=== PATIENT | female | born 1945 | race Caucasian/White ===

== ENCOUNTER → 2017-02-12 | Outpatient (CLI) | payer MEDICARE ==
--- NOTE | 2017-02-16 07:06 | MM ---
Reason for exam: screening (asymptomatic). Last mammogram was performed 5 years and 7 months ago. History: Patient is postmenopausal and is nulliparous. Family history of breast cancer in maternal cousin. Core biopsy of the left breast, 2009. Physical Findings: A clinical breast exam by your physician is recommended on an annual basis and results should be correlated with mammographic findings. MG 3D Screening Mammo W/Cad Bilateral CC and MLO view(s) were taken. Prior study comparison: July 23, 2011, CAD bilateral diagnostic mammogram. The breast tissue is almost entirely fat. Finding: There are grouped calcifications in the left breast, near prior biopsy site. Increase in number of calcifications since July 23, 2011. ASSESSMENT: Incomplete: need additional imaging evaluation, BI-RAD 0 RECOMMENDATION: Special view mammogram of the left breast. If lesion persists on supplemental views, image directed ultrasound is recommended. [facility] will attempt to contact patient to return for supplemental views and ultrasound if indicated.
== END | disposition home or self-care (01) ==
LOC: RADMAMWWP 13:41
PROVIDERS: ATTEND Family Medicine
DX: Z12.31 Encounter for screening mammogram for malignant neoplasm of breast (principal); R92.8 Other abnormal and inconclusive findings on diagnostic imaging of breast
CPT/HCPCS: 77063; G0202

== ENCOUNTER → 2017-02-23 | Outpatient (CLI) | payer MEDICARE ==
--- NOTE | 2017-02-24 07:32 | MM ---
Reason for exam: additional evaluation requested from abnormal screening. Last mammogram was performed less than 1 month ago. History: Patient is postmenopausal and is nulliparous. Family history of breast cancer in maternal cousin at age 65. Core biopsy of the left breast, 2009. Taking progesterone for 1 year. Physical Findings: Nurse did not find any significant physical abnormalities on exam. MG Work Up Mamm w CAD LT CC with magnification, ML with magnification, and ML view(s) were taken of the left breast. Prior study comparison: February 12, 2017, bilateral MG 3d screening mammo w/cad. July 23, 2011, CAD bilateral diagnostic mammogram. Finding: There are amorphous, grouped/clustered calcifications in the lower inner quadrant, anterior middle position of the left breast. Increase in number of calcifications since February 12, 2017 and July 23, 2011. These results were verbally communicated with the patient and result sheet given to the patient on 02/23/17. ASSESSMENT: Suspicious, BI-RAD 4 RECOMMENDATION: Stereotactic core biopsy of the left breast. (if possible) Called Dr. Cannon with mammographic findings and has scheduled an appointment for the patient for 04/22/17 at 3:[address] Voss. PRELIMINARY REPORT CALLED AND FAXED TO DR. VOSS ON 05/27/17 AT 300/TP.
== END | disposition home or self-care (01) ==
LOC: RADMAMWWP 13:27
PROVIDERS: ATTEND Family Medicine
DX: R92.8 Other abnormal and inconclusive findings on diagnostic imaging of breast (principal)

== ENCOUNTER → 2017-02-24 | Outpatient (CLI) | payer MEDICARE ==
--- NOTE | 2017-02-24 17:15 | US ---
EXAMINATION TYPE: US pelvis complete transvag DATE OF EXAM: 02/24/2017 COMPARISON: CT CLINICAL HISTORY: N95.0 POST MENOPAUSAL BLEEDING. Pt states bleeding x 2 weeks, pt states history of multiple D&C's, most recent one in 2016 TECHNIQUE: Transvaginal (TV) and Transabdominal (TA) Date of LMP: Age 60-61 EXAM MEASUREMENTS: Uterus: 7.8 x 3.9 x 3.8 cm Endometrial Stripe: 1.2 cm Difficult exam due to pt morbid obesity 1. Uterus: Anteverted Heterogeneous 2. Endometrium: Thickened, heterogeneous 3. Right Ovary: Obscured by overlying bowel gas 4. Left Ovary: Obscured by overlying bowel gas 5. Bilateral Adnexa: wnl 6. Posterior cul-de-sac: wnl Uterus is mildly heterogenous. This may reflect adenomyosis. Endometrial stripe measures 1.2 cm. Neit her ovary was visualized. No free fluid was seen. IMPRESSION: TECHNICALLY DIFFICULT EXAMINATION DEMONSTRATING HETEROGENEITY TO THE UTERUS WHICH MAY REFLECT ADENOMY OSIS.
== END | disposition home or self-care (01) ==
LOC: RADUSWWP 13:08
PROVIDERS: ATTEND Obstetrics & Gynecology
DX: N95.0 Postmenopausal bleeding (principal)
CPT/HCPCS: 76830; 76856

== ENCOUNTER → 2018-03-17 | Outpatient (CLI) | payer MEDICARE ==
--- NOTE | 2018-03-17 15:06 | MM ---
Reason for exam: additional evaluation requested from prior study. Last mammogram was performed 1 year and 1 month ago. History: Patient is postmenopausal and is nulliparous. Family history of breast cancer in maternal cousin at age 65. Benign core biopsy of the left breast, 2016. Core biopsy of the left breast, 2009. Taking progesterone for 1 year. Physical Findings: Nurse did not find any significant physical abnormalities on exam. MG 3D Diag Mammo W/Cad BJORN Bilateral CC and MLO view(s) were taken. Prior study comparison: February 23, 2017, left breast MG work up mamm w CAD LT. February 12, 2017, bilateral MG 3d screening mammo w/cad. There are scattered fibroglandular densities. Previous mammotome biopsy in the left breast x 2. No significant new findings when compared with previous films. These results were verbally communicated with the patient and result sheet given to the patient on 03/17/18. ASSESSMENT: Negative, BI-RAD 1 RECOMMENDATION: Routine screening mammogram of both breasts in 1 year.
--- NOTE | 2018-03-17 16:31 | BD ---
EXAMINATION TYPE: Axial Bone Density DATE OF EXAM: 03/17/2018 COMPARISON: NONE CLINICAL HISTORY: 73-year-old female postmenopausal screening Height: Weight: FRAX RISK QUESTIONS: Alcohol (3 or more units per day): no Family History (Parent hip fracture): no Glucocorticoids (More than 3mos): no (Ex: prednisone, prednisolone, methylprednisolone, dexamethasone, and hydrocortisone). History of Fracture in Adulthood: no Secondary Osteoporosis: 1. Type 1 Diabetes: no 2. Hyperthyroidism: no 3. Menopause before 45: no 4. Malnutrition: no 5. Chronic liver disease: no Rheumatoid Arthritis: no Current Tobacco Use: no RISK FACTORS HISTORY OF: Family History of Osteoporosis: no Active: no Diet low in dairy products/other sources of calcium: no Postmenopausal woman: age 53 Take estrogen and/or progesterone medications: provera How lon years Lost more than 2 inches in height since high school: yes MEDICATIONS: list scanned into pacs Additional History: EXAM MEASUREMENTS: Bone mineral densitometry was performed using the [employer] System. Bone mineral density as measured about the Lumbar spine is: ----- L1-L4(G/cm2): 1.648 T Score Values are as follows: ----- L2: 3.8 ----- L3: 3.3 ----- L4: 4.1 ----- L1-L4: 3.9 Bone mineral density : baseline Bone mineral density about the R hip (g/cm2): 1.006 Bone mineral density about the L hip (g/cm2): 0.944 T Score values are as follows: -----R Neck: -0.2 -----L Neck: -0.7 -----R Total: 1.0 -----L Total: 0.1 Bone mineral density : baseline IMPRESSION: Normal (Values between +1 and -1 indicate normal bone mass). Consider repeating this study in 5 year s or sooner if there is some new clinical indication. NOTE: T-SCORE=SD OF THE YOUNG ADULT MEAN.
== END | disposition home or self-care (01) ==
LOC: RADBDWWP 12:46
PROVIDERS: ATTEND Family Medicine
DX: R92.8 Other abnormal and inconclusive findings on diagnostic imaging of breast (principal); Z78.0 Asymptomatic menopausal state
CPT/HCPCS: 77080; 77066; G0279; 77062

== ENCOUNTER → 2020-07-04 | Outpatient (CLI) | payer MEDICARE ==
--- NOTE | 2020-07-04 14:23 | BD ---
EXAMINATION TYPE: Axial Bone Density DATE OF EXAM: 07/04/2020 COMPARISON: NONE CLINICAL HISTORY: Height: 67 Weight: 298.1 FRAX RISK QUESTIONS: Alcohol (3 or more units per day): no Family History (Parent hip fracture): no Glucocorticoids (More than 3mos): no (Ex: prednisone, prednisolone, methylprednisolone, dexamethasone, and hydrocortisone). History of Fracture in Adulthood: no Secondary Osteoporosis: 1. Type 1 Diabetes: no 2. Hyperthyroidism: no 3. Menopause before 45: no 4. Malnutrition: no 5. Chronic liver disease: no Rheumatoid Arthritis: no Current Tobacco Use: no RISK FACTORS HISTORY OF: Family History of Osteoporosis: no Active: no Diet low in dairy products/other sources of calcium: no Postmenopausal woman: around age 61 Take estrogen and/or progesterone medications: yes How lon years Lost more than 2 inches in height since high school: yes MEDICATIONS: diabetic meds, provera, losartan, eliquis, montelukast, furosemide Additional History: EXAM MEASUREMENTS: Bone mineral densitometry was performed using the [employer] System. Bone mineral density as measured about the Lumbar spine is: ----- L1-L4(G/cm2): 1.677 T Score Values are as follows: ----- L2: 3.7 ----- L3: 4.0 ----- L4: 5.5 ----- L1-L4: 4.1 Bone mineral density has: increased 5.3 % since study of: 03.17.2018 Bone mineral density about the R hip (g/cm2): 1.103 Bone mineral density about the L hip (g/cm2): 1.164 T Score values are as follows: -----R Neck: 0.5 -----L Neck: 0.9 -----R Total: 1.4 -----L Total: 1.7 Bone mineral density has: increased 12.1 % since study of: 03.17.2018 IMPRESSION: Normal (Values between +1 and -1 indicate normal bone mass). Consider repeating this study in 5 year s or sooner if there is some new clinical indication. NOTE: T-SCORE=SD OF THE YOUNG ADULT MEAN.
== END | disposition home or self-care (01) ==
LOC: RADBDWWP 13:21
PROVIDERS: ATTEND Family Medicine
DX: Z78.0 Asymptomatic menopausal state (principal)
CPT/HCPCS: 77080

== ENCOUNTER 2020-07-23 03:22 | Inpatient (IN) | payer MEDICARE ==
[2020-07-23] MEDS ORDERED: ACETAMINOPHEN TAB 325 MG TAB PO STA (03:24)
--- NOTE | 2020-07-23 03:27 | ED ---
SOB HPI - General Stated Complaint: ELLIS Time Seen by Provider: 07/23/20 03:24 - History of Present Illness Initial Comments: Moses this 75-year-old female with a history of asthma and diabetes who presents to the ER today via ambulance for evaluation of fever and dyspnea. she reports she has been feeling good for a couple of days, she's had a nonproductive cough. She denies any chest pain or palpitations. Staff at her facility report they have had no positive COVID cases as of yet. - Related Data Home Medications Medication Instructions Recorded Confirmed Fish Oil/Dha/Epa [Fish Oil 1,200 1 cap PO BID 03/25/16 06/28/16 mg Fish Oil] Glucosamine-Chondr 500-400Mg 1 tab PO BID 03/25/16 06/28/16 metFORMIN HCL [Glucophage Xr] 1,000 mg PO PC-BRKFST 03/25/16 06/28/16 Albuterol Inhaler (Mhu) [Ventolin 2 puff INHALATION RT-Q6H PRN 06/28/16 06/28/16 Hfa Inhaler (Mhu)] Desoximetasone [Topicort .05%] 1 applic TOPICAL DAILY PRN 06/28/16 06/28/16 Insulin Aspart [NovoLOG Flexpen] 20 - 30 units SQ AC-TID 06/28/16 06/28/16 Insulin Glargine,Hum.rec.anlog 45 - 65 unit SQ HS 06/28/16 06/28/16 [Lantus Solostar] Megestrol [Megace] 40 mg PO BID 06/28/16 06/28/16 Triamcinolone 0.025% Cream 1 applic TOPICAL DAILY 06/28/16 06/28/16 [Kenalog 0.025% Cream] Previous Rx's Medication Instructions Recorded ALPRAZolam [Xanax] 0.25 mg PO BID PRN #0 tab 07/14/16 Acetaminophen Tab [Tylenol] 650 mg PO Q4H PRN #0 tab 07/14/16 Clobetasol Propionate [Temovate 1 applic TOPICAL BID applic 07/14/16 0.05% Oint] Clopidogrel [Plavix] 75 mg PO DAILY tab 07/14/16 Ezetimibe [Zetia] 10 mg PO DAILY tab 07/14/16 Furosemide [Lasix] 40 mg PO BID #30 tablet 07/14/16 HYDROcodone/APAP 5-325MG [Celeste 1 each PO Q4HR PRN #0 tab 07/14/16 5-325] Losartan [Cozaar] 25 mg PO DAILY #30 tab 07/14/16 Metoprolol Tartrate [Lopressor] 25 mg PO BID tab 07/14/16 Montelukast [Singulair] 10 mg PO HS tab 07/14/16 Potassium Chloride [Klor-Con 20] 20 meq PO DAILY #30 tab 07/14/16 Allergies Allergy/AdvReac Type Severity Reaction Status Date / Time Penicillins AdvReac Rash/Hives Verified 07/23/20 03:23 Rofvtxb-Yhj-Ydw Reductase AdvReac EXTREME Verified 07/23/20 03:23 Inhibitor MUSCLE PAIN AND WEAKNESS Review of Systems ROS Statement: Those systems with pertinent positive or pertinent negative responses have been documented in the HPI. ROS Other: All systems not noted in ROS Statement are negative. Past Medical History Past Medical History: Asthma, Diabetes Mellitus, Hypertension, Osteoarthritis (OA), Skin Disorder, Sleep Apnea/CPAP/BIPAP, Vascular Disorder Additional Past Medical History / Comment(s): Bronchial asthma, coronary stent 3, morbid obesity, obstructive sleep apnea, diabetes mellitus type 2, eczema, peripheral vascular disease, obstructive sleep apnea on CPAP, diverticulosis/diverticulitis and previous left wound in the foot with infection with MRSA and the patient has a partial amputation of the left foot History of Any Multi-Drug Resistant Organisms: MRSA Date of last positivie culture/infection: 2010 MDRO Source:: LT FOOT WOUND Past Surgical History: Appendectomy, Heart Catheterization With Stent, Tonsillectomy Additional Past Surgical History / Comment(s): PARTIAL AMPUTATION LT FOOT with previous amputation of the left great toe,. D & C, cataract surgery, breast biopsy Past Anesthesia/Blood Transfusion Reactions: Motion Sickness, Postoperative Nausea & Vomiting (PONV) Date of Last Stent Placement:: 2007 Past Psychological History: Depression Additional Psychological History / Comment(s): SEE THERAPIST WHEN NEEDED-NOT ON ANY MEDS Past Alcohol Use History: Occasional Additional Past Alcohol Use History / Comment(s): SMOKED IN EARLY 20'S-STOPPED in twenties. Patient is currently residing at [facility] and is wheelchair-bound. She needs assistance with showering. There are no pets in the home. 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 Past Drug Use History: None Reported - Past Family History Mother Family Medical History: Cancer, CVA/TIA Additional Family Medical History / Comment(s): HAD MULTIPLE PROBLEMS- OF CVA Sister(s) Family Medical History: Cancer Additional Family Medical History / Comment(s): Uterine Cancer General Exam - General Exam Comments Initial Comments: Physical Exam GENERAL: Elderly, mobidly obese female HENT: Normocephalic, Atraumatic. EYES: PERRL, EOMI Conjunctival pallor PULMONARY: Tachypnea with increased work of breathing CARDIOVASCULAR: RRR ABDOMEN: Obese, soft SKIN: Skin is pale : Deferred NEUROLOGIC: Patient is alert and oriented x3. Moving all extremities spontaneously MUSCULOSKELETAL: Left foot amputation PSYCHIATRIC: Appropriately anxious Course Vital Signs 07/23/20 07/23/20 07/23/20 03:23 03:27 03:34 Temperature 100.8 F H Pulse Rate 91 Respiratory 40 H 51 H Rate Blood Pressure 165/70 O2 Sat by Pulse 98 Oximetry 07/23/20 07/23/20 07/23/20 03:40 03:53 04:05 Temperature 99.5 F 100.8 F H 99.8 F H Pulse Rate 86 84 85 Respiratory 35 H 38 H 18 Rate Blood Pressure 153/63 153/63 129/51 O2 Sat by Pulse 98 98 99 Oximetry 07/23/20 07/23/20 04:26 04:56 Temperature 99 F Pulse Rate 80 77 Respiratory 18 28 H Rate Blood Pressure 129/51 142/61 O2 Sat by Pulse 94 L 91 L Oximetry Medical Decision Making - Medical Decision Making patient was seen and evaluated history is obtained from EMS as the patient was in moderate respiratory distress on arrival A full COVID and septic workup was initiated she has had no known context to COVID however history and physical exam are quite concerning Labs are consistent with COVID She was swabbed she is influenza negative, rapid COVID was indeterminate and was repeated however given her clinical setting I do suspect the patient has COVID Patient also noted to be anemic, uncertain etiology but appears chronic as it is hypochromic microcytic anemia, last CBC for comparison was 2015 Given the patient's oxygenation was in the 70s upon EMS arrival and she is requiring oxygen supplementation I do not feel she states for discharge back to her care facility. Patient will be admitted here for hypoxic respiratory failure likely related to COVID. She'll be treated with steroids pulmonology will be consult at to determine patient is now a candidate for Remdesivir. - Lab Data Result diagrams: 07/23/20 03:35 07/23/20 03:35 Lab Results 07/23/20 07/23/20 07/23/20 Range/Units 03:33 03:35 03:35 WBC 12.7 H (3.8-10.6) k/uL RBC 3.56 L (3.80-5.40) m/uL Hgb 7.1 L (11.4-16.0) gm/dL Hct 24.9 L (34.0-46.0) % MCV 69.9 L (80.0-100.0) fL MCH 20.0 L (25.0-35.0) pg MCHC 28.6 L (31.0-37.0) g/dL RDW 18.5 H (11.5-15.5) % Plt Count 269 (150-450) k/uL MPV 9.3 Neutrophils % 84 % Lymphocytes % 9 % Monocytes % 5 % Eosinophils % 0 % Basophils % 0 % Neutrophils # 10.7 H (1.3-7.7) k/uL Lymphocytes # 1.1 (1.0-4.8) k/uL Monocytes # 0.6 (0-1.0) k/uL Eosinophils # 0.0 (0-0.7) k/uL Basophils # 0.1 (0-0.2) k/uL Hypochromasia Marked Poikilocytosis Slight Anisocytosis Slight Microcytosis Marked PT 11.7 (9.0-12.0) sec INR 1.2 H (<1.2) APTT 23.7 (22.0-30.0) sec D-Dimer 1.65 H (<0.60) mg/L FEU VBG pH (7.31-7.41) VBG pCO2 (37-51) mmHg VBG HCO3 (24-28) mmol/L Sodium (137-145) mmol/L Potassium (3.5-5.1) mmol/L Chloride (98-107) mmol/L Carbon Dioxide (22-30) mmol/L Anion Gap mmol/L BUN (7-17) mg/dL Creatinine (0.52-1.04) mg/dL Est GFR (CKD-EPI)AfAm (>60 ml/min/1.73 sqM) Est GFR (CKD-EPI)NonAf (>60 ml/min/1.73 sqM) Glucose (74-99) mg/dL POC Glucose (mg/dL) 245 H (75-99) mg/dL POC Glu Scanner Operator ID Pinto, Pam Plasma Lactic Acid Clarence (0.7-2.0) mmol/L Calcium (8.4-10.2) mg/dL Magnesium (1.6-2.3) mg/dL Total Bilirubin (0.2-1.3) mg/dL AST (14-36) U/L ALT (4-34) U/L Alkaline Phosphatase (38-126) U/L Lactate Dehydrogenase (313-618) U/L C-Reactive Protein (<10.0) mg/L Total Protein (6.3-8.2) g/dL Albumin (3.5-5.0) g/dL Urine Color Urine Appearance (Clear) Urine pH (5.0-8.0) Ur Specific [place] (1.001-1.035) Urine Protein (Negative) Urine Glucose (UA) (Negative) Urine Ketones (Negative) Urine Blood (Negative) Urine Nitrite (Negative) Urine Bilirubin (Negative) Urine Urobilinogen (<2.0) mg/dL Ur Leukocyte Esterase (Negative) Urine RBC (0-5) /hpf Urine WBC (0-5) /hpf Ur Squamous Epith Cells (0-4) /hpf Urine Bacteria (None) /hpf Influenza Type A RNA (Not Detectd) Influenza Type B (PCR) (Not Detectd) 07/23/20 07/23/20 07/23/20 Range/Units 03:35 03:35 03:35 WBC (3.8-10.6) k/uL RBC (3.80-5.40) m/uL Hgb (11.4-16.0) gm/dL Hct (34.0-46.0) % MCV (80.0-100.0) fL MCH (25.0-35.0) pg MCHC (31.0-37.0) g/dL RDW (11.5-15.5) % Plt Count (150-450) k/uL MPV Neutrophils % % Lymphocytes % % Monocytes % % Eosinophils % % Basophils % % Neutrophils # (1.3-7.7) k/uL Lymphocytes # (1.0-4.8) k/uL Monocytes # (0-1.0) k/uL Eosinophils # (0-0.7) k/uL Basophils # (0-0.2) k/uL Hypochromasia Poikilocytosis Anisocytosis Microcytosis PT (9.0-12.0) sec INR (<1.2) APTT (22.0-30.0) sec D-Dimer (<0.60) mg/L FEU VBG pH 7.27 L (7.31-7.41) VBG pCO2 46 (37-51) mmHg VBG HCO3 20 L (24-28) mmol/L Sodium 134 L (137-145) mmol/L Potassium 4.9 (3.5-5.1) mmol/L Chloride 105 (98-107) mmol/L Carbon Dioxide 20 L (22-30) mmol/L Anion Gap 9 mmol/L BUN 17 (7-17) mg/dL Creatinine 1.08 H (0.52-1.04) mg/dL Est GFR (CKD-EPI)AfAm 59 (>60 ml/min/1.73 sqM) Est GFR (CKD-EPI)NonAf 51 (>60 ml/min/1.73 sqM) Glucose 224 H (74-99) mg/dL POC Glucose (mg/dL) (75-99) mg/dL POC Glu Scanner Operator ID Plasma Lactic Acid Clarence 3.9 H* (0.7-2.0) mmol/L Calcium 8.8 (8.4-10.2) mg/dL Magnesium 1.8 (1.6-2.3) mg/dL Total Bilirubin 0.7 (0.2-1.3) mg/dL AST 33 (14-36) U/L ALT 16 (4-34) U/L Alkaline Phosphatase 72 (38-126) U/L Lactate Dehydrogenase 595 (313-618) U/L C-Reactive Protein 47.6 H (<10.0) mg/L Total Protein 6.8 (6.3-8.2) g/dL Albumin 3.7 (3.5-5.0) g/dL Urine Color Urine Appearance (Clear) Urine pH (5.0-8.0) Ur Specific [place] (1.001-1.035) Urine Protein (Negative) Urine Glucose (UA) (Negative) Urine Ketones (Negative) Urine Blood (Negative) Urine Nitrite (Negative) Urine Bilirubin (Negative) Urine Urobilinogen (<2.0) mg/dL Ur Leukocyte Esterase (Negative) Urine RBC (0-5) /hpf Urine WBC (0-5) /hpf Ur Squamous Epith Cells (0-4) /hpf Urine Bacteria (None) /hpf Influenza Type A RNA (Not Detectd) Influenza Type B (PCR) (Not Detectd) 07/23/20 07/23/20 Range/Units 03:44 03:44 WBC (3.8-10.6) k/uL RBC (3.80-5.40) m/uL Hgb (11.4-16.0) gm/dL Hct (34.0-46.0) % MCV (80.0-100.0) fL MCH (25.0-35.0) pg MCHC (31.0-37.0) g/dL RDW (11.5-15.5) % Plt Count (150-450) k/uL MPV Neutrophils % % Lymphocytes % % Monocytes % % Eosinophils % % Basophils % % Neutrophils # (1.3-7.7) k/uL Lymphocytes # (1.0-4.8) k/uL Monocytes # (0-1.0) k/uL Eosinophils # (0-0.7) k/uL Basophils # (0-0.2) k/uL Hypochromasia Poikilocytosis Anisocytosis Microcytosis PT (9.0-12.0) sec INR (<1.2) APTT (22.0-30.0) sec D-Dimer (<0.60) mg/L FEU VBG pH (7.31-7.41) VBG pCO2 (37-51) mmHg VBG HCO3 (24-28) mmol/L Sodium (137-145) mmol/L Potassium (3.5-5.1) mmol/L Chloride (98-107) mmol/L Carbon Dioxide (22-30) mmol/L Anion Gap mmol/L BUN (7-17) mg/dL Creatinine (0.52-1.04) mg/dL Est GFR (CKD-EPI)AfAm (>60 ml/min/1.73 sqM) Est GFR (CKD-EPI)NonAf (>60 ml/min/1.73 sqM) Glucose (74-99) mg/dL POC Glucose (mg/dL) (75-99) mg/dL POC Glu Scanner Operator ID Plasma Lactic Acid Clarence (0.7-2.0) mmol/L Calcium (8.4-10.2) mg/dL Magnesium (1.6-2.3) mg/dL Total Bilirubin (0.2-1.3) mg/dL AST (14-36) U/L ALT (4-34) U/L Alkaline Phosphatase (38-126) U/L Lactate Dehydrogenase (313-618) U/L C-Reactive Protein (<10.0) mg/L Total Protein (6.3-8.2) g/dL Albumin (3.5-5.0) g/dL Urine Color Yellow Urine Appearance Clear (Clear) Urine pH 6.0 (5.0-8.0) Ur Specific [place] 1.016 (1.001-1.035) Urine Protein 2+ H (Negative) Urine Glucose (UA) Negative (Negative) Urine Ketones Negative (Negative) Urine Blood Moderate H (Negative) Urine Nitrite Negative (Negative) Urine Bilirubin Negative (Negative) Urine Urobilinogen <2.0 (<2.0) mg/dL Ur Leukocyte Esterase Negative (Negative) Urine RBC >182 H (0-5) /hpf Urine WBC 2 (0-5) /hpf Ur Squamous Epith Cells <1 (0-4) /hpf Urine Bacteria Occasional H (None) /hpf Influenza Type A RNA Not Detected (Not Detectd) Influenza Type B (PCR) Not Detected (Not Detectd) Disposition Clinical Impression: Microcytic hypochromic anemia, COVID-19 determined by clinical diagnostic criteria, Pneumonia, Acute respiratory failure, Asthma, Morbid obesity, PVD (peripheral vascular disease), Complete amputation of left foot, Diabetes, CHF (congestive heart failure) Disposition: ADMITTED IP TO THIS [facility] Condition: Serious
[2020-07-23 03:35] LABS: Glucose,Whole Blood 245 mg/dL (75-99)
[2020-07-23] MEDS ORDERED: ONDANSETRON 4 MG/2 ML VIAL IVP STA (03:39)
[2020-07-23] MEDS: SODIUM CHLORIDE 0.9% 1,000 ML IV SCH ×3 (03:40→21:59)
[2020-07-23 04:11] LABS: Appearance,Urine Clear (Clear); Bacteria,Urine Occasional /hpf; Bilirubin,Urine Negative (Negative); Blood,Urine Moderate (Negative); Color,Urine Yellow; Glucose,Urine (UA) Negative (Negative); Ketones,Urine Negative (Negative); Leukocyte Esterase,Urine Negative (Negative); Nitrite,Urine Negative (Negative); Protein,Urine 2+ (Negative); RBC,Urine >182 /hpf (0-5); Specific Gravity,Urine 1.016 (1.001-1.035); Squamous Epithelial Cell,Urine <1 /hpf (0-4); Urobilinogen,Urine <2.0 mg/dL (<2.0); WBC,Urine 2 /hpf (0-5)
[2020-07-23 04:12] LABS: VBG PH 7.27 (7.31-7.41)
[2020-07-23 04:17] LABS: INR 1.2 (<1.2); Partial Thromboplastin Time 23.7 sec (22.0-30.0); Prothrombin Time 11.7 sec (9.0-12.0)
[2020-07-23 04:18] LABS: Albumin 3.7 g/dL (3.5-5.0); C Reactive Protein 47.6 mg/L (<10.0); Calcium 8.8 mg/dL (8.4-10.2); Magnesium 1.8 mg/dL (1.6-2.3); Potassium 4.9 mmol/L (3.5-5.1); Total Bilirubin 0.7 mg/dL (0.2-1.3); Total Protein 6.8 g/dL (6.3-8.2)
--- NOTE | 2020-07-23 04:18 | XR ---
EXAM: XR Chest, 1 View CLINICAL HISTORY: ITS.REASON XR Reason: Suspected COVID-19 pneumonia TECHNIQUE: Frontal view of the chest. COMPARISON: 07/14/2016 FINDINGS: Lungs: Diminished lung volumes are less prominent from the previous examination. There are subsegmental perihilar and bibasilar opacities with new patchy opacity in the peripheral aspect of the right lower lung zone. Pulmonary vascular prominence suggested diffusely. Pleural space: Unremarkable. No pneumothorax. No large pleural effusion. Heart: The cardiac silhouette is upper limits of normal in caliber, stable in appearance and presumed accentuated by portable technique. Mediastinum: The mediastinal contours are stable with intact mediastinal clips. No tracheal deviation. Bones/joints: Intact sternotomy wires. IMPRESSION: Diminished lung volumes are less prominent from the previous examination. There are subsegmental perihilar and bibasilar opacities with new patchy opacity in the peripheral aspect of the right lower lung zone. Pulmonary vascular prominence suggested diffusely. Differential consideration includes bibasilar atelectasis or consolidation. No large pleural effusion or pneumothorax.
[2020-07-23 04:23] LABS: D-Dimer 1.65 mg/L FEU (<0.60)
[2020-07-23 04:26] LABS: Anisocytosis Slight; Basophils # (A) 0.1 k/uL (0-0.2); Basophils % (A) 0 %; Eosinophils % (A) 0 %; HCT 24.9 % (34.0-46.0); HGB 7.1 gm/dL (11.4-16.0); Hypochromasia Marked; Lymphocytes # (A) 1.1 k/uL (1.0-4.8); Lymphocytes % (A) 9 %; MCHC 28.6 g/dL (31.0-37.0); MCV 69.9 fL (80.0-100.0); Mean Platelet Volume 9.3; Microcytosis Marked; Monocytes # (A) 0.6 k/uL (0-1.0); Monocytes % (A) 5 %; Neutrophils # (A) 10.7 k/uL (1.3-7.7); Neutrophils % (A) 84 %; Platelet Count 269 k/uL (150-450); Poikilocytosis Slight; RBC 3.56 m/uL (3.80-5.40); RDW 18.5 % (11.5-15.5); WBC 12.7 k/uL (3.8-10.6)
[2020-07-23] MEDS ORDERED: PNEUMONIA PROTOCOL UTILIZED 1 EACH MISC PO PRN (04:26)
[2020-07-23] MEDS ORDERED: AZITHROMYCIN 500 MG in SODIUM CHLORIDE 0.9% 250 ML IVPB ONE (04:30)
[2020-07-23] MEDS: DEXAMETHASONE SOD PHOSPHATE 10 MG/ML 1 ML VIAL IV SCH (09:04)
[2020-07-23] MEDS: ZINC SULFATE 220 MG CAP PO SCH (09:05)
[2020-07-23] MEDS: ASCORBIC ACID 500 MG TAB PO SCH ×2 (09:05→14:09)
[2020-07-23 09:49] LABS: Ferritin 9.3 ng/mL (10.0-291.0)
[2020-07-23] MEDS ORDERED: FUROSEMIDE 20 MG TAB PO SCH (10:45)
[2020-07-23] MEDS ORDERED: INSULIN DETEMIR (LEVEMIR) 100 UNIT/ML SYR SQ SCH (10:45)
[2020-07-23 12:01] LABS: Glucose,Whole Blood 264 mg/dL (75-99)
[2020-07-23] MEDS: metFORMIN 500 MG TAB PO SCH ×2 (14:09→21:52)
[2020-07-23] MEDS: METOPROLOL TARTRATE 25 MG TAB PO SCH ×2 (14:09→21:52)
[2020-07-23] MEDS: APIXABAN 5 MG TAB PO SCH ×2 (14:09→21:52)
[2020-07-23] MEDS: INSULIN ASPART (NovoLOG) 100 UNIT/ML VIAL SQ SCH ×5 (14:10→21:53)
--- NOTE | 2020-07-23 15:22 | P.CNPUL ---
History of Present Illness Consult date: 07/23/20 Reason for consult: dyspnea Chief complaint: Fever, dyspnea, dizziness, fall History of present illness: 75-year-old white female patient with past medical history of chronic bronchial asthma, known history of obstructive sleep apnea on CPAP therapy, peripheral vascular disease, diabetes mellitus type 2, hypertension, osteoarthritis, coronary artery disease with previous stenting, morbid obesity, previous MRSA infection in the left foot, and she follows with Dr. Ramirez in the pulmonary clinic for her history of obstructive sleep apnea. Patient presented to the hospital 07/23/2020 with complaints of fever, dyspnea and started last night. Patient had a cough, sinus drainage, dizziness, she was having trouble sleeping related to shortness of breath, she sustained a fall. She is a resident at the [facility]. She denies any chest pain or palpitations, but when she arrived per EMS her pulse ox was in the 70s on room air. No nausea vomiting and diarrhea, rapid COVID 19 was negative. Influenza negative. Chest x-ray showing diminished lung volumes subsegmental perihilar and basilar opacities with new patchy opacity in the peripheral aspect of the right lower lung zone, pulmonary vascular prominence, differential consideration with bibasilar atelectasis or consolidation. EKG showed normal sinus rhythm with evidence of nonspecific intraventricular block, inferior infarct of undetermined age as well as possible anterolateral infarct of undetermined age. Low-grade fever on admission with a temp of 100.8F, currently afebrile, white blood cell count is 12.7, hemoglobin is 7.1, INR is 1.2, d-dimer is 1.65, sodium is 134, potassium is 4.9, chloride is 105, CO2 is 20, BUN of 17, creatinine is 1.08, lactic acid was 3.9, ferritin level was 9.3, CRP was 47.6, LDH was 595, pro calcitonin was 0.21, urinalysis showed moderate amount of blood, 2+ protein, but no clear evidence of UTI. Patient was started on steroids, for possibility of Covid 19 related pneumonitis, and we were consulted for possibility of Remdesivir infusion Review of Systems All systems: negative Constitutional: Reports weakness, Denies chills, Denies fever Eyes: denies blurred vision, denies pain Ears, nose, mouth and throat: Denies headache, Denies sore throat Cardiovascular: Denies chest pain, Denies shortness of breath Respiratory: Reports dyspnea, Denies cough Gastrointestinal: Denies abdominal pain, Denies diarrhea, Denies nausea, Denies vomiting Genitourinary: Denies dysuria, Denies hematuria Musculoskeletal: Denies myalgias Integumentary: Denies pruritus, Denies rash Neurological: Denies numbness, Denies weakness Psychiatric: Denies anxiety, Denies depression Endocrine: Denies fatigue, Denies weight change Past Medical History Past Medical History: Asthma, Diabetes Mellitus, Hypertension, Osteoarthritis (OA), Skin Disorder, Sleep Apnea/CPAP/BIPAP, Vascular Disorder Additional Past Medical History / Comment(s): Bronchial asthma, coronary stent 3, morbid obesity, obstructive sleep apnea, diabetes mellitus type 2, eczema, peripheral vascular disease, obstructive sleep apnea on CPAP, diverticulosis/diverticulitis and previous left wound in the foot with infection with MRSA and the patient has a partial amputation of the left foot History of Any Multi-Drug Resistant Organisms: MRSA Date of last positivie culture/infection: 2010 MDRO Source:: LT FOOT WOUND Past Surgical History: Appendectomy, Heart Catheterization With Stent, Tonsillectomy Additional Past Surgical History / Comment(s): PARTIAL AMPUTATION LT FOOT with previous amputation of the left great toe,. D & C, cataract surgery, breast biopsy Past Anesthesia/Blood Transfusion Reactions: Motion Sickness, Postoperative Nausea & Vomiting (PONV) Date of Last Stent Placement:: 2007 Past Psychological History: Depression Additional Psychological History / Comment(s): SEE THERAPIST WHEN NEEDED-NOT ON ANY MEDS Past Alcohol Use History: Occasional Additional Past Alcohol Use History / Comment(s): SMOKED IN EARLY 20'S-STOPPED in twenties. Patient is currently residing at [facility] and is wheelchair-bound. She needs assistance with showering. There are no pets in the home. 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 Past Drug Use History: None Reported - Past Family History Mother Family Medical History: Cancer, CVA/TIA Additional Family Medical History / Comment(s): HAD MULTIPLE PROBLEMS- OF CVA Sister(s) Family Medical History: Cancer Additional Family Medical History / Comment(s): Uterine Cancer Medications and Allergies Home Medications Medication Instructions Recorded Confirmed Type Insulin Aspart [NovoLOG Flexpen] 30 units SQ AC-TID 06/28/16 07/23/20 History Insulin Glargine,Hum.rec.anlog 40 unit SQ BID 06/28/16 07/23/20 History [Lantus Solostar] Acetaminophen Tab [Tylenol] 650 mg PO Q4H PRN #0 tab 07/14/16 07/23/20 Rx Losartan [Cozaar] 25 mg PO DAILY #30 tab 07/14/16 07/23/20 Rx Metoprolol Tartrate [Lopressor] 25 mg PO BID tab 07/14/16 07/23/20 Rx Montelukast [Singulair] 10 mg PO HS tab 07/14/16 07/23/20 Rx ALPRAZolam [Xanax] 0.25 mg PO Q6H PRN 07/23/20 07/23/20 History Albuterol Inhaler [Ventolin Hfa 1 puff INHALATION RT-Q4H PRN 07/23/20 07/23/20 History Inhaler] Apixaban [Eliquis] 5 mg PO BID 07/23/20 07/23/20 History Ezetimibe [Zetia] 10 mg PO HS 07/23/20 07/23/20 History Furosemide [Lasix] 60 mg PO DAILY 07/23/20 07/23/20 History amLODIPine [Norvasc] 10 mg PO DAILY 07/23/20 07/23/20 History medroxyPROGESTERone [Provera] 2.5 mg PO DAILY 07/23/20 07/23/20 History metFORMIN HCL [Glucophage] 500 mg PO BID 07/23/20 07/23/20 History Allergies Allergy/AdvReac Type Severity Reaction Status Date / Time Penicillins AdvReac Rash/Hives Verified 07/23/20 09:23 Rdrmegz-Mye-Rtx Reductase AdvReac EXTREME Verified 07/23/20 09:23 Inhibitor MUSCLE PAIN AND WEAKNESS Physical Exam Vitals: Vital Signs Temp Pulse Pulse Resp BP BP Pulse Ox 07/23/20 12:36 97.9 F 76 22 110/65 96 07/23/20 09:06 72 16 132/76 95 07/23/20 07:43 73 16 121/55 85 L 07/23/20 06:24 98.7 F 80 24 106/58 95 07/23/20 04:56 99 F 77 28 H 142/61 91 L 07/23/20 04:26 80 18 129/51 94 L 07/23/20 04:05 99.8 F H 85 18 129/51 99 07/23/20 03:53 100.8 F H 84 38 H 153/63 98 07/23/20 03:40 99.5 F 86 35 H 153/63 98 07/23/20 03:34 51 H 07/23/20 03:27 165/70 07/23/20 03:23 100.8 F H 91 40 H 98 Intake and Output 07/22/20 07/23/20 07/23/20 22:59 06:59 14:59 Other: Weight 144.741 kg 144.741 kg GENERAL EXAM: Alert, very pleasant, obese, 75-year-old white female, 6 L of oxygen, with a pulse ox of 94% comfortable in no apparent distress. HEAD: Normocephalic/atraumatic. EYES: Normal reaction of pupils, equal size. Conjunctiva pink, sclera white. NOSE: Clear with pink turbinates. THROAT: No erythema or exudates. NECK: No masses, no JVD, no thyroid enlargement, no adenopathy. CHEST: No chest wall deformity. Symmetrical expansion. LUNGS: Equal air entry with diffuse bibasilar crackles, no wheeze, rhonchi or dullness. CVS: Regular rate and rhythm, normal S1 and S2, no gallops, no murmurs, no rubs ABDOMEN: Soft, nontender. No hepatosplenomegaly, normal bowel sounds, no guarding or rigidity. EXTREMITIES: No clubbing, no edema, no cyanosis, 2+ pulses and upper and lower extremities. MUSCULOSKELETAL: Muscle strength and tone normal. SPINE: No scoliosis or deformity SKIN: No rashes CENTRAL NERVOUS SYSTEM: Alert and oriented -3. No focal deficits, tone is normal in all 4 extremities. PSYCHIATRIC: Alert and oriented -3. Appropriate affect. Intact judgment and insight. Results - Laboratory Findings CBC and BMP: 07/23/20 03:35 07/23/20 03:35 PT/INR, D-dimer PT 11.7 sec (9.0-12.0) 07/23/20 03:35 INR 1.2 (<1.2) H 07/23/20 03:35 D-Dimer 1.65 mg/L FEU (<0.60) H 07/23/20 03:35 Abnormal lab findings: Abnormal Labs 07/23/20 07/23/20 07/23/20 03:33 03:35 03:35 WBC 12.7 H RBC 3.56 L Hgb 7.1 L Hct 24.9 L MCV 69.9 L MCH 20.0 L MCHC 28.6 L RDW 18.5 H Neutrophils # 10.7 H INR 1.2 H D-Dimer 1.65 H VBG pH VBG HCO3 Sodium Carbon Dioxide Creatinine Glucose POC Glucose (mg/dL) 245 H Plasma Lactic Acid Clarence Ferritin C-Reactive Protein Procalcitonin Urine Protein Urine Blood Urine RBC Urine Bacteria 07/23/20 07/23/20 07/23/20 03:35 03:35 03:35 WBC RBC Hgb Hct MCV MCH MCHC RDW Neutrophils # INR D-Dimer VBG pH VBG HCO3 Sodium 134 L Carbon Dioxide 20 L Creatinine 1.08 H Glucose 224 H POC Glucose (mg/dL) Plasma Lactic Acid Clarence 3.9 H* Ferritin 9.3 L C-Reactive Protein 47.6 H Procalcitonin 0.21 H Urine Protein Urine Blood Urine RBC Urine Bacteria 07/23/20 07/23/20 07/23/20 03:35 03:44 11:51 WBC RBC Hgb Hct MCV MCH MCHC RDW Neutrophils # INR D-Dimer VBG pH 7.27 L VBG HCO3 20 L Sodium Carbon Dioxide Creatinine Glucose POC Glucose (mg/dL) 264 H Plasma Lactic Acid Clarence Ferritin C-Reactive Protein Procalcitonin Urine Protein 2+ H Urine Blood Moderate H Urine RBC >182 H Urine Bacteria Occasional H - Diagnostic Findings Chest x-ray: report reviewed, image reviewed Additional studies: EKG reviewed Assessment and Plan Plan: Assessment: #1. Acute hypoxic respiratory failure, likely related to acute exacerbation of CHF, rapid over 19 test was negative, possibility of interstitial pneumonia is not excluded #2. Lactic acidosis, recovered #3. Dyspnea, fever, weakness, possibly related to pneumonia, first rapid COVID 19 was negative #4. Chronic bronchial asthma, unspecified #5. Morbid obesity #6. Obstructive sleep apnea on CPAP therapy #7. Diabetes mellitus type 2 #8. Hypertension #9. Osteoarthritis #10. Coronary artery disease, with previous stenting and grafting Plan: Continue antibiotics, will start the patient on once daily dose of IV Lasix 60 mg, continue steroids, continue antibiotics, we'll send her proBNP level, blood cultures pending, no significant cough or congestion, wheezing. May have to repeat the rapid Covid 19 in the 72 hours after the first one is the suspicion remains high for coronavirus infection. Continue in drop precautions, continue in isolation, monitor febrile pattern, monitor oxygenation pattern, follow-up chest x-ray tomorrow I performed a history & physical examination of the patient and discussed their management with my nurse practitioner, Anna Gifford. I reviewed the nurse practitioner's note and agree with the documented findings and plan of care. Lung sounds are positive for diffuse crackles. The findings and the impression was discussed with the patient. I attest to the documentation by the nurse practitioner. Time with Patient: Greater than 30
[2020-07-23] MEDS: FUROSEMIDE 10 MG/ML 10 ML VIAL IV SCH (16:55)
[2020-07-23] MEDS: LOSARTAN 25 MG TAB PO SCH (16:55)
[2020-07-23] MEDS: amLODIPine 10 MG TAB PO SCH (16:56)
[2020-07-23 17:57] LABS: Glucose,Whole Blood 332 mg/dL (75-99)
[2020-07-23] MEDS: INSULIN DETEMIR (LEVEMIR) 100 UNIT/ML SYR SQ SCH (18:56)
[2020-07-23 21:29] LABS: Glucose,Whole Blood 227 mg/dL (75-99)
[2020-07-23] MEDS: MONTELUKAST 10 MG TAB PO SCH (21:52)
[2020-07-23] MEDS: EZETIMIBE 10 MG TAB PO SCH (21:53)
--- NOTE | 2020-07-23 22:00 | P.HPIM ---
History of Present Illness H&P Date: 07/23/20 Chief Complaint: Shortness of breath History of presenting complaint: This is a very pleasant 75-year-old patient of Dr. Cannon. Patient is a resident of assisted living [facility]. Normally uses a wheelchair and a walker. No history of smoking. Alcohol occasional. Chronic stable medical conditions include diabetes, hypertension, osteoarthritis, obstructive sleep apnea uses CPAP, diverticulosis, partial limitation of left foot, coronary artery disease with stent. About a week ago patient felt he had some sinus symptoms. Subsequently started having headaches. Tired. Some muscle aches. Became more short of breath yesterday. Also had a fever. Has been constipated. Lost her appetite for about a week. Has a dry cough. The no COVID cases at the facility. Review of systems: GEN.: Fever and chills tired EYES: None HEENT: Headache NECK: None RESPIRATORY: Short of breath dry cough CARDIOVASCULAR: None GASTROINTESTINAL: None GENITOURINARY: Constipation MUSCULOSKELETAL: Muscle or joint pains LYMPHATICS: None HEMATOLOGICAL: None PSYCHIATRY: None NEUROLOGICAL: None Past medical history to include: Asthma, diabetes, hypertension, osteoarthritis, obstructive sleep apnea uses CPAP, coronary artery disease with stent, peripheral artery disease, d iverticulosis with diverticulitis, left foot wound with partial amputation Social history: Lives at [facility]. Uses a wheelchair. Walker. Does not smoke or drink alcohol. Physical examination: VITAL SIGNS: 100.8, 91, 40, 1 65 x 70, 98% on nonrebreather with 15 L upon presentation GENERAL: BMI 49.2, laying in bed, short of breath. EYES: Pupils equal. Conjunctiva normal. HEENT: External appearance of nose and ears normal, oral cavity grossly normal. NECK: JVD unable to assess masses not palpable. HEART: First and second heart sounds are normal; no edema. LUNGS: Respiratory rate increased, diminished breath sounds on expiration some wheezing. ABDOMEN: Soft, nontender, liver spleen not palpable, no masses palpable. PSYCH: Alert and oriented x3; mood and affect normal. NEUROLOGICAL: Cranial nerves grossly intact; no facial asymmetry, power and sensation grossly intact. MUSCULAR skeletal: Evidence of OA LYMPHATICS: No lymph nodes palpable in the axilla and neck INVESTIGATIONS, reviewed in the clinical context: White count 12.7 hemoglobin 7.1 platelets 269 d-dimer 1.65 Potassium 4.9 creatinine 1.08 glucose 10/31 Lactic acid 3.9 CRP 47.6 proBNP 2790 pro-calcitonin 0.21 COVID 19 PCR not detected Influenza type A type B both negative EKG tracing personally reviewed by me-poor LV progression Chest x-ray film personally reviewed by me-shows underpenetrated film with patchy infiltrates. Assessment: -This is a patient has been having symptoms with close to week including cough shortness of breath fever also taste myalgia fever. Initial rapid testing for COVID 19 testings come back negative. Clinical suspicion remains high. -Moderate persistent asthma with acute exacerbation -Diabetes mellitus type 2 uncontrolled with hyperglycemia -Essential hypertension -Primary osteoarthritis -Obstructive sleep apnea uses CPAP -Coronary artery disease with history of stent -Colonic diverticulosis -Morbid obesity BMI 49.2 -Chronic medical debility uses a wheelchair Plan: Home medications resumed. Patient started on ceftriaxone. Accu-Cheks will be followed. empirically being treated for COVID 19 including Decadron,. Also on zinc. Pulmonary was consulted. Care was discussed with the patient. Repeat CRP d-dimer in the morning.. Past Medical History Past Medical History: Asthma, Diabetes Mellitus, Hypertension, Osteoarthritis (OA), Skin Disorder, Sleep Apnea/CPAP/BIPAP, Vascular Disorder Additional Past Medical History / Comment(s): Bronchial asthma, coronary stent 3, morbid obesity, obstructive sleep apnea, diabetes mellitus type 2, eczema, peripheral vascular disease, obstructive sleep apnea on CPAP, diverticulosis/diverticulitis and previous left wound in the foot with infection with MRSA and the patient has a partial amputation of the left foot History of Any Multi-Drug Resistant Organisms: MRSA Date of last positivie culture/infection: 2010 MDRO Source:: LT FOOT WOUND Past Surgical History: Appendectomy, Heart Catheterization With Stent, Tonsillectomy Additional Past Surgical History / Comment(s): PARTIAL AMPUTATION LT FOOT with previous amputation of the left great toe,. D & C, cataract surgery, breast biopsy Past Anesthesia/Blood Transfusion Reactions: Motion Sickness, Postoperative Nausea & Vomiting (PONV) Date of Last Stent Placement:: 2007 Past Psychological History: Depression Additional Psychological History / Comment(s): SEE THERAPIST WHEN NEEDED-NOT ON ANY MEDS Past Alcohol Use History: Occasional Additional Past Alcohol Use History / Comment(s): SMOKED IN EARLY S-STOPPED in twenties. Patient is currently residing at [facility] and is wheelchair-bound. She needs assistance with showering. There are no pets in the home. 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 Past Drug Use History: None Reported - Past Family History Mother Family Medical History: Cancer, CVA/TIA Additional Family Medical History / Comment(s): HAD MULTIPLE PROBLEMS- OF CVA Sister(s) Family Medical History: Cancer Additional Family Medical History / Comment(s): Uterine Cancer Medications and Allergies Home Medications Medication Instructions Recorded Confirmed Type Insulin Aspart [NovoLOG Flexpen] 30 units SQ AC-TID 06/28/16 07/23/20 History Insulin Glargine,Hum.rec.anlog 40 unit SQ BID 06/28/16 07/23/20 History [Lantus Solostar] Acetaminophen Tab [Tylenol] 650 mg PO Q4H PRN #0 tab 07/14/16 07/23/20 Rx Losartan [Cozaar] 25 mg PO DAILY #30 tab 07/14/16 07/23/20 Rx Metoprolol Tartrate [Lopressor] 25 mg PO BID tab 07/14/16 07/23/20 Rx Montelukast [Singulair] 10 mg PO HS tab 07/14/16 07/23/20 Rx ALPRAZolam [Xanax] 0.25 mg PO Q6H PRN 07/23/20 07/23/20 History Albuterol Inhaler [Ventolin Hfa 1 puff INHALATION RT-Q4H PRN 07/23/20 07/23/20 History Inhaler] Apixaban [Eliquis] 5 mg PO BID 07/23/20 07/23/20 History Ezetimibe [Zetia] 10 mg PO HS 07/23/20 07/23/20 History Furosemide [Lasix] 60 mg PO DAILY 07/23/20 07/23/20 History amLODIPine [Norvasc] 10 mg PO DAILY 07/23/20 07/23/20 History medroxyPROGESTERone [Provera] 2.5 mg PO DAILY 07/23/20 07/23/20 History metFORMIN HCL [Glucophage] 500 mg PO BID 11/16/20 11/16/20 History Allergies Allergy/AdvReac Type Severity Reaction Status Date / Time Penicillins AdvReac Rash/Hives Verified 07/23/20 09:23 Odbbosp-Uac-Rqj Reductase AdvReac EXTREME Verified 07/23/20 09:23 Inhibitor MUSCLE PAIN AND WEAKNESS Physical Exam Vitals: Vital Signs Temp Pulse Resp BP Pulse Ox 07/23/20 09:06 72 16 132/76 95 07/23/20 07:43 73 16 121/55 85 L 07/23/20 06:24 98.7 F 80 24 106/58 95 07/23/20 04:56 99 F 77 28 H 142/61 91 L 07/23/20 04:26 80 18 129/51 94 L 07/23/20 04:05 99.8 F H 85 18 129/51 99 07/23/20 03:53 100.8 F H 84 38 H 153/63 98 07/23/20 03:40 99.5 F 86 35 H 153/63 98 07/23/20 03:34 51 H 07/23/20 03:27 165/70 07/23/20 03:23 100.8 F H 91 40 H 98 Intake and Output 07/22/20 07/23/20 07/23/20 22:59 06:59 14:59 Other: Weight 144.741 kg Results CBC & Chem 7: 07/23/20 03:35 07/23/20 03:35 Labs: Abnormal Lab Results - Last 24 Hours (Table) 07/23/20 07/23/20 07/23/20 Range/Units 03:33 03:35 03:35 WBC 12.7 H (3.8-10.6) k/uL RBC 3.56 L (3.80-5.40) m/uL Hgb 7.1 L (11.4-16.0) gm/dL Hct 24.9 L (34.0-46.0) % MCV 69.9 L (80.0-100.0) fL MCH 20.0 L (25.0-35.0) pg MCHC 28.6 L (31.0-37.0) g/dL RDW 18.5 H (11.5-15.5) % Neutrophils # 10.7 H (1.3-7.7) k/uL INR 1.2 H (<1.2) D-Dimer 1.65 H (<0.60) mg/L FEU VBG pH (7.31-7.41) VBG HCO3 (24-28) mmol/L Sodium (137-145) mmol/L Carbon Dioxide (22-30) mmol/L Creatinine (0.52-1.04) mg/dL Glucose (74-99) mg/dL POC Glucose (mg/dL) 245 H (75-99) mg/dL Plasma Lactic Acid Clarence (0.7-2.0) mmol/L Ferritin (10.0-291.0) ng/mL C-Reactive Protein (<10.0) mg/L Urine Protein (Negative) Urine Blood (Negative) Urine RBC (0-5) /hpf Urine Bacteria (None) /hpf 07/23/20 07/23/20 07/23/20 Range/Units 03:35 03:35 03:35 WBC (3.8-10.6) k/uL RBC (3.80-5.40) m/uL Hgb (11.4-16.0) gm/dL Hct (34.0-46.0) % MCV (80.0-100.0) fL MCH (25.0-35.0) pg MCHC (31.0-37.0) g/dL RDW (11.5-15.5) % Neutrophils # (1.3-7.7) k/uL INR (<1.2) D-Dimer (<0.60) mg/L FEU VBG pH 7.27 L (7.31-7.41) VBG HCO3 20 L (24-28) mmol/L Sodium 134 L (137-145) mmol/L Carbon Dioxide 20 L (22-30) mmol/L Creatinine 1.08 H (0.52-1.04) mg/dL Glucose 224 H (74-99) mg/dL POC Glucose (mg/dL) (75-99) mg/dL Plasma Lactic Acid Clarence 3.9 H* (0.7-2.0) mmol/L Ferritin 9.3 L (10.0-291.0) ng/mL C-Reactive Protein 47.6 H (<10.0) mg/L Urine Protein (Negative) Urine Blood (Negative) Urine RBC (0-5) /hpf Urine Bacteria (None) /hpf 07/23/20 Range/Units 03:44 WBC (3.8-10.6) k/uL RBC (3.80-5.40) m/uL Hgb (11.4-16.0) gm/dL Hct (34.0-46.0) % MCV (80.0-100.0) fL MCH (25.0-35.0) pg MCHC (31.0-37.0) g/dL RDW (11.5-15.5) % Neutrophils # (1.3-7.7) k/uL INR (<1.2) D-Dimer (<0.60) mg/L FEU VBG pH (7.31-7.41) VBG HCO3 (24-28) mmol/L Sodium (137-145) mmol/L Carbon Dioxide (22-30) mmol/L Creatinine (0.52-1.04) mg/dL Glucose (74-99) mg/dL POC Glucose (mg/dL) (75-99) mg/dL Plasma Lactic Acid Clarence (0.7-2.0) mmol/L Ferritin (10.0-291.0) ng/mL C-Reactive Protein (<10.0) mg/L Urine Protein 2+ H (Negative) Urine Blood Moderate H (Negative) Urine RBC >182 H (0-5) /hpf Urine Bacteria Occasional H (None) /hpf
[2020-07-24 07:32] LABS: Glucose,Whole Blood 148 mg/dL (75-99)
--- NOTE | 2020-07-24 08:42 | XR ---
EXAMINATION TYPE: XR chest 1V portable DATE OF EXAM: 07/24/2020 COMPARISON: 07/23/2020 HISTORY: Shortness of breath TECHNIQUE: Single frontal view of the chest is obtained. FINDINGS: There is an interstitial pattern with areas of subsegmental consolidation. Heart is enlarg ed and there is postoperative changes. No pneumothorax. No sizable pleural effusion. IMPRESSION: Correlate for interstitial pneumonia versus CHF stable in appearance.
[2020-07-24] MEDS: FUROSEMIDE 10 MG/ML 10 ML VIAL IV SCH (08:45)
[2020-07-24] MEDS: DEXAMETHASONE SOD PHOSPHATE 10 MG/ML 1 ML VIAL IV SCH (08:45)
[2020-07-24] MEDS: INSULIN ASPART (NovoLOG) 100 UNIT/ML VIAL SQ SCH ×7 (08:45→21:29)
[2020-07-24] MEDS: INSULIN DETEMIR (LEVEMIR) 100 UNIT/ML SYR SQ SCH ×2 (08:46→21:29)
[2020-07-24] MEDS: amLODIPine 10 MG TAB PO SCH (08:46)
[2020-07-24] MEDS: ASCORBIC ACID 500 MG TAB PO SCH (08:46)
[2020-07-24] MEDS: metFORMIN 500 MG TAB PO SCH ×2 (08:47→21:26)
[2020-07-24] MEDS: LOSARTAN 25 MG TAB PO SCH (08:47)
[2020-07-24] MEDS: METOPROLOL TARTRATE 25 MG TAB PO SCH ×2 (08:47→21:26)
[2020-07-24] MEDS: APIXABAN 5 MG TAB PO SCH ×2 (08:47→21:26)
[2020-07-24] MEDS: ZINC SULFATE 220 MG CAP PO SCH (08:47)
--- NOTE | 2020-07-24 10:55 | P.CRDCN ---
History of Present Illness Consult date: 07/24/20 Consult reason: congestive heart failure Chief complaint: Fever, shortness of breath History of present illness: This is a 75-year-old female with history of coronary artery disease and prior PCI, subsequent to that patient underwent coronary artery bypass grafting surgery off pump, with a BAUER to the LAD, reverse saphenous vein graft to the diagonal one and 2 and reverse saphenous vein graft to the PDA, diabetes, hypertension, COPD, sleep apnea, hypertension, peripheral vascular disease status post left BKA, hyper-lipidemia, asthma, morbid obesity, presented to the hospital from an extended care facility with symptoms of fever and associated shortness of breath. Her EKG on presentation here showed a normal sinus rhythm with left axis deviation. Blood pressure 117/60 with a heart rate in the 60s re spirations 20, 95% on 6 L of oxygen. Temperature 100.8. Initial chest x-ray showed diminished lung volumes, less prominent from previous examination. There are subsegmental. Hilar and bi-basilar opaque cities with new patchy opaque severe in the peripheral aspect of the right lower lung zone. Pulmonary vascular prominence suggesting diffusely. Differential consideration includes bi-basilar atelectasis or consolidation. No large pleural effusion or pneumothorax. Repeat Chest x-ray showed a small interstitial pneumonia versus CHF in appearance. Laboratory data was reviewed, white blood cell count 12.1, hemoglobin 7.1, hematocrit 24.9, platelet count 269. D-dimer 1.65 pH 7.2 pCO2 46 HCO3 20. Sodium 134, potassium 4.9, chloride 105, BUN 17, creatinine 1.0. BNP level 2790. Pro calcitonin 0.21. Patient was initiated on IV Lasix and diuresing well through the night last night. At the time of my examination this morning, patient has a congested cough, she states that she is unable to cough anything up and when she does its very thick and white. Past Medical History Past Medical History: Asthma, Diabetes Mellitus, Hypertension, Osteoarthritis (OA), Skin Disorder, Sleep Apnea/CPAP/BIPAP, Vascular Disorder Additional Past Medical History / Comment(s): Bronchial asthma, coronary stent 3, morbid obesity, obstructive sleep apnea, diabetes mellitus type 2, eczema, peripheral vascular disease, obstructive sleep apnea on CPAP, diverticulosis/diverticulitis and previous left wound in the foot with infection with MRSA and the patient has a partial amputation of the left foot History of Any Multi-Drug Resistant Organisms: MRSA Date of last positivie culture/infection: 2010 MDRO Source:: LT FOOT WOUND Past Surgical History: Appendectomy, Heart Catheterization With Stent, Tonsillectomy Additional Past Surgical History / Comment(s): PARTIAL AMPUTATION LT FOOT with previous amputation of the left great toe,. D & C, cataract surgery, breast biopsy Past Anesthesia/Blood Transfusion Reactions: Motion Sickness, Postoperative Nausea & Vomiting (PONV) Date of Last Stent Placement:: 2007 Past Psychological History: Depression Additional Psychological History / Comment(s): SEE THERAPIST WHEN NEEDED-NOT ON ANY MEDS Past Alcohol Use History: Occasional Additional Past Alcohol Use History / Comment(s): SMOKED IN EARLY S-STOPPED in twenties. Patient is currently residing at [facility] and is wheelchair-bound. She needs assistance with showering. There are no pets in the home. 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 Past Drug Use History: None Reported - Past Family History Mother Family Medical History: Cancer, CVA/TIA Additional Family Medical History / Comment(s): HAD MULTIPLE PROBLEMS- OF C [facility] Sister(s) Family Medical History: Cancer Additional Family Medical History / Comment(s): Uterine Cancer Medications and Allergies Home Medications Medication Instructions Recorded Confirmed Type Insulin Aspart [NovoLOG Flexpen] 30 units SQ AC-TID 06/28/16 07/23/20 History Insulin Glargine,Hum.rec.anlog 40 unit SQ BID 06/28/16 07/23/20 History [Lantus Solostar] Acetaminophen Tab [Tylenol] 650 mg PO Q4H PRN #0 tab 07/14/16 07/23/20 Rx Losartan [Cozaar] 25 mg PO DAILY #30 tab 07/14/16 07/23/20 Rx Metoprolol Tartrate [Lopressor] 25 mg PO BID tab 07/14/16 07/23/20 Rx Montelukast [Singulair] 10 mg PO HS tab 07/14/16 07/23/20 Rx ALPRAZolam [Xanax] 0.25 mg PO Q6H PRN 07/23/20 07/23/20 History Albuterol Inhaler [Ventolin Hfa 1 puff INHALATION RT-Q4H PRN 07/23/20 07/23/20 History Inhaler] Apixaban [Eliquis] 5 mg PO BID 07/23/20 07/23/20 History Ezetimibe [Zetia] 10 mg PO HS 07/23/20 07/23/20 History Furosemide [Lasix] 60 mg PO DAILY 07/23/20 07/23/20 History amLODIPine [Norvasc] 10 mg PO DAILY 07/23/20 07/23/20 History medroxyPROGESTERone [Provera] 2.5 mg PO DAILY 07/23/20 07/23/20 History metFORMIN HCL [Glucophage] 500 mg PO BID 07/23/20 07/23/20 History Allergies Allergy/AdvReac Type Severity Reaction Status Date / Time Penicillins AdvReac Rash/Hives Verified 07/23/20 09:23 [id number] Reductase AdvReac EXTREME Verified 07/23/20 09:23 Inhibitor MUSCLE PAIN AND WEAKNESS Physical Exam Vitals: Vital Signs Temp Pulse Resp BP Pulse Ox 07/24/20 07:00 95 07/24/20 05:00 98.0 F 66 20 117/61 95 07/24/20 03:24 95 07/23/20 21:00 97.7 F 71 18 117/57 94 L 07/23/20 12:36 97.9 F 76 22 110/65 96 Intake and Output 07/23/20 07/24/20 07/24/20 22:59 06:59 14:59 Intake Total 200 990 Output Total 1000 1450 Balance -800 -460 Intake: Intake, IV Titration 80 250 Amount Sodium Chloride 0.9% 1, 80 200 000 ml @ 20 mls/hr IV . Q24H [facility]DEV Rx#:[id number] cefTRIAXone 2 gm In 50 Sodium Chloride 0.9% 50 ml @ 100 mls/hr IVPB Q24H [facility]DEV Rx#:[id number] Oral 120 740 Output: Urine 1000 1450 Uretheral (Lee) 1000 450 Other: Voiding Method Indwelling Catheter Indwelling Catheter PHYSICAL EXAMINATION: GENERAL: 75-year-old female, in no acute distress at the time of my examination HEENT: Head is atraumatic, normocephalic. Pupils equal, round. Sclera anicte kristy. Conjunctiva are clear. Mucous membranes of the mouth are moist. Neck is supple. There is no elevated jugular venous pressure. No carotid bruit is heard. HEART EXAMINATION: Heart S1, S2 a systolic murmur is heard CHEST EXAMINATION: Lungs reveal decreased air exchange with crackles to the bases, fine wheezing heard ABDOMEN: Soft, obese, nontender. Bowel sounds are heard. No organomegaly noted. EXTREMITIES:[ 2+ peripheral pulses with trace evidence of peripheral edema patient does have a left BKA . NEUROLOGIC patient is awake, alert and oriented 3 . . Results 07/23/20 03:35 07/23/20 03:35 Current Medications Generic Name Dose Route Start Last Admin Trade Name Freq PRN Reason Stop Dose Admin Acetaminophen 650 mg 07/23/20 10:36 Acetaminophen Tab 325 Mg Tab PO Q4H PRN Pain Alprazolam 0.25 mg 07/23/20 10:36 Alprazolam 0.25 Mg Tab PO Q6H PRN Anxiety Amlodipine Besylate 10 mg 07/23/20 10:45 07/24/20 08:46 Amlodipine 10 Mg Tab PO 10 mg DAILY BALDEV Administration Apixaban 5 mg 07/23/20 10:45 07/24/20 08:47 Apixaban 5 Mg Tab PO 5 mg BID BALDEV Administration Ascorbic Acid 1,000 mg 07/23/20 09:00 07/24/20 08:46 Ascorbic Acid 500 Mg Tab PO 1,000 mg DAILY BALDEV Administration Dexamethasone Sodium Phosphate 6 mg 07/23/20 09:00 07/24/20 08:45 Dexamethasone Sod Phosphate 10 Mg/Ml 1 Ml Vial IV 6 mg DAILY BALDEV Administration Ezetimibe 10 mg 07/23/20 21:00 07/23/20 21:53 Ezetimibe 10 Mg Tab PO 10 mg HS BALDEV Administration Furosemide 60 mg 07/23/20 14:15 07/24/20 08:45 Furosemide 10 Mg/Ml 10 Ml Vial IV 60 mg DAILY BALDEV Administration Sodium Chloride 1,000 mls @ 20 mls/hr 07/23/20 03:30 07/23/20 21:59 Saline 0.9% IV Not Given .Q24H BALDEV Ceftriaxone Sodium 2 gm/ 50 mls @ 100 mls/hr 07/24/20 05:00 07/24/20 04:24 Sodium Chloride IVPB 100 mls/hr Q24H BALDEV Administration Insulin Aspart 20 unit 07/23/20 12:30 07/24/20 08:45 Insulin Aspart (Novolog) 100 Unit/Ml Vial SQ 20 unit AC-TID BALDEV Administration Insulin Aspart 0 unit 07/23/20 12:30 07/24/20 08:46 Insulin Aspart (Novolog) 100 Unit/Ml Vial SQ 1 unit ACHS BALDEV Administration Protocol Insulin Detemir 30 unit 07/23/20 18:00 07/24/20 08:46 Insulin Detemir (Levemir) 100 Unit/Ml Syr SQ 30 unit BID@0700,2100 BALDEV Administration Losartan Potassium 25 mg 07/23/20 10:45 07/24/20 08:47 Losartan 25 Mg Tab PO 25 mg DAILY BALDEV Administration Medroxyprogesterone Acetate 2.5 mg 07/23/20 10:45 07/24/20 08:47 Medroxyprogesterone 2.5 Mg Tab PO 2.5 mg DAILY BALDEV Administration Metformin HCl 500 mg 07/23/20 10:45 07/24/20 08:47 Metformin 500 Mg Tab PO 500 mg BID BALDEV Administration Metoprolol Tartrate 25 mg 07/23/20 10:45 07/24/20 08:47 Metoprolol Tartrate 25 Mg Tab PO 25 mg BID BALDEV Administration Miscellaneous Information 1 each 07/23/20 04:26 Pneumonia Protocol Utilized 1 Each Misc PO ONCE PRN Per Protocol Montelukast Sodium 10 mg 07/23/20 21:00 07/23/20 21:52 Montelukast 10 Mg Tab PO 10 mg HS BALDEV Administration Zinc Sulfate 220 mg 07/23/20 09:00 07/24/20 08:47 Zinc Sulfate 220 Mg Cap PO 220 mg DAILY BALDEV Administration Intake and Output 07/23/20 07/24/20 07/24/20 22:59 06:59 14:59 Intake Total 200 990 Output Total 1000 1450 Balance -800 -460 Intake: Intake, IV Titration 80 250 Amount Sodium Chloride 0.9% 1, 80 200 000 ml @ 20 mls/hr IV . Q24H [facility]DEV Rx#:[id number] cefTRIAXone 2 gm In 50 Sodium Chloride 0.9% 50 ml @ 100 mls/hr IVPB Q24H [facility]DEV Rx#:[id number] Oral 120 740 Output: Urine 1000 1450 Uretheral (Lee) 1000 450 Other: Voiding Method Indwelling Catheter Indwelling Catheter 07/23/20 03:35 07/23/20 03:35 EKG Interpretations (text) EKG shows a normal sinus rhythm with left axis deviation Assessment and Plan Plan: Assessment and plan #1 acute hypoxic respiratory failure, likely on the basis of a pneumonia with a mild element of congestive cardiac failure, diastolic acute on chronic. The rapid COVID 19 test was negative #2 coronary artery disease with prior PCI and subsequent off-pump bypass surgery in 2016 at which time patient underwent a BAUER to the LAD, reverse often missing graft to the diagonal one and 2 and reverse saphenous vein graft to the PDA #3 diabetes #4 hypertension #5 hyperlipidemia #6 COPD #7 sleep apnea #8 PVD with left BKA #9 asthma #10 morbid obesity Plan We will obtain an echocardiogram with Doppler study. In 2016 patient was documented to have a normal LV function. We will continue with IV Lasix, monitoring the intake and output along with daily weights and daily lytes BUN and creatinine. Continue antibiotics as per pulmonary care. Further recommendations to follow. DNP note has been reviewed, I agree with a documented findings and plan of care. Patient was seen and examined.
[2020-07-24 11:19] LABS: Glucose,Whole Blood 225 mg/dL (75-99)
--- NOTE | 2020-07-24 11:41 | ECHOF ---
Referral Reason:chf MEASUREMENTS -------- HEIGHT: 171.4 cm WEIGHT: 144.7 kg BP: 117/61 RVIDd: 3.7 cm (< 3.3) IVSd: 1.5 cm (0.6 - 1.1) LVIDd: 4.7 cm (3.9 - 5.3) LVPWd: 1.5 cm (0.6 - 1.1) IVSs: 1.9 cm LVIDs: 3.4 cm LVPWs: 2.0 cm LA Diam: 4.7 cm (2.7 - 3.8) Ao Diam: 3.4 cm (2.0 - 3.7) AV Cusp: 1.7 cm (1.5 - 2.6) MV EXCURSION: 17.570 mm (> 18.000) MV EF SLOPE: 66 mm/s (70 - 150) EPSS: 0.4 cm AV maxP.18 mmHg AV meanP.12 mmHg RAP: 5.00 mmHg RVSP: 38.38 mmHg FINDINGS -------- Sinus rhythm. This was a technically difficult study with suboptimal views. The left ventricular size is normal. There is moderate concentric left ventricular hypertrophy. O verall left ventricular systolic function is low-normal with, an EF between 50 - 55 %. The right ventricle is mildly enlarged. The left atrium is moderately dilated. The right atrium was not well visualized. 4 ml of Lumason was utilized for enhancement of images. Interatrial and interventricular septum intact. There is mild aortic valve sclerosis. There is mild aortic stenosis present. Peak/mean gradient a cross the Aortic Valve is 20.18mmHg / 11.12mmHg. The mitral valve leaflets are mildly thickened. Mild mitral annular calcification present. Mild m itral regurgitation is present. Mild tricuspid regurgitation present. There is mild pulmonary hypertension. The right ventricular systolic pressure, as measured by Doppler, is 38.38mmHg. The pulmonic valve was not well visualized. The aortic root size is normal. IVC Not well visulized. There is no pericardial effusion. CONCLUSIONS -------- 1. The left ventricular size is normal. 2. There is moderate concentric left ventricular hypertrophy. 3. Overall left ventricular systolic function is low-normal with, an EF between 50 - 55 %. 4. The right ventricle is mildly enlarged. 5. The left atrium is moderately dilated. 6. 4 ml of Lumason was utilized for enhancement of images. 7. There is mild aortic valve sclerosis. 8. There is mild aortic stenosis present. 9. Peak/mean gradient across the Aortic Valve is 20.18mmHg / 11.12mmHg. 10. The mitral valve leaflets are mildly thickened. 11. Mild mitral annular calcification present. 12. Mild mitral regurgitation is present. 13. Mild tricuspid regurgitation present. 14. There is mild pulmonary hypertension. 15. There is no pericardial effusion. SENIOR ELECTRICAL DESIGN ENGINEER: Wendy Whitlock RDCS
[2020-07-24] MEDS: PSYLLIUM HUSK 100% 6 GM PACKET PO SCH (12:44)
--- NOTE | 2020-07-24 13:51 | P.PN ---
Subjective Progress Note Date: 07/24/20 Principal diagnosis: 75-year-old white female patient with past medical history of chronic bronchial asthma, known history of obstructive sleep apnea on CPAP therapy, peripheral vas cular disease, diabetes mellitus type 2, hypertension, osteoarthritis, coronary artery disease with previous stenting, morbid obesity, previous MRSA infection in the left foot, and she follows with Dr. Ramirez in the pulmonary clinic for her history of obstructive sleep apnea. Patient presented to the hospital 07/23/2020 with complaints of fever, dyspnea and started last night. Patient had a cough, sinus drainage, dizziness, she was having trouble sleeping related to shortness of breath, she sustained a fall. She is a resident at the [facility]. She denies any chest pain or palpitations, but when she arrived per EMS her pulse ox was in the 70s on room air. No nausea vomiting and diarrhea, rapid COVID 19 was negative. Influenza negative. Chest x-ray showing diminished lung volumes subsegmental perihilar and basilar opacities with new patchy opacity in the peripheral aspect of the right lower lung zone, pulmonary vascular prominence, differential consideration with bibasilar atelectasis or consolidation. EKG showed normal sinus rhythm with evidence of nonspecific intraventricular block, inferior infarct of undetermined age as well as possible anterolateral infarct of undetermined age. Low-grade fever on admission with a temp of 100.8F, currently afebrile, white blood cell count is 12.7, hemoglobin is 7.1, INR is 1.2, d-dimer is 1.65, sodium is 134, potassium is 4.9, chloride is 105, CO2 is 20, BUN of 17, creatinine is 1.08, lactic acid was 3.9, ferritin level was 9.3, CRP was 47.6, LDH was 595, pro calcitonin was 0.21, urinalysis showed moderate amount of blood, 2+ protein, but no clear evidence of UTI. Patient was started on steroids, for possibility of Covid 19 related pneumonitis, and we were consulted for possibility of Remdesivir infusion On 07/24/2020 patient seen in follow-up on medical surgical floor, she is feeling better today, her blood cultures came back positive for Streptococcus species, final culture is pending, bacteremia is likely related to possibility of bacterial pneumonia. She is on antibiotics in the form of azithromycin and Rocephin, she has been afebrile, she continues on IV Lasix, he is feeling better, breathing easier, RSV was negative, her Covid 19 testing was negative. Her echocardiogram showed moderate concentric LVH, EF between 50-55%, mild aortic stenosis, mild mitral regurgitation, mild TR, mild pulmonary hypertension, right-sided pressures of 38.3 mmHg. no altered mentation, no chest pain, no hemoptysis. Will await results of final blood culture, will obtain follow-up blood culture, sputum culture, continue with antibiotic coverage Objective - Vital Signs Vital signs: Vital Signs Temp 98.0 F 07/24/20 05:00 Pulse 66 07/24/20 05:00 Resp 20 07/24/20 05:00 BP 117/61 07/24/20 05:00 Pulse Ox 95 07/24/20 07:00 Intake & Output 07/23/20 07/24/20 07/24/20 18:59 06:59 18:59 Intake Total 1190 Output Total 2450 Balance -1260 Weight 144.741 kg Intake: Intake, IV Titration 330 Amount Sodium Chloride 0.9% 1, 280 000 ml @ 20 mls/hr IV . Q24H [facility] Rx#:[id number] cefTRIAXone 2 gm In 50 Sodium Chloride 0.9% 50 ml @ 100 mls/hr IVPB Q24H [facility] Rx#:[id number] Oral 860 Output: Urine 2450 Uretheral (Lee) 1450 Other: Voiding Method Indwelling Catheter Indwelling Catheter - Exam GENERAL EXAM: Alert, very pleasant, obese, 75-year-old white female, 6 L of oxygen, with a pulse ox of 94% comfortable in no apparent distress. HEAD: Normocephalic/atraumatic. EYES: Normal reaction of pupils, equal size. Conjunctiva pink, sclera white. NOSE: Clear with pink turbinates. THROAT: No erythema or exudates. NECK: No masses, no JVD, no thyroid enlargement, no adenopathy. CHEST: No chest wall deformity. Symmetrical expansion. LUNGS: Equal air entry with diffuse bibasilar crackles, no wheeze, rhonchi or dullness. CVS: Regular rate and rhythm, normal S1 and S2, no gallops, no murmurs, no rubs ABDOMEN: Soft, nontender. No hepatosplenomegaly, normal bowel sounds, no guarding or rigidity. EXTREMITIES: No clubbing, no edema, no cyanosis, 2+ pulses and upper and lower extremities. MUSCULOSKELETAL: Muscle strength and tone normal. SPINE: No scoliosis or deformity SKIN: No rashes CENTRAL NERVOUS SYSTEM: Alert and oriented -3. No focal deficits, tone is normal in all 4 extremities. PSYCHIATRIC: Alert and oriented -3. Appropriate affect. Intact judgment and insight. - Labs CBC & Chem 7: 07/23/20 03:35 07/23/20 03:35 Labs: Abnormal Lab Results - Last 24 Hours (Table) 07/23/20 07/23/20 07/24/20 Range/Units 17:56 21:27 07:30 POC Glucose (mg/dL) 332 H 227 H 148 H (75-99) mg/dL 07/24/20 Range/Units 11: POC Glucose (mg/dL) 225 H (75-99) mg/dL Microbiology - Last 24 Hours (Table) 07/23/20 03:44 Blood Culture Gram Stain - Preliminary Blood Blood Culture - Preliminary Streptococcus species 07/23/20 03:44 Blood Culture - Final Blood Assessment and Plan Plan: Assessment: #1. Acute hypoxic respiratory failure, likely related to acute exacerbation of CHF, and acute community acquired pneumonia, rapid COVID 19 test was negative, streptococcal bacteremia likely related to pneumonia #2. Lactic acidosis, recovered #3. Dyspnea, fever, weakness, possibly related to pneumonia, first rapid COVID 19 was negative #4. Chronic bronchial asthma, unspecified #5. Morbid obesity #6. Obstructive sleep apnea on CPAP therapy #7. Diabetes mellitus type 2 #8. Hypertension #9. Osteoarthritis #10. Coronary artery disease, with previous stenting and grafting Plan: Continue current antibiotics, will repeat blood cultures, send sputum culture, no need to repeat COVID19 testing, as the workup points to the bacterial pneumonia and fluid overload as the cause of hypoxic respiratory failure, fever. Echocardiogram results have been noted, continue with the Lasix for another 24 hours, follow-up chest x-ray tomorrow, wean FiO2, patient is feeling better, she is afebrile, no altered mentation. Follow-up blood work tomorrow including electrolytes and renal profile. I performed a history & physical examination of the patient and discussed their management with my nurse practitioner, Anna Gifford. I reviewed the nurse practitioner's note and agree with the documented findings and plan of care. Lung sounds are positive for diffuse crackles. The findings and the impression was discussed with the patient. I attest to the documentation by the nurse practitioner. Time with Patient: Less than 30
[2020-07-24 16:56] LABS: Glucose,Whole Blood 213 mg/dL (75-99)
[2020-07-24 20:25] LABS: Glucose,Whole Blood 235 mg/dL (75-99)
[2020-07-24] MEDS: MONTELUKAST 10 MG TAB PO SCH (21:26)
[2020-07-24] MEDS: EZETIMIBE 10 MG TAB PO SCH (21:27)
[2020-07-24] MEDS: SODIUM CHLORIDE 0.9% 1,000 ML IV SCH (21:29)
--- NOTE | 2020-07-24 22:28 | P.PN ---
Progress Note - Text Progress Note Date: 07/24/20 Chief Complaint: Shortness of breath History of presenting complaint: This is a very pleasant 75-year-old patient of Dr. Cannon. Patient is a resident of assisted [facility]. Normally uses a wheelchair and a walker. No history of smoking. Alcohol occasional. Chronic stable medical conditions include diabetes, hypertension, osteoarthritis, obstructive sleep apnea uses CPAP, diverticulosis, partial limitation of left foot, coronary artery disease with stent. About a week ago patient felt he had some sinus symptoms. Subsequently started having headaches. Tired. Some muscle aches. Became more short of breath yesterday. Also had a fever. Has been constipated. Lost her appetite for about a week. Has a dry cough. The no COVID cases at the facility. Admitted with-streptococcus bacteremia. With positive blood cultures. On IV ceftriaxone. Negative for COVID 19. Oral intake better. Review of systems: Was done for constitutional, cardiovascular, GI, pulmonary. relevant finding as above Active Medications Acetaminophen (Acetaminophen Tab 325 Mg Tab) 650 mg PO Q4H PRN PRN Reason: Pain Alprazolam (Alprazolam 0.25 Mg Tab) 0.25 mg PO Q6H PRN PRN Reason: Anxiety Amlodipine Besylate (Amlodipine 10 Mg Tab) 10 mg PO DAILY [facility] Last Admin: 07/24/20 08:46 Dose: 10 mg Documented by: Apixaban (Apixaban 5 Mg Tab) 5 mg PO BID [facility] Last Admin: 07/24/20 21:26 Dose: 5 mg Documented by: Ascorbic Acid (Ascorbic Acid 500 Mg Tab) 1,000 mg PO DAILY [facility] Last Admin: 07/24/20 08:46 Dose: 1,000 mg Documented by: Ezetimibe (Ezetimibe 10 Mg Tab) 10 mg PO HS [facility] Last Admin: 07/24/20 21:27 Dose: 10 mg Documented by: Furosemide (Furosemide 10 Mg/Ml 10 Ml Vial) 60 mg IV DAILY [facility] Last Admin: 07/24/20 08:45 Dose: 60 mg Documented by: Sodium Chloride (Saline 0.9%) 1,000 mls @ 20 mls/hr IV .Q24H [facility] Last Admin: 07/24/20 21:29 Dose: 20 mls/hr Documented by: Ceftriaxone Sodium 2 gm/ (Sodium Chloride) 50 mls @ 100 mls/hr IVPB Q24H [facility] Last Admin: 07/24/20 04:24 Dose: 100 mls/hr Documented by: Insulin Aspart (Insulin Aspart (Novolog) 100 Unit/Ml Vial) 20 unit SQ AC-TID [facility] Last Admin: 07/24/20 17:31 Dose: 20 unit Documented by: Insulin Aspart (Insulin Aspart (Novolog) 100 Unit/Ml Vial) 0 unit SQ ACHS [facility]; Protocol Last Admin: 07/24/20 21:29 Dose: 5 unit Documented by: Insulin Detemir (Insulin Detemir (Levemir) 100 Unit/Ml Syr) 30 unit SQ BID@0700,2100 [facility] Last Admin: 07/24/20 21:29 Dose: 30 unit Documented by: Losartan Potassium (Losartan 25 Mg Tab) 25 mg PO DAILY [facility] Last Admin: 07/24/20 08:47 Dose: 25 mg Documented by: Medroxyprogesterone Acetate (Medroxyprogesterone 2.5 Mg Tab) 2.5 mg PO DAILY [facility] Last Admin: 07/24/20 08:47 Dose: 2.5 mg Documented by: Metformin HCl (Metformin 500 Mg Tab) 500 mg PO BID [facility] Last Admin: 07/24/20 21:26 Dose: 500 mg Documented by: Metoprolol Tartrate (Metoprolol Tartrate 25 Mg Tab) 25 mg PO BID [facility] Last Admin: 07/24/20 21:26 Dose: 25 mg Documented by: Miscellaneous Information (Pneumonia Protocol Utilized 1 Each Misc) 1 each PO ONCE PRN PRN Reason: Per Protocol Montelukast Sodium (Montelukast 10 Mg Tab) 10 mg PO HS [facility] Last Admin: 07/24/20 21:26 Dose: 10 mg Documented by: Psyllium Hydrophilic Mucilloid (Psyllium Husk 100% 6 Gm Packet) 6 gm PO DAILY [facility] Last Admin: 07/24/20 12:44 Dose: 6 gm Documented by: Zinc Sulfate (Zinc Sulfate 220 Mg Cap) 220 mg PO DAILY [facility] Last Admin: 07/24/20 08:47 Dose: 220 mg Documented by: Physical examination: VITAL SIGNS: 98.3, 71, 24, 1 26 x 67, 95% on 6 L GENERAL: BMI 49.2, laying in bed, short of breath. EYES: Pupils equal. Conjunctiva normal. NECK: JVD unable to assess masses not palpable. HEART: First and second heart sounds are normal; no edema. LUNGS: Respiratory rate increased, diminished breath sounds on expiration some wheezing. ABDOMEN: Soft, nontender, liver spleen not palpable, no masses palpable. PSYCH: Alert and oriented x3; mood and affect normal. MUSCULAR skeletal: Evidence of OA INVESTIGATIONS, reviewed in the clinical context: Blood culture-positive for Streptococcus White count 12.7 hemoglobin 7.1 platelets 269 d-dimer 1.65 Potassium 4.9 creatinine 1.08 glucose 10/31 Lactic acid 3.9 CRP 47.6 proBNP 2790 pro-calcitonin 0.21 COVID 19 PCR not detected Influenza type A type B both negative EKG tracing personally reviewed by me-poor LV progression Chest x-ray film personally reviewed by me-shows underpenetrated film with patchy infiltrates. Assessment: -Streptococcus bacteremia. -Moderate persistent asthma with acute exacerbation -Diabetes mellitus type 2 uncontrolled with hyperglycemia -Essential hypertension -Primary osteoarthritis -Obstructive sleep apnea uses CPAP -Coronary artery disease with history of stent -Colonic diverticulosis -Morbid obesity BMI 49.2 -Chronic medical debility uses a wheelchair Plan: Continue with IV ceftriaxone. Other medications to continue. Discussed with the patient. Repeat labs in the morning..
[2020-07-25] MEDS: ACETAMINOPHEN TAB 325 MG TAB PO PRN (06:00)
[2020-07-25 06:55] LABS: Anisocytosis Slight; Basophils % (A) 0 %; Eosinophils % (A) 0 %; HCT 23.4 % (34.0-46.0); Hypochromasia Marked; Lymphocytes # (A) 1.2 k/uL (1.0-4.8); Lymphocytes % (A) 11 %; MCHC 27.9 g/dL (31.0-37.0); MCV 71.8 fL (80.0-100.0); Mean Platelet Volume 7.7; Microcytosis Marked; Monocytes # (A) 0.5 k/uL (0-1.0); Monocytes % (A) 5 %; Neutrophils # (A) 8.3 k/uL (1.3-7.7); Neutrophils % (A) 82 %; Platelet Count 220 k/uL (150-450); Poikilocytosis Slight; RBC 3.26 m/uL (3.80-5.40); RDW 18.4 % (11.5-15.5)
[2020-07-25 07:07] LABS: HGB 6.5 gm/dL (11.4-16.0)
[2020-07-25 07:16] LABS: Glucose,Whole Blood 196 mg/dL (75-99)
[2020-07-25] MEDS: INSULIN DETEMIR (LEVEMIR) 100 UNIT/ML SYR SQ SCH ×2 (08:07→20:56)
[2020-07-25] MEDS: INSULIN ASPART (NovoLOG) 100 UNIT/ML VIAL SQ SCH ×7 (08:07→20:55)
[2020-07-25] MEDS: APIXABAN 5 MG TAB PO SCH (08:08)
[2020-07-25] MEDS: ASCORBIC ACID 500 MG TAB PO SCH (08:09)
[2020-07-25] MEDS: amLODIPine 10 MG TAB PO SCH (08:09)
[2020-07-25] MEDS: METOPROLOL TARTRATE 25 MG TAB PO SCH ×2 (08:10→20:56)
[2020-07-25] MEDS: FUROSEMIDE 10 MG/ML 10 ML VIAL IV SCH (08:10)
[2020-07-25] MEDS: ZINC SULFATE 220 MG CAP PO SCH (08:10)
[2020-07-25] MEDS: LOSARTAN 25 MG TAB PO SCH (08:10)
[2020-07-25] MEDS: metFORMIN 500 MG TAB PO SCH ×2 (08:10→20:56)
[2020-07-25] MEDS: PSYLLIUM HUSK 100% 6 GM PACKET PO SCH (08:11)
[2020-07-25] MEDS: FUROSEMIDE 40 MG TAB PO SCH (08:43)
[2020-07-25 09:22] LABS: African American GFR (CKD) 43.1 (60.0-200.0); BUN/Creat Ratio 29.29 Ratio (12.00-20.00); Calcium 8.6 mg/dL (8.7-10.3); Non-African American GFR(CKD) 37.2 (60.0-200.0); Potassium 5.1 mmol/L (3.5-5.5)
--- NOTE | 2020-07-25 10:14 | P.PN ---
Subjective Progress Note Date: 07/25/20 This is a 75-year-old female with history of coronary artery disease and prior PCI, subsequent to that patient underwent coronary artery bypass grafting surgery off pump, with a BAUER to the LAD, reverse saphenous vein graft to the diagonal one and 2 and reverse saphenous vein graft to the PDA, diabetes, hypertension, COPD, sleep apnea, hypertension, peripheral vascular disease status post left BKA, hyper-lipidemia, asthma, morbid obesity, presented to the hospital from an extended care facility with symptoms of fever and associated shortness of breath. Her EKG on presentation here showed a normal sinus rhythm with left axis deviation. Blood pressure 117/60 with a heart rate in the 60s respirations 20, 95% on 6 L of oxygen. Temperature 100.8. Initial chest x-ray showed diminished lung volumes, less prominent from previous examination. There are subsegmental. Hilar and bi-basilar opaque cities with new patchy opaque severe in the peripheral aspect of the right lower lung zone. Pulmonary vascular prominence suggesting diffusely. Differential consideration includes bi-basilar atelectasis or consolidation. No large pleural effusion or pneumothorax. Repeat Chest x-ray showed a small interstitial pneumonia versus CHF in appearance. Laboratory data was reviewed, white blood cell count 12.1, hemoglobin 7.1, hematocrit 24.9, platelet count 269. D-dimer 1.65 pH 7.2 pCO2 46 HCO3 20. Sodium 134, potassium 4.9, chloride 105, BUN 17, creatinine 1.0. BNP level 2790. Pro calcitonin 0.21. Patient was initiated on IV Lasix and diuresing well through the night last night. At the time of my examination this morning, patient has a congested cough, she states that she is unable to cough anything up and when she does its very thick and white. 07/25/2020 Patient seen in follow-up today, continues to be short of breath, productive cough, tachypneic. Blood pressure 136/70 with a heart rate in the 70s, 93% on 3 L of oxygen. White blood cell count 10.0, hemoglobin 6.5, platelet count 220. Sodium 137, potassium 5.1, BUN 41, creatinine 1.4. Objective - Vital Signs Vital signs: Vital Signs Temp 98.2 F 07/25/20 04:20 Pulse 70 07/25/20 04:20 Resp 18 07/25/20 04:20 BP 136/67 07/25/20 04:20 Pulse Ox 93 L 07/25/20 07:00 Intake & Output 07/24/20 07/25/20 07/25/20 18:59 06:59 18:59 Intake Total 570 Output Total 1999 Balance -1999 570 Intake: Intake, IV Titration 270 Amount Sodium Chloride 0.9% 1, 220 000 ml @ 20 mls/hr IV . Q24H [facility] Rx#:[id number] cefTRIAXone 2 gm In 50 Sodium Chloride 0.9% 50 ml @ 100 mls/hr IVPB Q24H [facility] Rx#:[id number] Oral 300 Output: Urine 1999 Other: Voiding Method Indwelling Catheter Indwelling Catheter Indwelling Catheter # Bowel Movements 1 - Exam PHYSICAL EXAMINATION: GENERAL: 75-year-old female, short of breath at the time of my examination HEENT: Head is atraumatic, normocephalic. Pupils equal, round. Sclera anicteric. Conjunctiva are clear. Mucous membranes of the mouth are moist. Neck is supple. There is no elevated jugular venous pressure. No carotid bruit is heard. HEART EXAMINATION: Heart S1, S2 a systolic murmur is heard CHEST EXAMINATION: Lungs reveal decreased air exchange with crackles to the bases, fine wheezing heard ABDOMEN: Soft, obese, nontender. Bowel sounds are heard. No organomegaly noted. EXTREMITIES:[ 2+ peripheral pulses with trace evidence of peripheral edema patient does have a left BKA . NEUROLOGIC patient is awake, alert and oriented 3 . - Labs CBC & Chem 7: 07/25/20 05:54 07/25/20 05:54 Labs: Abnormal Lab Results - Last 24 Hours (Table) 07/23/20 07/24/20 07/24/20 Range/Units 03:30 09:56 11:17 RBC (3.80-5.40) m/uL Hgb (11.4-16.0) gm/dL Hct (34.0-46.0) % MCV (80.0-100.0) fL MCH (25.0-35.0) pg MCHC (31.0-37.0) g/dL RDW (11.5-15.5) % Neutrophils # (1.3-7.7) k/uL BUN (9.0-27.0) mg/dL Est GFR (CKD-EPI)AfAm (60.0-200.0) Est GFR (CKD-EPI)NonAf (60.0-200.0) BUN/Creatinine Ratio (12.00-20.00) Ratio Glucose (70-110) mg/dL POC Glucose (mg/dL) 225 H (75-99) mg/dL Calcium (8.7-10.3) mg/dL Procalcitonin 2.76 H (0.02-0.09) ng/mL Crossmatch See Detail 07/24/20 07/24/20 07/25/20 Range/Units 16:53 20:24 05:54 RBC 3.26 L (3.80-5.40) m/uL Hgb 6.5 L* (11.4-16.0) gm/dL Hct 23.4 L (34.0-46.0) % MCV 71.8 L (80.0-100.0) fL MCH 20.0 L (25.0-35.0) pg MCHC 27.9 L (31.0-37.0) g/dL RDW 18.4 H (11.5-15.5) % Neutrophils # 8.3 H (1.3-7.7) k/uL BUN (9.0-27.0) mg/dL Est GFR (CKD-EPI)AfAm (60.0-200.0) Est GFR (CKD-EPI)NonAf (60.0-200.0) BUN/Creatinine Ratio (12.00-20.00) Ratio Glucose (70-110) mg/dL POC Glucose (mg/dL) 213 H 235 H (75-99) mg/dL Calcium (8.7-10.3) mg/dL Procalcitonin (0.02-0.09) ng/mL Crossmatch 07/25/20 07/25/20 Range/Units 05:54 07:10 RBC (3.80-5.40) m/uL Hgb (11.4-16.0) gm/dL Hct (34.0-46.0) % MCV (80.0-100.0) fL MCH (25.0-35.0) pg MCHC (31.0-37.0) g/dL RDW (11.5-15.5) % Neutrophils # (1.3-7.7) k/uL BUN 41.0 H (9.0-27.0) mg/dL Est GFR (CKD-EPI)AfAm 43.1 L (60.0-200.0) Est GFR (CKD-EPI)NonAf 37.2 L (60.0-200.0) BUN/Creatinine Ratio 29.29 H (12.00-20.00) Ratio Glucose 187 H (70-110) mg/dL POC Glucose (mg/dL) 196 H (75-99) mg/dL Calcium 8.6 L (8.7-10.3) mg/dL Procalcitonin (0.02-0.09) ng/mL Crossmatch Microbiology - Last 24 Hours (Table) 07/23/20 03:44 Blood Culture Gram Stain - Preliminary Blood Blood Culture - Preliminary Strep agalactiae - (group b) Assessment and Plan Plan: Assessment and plan #1 acute hypoxic respiratory failure, likely on the basis of a pneumonia with a mild element of congestive cardiac failure, diastolic acute on chronic. The rapid COVID 19 test was negative #2 coronary artery disease with prior PCI and subsequent off-pump bypass surgery in 2016 at which time patient underwent a BAUER to the LAD, reverse often missing graft to the diagonal one and 2 and reverse saphenous vein graft to the PDA #3 diabetes #4 hypertension #5 hyperlipidemia #6 COPD #7 sleep apnea #8 PVD with left BKA #9 asthma #10 morbid obesity Plan Echocardiogram with Doppler study revealed a normal left ventricular systolic function. We will discontinue the IV Lasix and start the patient on oral diuretics. Discontinue the Eliquis at this time because of the low hemoglobin. Patient is scheduled today to receive blood transfusion. She is also being re-tested for Covid. Further recommendations to follow DNP note has been reviewed, I agree with a documented findings and plan of care. Patient was seen and examined.
[2020-07-25 11:29] LABS: Glucose,Whole Blood 249 mg/dL (75-99)
--- NOTE | 2020-07-25 11:59 | XR ---
EXAMINATION TYPE: XR chest 1V portable DATE OF EXAM: 07/25/2020 COMPARISON: Prior chest x-ray 07/24/2020 HISTORY: Shortness of breath TECHNIQUE: Single frontal view of the chest is obtained. FINDINGS: Patient is post median sternotomy and rotated. The parenchymal changes are similar to prio r exam within the lungs. No evident pneumothorax or pleural effusion. Heart size is stable. IMPRESSION: Correlate for possible interstitial edema
--- NOTE | 2020-07-25 13:04 | CDI ---
Documentation Clarification Form Date: 07/25/2020 12:52:27 PM From: Debbie Contreras CCS, CCDS Admit Date: 07/23/2020 04:26:00 AM Patient Name: Moses Lombardo Visit Number: [id number] Discharge Date: ATTENTION: The Clinical Documentation Specialists (CDI) and [facility] Coding Staff appreciate your assistance in clarifying documentation. Please respond to the clarification below the line at the bottom and electronically sign. The CDI & [facility] Coding staff will review the response and follow-up if needed. Please note: Queries are made part of the Legal Health Record. If you have any questions, please contact the author of this message via ITS. Dr. Kenneth Wright: Pneumonia is documented in the 07/23 ED note. Interstitial pneumonia is documented in the 07/23 Pulmonary consult with the possibility of bacterial pneumonia. History/Risk Factors: Clinical Indicators: Presented to the ED on 07/23 with SOB. Admitted with Hypoxic Respiratory Failure likely related to COVID. Per the 07/24 Attending Progress Note: COVID PCR is negative. Impression is Streptococcus bacteremia. Vital signs 07/23: T 100.8^, P 91, R 40^-51^ (sob, cough, deep breathing, tachypnea), BP 165/70, PO 98 15L nrb. 07/23 LAB: WBC 12.7^, Neut 10.7^, Lactic Acid 3.9^^. 07/23 Blood cx: Final negative. 07/23 Repeat Blood cx: Preliminary Strep agalactiae (gr B). 07/23 CXR: Bibasilar atelectasis or consolidation, no large pleural effusion or pneumothorax. 07/24 CXR: Correlate for interstitial pneumonia vs CHF stable. 07/25 CXR: Correlate for possible interstitial edema. Treatment 07/23: IV fluid 1,000 mls @ 20 mls/hr, IV Zofran, IV Azithromycin, IV Decadron, IV Lasix, IV Rocephin. In order to capture the severity of condition, please clarify if the condition signifies and you are treating for: Pneumonia, please specify: o Bacterial Pneumonia, specify causal organism (if known) o Due to, please specify: o Other Pneumonia, please specify o Other, please specify o Unable to determine (Last Revision: December 2017) No pneumonia MTDD
--- NOTE | 2020-07-25 14:57 | P.PN ---
Subjective Progress Note Date: 07/25/20 Principal diagnosis: 75-year-old white female patient with past medical history of chronic bronchial asthma, known history of obstructive sleep apnea on CPAP therapy, peripheral vas cular disease, diabetes mellitus type 2, hypertension, osteoarthritis, coronary artery disease with previous stenting, morbid obesity, previous MRSA infection in the left foot, and she follows with Dr. Ramirez in the pulmonary clinic for her history of obstructive sleep apnea. Patient presented to the hospital 07/23/2020 with complaints of fever, dyspnea and started last night. Patient had a cough, sinus drainage, dizziness, she was having trouble sleeping related to shortness of breath, she sustained a fall. She is a resident at the [facility]. She denies any chest pain or palpitations, but when she arrived per EMS her pulse ox was in the 70s on room air. No nausea vomiting and diarrhea, rapid COVID 19 was negative. Influenza negative. Chest x-ray showing diminished lung volumes subsegmental perihilar and basilar opacities with new patchy opacity in the peripheral aspect of the right lower lung zone, pulmonary vascular prominence, differential consideration with bibasilar atelectasis or consolidation. EKG showed normal sinus rhythm with evidence of nonspecific intraventricular block, inferior infarct of undetermined age as well as possible anterolateral infarct of undetermined age. Low-grade fever on admission with a temp of 100.8F, currently afebrile, white blood cell count is 12.7, hemoglobin is 7.1, INR is 1.2, d-dimer is 1.65, sodium is 134, potassium is 4.9, chloride is 105, CO2 is 20, BUN of 17, creatinine is 1.08, lactic acid was 3.9, ferritin level was 9.3, CRP was 47.6, LDH was 595, pro calcitonin was 0.21, urinalysis showed moderate amount of blood, 2+ protein, but no clear evidence of UTI. Patient was started on steroids, for possibility of Covid 19 related pneumonitis, and we were consulted for possibility of Remdesivir infusion On 07/24/2020 patient seen in follow-up on medical surgical floor, she is feeling better today, her blood cultures came back positive for Streptococcus species, final culture is pending, bacteremia is likely related to possibility of bacterial pneumonia. She is on antibiotics in the form of azithromycin and Rocephin, she has been afebrile, she continues on IV Lasix, he is feeling better, breathing easier, RSV was negative, her Covid 19 testing was negative. Her echocardiogram showed moderate concentric LVH, EF between 50-55%, mild aortic stenosis, mild mitral regurgitation, mild TR, mild pulmonary hypertension, right-sided pressures of 38.3 mmHg. no altered mentation, no chest pain, no hemoptysis. Will await results of final blood culture, will obtain follow-up blood culture, sputum culture, continue with antibiotic coverage On 07/25/2020 patient seen in follow-up on medical surgical floor. She is improving, FiO2 to 5 L, pulse ox is 100%, hemodynamically stable, afebrile. Repeat Covid 19 came back negative, influenza screen was negative, RSV PCR was negative, patient was found to have strep bacteremia likely related to strep pneumonia. She is on appropriate antibiotics for that, Rocephin. Denies any chest pain, denies any significant congestion, chest x-ray reviewed, showing possible interstitial edema, patient was started on diuretics. Objective - Vital Signs Vital signs: Vital Signs Temp 98 F 07/25/20 12:45 Pulse 67 07/25/20 12:45 Resp 17 07/25/20 12:45 BP 123/71 07/25/20 12:45 Pulse Ox 100 07/25/20 13:00 Intake & Output 07/24/20 07/25/20 07/25/20 18:59 06:59 18:59 Intake Total 570 450 Output Total 2000 950 Balance -2000 570 -500 Intake: Intake, IV Titration 270 210 Amount Sodium Chloride 0.9% 1, 220 160 000 ml @ 20 mls/hr IV . Q24H [facility] Rx#:[id number] cefTRIAXone 2 gm In 50 50 Sodium Chloride 0.9% 50 ml @ 100 mls/hr IVPB Q24H [facility] Rx#:[id number] Oral 300 240 Blood Product 0 Rc As-1 Unit 0 [id number] Output: Urine 1999 950 Other: Voiding Method Indwelling Catheter Indwelling Catheter Indwelling Catheter # Bowel Movements 1 0 - Exam GENERAL EXAM: Alert, very pleasant, obese, 75-year-old white female, 5 L of oxygen, with a pulse ox of 100% comfortable in no apparent distress. HEAD: Normocephalic/atraumatic. EYES: Normal reaction of pupils, equal size. Conjunctiva pink, sclera white. NOSE: Clear with pink turbinates. THROAT: No erythema or exudates. NECK: No masses, no JVD, no thyroid enlargement, no adenopathy. CHEST: No chest wall deformity. Symmetrical expansion. LUNGS: Equal air entry with diffuse bibasilar crackles, no wheeze, rhonchi or dullness. CVS: Regular rate and rhythm, normal S1 and S2, no gallops, no murmurs, no rubs ABDOMEN: Soft, nontender. No hepatosplenomegaly, normal bowel sounds, no guarding or rigidity. EXTREMITIES: No clubbing, no edema, no cyanosis, 2+ pulses and upper and lower extremities. MUSCULOSKELETAL: Muscle strength and tone normal. SPINE: No scoliosis or deformity SKIN: No rashes CENTRAL NERVOUS SYSTEM: Alert and oriented -3. No focal deficits, tone is normal in all 4 extremities. PSYCHIATRIC: Alert and oriented -3. Appropriate affect. Intact judgment and insight. - Labs CBC & Chem 7: 07/25/20 05:54 07/25/20 05:54 Labs: Abnormal Lab Results - Last 24 Hours (Table) 07/23/20 07/24/20 07/24/20 Range/Units 03:30 09:56 16:53 RBC (3.80-5.40) m/uL Hgb (11.4-16.0) gm/dL Hct (34.0-46.0) % MCV (80.0-100.0) fL MCH (25.0-35.0) pg MCHC (31.0-37.0) g/dL RDW (11.5-15.5) % Neutrophils # (1.3-7.7) k/uL BUN (9.0-27.0) mg/dL Est GFR (CKD-EPI)AfAm (60.0-200.0) Est GFR (CKD-EPI)NonAf (60.0-200.0) BUN/Creatinine Ratio (12.00-20.00) Ratio Glucose (70-110) mg/dL POC Glucose (mg/dL) 213 H (75-99) mg/dL Calcium (8.7-10.3) mg/dL Procalcitonin 2.76 H (0.02-0.09) ng/mL Crossmatch See Detail 07/24/20 07/25/20 07/25/20 Range/Units 20:24 05:54 05:54 RBC 3.26 L (3.80-5.40) m/uL Hgb 6.5 L* (11.4-16.0) gm/dL Hct 23.4 L (34.0-46.0) % MCV 71.8 L (80.0-100.0) fL MCH 20.0 L (25.0-35.0) pg MCHC 27.9 L (31.0-37.0) g/dL RDW 18.4 H (11.5-15.5) % Neutrophils # 8.3 H (1.3-7.7) k/uL BUN (9.0-27.0) mg/dL Est GFR (CKD-EPI)AfAm (60.0-200.0) Est GFR (CKD-EPI)NonAf (60.0-200.0) BUN/Creatinine Ratio (12.00-20.00) Ratio Glucose (70-110) mg/dL POC Glucose (mg/dL) 235 H (75-99) mg/dL Calcium (8.7-10.3) mg/dL Procalcitonin 1.78 H (0.02-0.09) ng/mL Crossmatch 07/25/20 07/25/20 07/25/20 Range/Units 05:54 07:10 11:28 RBC (3.80-5.40) m/uL Hgb (11.4-16.0) gm/dL Hct (34.0-46.0) % MCV (80.0-100.0) fL MCH (25.0-35.0) pg MCHC (31.0-37.0) g/dL RDW (11.5-15.5) % Neutrophils # (1.3-7.7) k/uL BUN 41.0 H (9.0-27.0) mg/dL Est GFR (CKD-EPI)AfAm 43.1 L (60.0-200.0) Est GFR (CKD-EPI)NonAf 37.2 L (60.0-200.0) BUN/Creatinine Ratio 29.29 H (12.00-20.00) Ratio Glucose 187 H (70-110) mg/dL POC Glucose (mg/dL) 196 H 249 H (75-99) mg/dL Calcium 8.6 L (8.7-10.3) mg/dL Procalcitonin (0.02-0.09) ng/mL Crossmatch Microbiology - Last 24 Hours (Table) 07/23/20 03:44 Blood Culture Gram Stain - Preliminary Blood Blood Culture - Preliminary Strep agalactiae - (group b) Assessment and Plan Plan: Assessment: #1. Acute hypoxic respiratory failure, likely related to acute exacerbation of CHF, and acute community acquired pneumonia, rapid COVID 19 test was negative, streptococcal bacteremia likely related to pneumonia #2. Lactic acidosis, recovered #3. Dyspnea, fever, weakness, possibly related to pneumonia, first rapid COVID 19 was negative #4. Chronic bronchial asthma, unspecified #5. Morbid obesity #6. Obstructive sleep apnea on CPAP therapy #7. Diabetes mellitus type 2 #8. Hypertension #9. Osteoarthritis #10. Coronary artery disease, with previous stenting and grafting Plan: Continue same antibiotics, patient is improving, continue diuretics, follow-up chest x-ray has been reviewed still showing interstitial edema, patient is negative fluid balance, she's been afebrile, repeat Covid test came back negative, ruling out possibility of Covid 19 related pneumonia. We'll continue treating patient for acute exacerbation of CHF, and acute community acquired pneumonia. I performed a history & physical examination of the patient and discussed their management with my nurse practitioner, Anna Gifford. I reviewed the nurse practitioner's note and agree with the documented findings and plan of care. Lung sounds are positive for diffuse crackles. The findings and the impression was discussed with the patient. I attest to the documentation by the nurse practitioner. Time with Patient: Less than 30
[2020-07-25 17:12] LABS: Glucose,Whole Blood 164 mg/dL (75-99)
[2020-07-25] MEDS: SODIUM CHLORIDE 0.9% 1,000 ML IV SCH (19:10)
[2020-07-25 20:28] LABS: Glucose,Whole Blood 178 mg/dL (75-99)
[2020-07-25] MEDS: MONTELUKAST 10 MG TAB PO SCH (20:56)
[2020-07-25] MEDS: EZETIMIBE 10 MG TAB PO SCH (20:57)
--- NOTE | 2020-07-25 22:47 | P.PN ---
Progress Note - Text Progress Note Date: 07/25/20 Chief Complaint: Shortness of breath History of presenting complaint: This is a very pleasant 75-year-old patient of Dr. Cannon. Patient is a resident of assisted [facility]. Normally uses a wheelchair and a walker. No history of smoking. Alcohol occasional. Chronic stable medical conditions include diabetes, hypertension, osteoarthritis, obstructive sleep apnea uses CPAP, diverticulosis, partial limitation of left foot, coronary artery disease with stent. About a week ago patient felt he had some sinus symptoms. Subsequently started having headaches. Tired. Some muscle aches. Became more short of breath yesterday. Also had a fever. Has been constipated. Lost her appetite for about a week. Has a dry cough. The no COVID cases at the facility. Admitted with-streptococcus bacteremia. With positive blood cultures. On IV ceftriaxone. Negative for COVID 19. Oral intake better. Hemoglobin 6.5 Today-feeling a bit better. No fever. Oral intake good. Getting antibiotics. Review of systems: Was done for constitutional, cardiovascular, GI, pulmonary. relevant finding as above Active Medications Acetaminophen (Acetaminophen Tab 325 Mg Tab) 650 mg PO Q4H PRN PRN Reason: Pain Last Admin: 07/25/20 06:00 Dose: 650 mg Documented by: Alprazolam (Alprazolam 0.25 Mg Tab) 0.25 mg PO Q6H PRN PRN Reason: Anxiety Amlodipine Besylate (Amlodipine 10 Mg Tab) 10 mg PO DAILY [facility] Last Admin: 07/25/20 08:09 Dose: 10 mg Documented by: Ascorbic Acid (Ascorbic Acid 500 Mg Tab) 1,000 mg PO DAILY [facility] Last Admin: 07/25/20 08:09 Dose: 1,000 mg Documented by: Ezetimibe (Ezetimibe 10 Mg Tab) 10 mg PO HS [facility] Last Admin: 07/25/20 20:57 Dose: 10 mg Documented by: Furosemide (Furosemide 40 Mg Tab) 40 mg PO DAILY [facility] Last Admin: 07/25/20 08:43 Dose: Not Given Documented by: Sodium Chloride (Saline 0.9%) 1,000 mls @ 20 mls/hr IV .Q24H [facility] Last Admin: 07/25/20 19:10 Dose: 20 mls/hr Documented by: Ceftriaxone Sodium 2 gm/ (Sodium Chloride) 50 mls @ 100 mls/hr IVPB Q24H [facility] Last Admin: 07/25/20 04:48 Dose: 100 mls/hr Documented by: Insulin Aspart (Insulin Aspart (Novolog) 100 Unit/Ml Vial) 20 unit SQ AC-TID [facility] Last Admin: 07/25/20 17:38 Dose: 20 unit Documented by: Insulin Aspart (Insulin Aspart (Novolog) 100 Unit/Ml Vial) 0 unit SQ ACHS [facility]; Protocol Last Admin: 07/25/20 20:55 Dose: 3 unit Documented by: Insulin Detemir (Insulin Detemir (Levemir) 100 Unit/Ml Syr) 30 unit SQ BID@0700,2100 [facility] Last Admin: 07/25/20 20:56 Dose: 30 unit Documented by: Losartan Potassium (Losartan 25 Mg Tab) 25 mg PO DAILY [facility] Last Admin: 07/25/20 08:10 Dose: 25 mg Documented by: Medroxyprogesterone Acetate (Medroxyprogesterone 2.5 Mg Tab) 2.5 mg PO DAILY [facility] Last Admin: 07/25/20 08:09 Dose: 2.5 mg Documented by: Metformin HCl (Metformin 500 Mg Tab) 500 mg PO BID [facility] Last Admin: 07/25/20 20:56 Dose: 500 mg Documented by: Metoprolol Tartrate (Metoprolol Tartrate 25 Mg Tab) 25 mg PO BID [facility] Last Admin: 07/25/20 20:56 Dose: 25 mg Documented by: Miscellaneous Information (Pneum[facility] 1 each PO ONCE PRN PRN Reason: Per Protocol Montelukast Sodium (Montelukast 10 Mg Tab) 10 mg PO HS [facility] Last Admin: 07/25/20 20:56 Dose: 10 mg Documented by: Psyllium Hydrophilic Mucilloid (Psyllium Husk 100% 6 Gm Packet) 6 gm PO DAILY [facility] Last Admin: 07/25/20 08:11 Dose: Not Given Documented by: Zinc Sulfate (Zinc Sulfate 220 Mg Cap) 220 mg PO DAILY [facility] Last Admin: 07/25/20 08:10 Dose: 220 mg Documented by: Physical examination: VITAL SIGNS: 97.4, 61, 17, 120 x 68, 97% on 4 L GENERAL: Sitting on bed, less short of breath EYES: Pupils equal. Conjunctiva normal. NECK: JVD unable to assess masses not palpable. HEART: First and second heart sounds are normal; no edema. LUNGS: Respiratory rate increased, diminished breath sounds on expiration some wheezing. ABDOMEN: Soft, nontender, liver spleen not palpable, no masses palpable. PSYCH: Alert and oriented x3; mood and affect normal. MUSCULAR skeletal: Evidence of OA INVESTIGATIONS, reviewed in the clinical context: White count 10 hemoglobin 6.5 platelets 220 potassium 5.1 creatinine 1.4 Previous testing Blood culture-positive for Streptococcus White count 12.7 hemoglobin 7.1 platelets 269 d-dimer 1.65 Potassium 4.9 creatinine 1.08 glucose 10/31 Lactic acid 3.9 CRP 47.6 proBNP 2790 pro-calcitonin 0.21 COVID 19 PCR not detected Influenza type A type B both negative EKG tracing personally reviewed by me-poor LV progression Chest x-ray film personally reviewed by me-shows underpenetrated film with patchy infiltrates. Assessment: -Streptococcus bacteremia. -Moderate persistent asthma with acute exacerbation -Diabetes mellitus type 2 uncontrolled with hyperglycemia -Essential hypertension -Primary osteoarthritis -Obstructive sleep apnea uses CPAP -Coronary artery disease with history of stent -Colonic diverticulosis -Morbid obesity BMI 49.2 -Chronic medical debility uses a wheelchair -Acute blood loss anemia microcytic hemoglobin dropping below 7. 1 unit of blood ordered Plan: Continue with IV ceftriaxone. Other medications to continue. Discussed with the patient. Repeat labs in the morning.. Transfuse a unit of blood
[2020-07-26] MEDS: ACETAMINOPHEN TAB 325 MG TAB PO PRN ×2 (01:26→23:09)
[2020-07-26 07:23] LABS: Glucose,Whole Blood 105 mg/dL (75-99)
[2020-07-26] MEDS: INSULIN ASPART (NovoLOG) 100 UNIT/ML VIAL SQ SCH ×8 (08:06→20:38)
[2020-07-26] MEDS: INSULIN DETEMIR (LEVEMIR) 100 UNIT/ML SYR SQ SCH ×2 (08:13→20:38)
[2020-07-26] MEDS: PSYLLIUM HUSK 100% 6 GM PACKET PO SCH (08:13)
[2020-07-26] MEDS: amLODIPine 10 MG TAB PO SCH (08:14)
[2020-07-26] MEDS: FUROSEMIDE 40 MG TAB PO SCH (08:14)
[2020-07-26] MEDS: ASCORBIC ACID 500 MG TAB PO SCH (08:14)
[2020-07-26] MEDS: METOPROLOL TARTRATE 25 MG TAB PO SCH ×2 (08:14→21:34)
[2020-07-26] MEDS: ZINC SULFATE 220 MG CAP PO SCH (08:14)
[2020-07-26] MEDS: LOSARTAN 25 MG TAB PO SCH (08:14)
[2020-07-26] MEDS: metFORMIN 500 MG TAB PO SCH ×2 (08:14→21:35)
[2020-07-26 11:07] LABS: Anisocytosis Slight; Basophils # (A) 0.1 k/uL (0-0.2); Basophils % (A) 1 %; Eosinophils # (A) 0.3 k/uL (0-0.7); Eosinophils % (A) 3 %; HCT 27.7 % (34.0-46.0); HGB 7.9 gm/dL (11.4-16.0); Hypochromasia Marked; Lymphocytes # (A) 2.7 k/uL (1.0-4.8); Lymphocytes % (A) 23 %; MCH 20.9 pg (25.0-35.0); MCHC 28.6 g/dL (31.0-37.0); MCV 72.9 fL (80.0-100.0); Mean Platelet Volume 9.3; Microcytosis Moderate; Monocytes # (A) 0.6 k/uL (0-1.0); Monocytes % (A) 5 %; Neutrophils # (A) 7.9 k/uL (1.3-7.7); Neutrophils % (A) 67 %; Platelet Count 254 k/uL (150-450); Poikilocytosis Moderate; WBC 11.9 k/uL (3.8-10.6)
[2020-07-26 11:20] LABS: Glucose,Whole Blood 108 mg/dL (75-99)
[2020-07-26] MEDS ORDERED: OXYMETAZOLINE 0.05% NASL SPRAY 1 SPRAY BOTTLE NASAL SCH ×2 (13:00→18:00)
[2020-07-26] MEDS: IOPAMIDOL CONTRAST (ORAL USE) VIAL PO PRN ×2 (13:11→13:56)
[2020-07-26] MEDS: AMPICILLIN-SULBACTAM 1.5 GM in SODIUM CHLORIDE 0.9% 50 ML IVPB SCH ×2 (13:49→23:09)
--- NOTE | 2020-07-26 14:44 | P.PN ---
Subjective Progress Note Date: 07/26/20 Principal diagnosis: 75-year-old white female patient with past medical history of chronic bronchial asthma, known history of obstructive sleep apnea on CPAP therapy, peripheral vas cular disease, diabetes mellitus type 2, hypertension, osteoarthritis, coronary artery disease with previous stenting, morbid obesity, previous MRSA infection in the left foot, and she follows with Dr. Ramirez in the pulmonary clinic for her history of obstructive sleep apnea. Patient presented to the hospital 07/23/2020 with complaints of fever, dyspnea and started last night. Patient had a cough, sinus drainage, dizziness, she was having trouble sleeping related to shortness of breath, she sustained a fall. She is a resident at the [facility]. She denies any chest pain or palpitations, but when she arrived per EMS her pulse ox was in the 70s on room air. No nausea vomiting and diarrhea, rapid COVID 19 was negative. Influenza negative. Chest x-ray showing diminished lung volumes subsegmental perihilar and basilar opacities with new patchy opacity in the peripheral aspect of the right lower lung zone, pulmonary vascular prominence, differential consideration with bibasilar atelectasis or consolidation. EKG showed normal sinus rhythm with evidence of nonspecific intraventricular block, inferior infarct of undetermined age as well as possible anterolateral infarct of undetermined age. Low-grade fever on admission with a temp of 100.8F, currently afebrile, white blood cell count is 12.7, hemoglobin is 7.1, INR is 1.2, d-dimer is 1.65, sodium is 134, potassium is 4.9, chloride is 105, CO2 is 20, BUN of 17, creatinine is 1.08, lactic acid was 3.9, ferritin level was 9.3, CRP was 47.6, LDH was 595, pro calcitonin was 0.21, urinalysis showed moderate amount of blood, 2+ protein, but no clear evidence of UTI. Patient was started on steroids, for possibility of Covid 19 related pneumonitis, and we were consulted for possibility of Remdesivir infusion On 07/24/2020 patient seen in follow-up on medical surgical floor, she is feeling better today, her blood cultures came back positive for Streptococcus species, final culture is pending, bacteremia is likely related to possibility of bacterial pneumonia. She is on antibiotics in the form of azithromycin and Rocephin, she has been afebrile, she continues on IV Lasix, he is feeling better, breathing easier, RSV was negative, her Covid 19 testing was negative. Her echocardiogram showed moderate concentric LVH, EF between 50-55%, mild aortic stenosis, mild mitral regurgitation, mild TR, mild pulmonary hypertension, right-sided pressures of 38.3 mmHg. no altered mentation, no chest pain, no hemoptysis. Will await results of final blood culture, will obtain follow-up blood culture, sputum culture, continue with antibiotic coverage On 07/25/2020 patient seen in follow-up on medical surgical floor. She is improving, FiO2 to 5 L, pulse ox is 100%, hemodynamically stable, afebrile. Repeat Covid 19 came back negative, influenza screen was negative, RSV PCR was negative, patient was found to have strep bacteremia likely related to strep pneumonia. She is on appropriate antibiotics for that, Rocephin. Denies any chest pain, denies any significant congestion, chest x-ray reviewed, showing possible interstitial edema, patient was started on diuretics. On 07/26/2020 patient seen in follow-up on medical surgical floor, she is feeling better, breathing easier, she is on room air, pulse ox 95%, she's been afebrile, vital signs have been stable, no completing chest pain or hemoptysis, she remains on antibiotics on Unasyn, final blood culture came back positive for enterococcus avium. Follow blood culture show no growth. CT of the abdomen is pending. She complains any nausea vomiting or diarrhea. Objective - Vital Signs Vital signs: Vital Signs Temp 97.8 F 07/26/20 12:39 Pulse 59 L 07/26/20 12:39 Resp 18 07/26/20 12:39 BP 104/63 07/26/20 12:39 Pulse Ox 95 07/26/20 12:39 Intake & Output 07/25/20 07/26/20 07/26/20 18:59 06:59 18:59 Intake Total 760 520 Output Total 2250 700 650 Balance -1490 -180 -650 Intake: Intake, IV Titration 210 320 Amount Sodium Chloride 0.9% 1, 160 220 000 ml @ 20 mls/hr IV . Q24H [facility] Rx#:[id number] cefTRIAXone 2 gm In 50 100 Sodium Chloride 0.9% 50 ml @ 100 mls/hr IVPB Q24H [facility] Rx#:[id number] Oral 240 200 Blood Product 310 Rc As-1 Unit 310 [id number] Output: Urine 2250 700 650 Uretheral (Lee) 1300 650 Other: Voiding Method Indwelling Catheter Indwelling Catheter Indwelling Catheter # Bowel Movements 0 0 - Exam GENERAL EXAM: Alert, very pleasant, obese, 75-year-old white female, on room air with a pulse ox of 95 % comfortable in no apparent distress. HEAD: Normocephalic/atraumatic. EYES: Normal reaction of pupils, equal size. Conjunctiva pink, sclera white. NOSE: Clear with pink turbinates. THROAT: No erythema or exudates. NECK: No masses, no JVD, no thyroid enlargement, no adenopathy. CHEST: No chest wall deformity. Symmetrical expansion. LUNGS: Equal air entry with diffuse bibasilar crackles, no wheeze, rhonchi or dullness. CVS: Regular rate and rhythm, normal S1 and S2, no gallops, no murmurs, no rubs ABDOMEN: Soft, nontender. No hepatosplenomegaly, normal bowel sounds, no guarding or rigidity. EXTREMITIES: No clubbing, no edema, no cyanosis, 2+ pulses and upper and lower extremities. MUSCULOSKELETAL: Muscle strength and tone normal. SPINE: No scoliosis or deformity SKIN: No rashes CENTRAL NERVOUS SYSTEM: Alert and oriented -3. No focal deficits, tone is normal in all 4 extremities. PSYCHIATRIC: Alert and oriented -3. Appropriate affect. Intact judgment and insight. - Labs CBC & Chem 7: 07/26/20 09:19 07/25/20 05:54 Labs: Abnormal Lab Results - Last 24 Hours (Table) 07/23/20 07/25/20 07/25/20 Range/Units 03:30 17:10 20:23 WBC (3.8-10.6) k/uL Hgb (11.4-16.0) gm/dL Hct (34.0-46.0) % MCV (80.0-100.0) fL MCH (25.0-35.0) pg MCHC (31.0-37.0) g/dL RDW (11.5-15.5) % Neutrophils # (1.3-7.7) k/uL POC Glucose (mg/dL) 164 H 178 H (75-99) mg/dL Crossmatch See Detail 07/26/20 07/26/20 07/26/20 Range/Units 07:20 09:19 11:19 WBC 11.9 H (3.8-10.6) k/uL Hgb 7.9 L (11.4-16.0) gm/dL Hct 27.7 L (34.0-46.0) % MCV 72.9 L (80.0-100.0) fL MCH 20.9 L (25.0-35.0) pg MCHC 28.6 L (31.0-37.0) g/dL RDW 19.0 H (11.5-15.5) % Neutrophils # 7.9 H (1.3-7.7) k/uL POC Glucose (mg/dL) 105 H 108 H (75-99) mg/dL Crossmatch Microbiology - Last 24 Hours (Table) 07/23/20 03:44 Blood Culture Gram Stain - Final Blood Blood Culture - Final Enterococcus avium 07/24/20 14:55 Blood Culture - Preliminary Blood No Growth after 24 hours Assessment and Plan Plan: Assessment: #1. Acute hypoxic respiratory failure, likely related to acute exacerbation of CHF, and sepsis, initially was thought to be related to community acquired pneumonia however final blood culture came back positive for enterococcus avium, rapid COVID 19 test was negative #2. Enterococcus bacteremia #3. Acute on chronic anemia possibly related to blood loss anemia #4. Lactic acidosis, recovered #5. Dyspnea, fever, weakness, related to sepsis, first rapid COVID 19 was negative #6. Chronic bronchial asthma, unspecified #7. Morbid obesity #8. Obstructive sleep apnea on CPAP therapy #9. Diabetes mellitus type 2 #10. Hypertension #11. Osteoarthritis #12. Coronary artery disease, with previous stenting and grafting Plan: Continue current medical treatment, continue current antibiotics, CT of the abdomen and pelvis pending. Denies any difficulty breathing, she is on room air, afebrile, follow-up blood cultures have been negative, continue oral diuretics, follow up labs tomorrow including electrolytes and renal profile. We'll continue to follow I performed a history & physical examination of the patient and discussed their management with my nurse practitioner, Anna Gifford. I reviewed the nurse practitioner's note and agree with the documented findings and plan of care. Lung sounds are positive for diffuse crackles. The findings and the impression was discussed with the patient. I attest to the documentation by the nurse practitioner. Time with Patient: Less than 30
--- NOTE | 2020-07-26 15:51 | CT ---
EXAMINATION TYPE: CT abdomen pelvis wo con DATE OF EXAM: 07/26/2020 COMPARISON: 06/28/2016 INDICATION: Abdominal pain, positive blood cultures. DLP: 2826.7 mGycm, Automated exposure control for dose reduction was used. CONTRAST: 0 mL of Isovue 300. Study performed with Oral Contrast TECHNIQUE: Axial images were obtained from above the diaphragm to the pubic rami in the axial plane a t 5 mm thick sections. Reconstructed images are reviewed on the computer in the coronal plane. FINDINGS: Limited CT sections are obtained the lung bases. Scattered infiltrates are within the left lung base may be on the basis of atelectasis. Minimal left pleural effusion is present. Coronary artery calcif ications present. CT ABDOMEN: Liver: Normal Spleen: Normal Pancreas: Normal Adrenal glands: The adrenal glands are normal. Gallbladder: Normal Kidneys: No masses are evident. There is a mild right hydronephrosis. No cysts are present. There is a 1.2 cm calcification in the left mid renal pelvis. Couple of punctate peripheral upper and lower p ole renal stones are present. There is an additional 0.8 cm calcification at the inferior left kidney . Punctate renal stones are within the right kidney without obstruction. The largest in the upper david e measures 0.6 cm. Within the proximal right ureter there is a 0.6 cm calcification. Series 3 image 5 3 Aorta: Vascular calcification is within the aorta. Inferior vena cava: Normal. CT PELVIS: Loops of bowel within the abdomen and pelvis are normal. Scattered diverticuli without acute diverti culitis within the colon is present. Studies performed without oral contrast limiting bowel evaluat ion. Appendix: Not identified. No suspicious dilated tubular structure or inflammatory changes evident Urinary bladder: Unremarkable Genitourinary structures: Uterus appears normal. Adnexal regions are clear Osseous structures: No suspicious lytic or sclerotic lesions. Degenerative changes are within the lum bar spine. Degenerative disc changes are present. IMPRESSIONS: 1. Diverticulosis without acute diverticulitis. 2. Multiple bilateral nonobstructing renal stones. 3. There is a partially obstructing proximal right ureteral stone measuring 0.6 cm contributing to mi ld right hydronephrosis.
[2020-07-26 16:09] LABS: % Iron Saturation 4.14 (12.00-45.00); African American GFR (CKD) 51.9 (60.0-200.0); Anion Gap 9.3 mmol/L (4.00-12.00); BUN/Creat Ratio 31.67 Ratio (12.00-20.00); Calcium 8.8 mg/dL (8.7-10.3); Carbon Dioxide 22.7 mmol/L (21.6-31.8); Non-African American GFR(CKD) 44.8 (60.0-200.0); Potassium 4.7 mmol/L (3.5-5.5)
[2020-07-26 17:12] LABS: Glucose,Whole Blood 99 mg/dL (75-99)
[2020-07-26 19:35] LABS: Glucose,Whole Blood 130 mg/dL (75-99)
[2020-07-26] MEDS: SODIUM CHLORIDE 0.9% 1,000 ML IV SCH (20:09)
[2020-07-26] MEDS: ALPRAZolam 0.25 MG TAB PO PRN (20:17)
[2020-07-26] MEDS: EZETIMIBE 10 MG TAB PO SCH (21:35)
[2020-07-26] MEDS: MONTELUKAST 10 MG TAB PO SCH (21:35)
[2020-07-26] MEDS: OXYMETAZOLINE 0.05% NASL SPRAY 1 SPRAY BOTTLE NASAL SCH (21:36)
[2020-07-26 22:12] LABS: Glucose,Whole Blood 111 mg/dL (75-99)
--- NOTE | 2020-07-26 23:48 | P.PN ---
Progress Note - Text Progress Note Date: 07/26/20 Chief Complaint: Shortness of breath History of presenting complaint: This is a very pleasant 75-year-old patient of Dr. Cannon. Patient is a resident of assisted [facility]. Normally uses a wheelchair and a walker. No history of smoking. Alcohol occasional. Chronic stable medical conditions include diabetes, hypertension, osteoarthritis, obstructive sleep apnea uses CPAP, diverticulosis, partial limitation of left foot, coronary artery disease with stent. About a week ago patient felt he had some sinus symptoms. Subsequently started having headaches. Tired. Some muscle aches. Became more short of breath yesterday. Also had a fever. Has been constipated. Lost her appetite for about a week. Has a dry cough. The no COVID cases at the facility. Admitted with-streptococcus bacteremia. With positive blood cultures- enterococcus avium. On IV ceftriaxone. Negative for COVID 19. Oral intake better. Hemoglobin 6.5 Today-feeling tired. Having some abdominal pain. Decrease appetite. No fever.. Review of systems: Was done for constitutional, cardiovascular, GI, pulmonary. relevant finding as above Active Medications Acetaminophen (Acetaminophen Tab 325 Mg Tab) 650 mg PO Q4H PRN PRN Reason: Pain Last Admin: 07/26/20 23:09 Dose: 650 mg Documented by: Alprazolam (Alprazolam 0.25 Mg Tab) 0.25 mg PO Q6H PRN PRN Reason: Anxiety Last Admin: 07/26/20 20:17 Dose: 0.25 mg Documented by: Amlodipine Besylate (Amlodipine 10 Mg Tab) 10 mg PO DAILY [facility] Last Admin: 07/26/20 08:14 Dose: 10 mg Documented by: Ascorbic Acid (Ascorbic Acid 500 Mg Tab) 1,000 mg PO DAILY [facility] Last Admin: 07/26/20 08:14 Dose: 1,000 mg Documented by: Ezetimibe (Ezetimibe 10 Mg Tab) 10 mg PO HS [facility] Last Admin: 07/26/20 21:35 Dose: 10 mg Documented by: Furosemide (Furosemide 40 Mg Tab) 40 mg PO DAILY [facility] Last Admin: 07/26/20 08:14 Dose: 40 mg Documented by: Sodium Chloride (Saline 0.9%) 1,000 mls @ 20 mls/hr IV .Q24H [facility] Last Admin: 07/26/20 20:09 Dose: 20 mls/hr Documented by: Ampicillin Sodium/Sulbactam (Sodium 1.5 gm/ Sodium Chloride) 50 mls @ 100 mls/hr IVPB Q8HR [facility] Last Admin: 07/26/20 23:09 Dose: 100 mls/hr Documented by: Insulin Aspart (Insulin Aspart (Novolog) 100 Unit/Ml Vial) 20 unit SQ AC-TID [facility] Last Admin: 07/26/20 18:00 Dose: 10 unit Documented by: Insulin Aspart (Insulin Aspart (Novolog) 100 Unit/Ml Vial) 0 unit SQ ACHS [facility]; Protocol Last Admin: 07/26/20 20:38 Dose: Not Given Documented by: Insulin Detemir (Insulin Detemir (Levemir) 100 Unit/Ml Syr) 30 unit SQ BID@0700,2100 [facility] Last Admin: 07/26/20 20:38 Dose: Not Given Documented by: Losartan Potassium (Losartan 25 Mg Tab) 25 mg PO DAILY [facility] Last Admin: 07/26/20 08:14 Dose: 25 mg Documented by: Medroxyprogesterone Acetate (Medroxyprogesterone 2.5 Mg Tab) 2.5 mg PO DAILY [facility] Last Admin: 07/26/20 08:14 Dose: 2.5 mg Documented by: Metformin HCl (Metformin 500 Mg Tab) 500 mg PO BID [facility] Last Admin: 07/26/20 21:35 Dose: 500 mg Documented by: Metoprolol Tartrate (Metoprolol Tartrate 25 Mg Tab) 25 mg PO BID [facility] Last Admin: 07/26/20 21:34 Dose: 25 mg Documented by: Miscellaneous Information (Pneumonia Protocol Utilized 1 Each [facility]) 1 each PO ONCE PRN PRN Reason: Per Protocol Montelukast Sodium (Montelukast 10 Mg Tab) 10 mg PO HS [facility] Last Admin: 07/26/20 21:35 Dose: 10 mg Documented by: Oxymetazoline HCl (Oxymetazoline 0.05% Nasl Nesbit 1 Nesbit Bottle) 2 spray NASAL BID [facility] Last Admin: 07/26/20 21:36 Dose: 2 spray Documented by: Psyllium Hydrophilic Mucilloid (Psyllium Husk 100% 6 Gm Packet) 6 gm PO DAILY [facility] Last Admin: 07/26/20 08:13 Dose: 6 gm Documented by: Zinc Sulfate (Zinc Sulfate 220 Mg Cap) 220 mg PO DAILY [facility] Last Admin: 07/26/20 08:14 Dose: 220 mg Documented by: Physical examination: VITAL SIGNS: 97.8, 59, 18, 104/63, 95% room air GENERAL: Laying in bed, more tired today EYES: Pupils equal. Conjunctiva normal. NECK: JVD unable to assess masses not palpable. HEART: First and second heart sounds are normal; no edema. LUNGS: Respiratory rate increased, diminished breath sounds on expiration some wheezing. ABDOMEN: Soft, left-sided tenderness, no guarding rigidity, liver spleen not palpable, no masses palpable. PSYCH: Alert and oriented x3; mood and affect tired MUSCULAR skeletal: Evidence of OA INVESTIGATIONS, reviewed in the clinical context: White count 11.9 hemoglobin 7.9 platelets 254 potassium 4.7 creatinine 1.2 Previous testing Blood culture-positive for enterococcus avium White count 12.7 hemoglobin 7.1 platelets 269 d-dimer 1.65 Potassium 4.9 creatinine 1.08 glucose 10/31 Lactic acid 3.9 CRP 47.6 proBNP 2790 pro-calcitonin 0.21 COVID 19 PCR not detected Influenza type A type B both negative EKG tracing personally reviewed by me-poor LV progression Chest x-ray film personally reviewed by me-shows underpenetrated film with patchy infiltrates. Computed tomography scan of the abdomen-diverticulosis, multiple bilateral nonobstructing renal stones, partially obstructing, proximal right ureteral stone with mild hydronephrosis. Assessment: -Enterococcus avium bacteremia. Given abdominal pain to computed tomography scan of the abdomen pelvis to find the source. -Moderate persistent asthma with acute exacerbation -Diabetes mellitus type 2 uncontrolled with hyperglycemia -Essential hypertension -Primary osteoarthritis -Obstructive sleep apnea uses CPAP -Coronary artery disease with history of stent -Colonic diverticulosis -Morbid obesity BMI 49.2 -Chronic medical debility uses a wheelchair -Acute blood loss anemia microcytic hemoglobin dropping below 7. 1 unit of blood ordered -Asymptomatic diverticulosis -Multiple bilateral nonobstructing renal stones -Partial obstructing right ureteral stone 0.6 cm. Plan: Patient being changed over to IV Unasyn. Consult urology. Also consult ID. Other medications to continue. Discussed with the patient.
[2020-07-27] MEDS: ALPRAZolam 0.25 MG TAB PO PRN ×2 (04:18→22:02)
[2020-07-27 07:27] LABS: Glucose,Whole Blood 113 mg/dL (75-99)
[2020-07-27] MEDS: INSULIN ASPART (NovoLOG) 100 UNIT/ML VIAL SQ SCH ×7 (07:44→21:57)
[2020-07-27] MEDS: AMPICILLIN-SULBACTAM 1.5 GM in SODIUM CHLORIDE 0.9% 50 ML IVPB SCH ×2 (07:55→16:53)
[2020-07-27] MEDS: METOPROLOL TARTRATE 25 MG TAB PO SCH ×2 (07:58→21:58)
[2020-07-27] MEDS: PSYLLIUM HUSK 100% 6 GM PACKET PO SCH (07:58)
[2020-07-27] MEDS: FUROSEMIDE 40 MG TAB PO SCH (07:58)
[2020-07-27] MEDS: amLODIPine 10 MG TAB PO SCH (07:58)
[2020-07-27] MEDS: ASCORBIC ACID 500 MG TAB PO SCH (07:59)
[2020-07-27] MEDS: LOSARTAN 25 MG TAB PO SCH (07:59)
[2020-07-27] MEDS: metFORMIN 500 MG TAB PO SCH ×2 (07:59→21:58)
[2020-07-27] MEDS: ZINC SULFATE 220 MG CAP PO SCH (08:00)
[2020-07-27] MEDS: OXYMETAZOLINE 0.05% NASL SPRAY 1 SPRAY BOTTLE NASAL SCH ×2 (08:03→21:59)
[2020-07-27] MEDS: INSULIN DETEMIR (LEVEMIR) 100 UNIT/ML SYR SQ SCH ×2 (08:07→21:57)
[2020-07-27 10:42] LABS: Anisocytosis Slight; Basophils # (A) 0.1 k/uL (0-0.2); Basophils % (A) 1 %; Eosinophils # (A) 0.3 k/uL (0-0.7); Eosinophils % (A) 3 %; HCT 27.1 % (34.0-46.0); HGB 7.8 gm/dL (11.4-16.0); Hypochromasia Marked; Lymphocytes # (A) 1.8 k/uL (1.0-4.8); Lymphocytes % (A) 20 %; MCHC 28.8 g/dL (31.0-37.0); MCV 72.7 fL (80.0-100.0); Mean Platelet Volume 7.5; Microcytosis Moderate; Monocytes # (A) 0.4 k/uL (0-1.0); Monocytes % (A) 5 %; Neutrophils # (A) 6.6 k/uL (1.3-7.7); Neutrophils % (A) 71 %; Platelet Count 250 k/uL (150-450); Poikilocytosis Moderate; RBC 3.72 m/uL (3.80-5.40); RDW 19.1 % (11.5-15.5); WBC 9.3 k/uL (3.8-10.6)
[2020-07-27 12:15] LABS: Glucose,Whole Blood 123 mg/dL (75-99)
--- NOTE | 2020-07-27 15:05 | P.PN ---
Subjective Progress Note Date: 07/27/20 Principal diagnosis: 75-year-old white female patient with past medical history of chronic bronchial asthma, known history of obstructive sleep apnea on CPAP therapy, peripheral vas cular disease, diabetes mellitus type 2, hypertension, osteoarthritis, coronary artery disease with previous stenting, morbid obesity, previous MRSA infection in the left foot, and she follows with Dr. Ramirez in the pulmonary clinic for her history of obstructive sleep apnea. Patient presented to the hospital 07/23/2020 with complaints of fever, dyspnea and started last night. Patient had a cough, sinus drainage, dizziness, she was having trouble sleeping related to shortness of breath, she sustained a fall. She is a resident at the [facility]. She denies any chest pain or palpitations, but when she arrived per EMS her pulse ox was in the 70s on room air. No nausea vomiting and diarrhea, rapid COVID 19 was negative. Influenza negative. Chest x-ray showing diminished lung volumes subsegmental perihilar and basilar opacities with new patchy opacity in the peripheral aspect of the right lower lung zone, pulmonary vascular prominence, differential consideration with bibasilar atelectasis or consolidation. EKG showed normal sinus rhythm with evidence of nonspecific intraventricular block, inferior infarct of undetermined age as well as possible anterolateral infarct of undetermined age. Low-grade fever on admission with a temp of 100.8F, currently afebrile, white blood cell count is 12.7, hemoglobin is 7.1, INR is 1.2, d-dimer is 1.65, sodium is 134, potassium is 4.9, chloride is 105, CO2 is 20, BUN of 17, creatinine is 1.08, lactic acid was 3.9, ferritin level was 9.3, CRP was 47.6, LDH was 595, pro calcitonin was 0.21, urinalysis showed moderate amount of blood, 2+ protein, but no clear evidence of UTI. Patient was started on steroids, for possibility of Covid 19 related pneumonitis, and we were consulted for possibility of Remdesivir infusion On 07/24/2020 patient seen in follow-up on medical surgical floor, she is feeling better today, her blood cultures came back positive for Streptococcus species, final culture is pending, bacteremia is likely related to possibility of bacterial pneumonia. She is on antibiotics in the form of azithromycin and Rocephin, she has been afebrile, she continues on IV Lasix, he is feeling better, breathing easier, RSV was negative, her Covid 19 testing was negative. Her echocardiogram showed moderate concentric LVH, EF between 50-55%, mild aortic stenosis, mild mitral regurgitation, mild TR, mild pulmonary hypertension, right-sided pressures of 38.3 mmHg. no altered mentation, no chest pain, no hemoptysis. Will await results of final blood culture, will obtain follow-up blood culture, sputum culture, continue with antibiotic coverage On 07/25/2020 patient seen in follow-up on medical surgical floor. She is improving, FiO2 to 5 L, pulse ox is 100%, hemodynamically stable, afebrile. Repeat Covid 19 came back negative, influenza screen was negative, RSV PCR was negative, patient was found to have strep bacteremia likely related to strep pneumonia. She is on appropriate antibiotics for that, Rocephin. Denies any chest pain, denies any significant congestion, chest x-ray reviewed, showing possible interstitial edema, patient was started on diuretics. On 07/26/2020 patient seen in follow-up on medical surgical floor, she is feeling better, breathing easier, she is on room air, pulse ox 95%, she's been afebrile, vital signs have been stable, no completing chest pain or hemoptysis, she remains on antibiotics on Unasyn, final blood culture came back positive for enterococcus avium. Follow blood culture show no growth. CT of the abdomen is pending. She complains any nausea vomiting or diarrhea. On 07/27/2020 patient seen in follow-up on medical surgical floor. She is resting comfortably in bed, denies any worsening dyspnea, at times she feels mildly short of breath, lung sounds diminished, no cough no congestion, no chest discomfort, she is on 3 L of oxygen and her pulse ox is 100%, hemodynamics stable, she's been afebrile, she was found to be positive for enterococcus avium in the blood cultures possibly related to intra-abdominal source. CT of the abdomen and pelvis showed diverticulosis without diverticulitis, multiple bilateral nonobstructing renal stones, and partially obstructing proximal right ureteral stone measuring 0.6 cm is contributing to mild right hydronephrosis. No nausea or vomiting, no diarrhea, she was actually constipated, and she was given something for constipation. Maintained on Unasyn. Objective - Vital Signs Vital signs: Vital Signs Temp 98.0 F 07/27/20 12:33 Pulse 66 07/27/20 12:33 Resp 18 07/27/20 12:33 BP 143/71 07/27/20 12:33 Pulse Ox 100 07/27/20 12:33 Intake & Output 07/26/20 07/27/20 07/27/20 18:59 06:59 18:59 Intake Total 1110 240 Output Total 3301 1300 Balance -3301 -190 240 Intake: Intake, IV Titration 210 Amount Ampicillin-Sulbactam 1.5 50 gm In Sodium Chloride 0.9 % 50 ml @ 100 mls/hr IVPB Q8HR [facility] Rx#:[id number] Sodium Chloride 0.9% 1, 160 000 ml @ 20 mls/hr IV . Q24H [facility] Rx#:[id number] Oral 900 240 Output: Urine 3300 1300 Uretheral (Lee) 3300 Stool 1 Other: Voiding Method Indwelling Catheter Indwelling Catheter # Bowel Movements 1 - Exam GENERAL EXAM: Alert, very pleasant, obese, 75-year-old white female, on 3 l/min pulse ox of 100% comfortable in no apparent distress. HEAD: Normocephalic/atraumatic. EYES: Normal reaction of pupils, equal size. Conjunctiva pink, sclera white. NOSE: Clear with pink turbinates. THROAT: No erythema or exudates. NECK: No masses, no JVD, no thyroid enlargement, no adenopathy. CHEST: No chest wall deformity. Symmetrical expansion. LUNGS: Equal air entry with diffuse bibasilar crackles, no wheeze, rhonchi or dullness. CVS: Regular rate and rhythm, normal S1 and S2, no gallops, no murmurs, no rubs ABDOMEN: Soft, nontender. No hepatosplenomegaly, normal bowel sounds, no guarding or rigidity. EXTREMITIES: No clubbing, no edema, no cyanosis, 2+ pulses and upper and lower extremities. MUSCULOSKELETAL: Muscle strength and tone normal. SPINE: No scoliosis or deformity SKIN: No rashes CENTRAL NERVOUS SYSTEM: Alert and oriented -3. No focal deficits, tone is normal in all 4 extremities. PSYCHIATRIC: Alert and oriented -3. Appropriate affect. Intact judgment and insight. - Labs CBC & Chem 7: 07/27/20 09:44 11/19/20 09:19 Labs: Abnormal Lab Results - Last 24 Hours (Table) 07/26/20 07/26/20 07/26/20 Range/Units 09:19 19:34 22:11 RBC (3.80-5.40) m/uL Hgb (11.4-16.0) gm/dL Hct (34.0-46.0) % MCV (80.0-100.0) fL MCH (25.0-35.0) pg MCHC (31.0-37.0) g/dL RDW (11.5-15.5) % BUN 38.0 H (9.0-27.0) mg/dL Est GFR (CKD-EPI)AfAm 51.9 L (60.0-200.0) Est GFR (CKD-EPI)NonAf 44.8 L (60.0-200.0) BUN/Creatinine Ratio 31.67 H (12.00-20.00) Ratio POC Glucose (mg/dL) 130 H 111 H (75-99) mg/dL Iron 15 L (50-170) ug/dL % Saturation 4.14 L (12.00-45.00) 07/27/20 07/27/20 07/27/20 Range/Units 07:26 09:44 12:05 RBC 3.72 L (3.80-5.40) m/uL Hgb 7.8 L (11.4-16.0) gm/dL Hct 27.1 L (34.0-46.0) % MCV 72.7 L (80.0-100.0) fL MCH 21.0 L (25.0-35.0) pg MCHC 28.8 L (31.0-37.0) g/dL RDW 19.1 H (11.5-15.5) % BUN (9.0-27.0) mg/dL Est GFR (CKD-EPI)AfAm (60.0-200.0) Est GFR (CKD-EPI)NonAf (60.0-200.0) BUN/Creatinine Ratio (12.00-20.00) Ratio POC Glucose (mg/dL) 113 H 123 H (75-99) mg/dL Iron (50-170) ug/dL % Saturation (12.00-45.00) Microbiology - Last 24 Hours (Table) 07/24/20 14:55 Blood Culture - Preliminary Blood No Growth after 48 hours 07/23/20 03:44 Blood Culture Gram Stain - Final Blood Blood Culture - Final Enterococcus avium Assessment and Plan Plan: Assessment: #1. Acute hypoxic respiratory failure, likely related to acute exacerbation of CHF, and sepsis, initially was thought to be related to community acquired pneumonia however final blood culture came back positive for enterococcus avium, rapid COVID 19 test was negative #2. Enterococcus bacteremia #3. Acute on chronic anemia possibly related to blood loss anemia #4. Lactic acidosis, recovered #5. Dyspnea, fever, weakness, related to sepsis, first rapid COVID 19 was negative #6. Chronic bronchial asthma, unspecified #7. Morbid obesity #8. Obstructive sleep apnea on CPAP therapy #9. Diabetes mellitus type 2 #10. Hypertension #11. Osteoarthritis #12. Coronary artery disease, with previous stenting and grafting Plan: Consult urology for the mild right hydronephrosis and renal stone, continue current antibiotics, continue oral diuretics. Follow up blood cultures show no growth. I performed a history & physical examination of the patient and discussed their management with my nurse practitioner, Anna Gifford. I reviewed the nurse practitioner's note and agree with the documented findings and plan of care. Lung sounds are positive for diffuse crackles. The findings and the impression was discussed with the patient. I attest to the documentation by the nurse practitioner. Time with Patient: Less than 30
[2020-07-27 15:18] LABS: African American GFR (CKD) 57.7 (60.0-200.0); Anion Gap 6.3 mmol/L (4.00-12.00); BUN/Creat Ratio 28.18 Ratio (12.00-20.00); Calcium 8.9 mg/dL (8.7-10.3); Carbon Dioxide 26.7 mmol/L (21.6-31.8); Non-African American GFR(CKD) 49.8 (60.0-200.0); Potassium 4.5 mmol/L (3.5-5.5)
[2020-07-27 16:55] LABS: Glucose,Whole Blood 115 mg/dL (75-99)
[2020-07-27] MEDS: SODIUM CHLORIDE 0.9% 1,000 ML IV SCH (17:33)
[2020-07-27 21:25] LABS: Glucose,Whole Blood 123 mg/dL (75-99)
[2020-07-27] MEDS: EZETIMIBE 10 MG TAB PO SCH (21:57)
[2020-07-27] MEDS: MONTELUKAST 10 MG TAB PO SCH (21:58)
--- NOTE | 2020-07-27 21:58 | P.GSCN ---
History of Present Illness Consult date: 07/27/20 Reason for Consult: right ureteral stone History of present illness: Ms Lombardo is a 75 yo female that is admitted to the hospital with pneumonia, also is bactremic secondary to enterococcus avium. She underwent CT on 07/26 which showed a 6 mm right proximal stone and bilateral non-obstructive renal stones. She denies any flank pain, dysuria or gross hematuria. He UA on admission is negative for UTI. She has hx of recurrent stones in the past, she indicated that she passed spontaneously and has not required any surgical intervention for her stone disease. Review of Systems - Constitutional Denies chills, Denies fever, Denies weight loss - Cardiovascular Reports dyspnea on exertion, Reports shortness of breath - Respiratory Reports dyspnea - Gastrointestinal Reports as per HPI, Denies abdominal pain, Denies nausea, Denies vomiting - Genitourinary Genitourinary: Denies dysuria, Denies flank pain, Denies hematuria Past Medical History Past Medical History: Asthma, Diabetes Mellitus, Hypertension, Osteoarthritis (OA), Skin Disorder, Sleep Apnea/CPAP/BIPAP, Vascular Disorder Additional Past Medical History / Comment(s): Bronchial asthma, coronary stent 3, morbid obesity, obstructive sleep apnea, diabetes mellitus type 2, eczema, peripheral vascular disease, obstructive sleep apnea on CPAP, diverticulosis/diverticulitis and previous left wound in the foot with infection with MRSA and the patient has a partial amputation of the left foot History of Any Multi-Drug Resistant Organisms: MRSA Year Discovered:: 2010 MDRO Source:: LT FOOT WOUND Past Surgical History: Appendectomy, Heart Catheterization With Stent, Tonsillectomy Additional Past Surgical History / Comment(s): PARTIAL AMPUTATION LT FOOT with previous amputation of the left great toe,. D & C, cataract surgery, breast biopsy Past Anesthesia/Blood Transfusion Reactions: Motion Sickness, Postoperative Nausea & Vomiting (PONV) Date of Last Stent Placement:: 2007 Past Psychological History: Depression Additional Psychological History / Comment(s): SEE THERAPIST WHEN NEEDED-NOT ON ANY MEDS Past Alcohol Use History: Occasional Additional Past Alcohol Use History / Comment(s): SMOKED IN EARLY 20'S-STOPPED in twenties. Patient is currently residing at [facility] and is wheelchair-bound. She needs assistance with showering. There are no pets in the home. 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 Past Drug Use History: None Reported - Past Family History Mother Family Medical History: Cancer, CVA/TIA Additional Family Medical History / Comment(s): HAD MULTIPLE PROBLEMS- OF CVA Sister(s) Family Medical History: Cancer Additional Family Medical History / Comment(s): Uterine Cancer Medications and Allergies Home Medications Medication Instructions Recorded Confirmed Type Insulin Aspart [NovoLOG Flexpen] 30 units SQ AC-TID 06/28/16 07/23/20 History Insulin Glargine,Hum.rec.anlog 40 unit SQ BID 06/28/16 07/23/20 History [Lantus Solostar] Acetaminophen Tab [Tylenol] 650 mg PO Q4H PRN #0 tab 07/14/16 07/23/20 Rx Losartan [Cozaar] 25 mg PO DAILY #30 tab 07/14/16 07/23/20 Rx Metoprolol Tartrate [Lopressor] 25 mg PO BID tab 07/14/16 07/23/20 Rx Montelukast [Singulair] 10 mg PO HS tab 07/14/16 07/23/20 Rx ALPRAZolam [Xanax] 0.25 mg PO Q6H PRN 07/23/20 07/23/20 History Albuterol Inhaler [Ventolin Hfa 1 puff INHALATION RT-Q4H PRN 07/23/20 07/23/20 History Inhaler] Apixaban [Eliquis] 5 mg PO BID 07/23/20 07/23/20 History Ezetimibe [Zetia] 10 mg PO HS 07/23/20 07/23/20 History Furosemide [Lasix] 60 mg PO DAILY 07/23/20 07/23/20 History amLODIPine [Norvasc] 10 mg PO DAILY 07/23/20 07/23/20 History medroxyPROGESTERone [Provera] 2.5 mg PO DAILY 07/23/20 07/23/20 History metFORMIN HCL [Glucophage] 500 mg PO BID 07/23/20 07/23/20 History Allergies Allergy/AdvReac Type Severity Reaction Status Date / Time Penicillins AdvReac Rash/Hives Verified 07/23/20 09:23 Dihntbo-Pbs-Rud Reductase AdvReac EXTREME Verified 07/23/20 09:23 Inhibitor MUSCLE PAIN AND WEAKNESS Surgical - Exam Vital Signs Temp Pulse Resp Pulse Ox 100.8 F H 91 40 H 98 07/23/20 03:23 07/23/20 03:23 07/23/20 03:23 07/23/20 03:23 - General well developed, well nourished, no distress, no pain - Eyes PERRL, normal ocular movement - ENT normal nares, normal mucosa - Respiratory normal expansion, other (labored breathing ) - Psychiatric oriented to time, oriented to person, oriented to place, speech is normal Results - Labs 07/27/20 09:44 07/27/20 09:44 Abnormal Lab Results - Last 24 Hours (Table) 07/26/20 07/27/20 07/27/20 Range/Units 22:11 07:26 09:44 RBC (3.80-5.40) m/uL Hgb (11.4-16.0) gm/dL Hct (34.0-46.0) % MCV (80.0-100.0) fL MCH (25.0-35.0) pg MCHC (31.0-37.0) g/dL RDW (11.5-15.5) % BUN 31.0 H (9.0-27.0) mg/dL Est GFR (CKD-EPI)AfAm 57.7 L (60.0-200.0) Est GFR (CKD-EPI)NonAf 49.8 L (60.0-200.0) BUN/Creatinine Ratio 28.18 H (12.00-20.00) Ratio Glucose 132 H (70-110) mg/dL POC Glucose (mg/dL) 111 H 113 H (75-99) mg/dL 07/27/20 07/27/20 07/27/20 Range/Units 09:44 12:05 16:53 RBC 3.72 L (3.80-5.40) m/uL Hgb 7.8 L (11.4-16.0) gm/dL Hct 27.1 L (34.0-46.0) % MCV 72.7 L (80.0-100.0) fL MCH 21.0 L (25.0-35.0) pg MCHC 28.8 L (31.0-37.0) g/dL RDW 19.1 H (11.5-15.5) % BUN (9.0-27.0) mg/dL Est GFR (CKD-EPI)AfAm (60.0-200.0) Est GFR (CKD-EPI)NonAf (60.0-200.0) BUN/Creatinine Ratio (12.00-20.00) Ratio Glucose (70-110) mg/dL POC Glucose (mg/dL) 123 H 115 H (75-99) mg/dL 07/27/20 Range/Units 21:24 RBC (3.80-5.40) m/uL Hgb (11.4-16.0) gm/dL Hct (34.0-46.0) % MCV (80.0-100.0) fL MCH (25.0-35.0) pg MCHC (31.0-37.0) g/dL RDW (11.5-15.5) % BUN (9.0-27.0) mg/dL Est GFR (CKD-EPI)AfAm (60.0-200.0) Est GFR (CKD-EPI)NonAf (60.0-200.0) BUN/Creatinine Ratio (12.00-20.00) Ratio Glucose (70-110) mg/dL POC Glucose (mg/dL) 123 H (75-99) mg/dL Microbiology - Last 24 Hours (Table) 07/24/20 14:55 Blood Culture - Preliminary Blood No Growth after 72 hours Diabetes panel 07/27/20 Range/Units 09:44 Sodium 140 (135-145) mmol/L Potassium 4.5 (3.5-5.5) mmol/L Chloride 107 (96-109) mmol/L Carbon Dioxide 26.7 (21.6-31.8) mmol/L BUN 31.0 H (9.0-27.0) mg/dL Creatinine 1.1 (0.6-1.5) mg/dL Glucose 132 H (70-110) mg/dL Calcium 8.9 (8.7-10.3) mg/dL Calcium panel 07/27/20 Range/Units 09:44 Calcium 8.9 (8.7-10.3) mg/dL Pituitary panel 07/27/20 Range/Units 09:44 Sodium 140 (135-145) mmol/L Potassium 4.5 (3.5-5.5) mmol/L Chloride 107 (96-109) mmol/L Carbon Dioxide 26.7 (21.6-31.8) mmol/L BUN 31.0 H (9.0-27.0) mg/dL Creatinine 1.1 (0.6-1.5) mg/dL Glucose 132 H (70-110) mg/dL Calcium 8.9 (8.7-10.3) mg/dL Adrenal panel 07/27/20 Range/Units 09:44 Sodium 140 (135-145) mmol/L Potassium 4.5 (3.5-5.5) mmol/L Chloride 107 (96-109) mmol/L Carbon Dioxide 26.7 (21.6-31.8) mmol/L BUN 31.0 H (9.0-27.0) mg/dL Creatinine 1.1 (0.6-1.5) mg/dL Glucose 132 H (70-110) mg/dL Calcium 8.9 (8.7-10.3) mg/dL Assessment and Plan Assessment: 75 yo female admitted with pneumonia, had CT on 07/26 showing 6mm right proximal stone and bilateral non-obstructing stone. Patient is asymptomatic from her stone. She has hx of previous stone that she passed spontaneously. discussed with her given size of stone she most likely will need surgical intervention. given her negative UA, lack of symptoms and stable renal function this can be done as an outpatient. Additionally I discussed with her given her current pulmonary status, doing surgery at this time is associated with increased risk of complications. At this time will see her back in 1-2 weeks in the office, and if she has not passed the stone at that time will set her up for right sided u reteroscopy with holmium laser.
--- NOTE | 2020-07-27 23:19 | P.PN ---
Progress Note - Text Progress Note Date: 07/27/20 Chief Complaint: Shortness of breath History of presenting complaint: This is a very pleasant 75-year-old patient of Dr. Cannon. Patient is a resident of assisted [facility]. Normally uses a wheelchair and a walker. No history of smoking. Alcohol occasional. Chronic stable medical conditions include diabetes, hypertension, osteoarthritis, obstructive sleep apnea uses CPAP, diverticulosis, partial limitation of left foot, coronary artery disease with stent. About a week ago patient felt he had some sinus symptoms. Subsequently started having headaches. Tired. Some muscle aches. Became more short of breath yesterday. Also had a fever. Has been constipated. Lost her appetite for about a week. Has a dry cough. The no COVID cases at the facility. Admitted with-streptococcus bacteremia. With positive blood cultures- enterococcus avium. On IV ceftriaxone. Negative for COVID 19. Oral intake better. Hemoglobin 6.5 Today-feeling better today. Abdominal pain was much better. Appetite improving. No fever Review of systems: Was done for constitutional, cardiovascular, GI, pulmonary. relevant finding as above Active Medications Acetaminophen (Acetaminophen Tab 325 Mg Tab) 650 mg PO Q4H PRN PRN Reason: Pain Last Admin: 07/26/20 23:09 Dose: 650 mg Documented by: Alprazolam (Alprazolam 0.25 Mg Tab) 0.25 mg PO Q6H PRN PRN Reason: Anxiety Last Admin: 07/27/20 22:02 Dose: 0.25 mg Documented by: Amlodipine Besylate (Amlodipine 10 Mg Tab) 10 mg PO DAILY [facility] Last Admin: 07/27/20 07:58 Dose: 10 mg Documented by: Ascorbic Acid (Ascorbic Acid 500 Mg Tab) 1,000 mg PO DAILY [facility] Last Admin: 07/27/20 07:59 Dose: 1,000 mg Documented by: Ezetimibe (Ezetimibe 10 Mg Tab) 10 mg PO HS [facility] Last Admin: 07/27/20 21:57 Dose: 10 mg Documented by: Furosemide (Furosemide 40 Mg Tab) 40 mg PO DAILY [facility] Last Admin: 07/27/20 07:58 Dose: 40 mg Documented by: Sodium Chloride (Saline 0.9%) 1,000 mls @ 20 mls/hr IV .Q24H [facility] Last Admin: 11/20/20 17:33 Dose: Not Given Documented by: Ampicillin Sodium/Sulbactam (Sodium 3 gm/ Sodium Chloride) 100 mls @ 200 mls/hr IVPB Q6HR [facility] Insulin Aspart (Insulin Aspart (Novolog) 100 Unit/Ml Vial) 20 unit SQ AC-TID [facility] Last Admin: 07/27/20 17:34 Dose: 20 unit Documented by: Insulin Aspart (Insulin Aspart (Novolog) 100 Unit/Ml Vial) 0 unit SQ ACHS [facility]; Protocol Last Admin: 07/27/20 21:57 Dose: Not Given Documented by: Insulin Detemir (Insulin Detemir (Levemir) 100 Unit/Ml Syr) 30 unit SQ BID@0700,2100 [facility] Last Admin: 07/27/20 21:57 Dose: 30 unit Documented by: Losartan Potassium (Losartan 25 Mg Tab) 25 mg PO DAILY [facility] Last Admin: 07/27/20 07:59 Dose: 25 mg Documented by: Medroxyprogesterone Acetate (Medroxyprogesterone 2.5 Mg Tab) 2.5 mg PO DAILY [facility] Last Admin: 07/27/20 07:58 Dose: 2.5 mg Documented by: Metformin HCl (Metformin 500 Mg Tab) 500 mg PO BID [facility] Last Admin: 07/27/20 21:58 Dose: 500 mg Documented by: Metoprolol Tartrate (Metoprolol Tartrate 25 Mg Tab) 25 mg PO BID [facility] Last Admin: 07/27/20 21:58 Dose: 25 mg Documented by: Miscellaneous Information (Pneumonia Protocol Utilized 1 Each Misc) 1 each PO ONCE PRN PRN Reason: Per Protocol Montelukast Sodium (Montelukast 10 Mg Tab) 10 mg PO HS [facility] Last Admin: 07/27/20 21:58 Dose: 10 mg Documented by: Oxymetazoline HCl (Oxymetazoline 0.05% Nasl Lizton 1 Lizton Bottle) 2 spray NASAL BID [facility] Last Admin: 07/27/20 21:59 Dose: 2 spray Documented by: Psyllium Hydrophilic Mucilloid (Psyllium Husk 100% 6 Gm Packet) 6 gm PO DAILY [facility] Last Admin: 07/27/20 07:58 Dose: 6 gm Documented by: Zinc Sulfate (Zinc Sulfate 220 Mg Cap) 220 mg PO DAILY [facility] Last Admin: 07/27/20 08:00 Dose: 220 mg Documented by: Physical examination: VITAL SIGNS: 98.4, 68, 16, 1 46 x 69, 94% on 3 L GENERAL: Laying in bed, looking better EYES: Pupils equal. Conjunctiva normal. NECK: JVD unable to assess masses not palpable. HEART: First and second heart sounds are normal; no edema. LUNGS: Respiratory rate increased, diminished breath sounds ABDOMEN: Soft, no tenderness, no guarding rigidity, liver spleen not palpable, no masses palpable. PSYCH: Alert and oriented x3; mood and affect tired MUSCULAR skeletal: Evidence of OA INVESTIGATIONS, reviewed in the clinical context: White count 9.3 hemoglobin 7.8 potassium 4.5 creatinine 1.1 Previous testing Blood culture-positive for enterococcus avium White count 12.7 hemoglobin 7.1 platelets 269 d-dimer 1.65 Potassium 4.9 creatinine 1.08 glucose 10/31 Lactic acid 3.9 CRP 47.6 proBNP 2790 pro-calcitonin 0.21 COVID 19 PCR not detected Influenza type A type B both negative EKG tracing personally reviewed by me-poor LV progression Chest x-ray film personally reviewed by me-shows underpenetrated film with patchy infiltrates. Computed tomography scan of the abdomen-diverticulosis, multiple bilateral nonobstructing renal stones, partially obstructing, proximal right ureteral stone with mild hydronephrosis. Assessment: -Enterococcus avium bacteremia. Given abdominal pain to computed tomography scan of the abdomen pelvis to find the source. Likely from obstructed urine outflow. -Moderate persistent asthma with acute exacerbation -Diabetes mellitus type 2 uncontrolled with hyperglycemia -Essential hypertension -Primary osteoarthritis -Obstructive sleep apnea uses CPAP -Coronary artery disease with history of stent -Colonic diverticulosis -Morbid obesity BMI 49.2 -Chronic medical debility uses a wheelchair -Acute blood loss anemia microcytic hemoglobin dropping below 7. 1 unit of blood ordered -Asymptomatic diverticulosis -Multiple bilateral nonobstructing renal stones -Partial obstructing right ureteral stone 0.6 cm.-seems to have passed spontaneously. No further abdominal pain. Plan: Continue IV Unasyn. No further intervention per urology. It is felt the stone was passed spontaneously. Repeat blood culture from the July 24 is negative. Await input from ID.
[2020-07-27] MEDS: AMPICILLIN-SULBACTAM 3 GM in SODIUM CHLORIDE 0.9% 100 ML IVPB SCH (23:50)
[2020-07-28] MEDS: ACETAMINOPHEN TAB 325 MG TAB PO PRN ×2 (00:33→03:57)
[2020-07-28] MEDS: AMPICILLIN-SULBACTAM 3 GM in SODIUM CHLORIDE 0.9% 100 ML IVPB SCH ×3 (05:47→18:32)
[2020-07-28 07:34] LABS: Anisocytosis Slight; Basophils # (A) 0.1 k/uL (0-0.2); Basophils % (A) 1 %; Eosinophils # (A) 0.3 k/uL (0-0.7); Eosinophils % (A) 3 %; HCT 26.8 % (34.0-46.0); HGB 7.5 gm/dL (11.4-16.0); Hypochromasia Marked; Lymphocytes # (A) 1.8 k/uL (1.0-4.8); Lymphocytes % (A) 18 %; MCH 20.2 pg (25.0-35.0); MCHC 28.1 g/dL (31.0-37.0); Mean Platelet Volume 7.1; Microcytosis Marked; Monocytes # (A) 0.5 k/uL (0-1.0); Monocytes % (A) 5 %; Neutrophils # (A) 6.9 k/uL (1.3-7.7); Neutrophils % (A) 71 %; Platelet Count 252 k/uL (150-450); Poikilocytosis Moderate; RBC 3.72 m/uL (3.80-5.40); RDW 19.3 % (11.5-15.5); WBC 9.7 k/uL (3.8-10.6)
[2020-07-28] MEDS: INSULIN ASPART (NovoLOG) 100 UNIT/ML VIAL SQ SCH ×7 (08:08→22:01)
[2020-07-28 08:09] LABS: Glucose,Whole Blood 110 mg/dL (75-99)
--- NOTE | 2020-07-28 10:21 | P.CONS ---
History of Present Illness - Reason for Consult Consult date: 07/27/20 Bacteremia Requesting physician: Kenneth Wright - Chief Complaint Fever and shortness of breath x few days - History of Present Illness Patient is a 75-year-old female presenting to the ER at [facility] on 07/23/2020 for evaluation of fever and increasing shortness of breath patient was complaining of not feeling good for last few days before [facility] patient also have a cough mildly intense did not bring up any sputum denies having any chest pain no nausea or vomiting and abdominal pain or any diarrhea, patient on presentation to the hospital did have low-grade fever 100.8 she did have elevated white count of 12.7, patient did have elevated d-dimer elevated inflammation markers as well as pro-calcitonin, patient did have chest x-ray with diminished lung volumes some subsegmental perihilar and bibasilar opacities, patient did have a positive UA however no urine culture were done the patient had did have a blood cultures which came back positive with enterococcus patient did have a CT of abdominal pelvis, with evidence of multiple bilateral nonobstructing renal stones partially obstructing proximal right ureteral stone measuring 0.6 cm with mild right hydronephrosis patient was started on Unasyn for her bacteremia infection disease was consulted for further management Review of Systems Positive point has been mentioned in the HPI rest of the systems are negative Past Medical History Past Medical History: Asthma, Diabetes Mellitus, Hypertension, Osteoarthritis (OA), Skin Disorder, Sleep Apnea/CPAP/BIPAP, Vascular Disorder Additional Past Medical History / Comment(s): Bronchial asthma, coronary stent 3, morbid obesity, obstructive sleep apnea, diabetes mellitus type 2, eczema, peripheral vascular disease, obstructive sleep apnea on CPAP, diverticulosis/diverticulitis and previous left wound in the foot with infection with MRSA and the patient has a partial amputation of the left foot History of Any Multi-Drug Resistant Organisms: MRSA Year Discovered:: 2010 MDRO Source:: LT FOOT WOUND Past Surgical History: Appendectomy, Heart Catheterization With Stent, Tonsillectomy Additional Past Surgical History / Comment(s): PARTIAL AMPUTATION LT FOOT with previous amputation of the left great toe,. D & C, cataract surgery, breast biopsy Past Anesthesia/Blood Transfusion Reactions: Motion Sickness, Postoperative Nausea & Vomiting (PONV) Date of Last Stent Placement:: 2007 Past Psychological History: Depression Additional Psychological History / Comment(s): SEE THERAPIST WHEN NEEDED-NOT ON ANY MEDS Past Alcohol Use History: Occasional Additional Past Alcohol Use History / Comment(s): SMOKED IN EARLY S-STOPPED in twenties. Patient is currently residing at [facility] and is wheelchair-bound. She needs assistance with showering. There are no pets in the home. 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 Past Drug Use History: None Reported - Past Family History Mother Family Medical History: Cancer, CVA/TIA Additional Family Medical History / Comment(s): HAD MULTIPLE PROBLEMS- OF CVA Sister(s) Family Medical History: Cancer Additional Family Medical History / Comment(s): Uterine Cancer Medications and Allergies Home Medications Medication Instructions Recorded Confirmed Type Insulin Aspart [NovoLOG Flexpen] 30 units SQ AC-TID 06/28/16 07/23/20 History Insulin Glargine,Hum.rec.anlog 40 unit SQ BID 06/28/16 07/23/20 History [Lantus Solostar] Acetaminophen Tab [Tylenol] 650 mg PO Q4H PRN #0 tab 07/14/16 07/23/20 Rx Losartan [Cozaar] 25 mg PO DAILY #30 tab 07/14/16 07/23/20 Rx Metoprolol Tartrate [Lopressor] 25 mg PO BID tab 07/14/16 07/23/20 Rx Montelukast [Singulair] 10 mg PO HS tab 07/14/16 07/23/20 Rx ALPRAZolam [Xanax] 0.25 mg PO Q6H PRN 07/23/20 07/23/20 History Albuterol Inhaler [Ventolin Hfa 1 puff INHALATION RT-Q4H PRN 07/23/20 07/23/20 History Inhaler] Apixaban [Eliquis] 5 mg PO BID 07/23/20 07/23/20 History Ezetimibe [Zetia] 10 mg PO HS 07/23/20 07/23/20 History Furosemide [Lasix] 60 mg PO DAILY 07/23/20 07/23/20 History amLODIPine [Norvasc] 10 mg PO DAILY 07/23/20 07/23/20 History medroxyPROGESTERone [Provera] 2.5 mg PO DAILY 07/23/20 07/23/20 History metFORMIN HCL [Glucophage] 500 mg PO BID 07/23/20 07/23/20 History Allergies Allergy/AdvReac Type Severity Reaction Status Date / Time Penicillins AdvReac Rash/Hives Verified 07/23/20 09:23 Jpuzqzc-Lbn-Cye Reductase AdvReac EXTREME Verified 07/23/20 09:23 Inhibitor MUSCLE PAIN AND WEAKNESS Physical Exam Vitals: Vital Signs Temp Pulse Resp BP Pulse Ox 07/27/20 21:00 98.1 F 80 18 147/63 96 07/27/20 16:00 62 18 07/27/20 12:33 98.0 F 66 18 143/71 100 07/27/20 08:00 70 18 07/27/20 07:00 95 07/27/20 04:20 98.4 F 68 16 146/69 94 L 07/27/20 02:40 95 07/26/20 23:55 18 07/26/20 23:29 98.4 F 79 18 104/69 94 L Intake and Output 07/27/20 07/27/20 07/27/20 06:59 14:59 22:59 Intake Total 710 240 240 Output Total 1300 1 1 Balance -590 239 239 Intake: Intake, IV Titration 210 Amount Ampicillin-Sulbactam 1.5 50 gm In Sodium Chloride 0.9 % 50 ml @ 100 mls/hr IVPB Q8HR [facility] Rx#:[id number] Sodium Chloride 0.9% 1, 160 000 ml @ 20 mls/hr IV . Q24H [facility]DEV Rx#:[id number] Oral 500 240 240 Output: Urine 1300 Stool 1 1 Other: Voiding Method Indwelling Catheter Indwelling Catheter Indwelling Catheter # Bowel Movements 1 GENERAL DESCRIPTION: Elderly female up in the chair, no distress. No tachypnea or accessory muscle of respiration use. HEENT: Shows Pallor , no scleral icterus. Oral mucous membrane is dry. No pharyngeal erythema or thrush NECK: Trachea central, no thyromegaly. LUNGS: Unlabored breathing. Decreased breath sounds the base ,No wheeze or crackle. HEART: S1, S2, regular rate and rhythm. No loud murmur ABDOMEN: Soft, no tenderness , guarding or rigidity, no organomegaly EXTREMITIES: No edema of feet. SKIN: No rash, no masses palpable. NEUROLOGICAL: The patient is awake, alert, oriented x3, mood and affect normal. Results CBC & Chem 7: 07/28/20 06:59 07/27/20 09:44 Labs: Abnormal Lab Results - Last 24 Hours (Table) 07/26/20 07/27/20 07/27/20 Range/Units 22:11 07:26 09:44 RBC (3.80-5.40) m/uL Hgb (11.4-16.0) gm/dL Hct (34.0-46.0) % MCV (80.0-100.0) fL MCH (25.0-35.0) pg MCHC (31.0-37.0) g/dL RDW (11.5-15.5) % BUN 31.0 H (9.0-27.0) mg/dL Est GFR (CKD-EPI)AfAm 57.7 L (60.0-200.0) Est GFR (CKD-EPI)NonAf 49.8 L (60.0-200.0) BUN/Creatinine Ratio 28.18 H (12.00-20.00) Ratio Glucose 132 H (70-110) mg/dL POC Glucose (mg/dL) 111 H 113 H (75-99) mg/dL 07/27/20 07/27/20 07/27/20 Range/Units 09:44 12:05 16:53 RBC 3.72 L (3.80-5.40) m/uL Hgb 7.8 L (11.4-16.0) gm/dL Hct 27.1 L (34.0-46.0) % MCV 72.7 L (80.0-100.0) fL MCH 21.0 L (25.0-35.0) pg MCHC 28.8 L (31.0-37.0) g/dL RDW 19.1 H (11.5-15.5) % BUN (9.0-27.0) mg/dL Est GFR (CKD-EPI)AfAm (60.0-200.0) Est GFR (CKD-EPI)NonAf (60.0-200.0) BUN/Creatinine Ratio (12.00-20.00) Ratio Glucose (70-110) mg/dL POC Glucose (mg/dL) 123 H 115 H (75-99) mg/dL 07/27/20 Range/Units 21:24 RBC (3.80-5.40) m/uL Hgb (11.4-16.0) gm/dL Hct (34.0-46.0) % MCV (80.0-100.0) fL MCH (25.0-35.0) pg MCHC (31.0-37.0) g/dL RDW (11.5-15.5) % BUN (9.0-27.0) mg/dL Est GFR (CKD-EPI)AfAm (60.0-200.0) Est GFR (CKD-EPI)NonAf (60.0-200.0) BUN/Creatinine Ratio (12.00-20.00) Ratio Glucose (70-110) mg/dL POC Glucose (mg/dL) 123 H (75-99) mg/dL Microbiology - Last 24 Hours (Table) 07/24/20 14:55 Blood Culture - Preliminary Blood No Growth after 72 hours Assessment and Plan Assessment: 1-patient presented to the hospital with sepsis in this patient who did have a fever and elevated white count and tachycardia so she likely complicated urinary tract infection in this patient who did have right-sided renal stone with mild right-sided hydronephrosis 2-enterococcal bacteremia source is likely urinary 3-penicillin ALLERGY however patient has tolerated Unasyn clinically doubt true penicillin ALLERGY (1) Sepsis Current Visit: Yes Status: Acute Code(s): A41.9 - SEPSIS, UNSPECIFIED ORGANISM SNOMED Code(s): 35435644 (2) Enterococcal bacteremia Current Visit: Yes Status: Acute Code(s): R78.81 - BACTEREMIA; B95.2 - ENTEROCOCCUS THE CAUSE OF DISEASES CLASSIFIED ELSEWHERE SNOMED Code(s): 853587913003 (3) Complicated UTI (urinary tract infection) Current Visit: Yes Status: Acute Code(s): N39.0 - URINARY TRACT INFECTION, SITE NOT SPECIFIED SNOMED Code(s): 55826755 Plan: 1- we will adjust the dose of Unasyn to 3 g every 6 hours 2-if the blood cultures repeat remains to be negative and the patient received IV Unasyn over the weekend hopefully we will be able to switch her over to oral antibiotics on discharge We will follow on clinical condition and cultures to further adjust medication if needed Thank you for this consultation will follow this patient with you Time with Patient: Greater than 30
[2020-07-28] MEDS: INSULIN DETEMIR (LEVEMIR) 100 UNIT/ML SYR SQ SCH ×2 (10:23→22:02)
[2020-07-28] MEDS: ASCORBIC ACID 500 MG TAB PO SCH (10:24)
[2020-07-28] MEDS: LOSARTAN 25 MG TAB PO SCH (10:24)
[2020-07-28] MEDS: METOPROLOL TARTRATE 25 MG TAB PO SCH ×2 (10:24→22:00)
[2020-07-28] MEDS: amLODIPine 10 MG TAB PO SCH (10:24)
[2020-07-28] MEDS: metFORMIN 500 MG TAB PO SCH ×2 (10:24→22:00)
[2020-07-28] MEDS: ZINC SULFATE 220 MG CAP PO SCH (10:25)
[2020-07-28] MEDS: FUROSEMIDE 40 MG TAB PO SCH (10:25)
[2020-07-28] MEDS: PSYLLIUM HUSK 100% 6 GM PACKET PO SCH (10:25)
[2020-07-28] MEDS: OXYMETAZOLINE 0.05% NASL SPRAY 1 SPRAY BOTTLE NASAL SCH ×2 (10:27→22:03)
[2020-07-28 11:52] LABS: African American GFR (CKD) 47.1 (60.0-200.0); Anion Gap 7.4 mmol/L (4.00-12.00); BUN/Creat Ratio 24.62 Ratio (12.00-20.00); C Reactive Protein 3.1 mg/dL (0.0-0.8); Calcium 8.6 mg/dL (8.7-10.3); Carbon Dioxide 28.6 mmol/L (21.6-31.8); Non-African American GFR(CKD) 40.7 (60.0-200.0); Potassium 4.4 mmol/L (3.5-5.5)
[2020-07-28 12:58] LABS: Glucose,Whole Blood 145 mg/dL (75-99)
[2020-07-28] MEDS: SODIUM FERRIC GLUCONAT-SUCROSE 125 MG in SODIUM CHLORIDE 0.9% 100 ML IVPB SCH (15:01)
--- NOTE | 2020-07-28 17:05 | P.PN ---
Subjective Progress Note Date: 07/28/20 75-year-old white female patient with past medical history of chronic bronchial asthma, known history of obstructive sleep apnea on CPAP therapy, peripheral vascular disease, diabetes mellitus type 2, hypertension, osteoarthritis, coronary artery disease with previous stenting, morbid obesity, previous MRSA infection in the left foot, and she follows with Dr. Ramirez in the pulmonary clinic for her history of obstructive sleep apnea. Patient presented to the hospital 07/23/2020 with complaints of fever, dyspnea and started last night. Patient had a cough, sinus drainage, dizziness, she was having trouble sleeping related to shortness of breath, she sustained a fall. She is a resident at the [facility]. She denies any chest pain or palpitations, but when she arrived per EMS her pulse ox was in the 70s on room air. No nausea vomiting and diarrhea, rapid COVID 19 was negative. Influenza negative. Chest x-ray showing diminished lung volumes subsegmental perihilar and basilar opacities with new patchy opacity in the peripheral aspect of the right lower lung zone, pulmonary vascular prominence, differential consideration with bibasilar atelectasis or consolidation. EKG showed normal sinus rhythm with evidence of nonspecific intraventricular block, inferior infarct of undetermined age as well as possible anterolateral infarct of undetermined age. Low-grade fever on admission with a temp of 100.8F, currently afebrile, white blood cell count is 12.7, hemoglobin is 7.1, INR is 1.2, d-dimer is 1.65, sodium is 134, potassium is 4.9, chloride is 105, CO2 is 20, BUN of 17, creatinine is 1.08, lactic acid was 3.9, ferritin level was 9.3, CRP was 47.6, LDH was 595, pro calcitonin was 0.21, urinalysis showed moderate amount of blood, 2+ protein, but no clear evidence of UTI. Patient was started on steroids, for possibility of Covid 19 related pneumonitis, and we were consulted for possibility of Remdesivir infusion On 07/24/2020 patient seen in follow-up on medical surgical floor, she is feeling better today, her blood cultures came back positive for Streptococcus species, final culture is pending, bacteremia is likely related to possibility of bacterial pneumonia. She is on antibiotics in the form of azithromycin and Rocephin, she has been afebrile, she continues on IV Lasix, he is feeling better, breathing easier, RSV was negative, her Covid 19 testing was negative. Her echocardiogram showed moderate concentric LVH, EF between 50-55%, mild aortic stenosis, mild mitral regurgitation, mild TR, mild pulmonary hypert ension, right-sided pressures of 38.3 mmHg. no altered mentation, no chest pain, no hemoptysis. Will await results of final blood culture, will obtain follow-up blood culture, sputum culture, continue with antibiotic coverage On 07/25/2020 patient seen in follow-up on medical surgical floor. She is improving, FiO2 to 5 L, pulse ox is 100%, hemodynamically stable, afebrile. Repeat Covid 19 came back negative, influenza screen was negative, RSV PCR was negative, patient was found to have strep bacteremia likely related to strep pneumonia. She is on appropriate antibiotics for that, Rocephin. Denies any chest pain, denies any significant congestion, chest x-ray reviewed, showing possible interstitial edema, patient was started on diuretics. On 07/26/2020 patient seen in follow-up on medical surgical floor, she is feeling better, breathing easier, she is on room air, pulse ox 95%, she's been afebrile, vital signs have been stable, no completing chest pain or hemoptysis, she remains on antibiotics on Unasyn, final blood culture came back positive for enterococcus avium. Follow blood culture show no growth. CT of the abdomen is pending. She complains any nausea vomiting or diarrhea. On 07/27/2020 patient seen in follow-up on medical surgical floor. She is resting comfortably in bed, denies any worsening dyspnea, at times she feels mildly short of breath, lung sounds diminished, no cough no congestion, no chest discomfort, she is on 3 L of oxygen and her pulse ox is 100%, hemodynamics stable, she's been afebrile, she was found to be positive for enterococcus avium in the blood cultures possibly related to intra-abdominal source. CT of the abdomen and pelvis showed diverticulosis without diverticulitis, multiple bilateral nonobstructing renal stones, and partially obstructing proximal right ureteral stone measuring 0.6 cm is contributing to mild right hydronephrosis. No nausea or vomiting, no diarrhea, she was actually constipated, and she was given something for constipation. Maintained on Unasyn. 07/28/2020, the patient is being treated for her enterococcal septicemia. The patient is currently on IV antibiotics and the patient is receiving IV Unasyn. The patient is hemodynamically stable. At the same time, the patient is feeling better. She is on oral Lasix 40 mg by mouth daily. She is afebrile. She is hemodynamically stable. Oxidation is improved and the patient only on 2 L of oxygen by nasal cannula and she is producing adequate amount of urine output. She has iron deficiency anemia. CAT scan of the abdomen showed diverticulosis. No evidence of any bowel abnormalities. There was multiple bilateral nonobstructive renal stones and a partially obstructing right ureteral stone for which the patient was seen by urology and outpatient follow-up was recommended. The patient will be started on IV iron regarding her iron deficiency anemia. Hemoglobin is low at 7.5 Objective - Vital Signs Vital signs: Vital Signs Temp 97.9 F 07/28/20 13:00 Pulse 65 07/28/20 13:00 Resp 16 07/28/20 13:00 BP 122/72 07/28/20 13:00 Pulse Ox 99 07/28/20 13:00 Intake & Output 07/27/20 07/28/20 07/28/20 18:59 06:59 18:59 Intake Total 480 380 Output Total 2 1400 950 Balance 478 -1020 -950 Intake: Intake, IV Titration 380 Amount Ampicillin-Sulbactam 3 gm 200 In Sodium Chloride 0.9% 100 ml @ 200 mls/hr IVPB Q6HR [facility] Rx#:[id number] Sodium Chloride 0.9% 1, 180 000 ml @ 20 mls/hr IV . Q24H [facility] Rx#:[id number] Oral 480 Output: Urine 1400 950 Uretheral (Lee) 700 Stool 2 0 0 Other: Voiding Method Indwelling Catheter Indwelling Catheter Indwelling Catheter # Bowel Movements 1 1 - Exam GENERAL EXAM: Alert, very pleasant, obese, 75-year-old white female, on 2 l/min pulse ox of 100% comfortable in no apparent distress. HEAD: Normocephalic/atraumatic. EYES: Normal reaction of pupils, equal size. Conjunctiva pink, sclera white. NOSE: Clear with pink turbinates. THROAT: No erythema or exudates. NECK: No masses, no JVD, no thyroid enlargement, no adenopathy. CHEST: No chest wall deformity. Symmetrical expansion. LUNGS: Equal air entry with diffuse bibasilar crackles, no wheeze, rhonchi or dullness. CVS: Regular rate and rhythm, normal S1 and S2, no gallops, no murmurs, no rubs ABDOMEN: Soft, nontender. No hepatosplenomegaly, normal bowel sounds, no guarding or rigidity. EXTREMITIES: No clubbing, no edema, no cyanosis, 2+ pulses and upper and lower extremities. MUSCULOSKELETAL: Muscle strength and tone normal. SPINE: No scoliosis or deformity SKIN: No rashes CENTRAL NERVOUS SYSTEM: Alert and oriented -3. No focal deficits, tone is normal in all 4 extremities. PSYCHIATRIC: Alert and oriented -3. Appropriate affect. Intact judgment and insight. - Labs CBC & Chem 7: 07/28/20 06:59 07/28/20 06:59 Labs: Abnormal Lab Results - Last 24 Hours (Table) 07/27/20 07/28/20 07/28/20 Range/Units 21:24 06:59 06:59 RBC 3.72 L (3.80-5.40) m/uL Hgb 7.5 L (11.4-16.0) gm/dL Hct 26.8 L (34.0-46.0) % MCV 72.0 L (80.0-100.0) fL MCH 20.2 L (25.0-35.0) pg MCHC 28.1 L (31.0-37.0) g/dL RDW 19.3 H (11.5-15.5) % BUN 32.0 H (9.0-27.0) mg/dL Est GFR (CKD-EPI)AfAm 47.1 L (60.0-200.0) Est GFR (CKD-EPI)NonAf 40.7 L (60.0-200.0) BUN/Creatinine Ratio 24.62 H (12.00-20.00) Ratio POC Glucose (mg/dL) 123 H (75-99) mg/dL Calcium 8.6 L (8.7-10.3) mg/dL C-Reactive Protein 3.1 H (0.0-0.8) mg/dL 07/28/20 07/28/20 Range/Units 08:07 12:56 RBC (3.80-5.40) m/uL Hgb (11.4-16.0) gm/dL Hct (34.0-46.0) % MCV (80.0-100.0) fL MCH (25.0-35.0) pg MCHC (31.0-37.0) g/dL RDW (11.5-15.5) % BUN (9.0-27.0) mg/dL Est GFR (CKD-EPI)AfAm (60.0-200.0) Est GFR (CKD-EPI)NonAf (60.0-200.0) BUN/Creatinine Ratio (12.00-20.00) Ratio POC Glucose (mg/dL) 110 H 145 H (75-99) mg/dL Calcium (8.7-10.3) mg/dL C-Reactive Protein (0.0-0.8) mg/dL Microbiology - Last 24 Hours (Table) 07/24/20 14:55 Blood Culture - Preliminary Blood No Growth after 72 hours Assessment and Plan Plan: #1. Acute hypoxic respiratory failure, likely related to acute exacerbation of CHF, and sepsis. The patient oxidation improved and the patient is currently on 2 L of oxygen by nasal cannula and she is quite comfortable. #2. Enterococcus bacteremia, currently on IV Unasyn. Suspect a urinary source of an infection. The patient was seen by urology regarding the obstructive uropathy and nephrolithiasis. No immediate intervention this point in time. #3. Acute on chronic anemia, with a component of iron deficiency and hemoglobin currently is at 7.5 #4. Lactic acidosis, recovered #5. Dyspnea, fever, weakness, related to sepsis, first rapid COVID 19 was negative, and the shortness of breath is improved. #6. Chronic bronchial asthma, unspecified #7. Morbid obesity #8. Obstructive sleep apnea on CPAP therapy #9. Diabetes mellitus type 2 #10. Hypertension #11. Osteoarthritis #12. Coronary artery disease, with previous stenting and grafting #13 diverticulosis #14 nephrolithiasis with a nonobstructive ureteral stone Plan I'm going to give the patient IV Venofer 125 mg 2 doses. Continue oral Lasix Continue IV Unasyn Wean down FiO2 to maintain saturation above 90% Ambulate in the hallway We'll continue to follow
[2020-07-28 17:59] LABS: Glucose,Whole Blood 131 mg/dL (75-99)
[2020-07-28] MEDS: SODIUM CHLORIDE 0.9% 1,000 ML IV SCH (19:28)
[2020-07-28 21:35] LABS: Glucose,Whole Blood 195 mg/dL (75-99)
[2020-07-28] MEDS: EZETIMIBE 10 MG TAB PO SCH (22:00)
--- NOTE | 2020-07-28 22:01 | P.PN ---
Progress Note - Text Progress Note Date: 07/28/20 Chief Complaint: Shortness of breath History of presenting complaint: This is a very pleasant 75-year-old patient of Dr. Cannon. Patient is a resident of assisted [facility]. Normally uses a wheelchair and a walker. No history of smoking. Alcohol occasional. Chronic stable medical conditions include diabetes, hypertension, osteoarthritis, obstructive sleep apnea uses CPAP, diverticulosis, partial limitation of left foot, coronary artery disease with stent. About a week ago patient felt he had some sinus symptoms. Subsequently started having headaches. Tired. Some muscle aches. Became more short of breath yesterday. Also had a fever. Has been constipated. Lost her appetite for about a week. Has a dry cough. The no COVID cases at the facility. Admitted with-streptococcus bacteremia. With positive blood cultures- enterococcus avium. On IV ceftriaxone. Negative for COVID 19. Oral intake better. Hemoglobin 6.5. Transfuse blood. Partial obstructing right ureteral stone. Seems to have passed on his own. Today-feeling better. No abdominal pain. Oral intake improving. On IV Unasyn. Review of systems: Was done for constitutional, cardiovascular, GI, pulmonary. relevant finding as above Active Medications Acetaminophen (Acetaminophen Tab 325 Mg Tab) 650 mg PO Q4H PRN PRN Reason: Pain Last Admin: 07/28/20 03:57 Dose: 650 mg Documented by: Alprazolam (Alprazolam 0.25 Mg Tab) 0.25 mg PO Q6H PRN PRN Reason: Anxiety Last Admin: 07/27/20 22:02 Dose: 0.25 mg Documented by: Amlodipine Besylate (Amlodipine 10 Mg Tab) 10 mg PO DAILY [facility] Last Admin: 07/28/20 10:24 Dose: 10 mg Documented by: Ascorbic Acid (Ascorbic Acid 500 Mg Tab) 1,000 mg PO DAILY [facility] Last Admin: 07/28/20 10:24 Dose: 1,000 mg Documented by: Ezetimibe (Ezetimibe 10 Mg Tab) 10 mg PO HS [facility] Last Admin: 07/27/20 21:57 Dose: 10 mg Documented by: Furosemide (Furosemide 40 Mg Tab) 40 mg PO DAILY [facility] Last Admin: 07/28/20 10:25 Dose: 40 mg Documented by: Sodium Chloride (Saline 0.9%) 1,000 mls @ 20 mls/hr IV .Q24H [facility] Last Admin: 07/28/20 19:28 Dose: Not Given Documented by: Ampicillin Sodium/Sulbactam (Sodium 3 gm/ Sodium Chloride) 100 mls @ 200 mls/hr IVPB Q6HR [facility] Last Admin: 07/28/20 18:32 Dose: 200 mls/hr Documented by: Ferric Sodium Gluconate 125 mg (/ Sodium Chloride) 110 mls @ 100 mls/hr IVPB DAILY [facility] Stop: 07/29/20 10:05 Last Admin: 07/28/20 15:01 Dose: 100 mls/hr Documented by: Insulin Aspart (Insulin Aspart (Novolog) 100 Unit/Ml Vial) 20 unit SQ AC-TID [facility] Last Admin: 07/28/20 18:28 Dose: Not Given Documented by: Insulin Aspart (Insulin Aspart (Novolog) 100 Unit/Ml Vial) 0 unit SQ ACHS [facility]; Protocol Last Admin: 07/28/20 18:31 Dose: 1 unit Documented by: Insulin Detemir (Insulin Detemir (Levemir) 100 Unit/Ml Syr) 30 unit SQ BID@0700,2100 [facility] Last Admin: 07/28/20 10:23 Dose: 30 unit Documented by: Losartan Potassium (Losartan 25 Mg Tab) 25 mg PO DAILY [facility] Last Admin: 07/28/20 10:24 Dose: 25 mg Documented by: Medroxyprogesterone Acetate (Medroxyprogesterone 2.5 Mg Tab) 2.5 mg PO DAILY [facility] Last Admin: 07/28/20 10:27 Dose: 2.5 mg Documented by: Metformin HCl (Metformin 500 Mg Tab) 500 mg PO BID [facility] Last Admin: 07/28/20 10:24 Dose: 500 mg Documented by: Metoprolol Tartrate (Metoprolol Tartrate 25 Mg Tab) 25 mg PO BID [facility] Last Admin: 07/28/20 10:24 Dose: 25 mg Documented by: Miscellaneous Information (Pneumonia Protocol Utilized 1 Each Misc) 1 each PO ONCE PRN PRN Reason: Per Protocol Montelukast Sodium (Montelukast 10 Mg Tab) 10 mg PO HS [facility] Last Admin: 07/27/20 21:58 Dose: 10 mg Documented by: Oxymetazoline HCl (Oxymetazoline 0.05% Nasl [place] 1 [place] Bottle) 2 spray NASAL BID [facility] Last Admin: 07/28/20 10:27 Dose: 2 spray Documented by: Psyllium Hydrophilic Mucilloid (Psyllium Husk 100% 6 Gm Packet) 6 gm PO DAILY [facility] Last Admin: 07/28/20 10:25 Dose: 6 gm Documented by: Zinc Sulfate (Zinc Sulfate 220 Mg Cap) 220 mg PO DAILY [facility] Last Admin: 07/28/20 10:25 Dose: 220 mg Documented by: Physical examination: VITAL SIGNS: 97.9, 65, 16, 122.72, 99% on 3 L GENERAL: Laying in bed, comfortable EYES: Pupils equal. Conjunctiva normal. NECK: JVD unable to assess masses not palpable. HEART: First and second heart sounds are normal; no edema. LUNGS: Respiratory rate increased, diminished breath sounds ABDOMEN: Soft, no tenderness, no guarding rigidity, liver spleen not palpable, no masses palpable. PSYCH: Alert and oriented x3; mood and affect tired MUSCULAR skeletal: Evidence of OA INVESTIGATIONS, reviewed in the clinical context: White count 9.7 he 7.5 potassium 4.4 creatinine 1.3 Previous testing Blood culture-positive for enterococcus avium. Repeat blood culture negative. White count 12.7 hemoglobin 7.1 platelets 269 d-dimer 1.65 Potassium 4.9 creatinine 1.08 glucose 10/31 Lactic acid 3.9 CRP 47.6 proBNP 2790 pro-calcitonin 0.21 COVID 19 PCR not detected Influenza type A type B both negative EKG tracing personally reviewed by me-poor LV progression Chest x-ray film personally reviewed by me-shows underpenetrated film with patchy infiltrates. Computed tomography scan of the abdomen-diverticulosis, multiple bilateral nonobstructing renal stones, partially obstructing, proximal right ureteral stone with mild hydronephrosis. Assessment: -Enterococcus avium bacteremia. Likely from obstructed urine outflow from ureteral stone.. -Moderate persistent asthma with acute exacerbation-improved -Diabetes mellitus type 2 uncontrolled with hyperglycemia -Essential hypertension -Primary osteoarthritis -Obstructive sleep apnea uses CPAP -Coronary artery disease with history of stent -Colonic diverticulosis -Morbid obesity BMI 49.2 -Chronic medical debility uses a wheelchair -Acute blood loss anemia microcytic hemoglobin dropping below 7. 1 unit of blood ordered -Asymptomatic diverticulosis -Multiple bilateral nonobstructing renal stones -Partial obstructing right ureteral stone 0.6 cm.-seems to have passed spontaneously. No further abdominal pain. Plan: Continue IV Unasyn. Doing better. Hopefully can be switched to oral antibiotic and discharged by Thursday. Get PT OT consultation
[2020-07-28] MEDS: MONTELUKAST 10 MG TAB PO SCH (22:02)
--- NOTE | 2020-07-28 22:42 | PN ---
PROGRESS NOTE DATE OF SERVICE: 07/28/2020 REASON FOR FOLLOWUP: Enterococcus faecalis bacteremia secondary to complicated UTI. INTERVAL HISTORY: Patient is currently afebrile. The patient is breathing comfortably. The patient denies having any chest pain. Minimal shortness of breath. No nausea, no vomiting. No abdominal pain. No diarrhea. PHYSICAL EXAMINATION: Blood pressure 121/67, pulse of 76, temperature 98.8. She is 97% on 3 L nasal cannula. General description is an elderly female up in the chair in no distress. Respiratory system: Unlabored breathing with decreased intensity in breath sounds. No wheeze. Heart S1, S2. Regular rate and rhythm. Abdomen soft. No tenderness. LABS: Hemoglobin 7.5, white count 9.7, BUN of 32, creatinine 1.3. CRP 3.1. Blood culture repeat has been negative. DIAGNOSTIC IMPRESSION AND PLAN: Patient with Enterococcus bacteremia, source likely complicated urinary tract infection. This patient did have evidence of right-sided hydronephrosis, moderate. Evaluated by Urology and recommending no surgical intervention. Patient to continue with Unasyn while inpatient. Hopefully finish therapy with oral Augmentin. Continue supportive care. MMODL / IJN: [id number] /
[2020-07-29] MEDS: AMPICILLIN-SULBACTAM 3 GM in SODIUM CHLORIDE 0.9% 100 ML IVPB SCH ×5 (00:40→23:54)
[2020-07-29] MEDS: ALPRAZolam 0.25 MG TAB PO PRN ×2 (04:25→20:59)
[2020-07-29 07:08] LABS: Glucose,Whole Blood 101 mg/dL (75-99)
[2020-07-29] MEDS: INSULIN DETEMIR (LEVEMIR) 100 UNIT/ML SYR SQ SCH ×2 (08:24→21:05)
[2020-07-29] MEDS: INSULIN ASPART (NovoLOG) 100 UNIT/ML VIAL SQ SCH ×7 (08:24→21:05)
[2020-07-29] MEDS: FUROSEMIDE 40 MG TAB PO SCH (08:25)
[2020-07-29] MEDS: ZINC SULFATE 220 MG CAP PO SCH (08:25)
[2020-07-29] MEDS: METOPROLOL TARTRATE 25 MG TAB PO SCH ×2 (08:25→20:59)
[2020-07-29] MEDS: ASCORBIC ACID 500 MG TAB PO SCH (08:25)
[2020-07-29] MEDS: amLODIPine 10 MG TAB PO SCH (08:25)
[2020-07-29] MEDS: metFORMIN 500 MG TAB PO SCH ×2 (08:25→20:59)
[2020-07-29] MEDS: LOSARTAN 25 MG TAB PO SCH (08:26)
[2020-07-29] MEDS: PSYLLIUM HUSK 100% 6 GM PACKET PO SCH (08:27)
[2020-07-29] MEDS: OXYMETAZOLINE 0.05% NASL SPRAY 1 SPRAY BOTTLE NASAL SCH ×2 (08:28→21:00)
[2020-07-29] MEDS: ACETAMINOPHEN TAB 325 MG TAB PO PRN ×2 (09:04→20:59)
[2020-07-29] MEDS: SODIUM FERRIC GLUCONAT-SUCROSE 125 MG in SODIUM CHLORIDE 0.9% 100 ML IVPB SCH (11:05)
[2020-07-29 11:32] LABS: Glucose,Whole Blood 135 mg/dL (75-99)
--- NOTE | 2020-07-29 16:45 | P.PN ---
Subjective Progress Note Date: 07/29/20 75-year-old white female patient with past medical history of chronic bronchial asthma, known history of obstructive sleep apnea on CPAP therapy, peripheral vascular disease, diabetes mellitus type 2, hypertension, osteoarthritis, coronary artery disease with previous stenting, morbid obesity, previous MRSA infection in the left foot, and she follows with Dr. Ramirez in the pulmonary clinic for her history of obstructive sleep apnea. Patient presented to the hospital 07/23/2020 with complaints of fever, dyspnea and started last night. Patient had a cough, sinus drainage, dizziness, she was having trouble sleeping related to shortness of breath, she sustained a fall. She is a resident at the [facility]. She denies any chest pain or palpitations, but when she arrived per EMS her pulse ox was in the 70s on room air. No nausea vomiting and diarrhea, rapid COVID 19 was negative. Influenza negative. Chest x-ray showing diminished lung volumes subsegmental perihilar and basilar opacities with new patchy opacity in the peripheral aspect of the right lower lung zone, pulmonary vascular prominence, differential consideration with bibasilar atelectasis or consolidation. EKG showed normal sinus rhythm with evidence of nonspecific intraventricular block, inferior infarct of undetermined age as well as possible anterolateral infarct of undetermined age. Low-grade fever on admission with a temp of 100.8F, currently afebrile, white blood cell count is 12.7, hemoglobin is 7.1, INR is 1.2, d-dimer is 1.65, sodium is 134, potassium is 4.9, chloride is 105, CO2 is 20, BUN of 17, creatinine is 1.08, lactic acid was 3.9, ferritin level was 9.3, CRP was 47.6, LDH was 595, pro calcitonin was 0.21, urinalysis showed moderate amount of blood, 2+ protein, but no clear evidence of UTI. Patient was started on steroids, for possibility of Covid 19 related pneumonitis, and we were consulted for possibility of Remdesivir infusion On 07/24/2020 patient seen in follow-up on medical surgical floor, she is feeling better today, her blood cultures came back positive for Streptococcus species, final culture is pending, bacteremia is likely related to possibility of bacterial pneumonia. She is on antibiotics in the form of azithromycin and Rocephin, she has been afebrile, she continues on IV Lasix, he is feeling better, breathing easier, RSV was negative, her Covid 19 testing was negative. Her echocardiogram showed moderate concentric LVH, EF between 50-55%, mild aortic stenosis, mild mitral regurgitation, mild TR, mild pulmonary hypert ension, right-sided pressures of 38.3 mmHg. no altered mentation, no chest pain, no hemoptysis. Will await results of final blood culture, will obtain follow-up blood culture, sputum culture, continue with antibiotic coverage On 07/25/2020 patient seen in follow-up on medical surgical floor. She is improving, FiO2 to 5 L, pulse ox is 100%, hemodynamically stable, afebrile. Repeat Covid 19 came back negative, influenza screen was negative, RSV PCR was negative, patient was found to have strep bacteremia likely related to strep pneumonia. She is on appropriate antibiotics for that, Rocephin. Denies any chest pain, denies any significant congestion, chest x-ray reviewed, showing possible interstitial edema, patient was started on diuretics. On 07/26/2020 patient seen in follow-up on medical surgical floor, she is feeling better, breathing easier, she is on room air, pulse ox 95%, she's been afebrile, vital signs have been stable, no completing chest pain or hemoptysis, she remains on antibiotics on Unasyn, final blood culture came back positive for enterococcus avium. Follow blood culture show no growth. CT of the abdomen is pending. She complains any nausea vomiting or diarrhea. On 07/27/2020 patient seen in follow-up on medical surgical floor. She is resting comfortably in bed, denies any worsening dyspnea, at times she feels mildly short of breath, lung sounds diminished, no cough no congestion, no chest discomfort, she is on 3 L of oxygen and her pulse ox is 100%, hemodynamics stable, she's been afebrile, she was found to be positive for enterococcus avium in the blood cultures possibly related to intra-abdominal source. CT of the abdomen and pelvis showed diverticulosis without diverticulitis, multiple bilateral nonobstructing renal stones, and partially obstructing proximal right ureteral stone measuring 0.6 cm is contributing to mild right hydronephrosis. No nausea or vomiting, no diarrhea, she was actually constipated, and she was given something for constipation. Maintained on Unasyn. 07/28/2020, the patient is being treated for her enterococcal septicemia. The patient is currently on IV antibiotics and the patient is receiving IV Unasyn. The patient is hemodynamically stable. At the same time, the patient is feeling better. She is on oral Lasix 40 mg by mouth daily. She is afebrile. She is hemodynamically stable. Oxidation is improved and the patient only on 2 L of oxygen by nasal cannula and she is producing adequate amount of urine output. She has iron deficiency anemia. CAT scan of the abdomen showed diverticulosis. No evidence of any bowel abnormalities. There was multiple bilateral nonobstructive renal stones and a partially obstructing right ureteral stone for which the patient was seen by urology and outpatient follow-up was recommended. The patient will be started on IV iron regarding her iron deficiency anemia. Hemoglobin is low at 7.5 07/29/2020, the patient is doing well. The patient is on 2 L of oxygen by nasal cannula. While off the oxygen, pulse ox is in the order of 88-89%. She is using incentive spirometer. She is receiving IV iron. Hemoglobin stable and slightly improved compared to yesterday. She remains on IV antibiotics regarding her enterococcal infection. No fever. No chills. No hemodynamic instability. The renal function is stable. BUN is at 32 with a creatinine of 1.3. Glucose is 135. Objective - Vital Signs Vital signs: Vital Signs Temp 98.0 F 07/29/20 11:22 Pulse 65 07/29/20 11:22 Resp 20 07/29/20 11:22 BP 101/62 07/29/20 11:22 Pulse Ox 99 07/29/20 11:22 Intake & Output 07/28/20 07/29/20 07/29/20 18:59 06:59 18:59 Intake Total 750 200 Output Total 950 1000 0 Balance -950 -250 200 Intake: Intake, IV Titration 200 Amount Ampicillin-Sulbactam 3 gm 100 In Sodium Chloride 0.9% 100 ml @ 200 mls/hr IVPB Q6HR [facility] Rx#:[id number] Sodium Ferric Gluconat- 100 Sucrose 125 mg In Sodium Chloride 0.9% 100 ml @ 100 mls/hr IVPB DAILY [facility] Rx#:[id number] Oral 750 Output: Urine 950 1000 Stool 0 0 Other: Voiding Method Indwelling Catheter Indwelling Catheter Indwelling Catheter # Bowel Movements 1 1 - Exam GENERAL EXAM: Alert, very pleasant, obese, 75-year-old white female, on 2 l/min pulse ox of 100% comfortable in no apparent distress. HEAD: Normocephalic/atraumatic. EYES: Normal reaction of pupils, equal size. Conjunctiva pink, sclera white. NOSE: Clear with pink turbinates. THROAT: No erythema or exudates. NECK: No masses, no JVD, no thyroid enlargement, no adenopathy. CHEST: No chest wall deformity. Symmetrical expansion. LUNGS: Equal air entry with diffuse bibasilar crackles, no wheeze, rhonchi or dullness. CVS: Regular rate and rhythm, normal S1 and S2, no gallops, no murmurs, no rubs ABDOMEN: Soft, nontender. No hepatosplenomegaly, normal bowel sounds, no g uarding or rigidity. EXTREMITIES: No clubbing, no edema, no cyanosis, 2+ pulses and upper and lower extremities. MUSCULOSKELETAL: Muscle strength and tone normal. SPINE: No scoliosis or deformity SKIN: No rashes CENTRAL NERVOUS SYSTEM: Alert and oriented -3. No focal deficits, tone is normal in all 4 extremities. PSYCHIATRIC: Alert and oriented -3. Appropriate affect. Intact judgment and insight. - Labs CBC & Chem 7: 07/28/20 06:59 07/28/20 06:59 Labs: Abnormal Lab Results - Last 24 Hours (Table) 07/28/20 07/28/20 07/29/20 Range/Units 17:58 21:30 07:06 POC Glucose (mg/dL) 131 H 195 H 101 H (75-99) mg/dL 07/29/20 Range/Units 11:24 POC Glucose (mg/dL) 135 H (75-99) mg/dL Microbiology - Last 24 Hours (Table) 07/24/20 14:55 Blood Culture - Preliminary Blood No Growth after 96 hours Assessment and Plan Plan: #1. Acute hypoxic respiratory failure, likely related to acute exacerbation of CHF, and sepsis. The patient oxidation improved and the patient is currently on 2 L of oxygen by nasal cannula and she is quite comfortable. #2. Enterococcus bacteremia, currently on IV Unasyn. Suspect a urinary source of an infection. The patient was seen by urology regarding the obstructive uropathy and nephrolithiasis. No immediate intervention this point in time. #3. Acute on chronic anemia, with a component of iron deficiency and hemoglobin currently is at 7.5 #4. Lactic acidosis, recovered #5. Dyspnea, fever, weakness, related to sepsis, first rapid COVID 19 was negative, and the shortness of breath is improved. #6. Chronic bronchial asthma, unspecified #7. Morbid obesity #8. Obstructive sleep apnea on CPAP therapy #9. Diabetes mellitus type 2 #10. Hypertension #11. Osteoarthritis #12. Coronary artery disease, with previous stenting and grafting #13 diverticulosis #14 nephrolithiasis with a nonobstructive ureteral stone Plan Continue oral Lasix Provide incentive spirometer and wean the FiO2 Continue IV Unasyn regarding enterococcal infection Hemoglobin is stable and the patient on IV iron and still be ultimately switched to oral iron supplements on outpatient basis the patient has significant diffuse anemia Increase physical activity and mobility Pulmonary critical care services we'll sign off.
[2020-07-29 17:06] LABS: Glucose,Whole Blood 101 mg/dL (75-99)
[2020-07-29] MEDS: SODIUM CHLORIDE 0.9% 1,000 ML IV SCH (17:21)
[2020-07-29] MEDS: MONTELUKAST 10 MG TAB PO SCH (20:59)
[2020-07-29] MEDS: EZETIMIBE 10 MG TAB PO SCH (20:59)
[2020-07-29 21:05] LABS: Glucose,Whole Blood 89 mg/dL (75-99)
--- NOTE | 2020-07-29 21:38 | P.PN ---
Progress Note - Text Progress Note Date: 07/29/20 Chief Complaint: Shortness of breath History of presenting complaint: This is a very pleasant 75-year-old patient of Dr. Cannon. Patient is a resident of assisted [facility]. Normally uses a wheelchair and a walker. No history of smoking. Alcohol occasional. Chronic stable medical conditions include diabetes, hypertension, osteoarthritis, obstructive sleep apnea uses CPAP, diverticulosis, partial limitation of left foot, coronary artery disease with stent. About a week ago patient felt he had some sinus symptoms. Subsequently started having headaches. Tired. Some muscle aches. Became more short of breath yesterday. Also had a fever. Has been constipated. Lost her appetite for about a week. Has a dry cough. The no COVID cases at the facility. Admitted with-streptococcus bacteremia. With positive blood cultures- enterococcus avium. On IV ceftriaxone. Negative for COVID 19. Oral intake better. Hemoglobin 6.5. Transfuse blood. Partial obstructing right ureteral stone. Seems to have passed on his own. Today-tired. Up in a recliner. Oral intake variable. Review of systems: Was done for constitutional, cardiovascular, GI, pulmonary. relevant finding as above Active Medications Acetaminophen (Acetaminophen Tab 325 Mg Tab) 650 mg PO Q4H PRN PRN Reason: Pain Last Admin: 07/29/20 20:59 Dose: 650 mg Documented by: Alprazolam (Alprazolam 0.25 Mg Tab) 0.25 mg PO Q6H PRN PRN Reason: Anxiety Last Admin: 07/29/20 20:59 Dose: 0.25 mg Documented by: Amlodipine Besylate (Amlodipine 10 Mg Tab) 10 mg PO DAILY [facility] Last Admin: 07/29/20 08:25 Dose: 10 mg Documented by: Ascorbic Acid (Ascorbic Acid 500 Mg Tab) 1,000 mg PO DAILY [facility] Last Admin: 07/29/20 08:25 Dose: 1,000 mg Documented by: Ezetimibe (Ezetimibe 10 Mg Tab) 10 mg PO HS [facility] Last Admin: 07/29/20 20:59 Dose: 10 mg Documented by: Furosemide (Furosemide 40 Mg Tab) 40 mg PO DAILY [facility] Last Admin: 07/29/20 08:25 Dose: 40 mg Documented by: Sodium Chloride (Saline 0.9%) 1,000 mls @ 20 mls/hr IV .Q24H [facility] Last Admin: 07/29/20 17:21 Dose: Not Given Documented by: Ampicillin Sodium/Sulbactam (Sodium 3 gm/ Sodium Chloride) 100 mls @ 200 mls/hr IVPB Q6HR [facility] Last Admin: 07/29/20 17:35 Dose: 200 mls/hr Documented by: Insulin Aspart (Insulin Aspart (Novolog) 100 Unit/Ml Vial) 20 unit SQ AC-TID [facility] Last Admin: 07/29/20 17:35 Dose: 20 unit Documented by: Insulin Aspart (Insulin Aspart (Novolog) 100 Unit/Ml Vial) 0 unit SQ ACHS [facility]; Protocol Last Admin: 07/29/20 21:05 Dose: Not Given Documented by: Insulin Detemir (Insulin Detemir (Levemir) 100 Unit/Ml Syr) 30 unit SQ BID@0700,2100 [facility] Last Admin: 07/29/20 21:05 Dose: Not Given Documented by: Losartan Potassium (Losartan 25 Mg Tab) 25 mg PO DAILY [facility] Last Admin: 07/29/20 08:26 Dose: 25 mg Documented by: Medroxyprogesterone Acetate (Medroxyprogesterone 2.5 Mg Tab) 2.5 mg PO DAILY [facility] Last Admin: 07/29/20 08:26 Dose: 2.5 mg Documented by: Metformin HCl (Metformin 500 Mg Tab) 500 mg PO BID [facility] Last Admin: 07/29/20 20:59 Dose: 500 mg Documented by: Metoprolol Tartrate (Metoprolol Tartrate 25 Mg Tab) 25 mg PO BID [facility] Last Admin: 07/29/20 20:59 Dose: 25 mg Documented by: Miscellaneous Information (Pneumonia Protocol Utilized 1 Each [facility]) 1 each PO ONCE PRN PRN Reason: Per Protocol Montelukast Sodium (Montelukast 10 Mg Tab) 10 mg PO HS [facility] Last Admin: 07/29/20 20:59 Dose: 10 mg Documented by: Oxymetazoline HCl (Oxymetazoline 0.05% Nasl [place] 1 [place] Bottle) 2 spray NASAL BID [facility] Last Admin: 07/29/20 21:00 Dose: 2 spray Documented by: Psyllium Hydrophilic Mucilloid (Psyllium Husk 100% 6 Gm Packet) 6 gm PO DAILY [facility] Last Admin: 07/29/20 08:27 Dose: Not Given Documented by: Zinc Sulfate (Zinc Sulfate 220 Mg Cap) 220 mg PO DAILY [facility] Last Admin: 07/29/20 08:25 Dose: 220 mg Documented by: Physical examination: VITAL SIGNS: 98, 65, 20, 101/62, 99% room air GENERAL: Up in a recliner, awake EYES: Pupils equal. Conjunctiva normal. NECK: JVD unable to assess masses not palpable. HEART: First and second heart sounds are normal; no edema. LUNGS: Respiratory rate increased, diminished breath sounds ABDOMEN: Soft, no tenderness, no guarding rigidity, liver spleen not palpable, no masses palpable. PSYCH: Alert and oriented x3; mood and affect tired MUSCULAR skeletal: Evidence of OA INVESTIGATIONS, reviewed in the clinical context: White count 9.7 he 7.5 potassium 4.4 creatinine 1.3 Previous testing Blood culture-positive for enterococcus avium. Repeat blood culture negative. White count 12.7 hemoglobin 7.1 platelets 269 d-dimer 1.65 Potassium 4.9 creatinine 1.08 glucose 10/31 Lactic acid 3.9 CRP 47.6 proBNP 2790 pro-calcitonin 0.21 COVID 19 PCR not detected Influenza type A type B both negative EKG tracing personally reviewed by me-poor LV progression Chest x-ray film personally reviewed by me-shows underpenetrated film with patchy infiltrates. Computed tomography scan of the abdomen-diverticulosis, multiple bilateral nonobstructing renal stones, partially obstructing, proximal right ureteral stone with mild hydronephrosis. Assessment: -Enterococcus avium bacteremia-July 23. Likely from obstructed urine outflow from ureteral stone.. Repeat blood cultures negative from July 24. -Moderate persistent asthma with acute exacerbation-improved -Diabetes mellitus type 2 uncontrolled with hyperglycemia -Essential hypertension -Primary osteoarthritis -Obstructive sleep apnea uses CPAP -Coronary artery disease with history of stent -Colonic diverticulosis -Morbid obesity BMI 49.2 -Chronic medical debility -confined to wheelchair -Acute blood loss anemia microcytic hemoglobin dropping below 7. 1 unit of blood ordered -Asymptomatic diverticulosis -Multiple bilateral nonobstructing renal stones -Partial obstructing right ureteral stone 0.6 cm.-seems to have passed spontaneously. No further abdominal pain. Plan: Patient should be able to be switched over to oral antibiotic tomorrow. Discharged tomorrow.
--- NOTE | 2020-07-30 03:51 | PN ---
PROGRESS NOTE DATE OF SERVICE: 07/29/2020 REASON FOR FOLLOWUP: Enterococcus bacteremia source likely urinary. INTERVAL HISTORY: The patient is currently afebrile. The patient is breathing more comfortably. Denies having any chest pain. Minimal cough. No nausea, no vomiting. No abdominal pain and no diarrhea. PHYSICAL EXAMINATION: Blood pressure 129/71 with a pulse of 75, temperature 98.4. She is 99% on 2 L nasal cannula. General description is a middle-aged female up in the chair in no distress. RESPIRATORY SYSTEM: Unlabored breathing, decreased breath sounds at the bases. No wheeze. HEART S1, S2. Regular rate and rhythm. ABDOMEN: Soft, no tenderness. LABS: Creatinine 1.3. Blood culture repeat has been negative so far. DIAGNOSTIC IMPRESSION AND PLAN: Patient with Enterococcus bacteremia source likely urinary in this patient who did have right-sided hydronephrosis. Urology recommending no intervention at this point. She is currently on Unasyn. She will finish therapy with oral Augmentin and close outpatient followup. MMODL / IJN: [id number] /
[2020-07-30 05:36] LABS: African American GFR (CKD) 59 (>60 ml/min/1.73 sqM); Anion Gap 7 mmol/L; Blood Urea Nitrogen 23 mg/dL (7-17); Calcium 8.5 mg/dL (8.4-10.2); Carbon Dioxide 25 mmol/L (22-30); Chloride 106 mmol/L (98-107); Glucose 76 mg/dL (74-99); Non-African American GFR(CKD) 51 (>60 ml/min/1.73 sqM); Sodium 138 mmol/L (137-145)
[2020-07-30] MEDS: AMPICILLIN-SULBACTAM 3 GM in SODIUM CHLORIDE 0.9% 100 ML IVPB SCH ×2 (05:44→11:54)
[2020-07-30 06:32] LABS: Potassium 4.4 mmol/L (3.5-5.1)
[2020-07-30 07:25] LABS: Glucose,Whole Blood 95 mg/dL (75-99)
[2020-07-30] MEDS: ALPRAZolam 0.25 MG TAB PO PRN (08:20)
[2020-07-30] MEDS: METOPROLOL TARTRATE 25 MG TAB PO SCH (08:21)
[2020-07-30] MEDS: LOSARTAN 25 MG TAB PO SCH (08:21)
[2020-07-30] MEDS: amLODIPine 10 MG TAB PO SCH (08:21)
[2020-07-30] MEDS: metFORMIN 500 MG TAB PO SCH (08:21)
[2020-07-30] MEDS: ASCORBIC ACID 500 MG TAB PO SCH (08:21)
[2020-07-30] MEDS: PSYLLIUM HUSK 100% 6 GM PACKET PO SCH (08:22)
[2020-07-30] MEDS: FUROSEMIDE 40 MG TAB PO SCH (08:22)
[2020-07-30] MEDS: ZINC SULFATE 220 MG CAP PO SCH (08:23)
[2020-07-30] MEDS: INSULIN ASPART (NovoLOG) 100 UNIT/ML VIAL SQ SCH ×4 (08:28→11:52)
[2020-07-30] MEDS: OXYMETAZOLINE 0.05% NASL SPRAY 1 SPRAY BOTTLE NASAL SCH (08:28)
[2020-07-30 10:31] VITALS: BMI 49.2
[2020-07-30 11:27] LABS: Glucose,Whole Blood 172 mg/dL (75-99)
[2020-07-30] MEDS: INSULIN DETEMIR (LEVEMIR) 100 UNIT/ML SYR SQ SCH (11:31)
--- NOTE | 2020-07-30 14:26 | P.PN ---
Subjective Progress Note Date: 07/30/20 Principal diagnosis: 75-year-old white female patient with past medical history of chronic bronchial asthma, known history of obstructive sleep apnea on CPAP therapy, peripheral vas cular disease, diabetes mellitus type 2, hypertension, osteoarthritis, coronary artery disease with previous stenting, morbid obesity, previous MRSA infection in the left foot, and she follows with Dr. Ramirez in the pulmonary clinic for her history of obstructive sleep apnea. Patient presented to the hospital 07/23/2020 with complaints of fever, dyspnea and started last night. Patient had a cough, sinus drainage, dizziness, she was having trouble sleeping related to shortness of breath, she sustained a fall. She is a resident at the [facility]. She denies any chest pain or palpitations, but when she arrived per EMS her pulse ox was in the 70s on room air. No nausea vomiting and diarrhea, rapid COVID 19 was negative. Influenza negative. Chest x-ray showing diminished lung volumes subsegmental perihilar and basilar opacities with new patchy opacity in the peripheral aspect of the right lower lung zone, pulmonary vascular prominence, differential consideration with bibasilar atelectasis or consolidation. EKG showed normal sinus rhythm with evidence of nonspecific intraventricular block, inferior infarct of undetermined age as well as possible anterolateral infarct of undetermined age. Low-grade fever on admission with a temp of 100.8F, currently afebrile, white blood cell count is 12.7, hemoglobin is 7.1, INR is 1.2, d-dimer is 1.65, sodium is 134, potassium is 4.9, chloride is 105, CO2 is 20, BUN of 17, creatinine is 1.08, lactic acid was 3.9, ferritin level was 9.3, CRP was 47.6, LDH was 595, pro calcitonin was 0.21, urinalysis showed moderate amount of blood, 2+ protein, but no clear evidence of UTI. Patient was started on steroids, for possibility of Covid 19 related pneumonitis, and we were consulted for possibility of Remdesivir infusion On 07/24/2020 patient seen in follow-up on medical surgical floor, she is feeling better today, her blood cultures came back positive for Streptococcus species, final culture is pending, bacteremia is likely related to possibility of bacterial pneumonia. She is on antibiotics in the form of azithromycin and Rocephin, she has been afebrile, she continues on IV Lasix, he is feeling better, breathing easier, RSV was negative, her Covid 19 testing was negative. Her echocardiogram showed moderate concentric LVH, EF between 50-55%, mild aortic stenosis, mild mitral regurgitation, mild TR, mild pulmonary hypertension, right-sided pressures of 38.3 mmHg. no altered mentation, no chest pain, no hemoptysis. Will await results of final blood culture, will obtain follow-up blood culture, sputum culture, continue with antibiotic coverage On 07/25/2020 patient seen in follow-up on medical surgical floor. She is improving, FiO2 to 5 L, pulse ox is 100%, hemodynamically stable, afebrile. Repeat Covid 19 came back negative, influenza screen was negative, RSV PCR was negative, patient was found to have strep bacteremia likely related to strep pneumonia. She is on appropriate antibiotics for that, Rocephin. Denies any chest pain, denies any significant congestion, chest x-ray reviewed, showing possible interstitial edema, patient was started on diuretics. On 07/26/2020 patient seen in follow-up on medical surgical floor, she is feeling better, breathing easier, she is on room air, pulse ox 95%, she's been afebrile, vital signs have been stable, no completing chest pain or hemoptysis, she remains on antibiotics on Unasyn, final blood culture came back positive for enterococcus avium. Follow blood culture show no growth. CT of the abdomen is pending. She complains any nausea vomiting or diarrhea. On 07/27/2020 patient seen in follow-up on medical surgical floor. She is resting comfortably in bed, denies any worsening dyspnea, at times she feels mildly short of breath, lung sounds diminished, no cough no congestion, no chest discomfort, she is on 3 L of oxygen and her pulse ox is 100%, hemodynamics stable, she's been afebrile, she was found to be positive for enterococcus avium in the blood cultures possibly related to intra-abdominal source. CT of the abdomen and pelvis showed diverticulosis without diverticulitis, multiple bilateral nonobstructing renal stones, and partially obstructing proximal right ureteral stone measuring 0.6 cm is contributing to mild right hydronephrosis. No nausea or vomiting, no diarrhea, she was actually constipated, and she was given something for constipation. Maintained on Unasyn. On 07/30/2020 patient seen in follow-up on the general medical surgical floor, she is resting comfortably in bed, remains on 3 L of oxygen, no worsening dyspnea, she has been wearing CPAP at night, she seems to be breathing comfortably, denies any chest pain, still has some flank discomfort at times, but no acute distress. Vital signs have been stable, she's been afebrile. Patient remains on diuretics, she has been transitioned to oral diuretics per cardiology, she is on Unasyn for enterococcus bacteremia, follow blood cultures have been negative, ID service is following. She was evaluated by urology, and there is no immediate plan for surgical intervention however there is a possibly patient will likely need surgical intervention on an outpatient basis. Patient has had no cough, lung sounds reveal just mild bibasilar crackles, patient has been up in the chair, though has some mild pretibial edema, continues on oral diuretics. ID service recommends finishing antibiotic therapy with oral Augmentin on an outpatient basis. Objective - Vital Signs Vital signs: Vital Signs Temp 98.1 F 07/30/20 05:48 Pulse 73 07/30/20 05:48 Resp 18 07/30/20 05:48 BP 137/66 07/30/20 05:48 Pulse Ox 91 L 07/30/20 05:48 Intake & Output 07/29/20 07/30/20 07/30/20 18:59 06:59 18:59 Intake Total 200 260 Output Total 1000 675 0 Balance -800 -675 260 Weight 144.741 kg Intake: Intake, IV Titration 200 260 Amount Ampicillin-Sulbactam 3 gm 100 100 In Sodium Chloride 0.9% 100 ml @ 200 mls/hr IVPB Q6HR [facility] Rx#:[id number] Sodium Chloride 0.9% 1, 160 000 ml @ 20 mls/hr IV . Q24H [facility] Rx#:[id number] Sodium Ferric Gluconat- 100 Sucrose 125 mg In Sodium Chloride 0.9% 100 ml @ 100 mls/hr IVPB DAILY [facility] Rx#:[id number] Output: Urine 1000 675 Stool 0 0 Other: Voiding Method Indwelling Catheter Indwelling Catheter Indwelling Catheter # Bowel Movements 1 1 - Exam GENERAL EXAM: Alert, very pleasant, obese, 75-year-old white female, on 3 l/min pulse ox of 100% comfortable in no apparent distress. HEAD: Normocephalic/atraumatic. EYES: Normal reaction of pupils, equal size. Conjunctiva pink, sclera white. NOSE: Clear with pink turbinates. THROAT: No erythema or exudates. NECK: No masses, no JVD, no thyroid enlargement, no adenopathy. CHEST: No chest wall deformity. Symmetrical expansion. LUNGS: Equal air entry with diffuse bibasilar crackles, no wheeze, rhonchi or dullness. CVS: Regular rate and rhythm, normal S1 and S2, no gallops, no murmurs, no rubs ABDOMEN: Soft, nontender. No hepatosplenomegaly, normal bowel sounds, no guarding or rigidity. EXTREMITIES: No clubbing, no edema, no cyanosis, 2+ pulses and upper and lower extremities. MUSCULOSKELETAL: Muscle strength and tone normal. SPINE: No scoliosis or deformity SKIN: No rashes CENTRAL NERVOUS SYSTEM: Alert and oriented -3. No focal deficits, tone is normal in all 4 extremities. PSYCHIATRIC: Alert and oriented -3. Appropriate affect. Intact judgment and insight. - Labs CBC & Chem 7: 07/28/20 06:59 07/30/20 04:33 Labs: Abnormal Lab Results - Last 24 Hours (Table) 07/29/20 07/30/20 07/30/20 Range/Units 16:54 04:33 11:26 BUN 23 H (7-17) mg/dL Creatinine 1.09 H (0.52-1.04) mg/dL POC Glucose (mg/dL) 101 H 172 H (75-99) mg/dL Microbiology - Last 24 Hours (Table) 07/24/20 14:55 Blood Culture - Preliminary Blood No Growth after 120 hours Assessment and Plan Plan: Assessment: #1. Acute hypoxic respiratory failure, likely related to acute exacerbation of CHF, and sepsis, initially was thought to be related to community acquired pneumonia however final blood culture came back positive for enterococcus avium with the possibility of a urinary source, rapid COVID 19 test was negative #2. Enterococcus bacteremia possibly related to a urinary source #3. Acute on chronic anemia possibly related to blood loss anemia #4. Lactic acidosis, recovered #5. Dyspnea, fever, weakness, related to sepsis, first rapid COVID 19 was negative #6. Chronic bronchial asthma, unspecified #7. Morbid obesity #8. Obstructive sleep apnea on CPAP therapy #9. Diabetes mellitus type 2 #10. Hypertension #11. Osteoarthritis #12. Coronary artery disease, with previous stenting and grafting Plan: Patient has been stable from pulmonary perspective, no worsening dyspnea, remains on diuretics, has been transitioned to oral Lasix, doing well, no chest pain, no fever or chills, and the benefits per ID service recommendations, patient has been treated with Unasyn for enterococcus bacteremia, follow blood cultures have been negative, urology recommendations have been noted, and patient will likely need surgical intervention for obstructing ureteral stone on an outpatient basis. Weaning FiO2, encourage deep breathing and coughing, accurate intake and output, daily weights, and increase activity as tolerated. Stable for discharge from pulmonary perspective with antibiotics of ID service recommendations I performed a history & physical examination of the patient and discussed their management with my nurse practitioner, Anna Gifford. I reviewed the nurse practitioner's note and agree with the documented findings and plan of care. Lung sounds are positive for diffuse crackles. The findings and the impression was discussed with the patient. I attest to the documentation by the nurse practitioner. Time with Patient: Less than 30
[2020-07-30 15:21] VITALS: BP 127/67; PULSE 70; RESP 26; TEMP 98
--- NOTE | 2020-07-30 15:57 | P.DS ---
Providers Date of admission: 07/23/20 04:26 Expected date of discharge: 07/30/20 Attending physician: Kenneth Wright Consults: 07/23/20 04:26 Consult Physician Routine Consulting Provider: Lorenzo Sears Consult Reason/Comments: COVID pneumonia Do you want consulting provider notified?: Yes, Notify in am 07/26/20 23:47 Consult Physician Routine Consulting Provider: Eric Garza Consult Reason/Comments: Positive blood culture Do you want consulting provider notified?: Yes 07/27/20 11:25 Consult Physician Routine Consulting Provider: Onur Bravo Consult Reason/Comments: r ureter stone obstruction Do you want consulting provider notified?: Yes 07/27/20 14:45 Consult Physician Routine Consulting Provider: Jamarcus Parada Consult Reason/Comments: bacteremia, partially obstructing prox. right ureteral stone Do you want consulting provider notified?: Yes Primary care physician: [facility] Course: Chief Complaint: Shortness of breath History of presenting complaint: This is a very pleasant 75-year-old patient of Dr. Cannon. Patient is a resident of [facility]. Normally uses a wheelchair and a walker. No history of smoking. Alcohol occasional. Chronic stable medical conditions include diabetes, hypertension, osteoarthritis, obstructive sleep apnea uses CPAP, diverticulosis, partial limitation of left foot, coronary artery disease with stent. About a week ago patient felt he had some sinus symptoms. Subsequently started having headaches. Tired. Some muscle aches. Became more short of breath yesterday. Also had a fever. Has been constipated. Lost her appetite for about a week. Has a dry cough. The no COVID cases at the facility. Admitted with-streptococcus bacteremia. With positive blood cultures- enterococcus avium. On IV ceftriaxone. Negative for COVID 19. Oral intake better. Hemoglobin 6.5. Transfuse blood. Partial obstructing right ureteral stone. Seems to have passed on his own. Complete course with Augmentin. Today-doing better. Oral intake good. No pain. Plan is for patient to go down to rehab. Discussion and discharge planning more than 35 minutes Consultation: Dr. Garza from ID Dr. Ramirez in partners from pulmonary Dr. bravo from neurology Physical examination: VITAL SIGNS: 98, 70, 20, 1 27 x 67, 91% on 3 L [patient was 84% on room air] GENERAL: Up in a recliner, awake EYES: Pupils equal. Conjunctiva normal. NECK: JVD unable to assess masses not palpable. HEART: First and second heart sounds are normal; no edema. LUNGS: Respiratory rate increased, diminished breath sounds ABDOMEN: Soft, no tenderness, no guarding rigidity, liver spleen not palpable, no masses palpable. PSYCH: Alert and oriented x3; mood and affect tired MUSCULAR skeletal: Evidence of OA INVESTIGATIONS, reviewed in the clinical context: Potassium 4.4 bun 23 creatinine 1.09 Previous testing Blood culture-positive for enterococcus avium. Repeat blood culture negative. White count 12.7 hemoglobin 7.1 platelets 269 d-dimer 1.65 Potassium 4.9 creatinine 1.08 glucose 10/31 Lactic acid 3.9 CRP 47.6 proBNP 2790 pro-calcitonin 0.21 COVID 19 PCR not detected Influenza type A type B both negative EKG tracing personally reviewed by me-poor LV progression Chest x-ray film personally reviewed by me-shows underpenetrated film with patchy infiltrates. Computed tomography scan of the abdomen-diverticulosis, multiple bilateral nonobstructing renal stones, partially obstructing, proximal right ureteral stone with mild hydronephrosis. Assessment: -Enterococcus avium bacteremia-July 23. Likely from obstructed urine outflow from ureteral stone.. Repeat blood cultures negative from July 24. -Moderate persistent asthma with acute exacerbation-improved -Diabetes mellitus type 2 uncontrolled with hyperglycemia -Essential hypertension -Primary osteoarthritis -Obstructive sleep apnea uses CPAP -Coronary artery disease with history of stent -Colonic diverticulosis -Morbid obesity BMI 49.2 -Chronic medical debility -confined to wheelchair -Acute blood loss anemia microcytic hemoglobin dropping below 7. 1 unit of blood ordered -Asymptomatic diverticulosis -Multiple bilateral nonobstructing renal stones -Partial obstructing right ureteral stone 0.6 cm.-seems to have passed spontaneously. No further abdominal pain. Disposition: F/[facility] Labs: CBC BMP 5 days Patient Condition at Discharge: Stable Plan - Discharge Summary New Discharge Prescriptions: New Amoxic-Pot Clav 875-125Mg [Augmentin 875-125] 1 tab PO Q12HR 10 Days #20 tab Oxymetazoline 0.05% Nasl [place] [Afrin 0.05% Nasal [place]] 2 spray NASAL BID bottle Psyllium Husk 100% [Metamucil Packet] 6 gm PO DAILY packet Continue Acetaminophen Tab [Tylenol] 650 mg PO Q4H PRN #0 tab PRN Reason: Pain Losartan [Cozaar] 25 mg PO DAILY #30 tab Metoprolol Tartrate [Lopressor] 25 mg PO BID tab Montelukast [Singulair] 10 mg PO HS tab Albuterol Inhaler [Ventolin Hfa Inhaler] 1 puff INHALATION RT-Q4H PRN PRN Reason: Shortness Of Breath ALPRAZolam [Xanax] 0.25 mg PO Q6H PRN PRN Reason: Anxiety amLODIPine [Norvasc] 10 mg PO DAILY Apixaban [Eliquis] 5 mg PO BID Ezetimibe [Zetia] 10 mg PO HS Furosemide [Lasix] 60 mg PO DAILY medroxyPROGESTERone [Provera] 2.5 mg PO DAILY metFORMIN HCL [Glucophage] 500 mg PO BID Changed Insulin Glargine,Hum.rec.anlog [Lantus Solostar] 50 unit SQ HS #0 Insulin Aspart [NovoLOG Flexpen] 16 units SQ AC-TID #0 Discharge Medication List Acetaminophen Tab [Tylenol] 650 mg PO Q4H PRN #0 tab 07/14/16 [Rx] Losartan [Cozaar] 25 mg PO DAILY #30 tab 07/14/16 [Rx] Metoprolol Tartrate [Lopressor] 25 mg PO BID tab 07/14/16 [Rx] Montelukast [Singulair] 10 mg PO HS tab 07/14/16 [Rx] ALPRAZolam [Xanax] 0.25 mg PO Q6H PRN 07/23/20 [History] Albuterol Inhaler [Ventolin Hfa Inhaler] 1 puff INHALATION RT-Q4H PRN 07/23/20 [History] Apixaban [Eliquis] 5 mg PO BID 07/23/20 [History] Ezetimibe [Zetia] 10 mg PO HS 07/23/20 [History] Furosemide [Lasix] 60 mg PO DAILY 07/23/20 [History] amLODIPine [Norvasc] 10 mg PO DAILY 07/23/20 [History] medroxyPROGESTERone [Provera] 2.5 mg PO DAILY 07/23/20 [History] metFORMIN HCL [Glucophage] 500 mg PO BID 07/23/20 [History] Amoxic-Pot Clav 875-125Mg [Augmentin 875-125] 1 tab PO Q12HR 10 Days #20 tab 07/29/20 [Rx] Insulin Aspart [NovoLOG Flexpen] 16 units SQ AC-TID #0 07/30/20 [Rx] Insulin Glargine,Hum.rec.anlog [Lantus Solostar] 50 unit SQ HS #0 07/30/20 [Rx] Oxymetazoline 0.05% Nasl [place] [Afrin 0.05% Nasal [place]] 2 spray NASAL BID bottle 07/30/20 [Rx] Psyllium Husk 100% [Metamucil Packet] 6 gm PO DAILY packet 07/30/20 [Rx] Follow up Appointment(s)/Referral(s): Mynor Cannon MD [Primary Care Provider] - 08/09/20 2:00 pm Onur Bravo MD [STAFF PHYSICIAN] - 08/08/20 10:00 am Activity/Diet/Wound Care/Special Instructions: cbc/bmp - 3 days
--- NOTE | 2020-07-30 16:06 | PN ---
PROGRESS NOTE DATE OF SERVICE: 07/30/20 REASON FOR FOLLOWUP: Enterococcus bacteremia and urinary source. INTERVAL HISTORY: The patient is currently afebrile. The patient is breathing comfortably. Denies having any chest pain. No cough. No nausea. No abdominal pain, no diarrhea. PHYSICAL EXAMINATION: Blood pressure 137/66, pulse of 73, temperature is 99.1. General description is an elderly female, lying in bed in no distress. RESPIRATORY SYSTEM: Unlabored breathing with no wheeze. HEART: S1, S2. Regular rate and rhythm. ABDOMEN: Soft, no tenderness. . LABS: BUN of 23, creatinine 1.9. Blood culture repeat has been negative. DIAGNOSTIC IMPRESSION AND PLAN: Patient with bacteremia, source likely he did have mild hydronephrosis, nausea. On intervention, patient responding to Unasyn to finish therapy with oral Augmentin. Recommending blood cultures a week after admission and antibiotics to be sure. [QAMARKER]. MMODL / IJN: [id number] /
--- NOTE | 2020-07-31 17:23 | CDI ---
Documentation Clarification Form Date: 07/31/20 From: Blossom Krishnan Phone: If you have a question about this query, please contact Rena Gregorio Sausage Machine Operator at [phone] between 8am and 5pm. Admit Date: 07/23/20 Discharge Date:07/30/20 Patient Name: Moses Lombardo Visit Number: [id number] ATTENTION: The Clinical Documentation Specialists (CDI) and [facility] Coding Staff appreciate your assistance in clarifying documentation. Please respond to the clarification below the line at the bottom and electronically sign. The CDI & [facility] Coding staff will review the response and follow-up if needed. Please note: Queries are made part of the Legal Health Record. If you have any questions, please contact the author of this message via ITS. Dear Dr. Wright Bacteremia documented in the discharge summary and your progress notes. Sepsis is documented in Dr. Herrera's and Dr. Ramirez's progress notes. Patient history/risk factors: Likely obstructed urine outflow from ureteral stone. Clinical Indicators: Elevated WBC, elevated lactic acid, elevated C-Reactive Protein WBC: 12.7 Lactic Acid: 3.9 Left Shift: 84% Blood Culture: Enterococcus avium Treatment: Antibiotics: IV Rocephin, IV Unasyn Bacteremia is considered a lab finding. Please clarify if that lab finding is clinical indicator of a more definitive medical diagnosis such as: Sepsis Infectious Process, please specify: Other, please specify Unable to determine sepsis, present, POA MTDD
== END 2020-07-30 19:23 | DRG 871 ==
LOC: EC 03:22 → 4SSUR 04:26 → 6NMEDSUR 11:05
PROVIDERS: ADMIT Hospitalist; ATTEND Hospitalist
PROC: 30233N1 Transfusion of Nonautologous Red Blood Cells into Peripheral Vein, Percutaneous Approach (ICD-10-PCS; principal; 2020-07-25)
DX: A41.81 Sepsis due to Enterococcus (principal); I50.33 Acute on chronic diastolic (congestive) heart failure; J96.01 Acute respiratory failure with hypoxia; D62 Acute posthemorrhagic anemia; E87.2 Acidosis; J45.41 Moderate persistent asthma with (acute) exacerbation; N13.6 Pyonephrosis; N20.2 Calculus of kidney with calculus of ureter; Z68.42 Body mass index [BMI] 45.0-49.9, adult; Z20.828 Contact with and (suspected) exposure to other viral communicable diseases; I27.20 Pulmonary hypertension, unspecified; I11.0 Hypertensive heart disease with heart failure; E11.51 Type 2 diabetes mellitus with diabetic peripheral angiopathy without gangrene; E11.65 Type 2 diabetes mellitus with hyperglycemia; E66.01 Morbid (severe) obesity due to excess calories; J44.9 Chronic obstructive pulmonary disease, unspecified; Z79.4 Long term (current) use of insulin; Z89.512 Acquired absence of left leg below knee; D50.9 Iron deficiency anemia, unspecified; E78.5 Hyperlipidemia, unspecified; F32.9 Major depressive disorder, single episode, unspecified; G47.33 Obstructive sleep apnea (adult) (pediatric); I25.10 Atherosclerotic heart disease of native coronary artery without angina pectoris; I45.4 Nonspecific intraventricular block; K57.30 Diverticulosis of large intestine without perforation or abscess without bleeding; K59.00 Constipation, unspecified; M19.91 Primary osteoarthritis, unspecified site; L30.9 Dermatitis, unspecified; I08.3 Combined rheumatic disorders of mitral, aortic and tricuspid valves; Z79.01 Long term (current) use of anticoagulants; Z79.02 Long term (current) use of antithrombotics/antiplatelets; Z79.899 Other long term (current) drug therapy; Z86.14 Personal history of Methicillin resistant Staphylococcus aureus infection; Z88.0 Allergy status to penicillin; Z88.8 Allergy status to other drugs, medicaments and biological substances; Z99.3 Dependence on wheelchair; Z95.5 Presence of coronary angioplasty implant and graft; Z95.1 Presence of aortocoronary bypass graft; Z87.442 Personal history of urinary calculi; Z90.49 Acquired absence of other specified parts of digestive tract; Z90.89 Acquired absence of other organs; Z87.19 Personal history of other diseases of the digestive system; Z87.898 Personal history of other specified conditions; Z98.49 Cataract extraction status, unspecified eye; Z87.891 Personal history of nicotine dependence; Z80.49 Family history of malignant neoplasm of other genital organs; Z82.3 Family history of stroke
CPT/HCPCS: 36415; 71045; 74176; 80048; 80053; 81001; 82728; 82803; 83036; 83540; 83550; 83605; 83615; 83735; 83880; 84145; 85025; 85379; 85610; 85730; 86140; 86850; 86900; 86901; 86920; 87040; 87077; 87186; 87502; 87634; 87635; 87798; 93005; 93306; 94660; 96361; 96365; 96375; 99285

== ENCOUNTER 2020-08-29 18:22 | Emergency (ER) | payer MEDICARE ==
[2020-08-29 18:30] VITALS: RESP 18
--- NOTE | 2020-08-29 18:35 | ED ---
General Adult HPI - General Chief complaint: Dizziness Stated complaint: Vomiting/nausea/headache/dizzy Time Seen by Provider: 08/29/20 18:26 Source: patient, EMS Mode of arrival: EMS Limitations: physical limitation - History of Present Illness Initial comments: Patient presents the ED by ambulance for evaluation. Patient states that she has had nausea, 2 bouts of emesis, and 1 loose bowel movement over the past hour and a half or so. Patient also states that she has a headache and feels dizzy. Patient states that she did also have lower abdominal pain, but it has now resolved. Patient states that she has a history of anemia, and she states that she had an iron infusion at about 1:30 PM this afternoon. She states that she has had iron infusions in the past without having any symptoms or reactions. Patient denies trauma or injury, sudden onset of headache, LOC, neck pain or stiffness, fever or chills, focal numbness/weakness/neuro deficit, visual changes, speech difficulty, otalgia, chest pain, dyspnea, cough or cold symptoms, palpitations, syncope, bloody stool, hematemesis, dysuria or urinary symptoms, leg or calf swelling or pain, or any other symptoms or complaints. - Related Data Home Medications Medication Instructions Recorded Confirmed Albuterol Inhaler [Ventolin Hfa 1 puff INHALATION RT-Q4H PRN 07/23/20 08/29/20 Inhaler] Apixaban [Eliquis] 5 mg PO BID 07/23/20 08/29/20 Ezetimibe [Zetia] 10 mg PO DAILY 07/23/20 08/29/20 Furosemide [Lasix] 60 mg PO DAILY 07/23/20 08/29/20 amLODIPine [Norvasc] 10 mg PO DAILY 07/23/20 08/29/20 medroxyPROGESTERone [Provera] 2.5 mg PO DAILY 07/23/20 08/29/20 metFORMIN HCL [Glucophage] 500 mg PO BID 07/23/20 08/29/20 Insulin Aspart [NovoLOG Flexpen] 20 - 30 units SQ AC-TID 08/29/20 08/29/20 Insulin Glargine,Hum.rec.anlog 37 unit SQ BID 08/29/20 08/29/20 [Lantus Solostar] Latanoprostene Bunod [Vyzulta] 1 drop LEFT EYE DAILY 08/29/20 08/29/20 Previous Rx's Medication Instructions Recorded Losartan [Cozaar] 25 mg PO DAILY #30 tab 07/14/16 Metoprolol Tartrate [Lopressor] 25 mg PO BID tab 07/14/16 Montelukast [Singulair] 10 mg PO HS tab 07/14/16 Ondansetron Odt [Zofran Odt] 4 mg PO Q8HR PRN #10 tab 08/29/20 Allergies Allergy/AdvReac Type Severity Reaction Status Date / Time Penicillins AdvReac Rash/Hives Verified 08/29/20 19:24 Abhsyye-Epr-Szu Reductase AdvReac EXTREME Verified 08/29/20 19:24 Inhibitor MUSCLE PAIN AND WEAKNESS Review of Systems ROS Statement: Those systems with pertinent positive or pertinent negative responses have been documented in the HPI. ROS Other: All systems not noted in ROS Statement are negative. Past Medical History Past Medical History: Asthma, Diabetes Mellitus, Hypertension, Osteoarthritis (OA), Skin Disorder, Sleep Apnea/CPAP/BIPAP, Vascular Disorder Additional Past Medical History / Comment(s): Bronchial asthma, coronary stent 3, morbid obesity, obstructive sleep apnea, diabetes mellitus type 2, eczema, peripheral vascular disease, obstructive sleep apnea on CPAP, diverticulosis/diverticulitis and previous left wound in the foot with infection with MRSA and the patient has a partial amputation of the left foot History of Any Multi-Drug Resistant Organisms: MRSA Date of last positivie culture/infection: 2010 MDRO Source:: LT FOOT WOUND Past Surgical History: Appendectomy, Heart Catheterization With Stent, Tonsillectomy Additional Past Surgical History / Comment(s): PARTIAL AMPUTATION LT FOOT with previous amputation of the left great toe,. D & C, cataract surgery, breast biopsy Past Anesthesia/Blood Transfusion Reactions: Motion Sickness, Postoperative Nausea & Vomiting (PONV) Date of Last Stent Placement:: 2007 Past Psychological History: Depression Smoking Status: Former smoker Past Alcohol Use History: None Reported Past Drug Use History: None Reported - Past Family History Mother Family Medical History: Cancer, CVA/TIA Additional Family Medical History / Comment(s): HAD MULTIPLE PROBLEMS- OF CVA Sister(s) Family Medical History: Cancer Additional Family Medical History / Comment(s): Uterine Cancer General Exam Limitations: physical limitation General appearance: alert, in no apparent distress Head exam: Present: atraumatic, normocephalic Eye exam: Present: normal appearance, PERRL, EOMI ENT exam: Present: normal oropharynx, mucous membranes moist Neck exam: Present: other (Trachea is in midline). Absent: tenderness, menin gismus Respiratory exam: Present: normal lung sounds bilaterally. Absent: respiratory distress, wheezes, rales, rhonchi, stridor Cardiovascular Exam: Present: regular rate, normal rhythm, normal heart sounds, other (Normal radial pulses bilaterally) GI/Abdominal exam: Present: soft, other (Obese abdomen). Absent: tenderness, guarding Extremities exam: Absent: tenderness, pedal edema, calf tenderness Back exam: Absent: CVA tenderness (R), CVA tenderness (L) Neurological exam: Present: alert, oriented X3, CN II-XII intact. Absent: motor sensory deficit Psychiatric exam: Present: normal affect, normal mood Skin exam: Present: warm, dry, intact, normal color Course Vital Signs 08/29/20 08/29/20 08/29/20 18:25 19:13 22:46 Temperature 100 F H 98.1 F Pulse Rate 85 78 Respiratory 18 18 Rate Blood Pressure 128/112 125/56 O2 Sat by Pulse 95 98 Oximetry - Reevaluation(s) Reevaluation #1: 08/29/20 23:01 Patient states that her headache, dizzy and nauseous have all now improved, and she denies development of any new symptoms while in the ED. Patient continues to have a normal neurological exam, and she continues to have a soft and nontender abdominal exam. Patient is aware of her test results, and she feels comfortable going home at this time. Patient was counseled about headaches, dizziness and nausea/vomiting/diarrhea. Patient was clearly explained return and follow-up instructions, and she was instructed to have a low threshold for return to the ED. Patient was also instructed to follow up closely with her primary care provider. Patient feels comfortable with this plan. EKG Findings - EKG Comments: EKG Findings:: Normal sinus rhythm, ventricular rate of 85 bpm, no ectopy, nonspecific intraventricular conduction delay, leftward axis, normal [place] interval, normal QT interval, no significant change when compared to 07/23/2020 EKG Medical Decision Making - Medical Decision Making I suspect that the patient's symptoms may be secondary to her iron infusion earlier today or perhaps a viral illness. Patient has a normal/nonfocal neurological exam. Patient has a benign and nontender abdominal exam. Patient initially had a temperature of 100F on presentation to the ED, but her repeat temperature was 98.1F without any antipyretic medication being given. Patient's coronavirus study is negative. Patient's UA urine specimen was obta ined by straight cath. Patient denies having any urinary symptoms, and I do not suspect UTI. Will await urine culture results. Patient has been able to drink and keep down oral fluids while in the ED. I do not suspect an emergent medical condition. Will discharge patient home at this time. - Lab Data Result diagrams: 08/29/20 18:48 08/29/20 18:48 Lab Results 08/29/20 08/29/20 08/29/20 Range/Units 18:36 18:48 18:48 WBC 16.2 H (3.8-10.6) k/uL RBC 4.38 (3.80-5.40) m/uL Hgb 9.4 L D (11.4-16.0) gm/dL Hct 32.3 L (34.0-46.0) % MCV 73.8 L (80.0-100.0) fL MCH 21.5 L (25.0-35.0) pg MCHC 29.2 L (31.0-37.0) g/dL RDW 20.2 H (11.5-15.5) % Plt Count 406 (150-450) k/uL MPV 7.3 Neutrophils % 89 % Lymphocytes % 7 % Monocytes % 3 % Eosinophils % 1 % Basophils % 0 % Neutrophils # 14.4 H (1.3-7.7) k/uL Lymphocytes # 1.1 (1.0-4.8) k/uL Monocytes # 0.5 (0-1.0) k/uL Eosinophils # 0.1 (0-0.7) k/uL Basophils # 0.1 (0-0.2) k/uL Hypochromasia Marked Poikilocytosis Slight Anisocytosis Moderate Microcytosis Moderate PT (9.0-12.0) sec INR (<1.2) APTT (22.0-30.0) sec Sodium (137-145) mmol/L Potassium (3.5-5.1) mmol/L Chloride (98-107) mmol/L Carbon Dioxide (22-30) mmol/L Anion Gap mmol/L BUN (7-17) mg/dL Creatinine (0.52-1.04) mg/dL Est GFR (CKD-EPI)AfAm (>60 ml/min/1.73 sqM) Est GFR (CKD-EPI)NonAf (>60 ml/min/1.73 sqM) Glucose (74-99) mg/dL POC Glucose (mg/dL) 128 H (75-99) mg/dL POC Glu Press Officer ID Myriam Bolton Lactic Ac Sepsis Rflx Plasma Lactic Acid Clarence (0.7-2.0) mmol/L Calcium (8.4-10.2) mg/dL Magnesium (1.6-2.3) mg/dL Total Bilirubin (0.2-1.3) mg/dL AST (14-36) U/L ALT (4-34) U/L Alkaline Phosphatase (38-126) U/L Troponin I (0.000-0.034) ng/mL Total Protein (6.3-8.2) g/dL Albumin (3.5-5.0) g/dL Lipase (23-300) U/L Urine Color Yellow Urine Appearance Clear (Clear) Urine pH 5.5 (5.0-8.0) Ur Specific [place] 1.011 (1.001-1.035) Urine Protein Negative (Negative) Urine Glucose (UA) Negative (Negative) Urine Ketones Negative (Negative) Urine Blood Small H (Negative) Urine Nitrite Negative (Negative) Urine Bilirubin Negative (Negative) Urine Urobilinogen <2.0 (<2.0) mg/dL Ur Leukocyte Esterase Small H (Negative) Urine RBC 79 H (0-5) /hpf Urine WBC 7 H (0-5) /hpf Urine Bacteria Rare H (None) /hpf Hyaline Casts 3 H (0-2) /lpf Urine Mucus Rare H (None) /hpf Coronavirus (PCR) (Not Detectd) 08/29/20 08/29/20 08/29/20 Range/Units 18:48 18:48 18:48 WBC (3.8-10.6) k/uL RBC (3.80-5.40) m/uL Hgb (11.4-16.0) gm/dL Hct (34.0-46.0) % MCV (80.0-100.0) fL MCH (25.0-35.0) pg MCHC (31.0-37.0) g/dL RDW (11.5-15.5) % Plt Count (150-450) k/uL MPV Neutrophils % % Lymphocytes % % Monocytes % % Eosinophils % % Basophils % % Neutrophils # (1.3-7.7) k/uL Lymphocytes # (1.0-4.8) k/uL Monocytes # (0-1.0) k/uL Eosinophils # (0-0.7) k/uL Basophils # (0-0.2) k/uL Hypochromasia Poikilocytosis Anisocytosis Microcytosis PT (9.0-12.0) sec INR (<1.2) APTT (22.0-30.0) sec Sodium 136 L (137-145) mmol/L Potassium 4.3 (3.5-5.1) mmol/L Chloride 104 (98-107) mmol/L Carbon Dioxide 25 (22-30) mmol/L Anion Gap 7 mmol/L BUN 20 H (7-17) mg/dL Creatinine 1.14 H (0.52-1.04) mg/dL Est GFR (CKD-EPI)AfAm 55 (>60 ml/min/1.73 sqM) Est GFR (CKD-EPI)NonAf 48 (>60 ml/min/1.73 sqM) Glucose 136 H (74-99) mg/dL POC Glucose (mg/dL) (75-99) mg/dL POC Glu Press Officer ID Lactic Ac Sepsis Rflx Plasma Lactic Acid [place] 2.6 H* (0.7-2.0) mmol/L Calcium 9.4 (8.4-10.2) mg/dL Magnesium 1.9 (1.6-2.3) mg/dL Total Bilirubin 0.8 (0.2-1.3) mg/dL AST 39 H (14-36) U/L ALT 16 (4-34) U/L Alkaline Phosphatase 71 (38-126) U/L Troponin I <0.012 (0.000-0.034) ng/mL Total Protein 7.2 (6.3-8.2) g/dL Albumin 3.8 (3.5-5.0) g/dL Lipase 91 (23-300) U/L Urine Color Urine Appearance (Clear) Urine pH (5.0-8.0) Ur Specific [place] (1.001-1.035) Urine Protein (Negative) Urine Glucose (UA) (Negative) Urine Ketones (Negative) Urine Blood (Negative) Urine Nitrite (Negative) Urine Bilirubin (Negative) Urine Urobilinogen (<2.0) mg/dL Ur Leukocyte Esterase (Negative) Urine RBC (0-5) /hpf Urine WBC (0-5) /hpf Urine Bacteria (None) /hpf Hyaline Casts (0-2) /lpf Urine Mucus (None) /hpf Coronavirus (PCR) (Not Detectd) 08/29/20 08/29/20 08/29/20 Range/Units 18:48 19:24 20:05 WBC (3.8-10.6) k/uL RBC (3.80-5.40) m/uL Hgb (11.4-16.0) gm/dL Hct (34.0-46.0) % MCV (80.0-100.0) fL MCH (25.0-35.0) pg MCHC (31.0-37.0) g/dL RDW (11.5-15.5) % Plt Count (150-450) k/uL MPV Neutrophils % % Lymphocytes % % Monocytes % % Eosinophils % % Basophils % % Neutrophils # (1.3-7.7) k/uL Lymphocytes # (1.0-4.8) k/uL Monocytes # (0-1.0) k/uL Eosinophils # (0-0.7) k/uL Basophils # (0-0.2) k/uL Hypochromasia Poikilocytosis Anisocytosis Microcytosis PT 10.7 (9.0-12.0) sec INR 1.0 (<1.2) APTT 23.2 (22.0-30.0) sec Sodium (137-145) mmol/L Potassium (3.5-5.1) mmol/L Chloride (98-107) mmol/L Carbon Dioxide (22-30) mmol/L Anion Gap mmol/L BUN (7-17) mg/dL Creatinine (0.52-1.04) mg/dL Est GFR (CKD-EPI)AfAm (>60 ml/min/1.73 sqM) Est GFR (CKD-EPI)NonAf (>60 ml/min/1.73 sqM) Glucose (74-99) mg/dL POC Glucose (mg/dL) (75-99) mg/dL POC Glu Press Officer ID Lactic Ac Sepsis Rflx Y Plasma Lactic Acid [place] (0.7-2.0) mmol/L Calcium (8.4-10.2) mg/dL Magnesium (1.6-2.3) mg/dL Total Bilirubin (0.2-1.3) mg/dL AST (14-36) U/L ALT (4-34) U/L Alkaline Phosphatase (38-126) U/L Troponin I (0.000-0.034) ng/mL Total Protein (6.3-8.2) g/dL Albumin (3.5-5.0) g/dL Lipase (23-300) U/L Urine Color Urine Appearance (Clear) Urine pH (5.0-8.0) Ur Specific [place] (1.001-1.035) Urine Protein (Negative) Urine Glucose (UA) (Negative) Urine Ketones (Negative) Urine Blood (Negative) Urine Nitrite (Negative) Urine Bilirubin (Negative) Urine Urobilinogen (<2.0) mg/dL Ur Leukocyte Esterase (Negative) Urine RBC (0-5) /hpf Urine WBC (0-5) /hpf Urine Bacteria (None) /hpf Hyaline Casts (0-2) /lpf Urine Mucus (None) /hpf Coronavirus (PCR) Not Detected (Not Detectd) - Radiology Data Radiology results: report reviewed (Noncontrast CT head shows no acute intracranial abnormality; chest x-ray shows atelectasis at the lung bases similar to old exam, no heart failure seen, there is improvement in the pulmonary interstitial edema compared to old exam), image reviewed (Chest x-ray shows basilar atelectasis, but is otherwise negative) Disposition Clinical Impression: Headache, Vomiting and diarrhea, Dizziness Disposition: HOME SELF-CARE Condition: Stable Instructions (If sedation given, give patient instructions): Acute Headache (ED), Acute Nausea and Vomiting (ED), Acute Diarrhea (ED), Dizziness (ED) Additional Instructions: Return to the ER immediately should you develop new or worsening pain, a fever, numbness or weakness, persistent or bloody vomiting/diarrhea, shortness of breath, feeling dizzy or faint, or new or worsening symptoms. Follow up closely with your primary care provider. Prescriptions: Ondansetron Odt [Zofran Odt] 4 mg PO Q8HR PRN #10 tab PRN Reason: Nausea Is patient prescribed a controlled substance at d/c from ED?: No Referrals: Mynor Cannon MD [Primary Care Provider] - 1-2 days Time of Disposition: 23:05
[2020-08-29 18:40] LABS: Glucose,Whole Blood 128 mg/dL (75-99)
[2020-08-29] MEDS ORDERED: diphenhydrAMINE 50 MG/ML 1 ML VIAL IVP STA (18:42)
[2020-08-29] MEDS ORDERED: SODIUM CHLORIDE 0.9% 1,000 ML IV STA (18:42)
[2020-08-29] MEDS ORDERED: ONDANSETRON 4 MG/2 ML VIAL IVP STA (18:44)
[2020-08-29] MEDS ORDERED: METOCLOPRAMIDE 5 MG/ML 2 ML VIAL IVP STA (18:44)
[2020-08-29 19:01] LABS: Anisocytosis Moderate; Basophils # (A) 0.1 k/uL (0-0.2); Basophils % (A) 0 %; Eosinophils # (A) 0.1 k/uL (0-0.7); Eosinophils % (A) 1 %; HCT 32.3 % (34.0-46.0); Hypochromasia Marked; Lymphocytes # (A) 1.1 k/uL (1.0-4.8); Lymphocytes % (A) 7 %; MCH 21.5 pg (25.0-35.0); MCHC 29.2 g/dL (31.0-37.0); MCV 73.8 fL (80.0-100.0); Mean Platelet Volume 7.3; Microcytosis Moderate; Monocytes # (A) 0.5 k/uL (0-1.0); Monocytes % (A) 3 %; Neutrophils # (A) 14.4 k/uL (1.3-7.7); Neutrophils % (A) 89 %; Platelet Count 406 k/uL (150-450); Poikilocytosis Slight; RBC 4.38 m/uL (3.80-5.40); RDW 20.2 % (11.5-15.5); WBC 16.2 k/uL (3.8-10.6)
[2020-08-29 19:09] LABS: HGB 9.4 gm/dL (11.4-16.0)
[2020-08-29 19:11] LABS: Albumin 3.8 g/dL (3.5-5.0); Calcium 9.4 mg/dL (8.4-10.2); Magnesium 1.9 mg/dL (1.6-2.3); Potassium 4.3 mmol/L (3.5-5.1); Total Bilirubin 0.8 mg/dL (0.2-1.3); Total Protein 7.2 g/dL (6.3-8.2)
[2020-08-29 19:13] LABS: Partial Thromboplastin Time 23.2 sec (22.0-30.0); Prothrombin Time 10.7 sec (9.0-12.0)
--- NOTE | 2020-08-29 19:27 | CT ---
EXAMINATION TYPE: CT brain wo con DATE OF EXAM: 08/29/2020 COMPARISON: None HISTORY: Headache and dizziness. CT DLP: 1188.4 mGycm Automated exposure control for dose reduction was used. There is cerebral cortical atrophy. There is no mass effect nor midline shift. There is no sign of in tracranial hemorrhage. Calvarium is intact. IMPRESSION: Cerebral atrophy. No acute intracranial abnormality.
--- NOTE | 2020-08-29 19:29 | XR ---
EXAMINATION TYPE: XR chest 1V portable DATE OF EXAM: 08/29/2020 COMPARISON: 07/25/2020 HISTORY: Short of breath There is some mild atelectasis at the lung bases. There are chest leads. There is no heart failure. There is poor inspiration. There are sternal wires. Heart size is fairly normal. IMPRESSION: Atelectasis at the lung bases similar to old exam. No heart failure seen. There is improvement in the pulmonary interstitial edema compared to old exam.
[2020-08-29 21:03] LABS: Appearance,Urine Clear (Clear); Bacteria,Urine Rare /hpf; Bilirubin,Urine Negative (Negative); Blood,Urine Small (Negative); Color,Urine Yellow; Glucose,Urine (UA) Negative (Negative); Hyaline Casts,Urine 3 /lpf (0-2); Ketones,Urine Negative (Negative); Leukocyte Esterase,Urine Small (Negative); Mucus,Urine Rare /hpf; Nitrite,Urine Negative (Negative); PH, Urine 5.5 (5.0-8.0); Protein,Urine Negative (Negative); RBC,Urine 79 /hpf (0-5); Specific Gravity,Urine 1.011 (1.001-1.035); Urobilinogen,Urine <2.0 mg/dL (<2.0); WBC,Urine 7 /hpf (0-5)
[2020-08-29 22:46] VITALS: TEMP 98.1
[2020-08-29 23:30] VITALS: BP 120/43; PULSE 83
== END 2020-08-29 23:30 | disposition home or self-care (01) ==
LOC: EC 18:22
DX: R42 Dizziness and giddiness (principal); R51.9 Headache, unspecified; R11.10 Vomiting, unspecified; R19.7 Diarrhea, unspecified; R10.30 Lower abdominal pain, unspecified; R11.2 Nausea with vomiting, unspecified; Z20.828 Contact with and (suspected) exposure to other viral communicable diseases; E11.51 Type 2 diabetes mellitus with diabetic peripheral angiopathy without gangrene; I10 Essential (primary) hypertension; G47.30 Sleep apnea, unspecified; E66.01 Morbid (severe) obesity due to excess calories; Z68.42 Body mass index [BMI] 45.0-49.9, adult; G47.33 Obstructive sleep apnea (adult) (pediatric); J45.909 Unspecified asthma, uncomplicated; Z79.01 Long term (current) use of anticoagulants; Z79.899 Other long term (current) drug therapy; Z79.4 Long term (current) use of insulin; Z88.0 Allergy status to penicillin; Z88.8 Allergy status to other drugs, medicaments and biological substances; Z99.89 Dependence on other enabling machines and devices; Z87.891 Personal history of nicotine dependence; Z95.5 Presence of coronary angioplasty implant and graft
CPT/HCPCS: 99285; 96374; 96375 ×2; 36415; 93005; 80053; 83605; 83690; 83735; 84484; 85025; 85610; 85730; 81001; 87040; 87635; 71045; 70450; 96361; J1200; J2765; J2405

== ENCOUNTER → 2020-10-03 | Outpatient (CLI) | payer MEDICARE ==
--- NOTE | 2020-10-03 16:26 | US ---
EXAMINATION TYPE: US kidneys/renal and bladder DATE OF EXAM: 10/03/2020 COMPARISON: None CLINICAL HISTORY: N20.1 calculas of the urete. hx renal stones. Patient states no pain. EXAM MEASUREMENTS: Right Kidney: 11.4 x 4.9 x 4.4 cm Left Kidney: 10.2 x 3.8 x 5.9 cm Suboptimal exam due to patient body habitus Right Kidney: No hydronephrosis or masses seen Left Kidney: No hydronephrosis or masses seen Bladder: moderately distended Bilateral Jets not seen IMPRESSION: 1. Normal renal ultrasound
== END | disposition home or self-care (01) ==
LOC: RADUSWWP 13:09
PROVIDERS: ATTEND Urology
DX: N20.1 Calculus of ureter (principal)
CPT/HCPCS: 76770

== ENCOUNTER → 2020-10-10 | Outpatient (CLI) | payer MEDICARE ==
--- NOTE | 2020-10-12 14:47 | MM ---
Reason for exam: screening (asymptomatic). Last mammogram was performed 2 years and 7 months ago. History: Patient is postmenopausal and is nulliparous. Family history of breast cancer in maternal cousin at age 65. Benign core biopsy of the left breast, 2017. Core biopsy of the left breast, 2009. Taking progesterone beginning at age 71. Physical Findings: A clinical breast exam by your physician is recommended on an annual basis and results should be correlated with mammographic findings. MG 3D Screening Mammo W/Cad Bilateral CC and MLO view(s) were taken. Prior study comparison: March 17, 2018, bilateral MG 3d diag mammo w/cad [facility]. February 23, 2017, left breast MG work up mamm w CAD LT. There are scattered fibroglandular densities. There are benign appearing round, vascular calcifications bilaterally. Indeterminate grouped calcifications right breast posterior position 4.3cm in length. Previous mammotome biopsy in the left breast x 2. This finding has increased number of calcifications when compared with previous exams. ASSESSMENT: Incomplete: need additional imaging evaluation, BI-RAD 0 RECOMMENDATION: Special view mammogram of the right breast. [facility] will attempt to contact patient to return for supplemental views.
== END | disposition home or self-care (01) ==
LOC: RADMAMWWP 13:12
PROVIDERS: ATTEND Obstetrics & Gynecology
DX: Z12.31 Encounter for screening mammogram for malignant neoplasm of breast (principal)
CPT/HCPCS: 77063; 77067

== ENCOUNTER → 2020-11-12 | Outpatient (CLI) | payer MEDICARE ==
--- NOTE | 2020-11-13 11:06 | MM ---
Reason for exam: additional evaluation requested from abnormal screening. Last mammogram was performed 1 month ago. History: Patient is postmenopausal and is nulliparous. Family history of breast cancer in maternal cousin at age 65. Benign core biopsy of the left breast, 2017. Core biopsy of the left breast, 2009. Taking progesterone beginning at age 71. Physical Findings: Nurse did not find any significant physical abnormalities on exam. MG 3D Work Up W/Cad RT CC with magnification and LM view(s) were taken of the right breast. Prior study comparison: October 10, 2020, bilateral MG 3d screening mammo w/cad. March 17, 2018, bilateral MG 3d diag mammo w/cad [facility]. There are scattered fibroglandular densities. Increasing segmental/regional heterogeneous calcifications medial posterior breast, biopsy recommended. Due to stereotactic table weight limitations, attempt at upright 3D mammogram guided biopsy with CC from above approach. These results were verbally communicated with the patient and result sheet given to the patient on 11/12/20. ASSESSMENT: Suspicious, BI-RAD 4 RECOMMENDATION: Stereotactic core biopsy of the right breast. (consider upright biopsy at [facility]) Called Dr. Macias's office with mammographic findings and has scheduled an appointment for the patient for 12/07/20 at 4:[address] Voss. PRELIMINARY REPORT CALLED AND FAXED TO DR. VOSS ON 11/13/20.
== END | disposition home or self-care (01) ==
LOC: RADMAMWWP 15:09
PROVIDERS: ATTEND Obstetrics & Gynecology
DX: Z78.0 Asymptomatic menopausal state (principal)
CPT/HCPCS: 77065; G0279; 77061

== ENCOUNTER → 2021-01-07 | Outpatient (CLI) | payer MEDICARE ==
[2021-01-07 13:30] LABS: Basophils # (A) 0.1 k/uL (0-0.2); Basophils % (A) 1 %; Eosinophils # (A) 0.3 k/uL (0-0.7); Eosinophils % (A) 3 %; HCT 39.6 % (34.0-46.0); HGB 13.3 gm/dL (11.4-16.0); Lymphocytes # (A) 2.5 k/uL (1.0-4.8); Lymphocytes % (A) 27 %; MCH 30.6 pg (25.0-35.0); MCHC 33.5 g/dL (31.0-37.0); MCV 91.4 fL (80.0-100.0); Mean Platelet Volume 7.6; Monocytes # (A) 0.5 k/uL (0-1.0); Monocytes % (A) 6 %; Neutrophils # (A) 5.7 k/uL (1.3-7.7); Neutrophils % (A) 62 %; Platelet Count 253 k/uL (150-450); RBC 4.33 m/uL (3.80-5.40); RDW 15.4 % (11.5-15.5); WBC 9.3 k/uL (3.8-10.6)
[2021-01-07 13:32] LABS: Calcium 9.8 mg/dL (8.4-10.2); Potassium 4.6 mmol/L (3.5-5.1)
[2021-01-07 13:37] LABS: Appearance,Urine Clear (Clear); Bacteria,Urine Rare /hpf; Bilirubin,Urine Negative (Negative); Blood,Urine Negative (Negative); Color,Urine Light Yellow; Glucose,Urine (UA) Negative (Negative); Ketones,Urine Negative (Negative); Leukocyte Esterase,Urine Moderate (Negative); Mucus,Urine Rare /hpf; Nitrite,Urine Negative (Negative); PH, Urine 6.5 (5.0-8.0); Protein,Urine Negative (Negative); RBC,Urine 3 /hpf (0-5); Specific Gravity,Urine 1.011 (1.001-1.035); Squamous Epithelial Cell,Urine 1 /hpf (0-4); Urobilinogen,Urine <2.0 mg/dL (<2.0); WBC,Urine 19 /hpf (0-5)
== END | disposition home or self-care (01) ==
LOC: LABPAT 11:33
PROVIDERS: ATTEND Urology
DX: Z01.812 Encounter for preprocedural laboratory examination (principal); N20.0 Calculus of kidney; E11.9 Type 2 diabetes mellitus without complications; R31.29 Other microscopic hematuria
CPT/HCPCS: 36415; 80048; 81001; 85025; 87086

== ENCOUNTER 2021-01-11 12:04 | Day surgery (SDC) | payer MEDICARE ==
[2021-01-09 12:09] VITALS: BMI 47.2
[~2021-01-11 12:04] MED LIST: CIPROFLOXACIN/DEXTROSE PMX 400 MG in DEXTROSE/WATER 1 200ML.BAG IVPB ONE; DEXAMETHASONE SOD PHOSPHATE 4 MG/ML 1 ML VIAL IV ONE; GENTAMICIN 140 MG in SODIUM CHLORIDE 0.9% 100 ML IVPB PRN; HYDROmorphone 0.5 MG/0.5 ML SYRINGE IVP PRN; LACTATED RINGERS 1,000 ML IV SCH; MIDAZOLAM 2 MG/2 ML VIAL IV PRN
--- NOTE | 2021-01-11 12:07 | P.HPIHPCON ---
History of Present Illness H&P Date: 01/11/21 Chief Complaint: Bilateral kidney stones Is a 75-year-old female with history of a 6 mm right-sided proximal stone, multiple nonobstructive kidney stones. Discussed with her she has quite a bit of stone burden in her kidney especially on the left. Discussed the option of d oing a ureteroscopy to address her stone. Discussed with him we'll start in the right side given that that side with the obstructive stone. Discussed we'll attempt to do bilateral ureteroscopy, but there is a potential this may need to be staged given her stone burden. This the risk of bleeding, infection, injury to the ureter, and potential needing additional operation, risk from anesthesia. She understood all the risk and agreed to proceed with cystoscopy, bilateral ureteroscopy, holmium laser lithotripsy, stone basketing and stent placement Consent for Procedure: I have explained the operation/procedure to the patient, including the risks, benefits, side effects, alternative therapies (including not receiving the proposed treatment or service), the likelihood of the patient achieving his/her goals, and potential recuperation problems for the procedure/sedation/analgesia, as well as any blood products, if indicated. I also explained to the patient the risks, benefits and side effects of the alternatives, as well as the risks related to not receiving the proposed procedure, care, treatment, or services. Past Medical History Past Medical History: Asthma, Coronary Artery Disease (CAD), Diabetes Mellitus, Deep Vein Thrombosis (DVT), Hypertension, Myocardial Infarction (CA), Osteoarthritis (OA), Pneumonia, Skin Disorder, Sleep Apnea/CPAP/BIPAP, Vascular Disorder Additional Past Medical History / Comment(s): C-Pap machine, Oxygen @2L at bedtime if needed., diabetes type 2, eczema, PVD, Hx of DVT after CABG., diverticulosis/diverticulitis ,glaucoma, Hx of barone bite to toes with gangrene & MRSA-partial amputation left foot-can walk short distance with walker but uses wheelchair most of the time, has brace with shoe (does not wear often), SOB with acitivity., pneumonia (Jul 2020)., kidney stones., resides at [facility] and has assistance with showering. Last Myocardial Infarction Date:: Jun 2016 History of Any Multi-Drug Resistant Organisms: MRSA Date of last positivie culture/infection: 2010 MDRO Source:: LT FOOT WOUND Past Surgical History: Appendectomy, Coronary Bypass/CABG, Heart Catheterization With Stent, Tonsillectomy Additional Past Surgical History / Comment(s): amputation left great toes , Partial Amputation Left foot., CABG (Jun 2016). D & C, cataract surgery, breast biopsy Past Anesthesia/Blood Transfusion Reactions: Previous Problems w/ Anesthesia, Motion Sickness, Postoperative Nausea & Vomiting (PONV) Date of Last Stent Placement:: 2007 Past Psychological History: Anxiety Additional Psychological History / Comment(s): . Smoking Status: Former smoker Past Alcohol Use History: Occasional Additional Past Alcohol Use History / Comment(s): smoked for 4-5 years in her 20's- approx 2 cigarettes/day. Past Drug Use History: None Reported - Past Family History Mother Family Medical History: Cancer, CVA/TIA Additional Family Medical History / Comment(s): of stroke Sister(s) Family Medical History: Cancer Additional Family Medical History / Comment(s): Uterine Cancer Medications and Allergies Home Medications Medication Instructions Recorded Confirmed Type Losartan [Cozaar] 25 mg PO DAILY #30 tab 07/14/16 01/09/21 Rx Metoprolol Tartrate [Lopressor] 25 mg PO BID tab 07/14/16 01/09/21 Rx Apixaban [Eliquis] 5 mg PO BID 07/23/20 01/09/21 History Ezetimibe [Zetia] 10 mg PO HS 07/23/20 01/09/21 History Furosemide [Lasix] 40 mg PO DAILY 07/23/20 01/09/21 History amLODIPine [Norvasc] 10 mg PO HS 07/23/20 01/09/21 History medroxyPROGESTERone [Provera] 2.5 mg PO DAILY 07/23/20 01/09/21 History metFORMIN HCL [Glucophage] 500 mg PO BID 07/23/20 01/09/21 History Insulin Glargine,Hum.rec.anlog 40 unit SQ BID 08/29/20 01/09/21 History [Lantus Solostar] Latanoprostene Bunod [Vyzulta] 1 drop LEFT EYE HS 08/29/20 01/09/21 History ALPRAZolam [Xanax] 0.25 mg PO HS PRN 01/09/21 01/09/21 History Albuterol Sulfate [Proventil Hfa] 1 puff INHALATION Q4-6H PRN 01/09/21 01/09/21 History Aspirin [Adult Low Dose Aspirin EC] 81 mg PO DAILY 01/09/21 01/09/21 History Docusate [Colace] 200 mg PO BID 01/09/21 01/09/21 History Insulin Aspart [NovoLOG Flexpen] 0 units SQ AC-TID PRN 01/09/21 01/09/21 History Insulin Aspart [NovoLOG Flexpen] 30 units SQ AC-TID 01/09/21 01/09/21 History Iron 18 mg PO BID 01/09/21 01/09/21 History Loratadine-Pseudoeph 10-240 mg 1 tab PO DAILY 01/09/21 01/09/21 History [Claritin-D 24 Hour] Moisture Eye Gtts 1 drop BOTH EYES DIRECTED PRN 01/09/21 History Montelukast [Singulair] 10 mg PO QAM 01/09/21 01/09/21 History Multivit with Calcium,Iron,Min 1 each PO DAILY 01/09/21 01/09/21 History [Women's Multivitamin] Oxymetazoline 0.05% Nasl [place] 1 spray EA NOSTRIL DAILY 01/09/21 01/09/21 History [Afrin 0.05% Nasal [place]] Allergies Allergy/AdvReac Type Severity Reaction Status Date / Time Penicillins AdvReac Rash/Hives Verified 01/09/21 11:02 [id number] Reductase AdvReac EXTREME Verified 01/09/21 11:02 Inhibitor MUSCLE PAIN AND WEAKNESS Surgical - Exam - General well developed, well nourished, no distress, no pain - ENT normal nares, normal mucosa - Respiratory normal expansion, normal respiratory effort - Abdomen Abdomen: soft - Psychiatric oriented to time, oriented to person, oriented to place Assessment and Plan Assessment: 85-year-old female history of a 6 mm right-sided ureteral stone, and bilateral nonobstructive stones OR for bilateral ureteroscopy, holmium laser lithotripsy, stone basketing and stent placement
--- NOTE | 2021-01-11 12:32 | XR ---
EXAMINATION TYPE: XR KUB DATE OF EXAM: 01/11/2021 COMPARISON: None INDICATION: Preop bilateral renal stones TECHNIQUE: Single view abdomen supine view FINDINGS: Normal bowel gas is present. There is a 1.5 cm calcification in the left renal pelvis. A 0.4 cm calci fication within the mid left kidney. Psoas margins are normal. No organomegaly is present. IMPRESSION: 1. Left renal stones
[2021-01-11] MEDS ORDERED: ONDANSETRON 4 MG/2 ML VIAL ONE (12:51)
[2021-01-11] MEDS ORDERED: LIDOCAINE 1% (10MG/ML) FOR IV START INTRADERMA ONE (13:09)
[2021-01-11 13:10] LABS: Glucose,Whole Blood 190 mg/dL (75-99)
[2021-01-11] MEDS ORDERED: SUCCINYLCHOLINE CHLORIDE 100 MG/5 ML SYR IV ONE (14:10)
[2021-01-11] MEDS ORDERED: NEOSTIGMINE 1 MG/ML 10 ML VIAL ONE (14:10)
[2021-01-11] MEDS ORDERED: LIDOCAINE 1% INJ 10MG/ML (20 ML MDV) ONE (14:10)
[2021-01-11] MEDS ORDERED: ROCURONIUM 10 MG/ML (5 ML VIAL) IV ONE (14:10)
[2021-01-11] MEDS ORDERED: fentaNYL (PF) 50 MCG/ML 2 ML AMP ONE (14:10)
[2021-01-11] MEDS ORDERED: PROPOFOL 10 MG/ML 20 ML VIAL IV ONE (14:10)
[2021-01-11] MEDS ORDERED: GLYCOPYRROLATE 0.2 MG/ML 2 ML VIAL ONE (14:10)
[2021-01-11] MEDS ORDERED: ePHEDrine SULFATE/0.9% NACL/PF 50 MG/5 ML SYRINGE IV ONE (14:10)
[2021-01-11] MEDS ORDERED: IOPAMIDOL-370 50ML BTL MISCELLANE ONE ×2 (14:44)
--- NOTE | 2021-01-11 16:34 | P.OP ---
Date of Procedure: 01/11/21 Preoperative Diagnosis: Bilateral renal stones Postoperative Diagnosis: Same Procedure(s) Performed: Cystoscopy, bilateral retrograde pyelogram, ureteroscopy, holmium laser lithotripsy, stone basketing, and stent placement Implants: 6-[place] by 26 cm stent bilaterally Anesthesia: TANIYA Surgeon: Onur Bravo Estimated Blood Loss (ml): 5 Pathology: other (Bilateral renal stones) Condition: stable Disposition: PACU Indications for Procedure: Is a 75-year-old female with history of a 6 mm right-sided proximal stone, multiple nonobstructive kidney stones. Discussed with her she has quite a bit of stone burden in her kidney especially on the left. Discussed the option of doing a ureteroscopy to address her stone. Discussed with him we'll start in the right side given that that side with the obstructive stone. Discussed we'll attempt to do bilateral ureteroscopy, but there is a potential this may need to be staged given her stone burden. This the risk of bleeding, infection, injury to the ureter, and potential needing additional operation, risk from anesthesia. She understood all the risk and agreed to proceed with cystoscopy, bilateral ureteroscopy, holmium laser lithotripsy, stone basketing and stent placement Operative Findings: Stone within the mid calyx on the right Large stone within the upper pole, and additional large stone within the lower pole Description of Procedure: Patient was brought to the operating room, general anesthesia was induced. She was prepped and draped in sterile fashion and placed in a dorsal lithotomy position. A cystoscopy fitted with a 21-[place] sheath was inserted per urethra, cystoscopy was performed which showed no abnormality within the bladder. Attention was carried to the right ureteral orifice which was intubated with a 6-[place] open-ended catheter, retrograde pyelogram was performed on the right which showed no filling defect along the course of the ureter, at this time a sensor wire was advanced through the catheter, the catheter was removed with the wire in place. Next a 11-13 ureteral access sheath was passed over the wire under fluoroscopy into the proximal ureter. Next a flexible ureteroscope was inserted through the access sheath, renoscopy was performed which showed a stone within the mid midpole. Using the holmium laser the stone was fragmented into small fragments, fragments were removed using a stone basket. Repeat renoscopy showed no sizable fragments within the kidney, or injury to the kidney. Pullback ureteroscopy was performed which showed no injury to ureter or ureteral fragments. At this time the cystoscope was reinserted and attention was carried to the left ureteral orifice. Left ureteral orifice was intubated with a 6- [place] open-ended catheter, retrograde Polygram was performed which showed no filling defect along the course of the ureter. Next a sensor wire was advanced through the catheter and the catheter was removed with the wire in place. Next a 1113 [place] access sheath was passed over the wire under fluoroscopy into the proximal ureter. The flexible ureteroscope was inserted through the access sheath, renoscopy was performed which showed 2 large stones one within the upper pole and additional and within the mid calyx, there was also multiple smaller stones throughout the kidney. Using the holmium laser the stones were dusted. Sizable fragments were removed using the stone basket. Repeat renoscopy showed no sizable fragments or injury to the kidney. Pullback ureteroscopy was performed showed no injury to the ureter or any ureteral stone. As the ureteroscope was withdrawn and a wire was advanced through into the collecting system. Next a ureteral stent was passed over the wire, the proximal curl was visualized on fluoroscopy and the distal curl was visualized using the cystoscope. At this time attention was carried back to the right side, which was intubated with a sensor wire, the sensor wire was advanced up into the collecting system. Next a ureteral stent was passed over the wire. The proximal curl was visualized on fluoroscopy and the distal curl was visualized using the cystoscope. The bladder was emptied and the case. The patient t olerated the procedure well was taken to PACU in stable condition
[2021-01-11 16:35] LABS: Glucose,Whole Blood 227 mg/dL (75-99)
[2021-01-11 16:41] VITALS: TEMP 97
[2021-01-11] MEDS ORDERED: SODIUM CHLORIDE 0.9% 1,000 ML IV ONE ×2 (16:52)
[2021-01-11 17:15] VITALS: RESP 17
[2021-01-11] MEDS ORDERED: traMADol 50 MG TAB ONE (17:18)
[2021-01-11] MEDS ORDERED: traMADol 50 MG TAB PO ONE (17:20)
[2021-01-11 17:54] VITALS: BP 144/62; PULSE 75
--- NOTE | 2021-01-12 07:42 | FL ---
Fluoroscopy INDICATION: Pain FINDINGS: Fluoroscopy time: 22 seconds. Images obtained: 9. IMPRESSIONS: 1. Documentation of fluoroscopy.
== END 2021-01-11 17:55 | disposition home or self-care (01) ==
LOC: OR 12:04
PROVIDERS: ATTEND Urology
DX: N20.0 Calculus of kidney (principal); J45.909 Unspecified asthma, uncomplicated; I25.10 Atherosclerotic heart disease of native coronary artery without angina pectoris; I10 Essential (primary) hypertension; E11.51 Type 2 diabetes mellitus with diabetic peripheral angiopathy without gangrene; Z86.718 Personal history of other venous thrombosis and embolism; I25.2 Old myocardial infarction; M19.90 Unspecified osteoarthritis, unspecified site; Z87.01 Personal history of pneumonia (recurrent); L30.9 Dermatitis, unspecified; Z99.81 Dependence on supplemental oxygen; Z95.1 Presence of aortocoronary bypass graft; H40.9 Unspecified glaucoma; K21.9 Gastro-esophageal reflux disease without esophagitis; Z86.14 Personal history of Methicillin resistant Staphylococcus aureus infection; G47.33 Obstructive sleep apnea (adult) (pediatric); Z89.432 Acquired absence of left foot; Z87.442 Personal history of urinary calculi; Z90.89 Acquired absence of other organs; Z95.5 Presence of coronary angioplasty implant and graft; Z98.49 Cataract extraction status, unspecified eye; Z98.890 Other specified postprocedural states; F41.9 Anxiety disorder, unspecified; Z87.891 Personal history of nicotine dependence; Z82.3 Family history of stroke; Z80.49 Family history of malignant neoplasm of other genital organs; Z79.01 Long term (current) use of anticoagulants; Z79.3 Long term (current) use of hormonal contraceptives; Z79.82 Long term (current) use of aspirin; Z79.4 Long term (current) use of insulin; Z79.899 Other long term (current) drug therapy; Z88.8 Allergy status to other drugs, medicaments and biological substances; Z88.0 Allergy status to penicillin
CPT/HCPCS: 82365; 74420; 74018; 52356; C2625; C1758; C1769; J1100; J2710; J2405; J2001; J3010; J0744; J0330; J2704; Q9967

== ENCOUNTER → 2021-03-01 | Outpatient (CLI) | payer MEDICARE ==
--- NOTE | 2021-03-01 13:37 | US ---
EXAMINATION TYPE: US transvaginal DATE OF EXAM: 03/01/2021 COMPARISON: CT 07/26/2020 CLINICAL HISTORY: N85.01 endometrial hyperplasia. TECHNIQUE: . Transvaginal sonographic images of the pelvis were acquired. Date of LMP: 20 years ago EXAM MEASUREMENTS: Uterus: 6.0 x 2.6 x 3.1 cm Endometrial Stripe: 0.2 cm Right Ovary: Not visualized Left Ovary: Not visualized 1. Uterus: Anteverted wnl 2. Endometrium: Fluid visualized within 3. Right Ovary: not visualized 4. Left Ovary: not visualized 5. Bilateral Adnexa: wnl as visualized 6. Posterior cul-de-sac: wnl IMPRESSION: Endometrial stripe is unremarkable. Neither ovary could be visualized.
== END | disposition home or self-care (01) ==
LOC: RADUSWWP 12:48
PROVIDERS: ATTEND Obstetrics & Gynecology
DX: N85.01 Benign endometrial hyperplasia (principal)
CPT/HCPCS: 76830

== ENCOUNTER 2021-03-25 10:25 | Day surgery (SDC) | payer MEDICARE ==
[2021-03-22 11:24] VITALS: BMI 45.6
[~2021-03-25 10:25] MED LIST changes: -CIPROFLOXACIN/DEXTROSE PMX 400 MG in DEXTROSE/WATER 1 200ML.BAG IVPB ONE; +CIPROFLOXACIN/DEXTROSE PMX 400 MG in DEXTROSE/WATER 1 200ML.BAG IVPB PRN; -GENTAMICIN 140 MG in SODIUM CHLORIDE 0.9% 100 ML IVPB PRN; +LIDOCAINE 1% (10MG/ML) FOR IV START INTRADERMA PRN; +ONDANSETRON 4 MG/2 ML VIAL IVP ONE
--- NOTE | 2021-03-25 10:42 | P.HPIHPCON ---
History of Present Illness This is a 76 yo female with hx of kidney stones S/P bilateral ureteroscopy on 01/11/21. Stent removal in the office could not be performed due to patient inability to get onto the procedure bed. Discussed option of doing stent removal in the OR. Discussed risk of bleeding, infection. She understood all risks and agreed to proceed with OR bilateral stent removal. Consent for Procedure: I have explained the operation/procedure to the patient, including the risks, benefits, side effects, alternative therapies (including not receiving the proposed treatment or service), the likelihood of the patient achieving his/her goals, and potential recuperation problems for the procedure/sedation/analgesia, as well as any blood products, if indicated. I also explained to the patient the risks, benefits and side effects of the alternatives, as well as the risks related to not receiving the proposed procedure, care, treatment, or services. Past Medical History Past Medical History: Asthma, Diabetes Mellitus, Hypertension, Osteoarthritis (OA), Skin Disorder, Sleep Apnea/CPAP/BIPAP, Vascular Disorder Additional Past Medical History / Comment(s): Bronchial asthma, coronary stent 3, diabetes mellitus type 2, eczema, peripheral vascular disease, CPAP, diverticulosis/diverticulitis and previous left wound in the foot with infection with MRSA and the patient has a partial amputation of the left foot History of Any Multi-Drug Resistant Organisms: MRSA Date of last positivie culture/infection: 2010 MDRO Source:: LT FOOT WOUND Past Surgical History: Appendectomy, Coronary Bypass/CABG, Heart Catheterization With Stent, Tonsillectomy Additional Past Surgical History / Comment(s): PARTIAL AMPUTATION LT FOOT with previous amputation of the left great toe,. D & C, cataract surgery, breast biopsy. vascular surgery Past Anesthesia/Blood Transfusion Reactions: Motion Sickness, Postoperative Nausea & Vomiting (PONV) Date of Last Stent Placement:: 2007 Smoking Status: Former smoker - Past Family History Mother Family Medical History: Cancer, CVA/TIA Additional Family Medical History / Comment(s): of stroke Sister(s) Family Medical History: Cancer Additional Family Medical History / Comment(s): Uterine Cancer Medications and Allergies Home Medications Medication Instructions Recorded Confirmed Type Losartan [Cozaar] 25 mg PO DAILY #30 tab 07/14/16 03/22/21 Rx Metoprolol Tartrate [Lopressor] 25 mg PO BID tab 07/14/16 03/22/21 Rx Apixaban [Eliquis] 5 mg PO BID 07/23/20 03/22/21 History Ezetimibe [Zetia] 10 mg PO HS 07/23/20 03/22/21 History Furosemide [Lasix] 40 mg PO DAILY 07/23/20 03/22/21 History amLODIPine [Norvasc] 10 mg PO HS 07/23/20 03/22/21 History medroxyPROGESTERone [Provera] 2.5 mg PO DAILY 07/23/20 03/22/21 History metFORMIN HCL [Glucophage] 500 mg PO BID 07/23/20 03/22/21 History Insulin Glargine,Hum.rec.anlog 40 unit SQ BID 08/29/20 03/22/21 History [Lantus Solostar] Latanoprostene Bunod [Vyzulta] 1 drop LEFT EYE HS 08/29/20 03/22/21 History ALPRAZolam [Xanax] 0.25 mg PO HS PRN 01/09/21 03/22/21 History Albuterol Sulfate [Proventil Hfa] 1 puff INHALATION Q4-6H PRN 01/09/21 03/22/21 History Aspirin [Adult Low Dose Aspirin EC] 81 mg PO DAILY 01/09/21 03/22/21 History Docusate [Colace] 200 mg PO BID 01/09/21 03/22/21 History Insulin Aspart [NovoLOG Flexpen] 0 units SQ AC-TID PRN 01/09/21 03/22/21 History Insulin Aspart [NovoLOG Flexpen] 30 units SQ AC-TID 01/09/21 03/22/21 History Iron 18 mg PO BID 01/09/21 03/22/21 History Loratadine-Pseudoeph 10-240 mg 1 tab PO DAILY 01/09/21 03/22/21 History [Claritin-D 24 Hour] Moisture Eye Gtts 1 drop BOTH EYES DIRECTED PRN 01/09/21 03/22/21 History Montelukast [Singulair] 10 mg PO QAM 01/09/21 03/22/21 History Multivit with Calcium,Iron,Min 1 each PO DAILY 01/09/21 03/22/21 History [Women's Multivitamin] Oxymetazoline 0.05% Nasl [place] 1 spray EA NOSTRIL DAILY 01/09/21 03/22/21 History [Afrin 0.05% Nasal [place]] Sulfamethox-Tmp 800-160Mg [Bactrim 1 tab PO Q12HR 3 Days #6 tab 01/11/21 03/22/21 Rx DS 800-160 mg] traMADol HCL [Ultram] 50 mg PO Q6HR PRN 3 Days #8 tab 01/11/21 03/22/21 Rx Allergies Allergy/AdvReac Type Severity Reaction Status Date / Time Penicillins AdvReac Rash/Hives Verified 03/22/21 11:10 Srnnxde-Npi-Xse Reductase AdvReac EXTREME Verified 03/22/21 11:10 Inhibitor MUSCLE PAIN AND WEAKNESS Surgical - Exam - General no distress - ENT normal nares, normal mucosa - Psychiatric oriented to time, oriented to person, oriented to place Assessment and Plan Assessment: -OR for bilateral stent removal
[2021-03-25 11:29] VITALS: RESP 18; TEMP 98.3
[2021-03-25 11:31] LABS: Glucose,Whole Blood 142 mg/dL (75-99)
[2021-03-25] MEDS ORDERED: KETAMINE 10 MG/ML 20 ML VIAL ONE (12:07)
[2021-03-25] MEDS ORDERED: MIDAZOLAM 2 MG/2 ML VIAL ONE (12:07)
[2021-03-25] MEDS ORDERED: fentaNYL (PF) 50 MCG/ML 2 ML AMP ONE (12:07)
[2021-03-25] MEDS ORDERED: KETOROLAC 15 MG/ML 1 ML VIAL ONE (12:07)
[2021-03-25] MEDS ORDERED: PROPOFOL 10 MG/ML 20 ML VIAL IV ONE (12:07)
--- NOTE | 2021-03-25 12:37 | P.OP ---
Date of Procedure: 03/25/21 Preoperative Diagnosis: bilateral renal calculi Postoperative Diagnosis: same Procedure(s) Performed: Cystoscopy, bilateral stent removal Implants: none Anesthesia: other (sedation) Surgeon: Onur Bravo Estimated Blood Loss (ml): 1 Pathology: none sent Condition: stable Disposition: PACU Indications for Procedure: This is a 76 yo female with hx of kidney stones S/P bilateral ureteroscopy on 01/11/21. Stent removal in the office could not be performed due to patient inability to get onto the procedure bed. Discussed option of doing stent removal in the OR. Discussed risk of bleeding, infection. She understood all risks and agreed to proceed with OR bilateral stent removal. Description of Procedure: She was brought to the operating room, sedation was induced, cystoscopy fitted with a 22-[place] sheath was inserted per urethra, cystoscopy was performed which showed no abnormality within the bladder. Attention was then carried to the right ureteral stent which was removed using the biopsy forceps, following that the left stent was also removed. The bladder was emptied at end of the case. Patient tolerated procedure well was taken to PACU in stable condition
[2021-03-25 13:29] VITALS: BP 105/66; PULSE 56
== END 2021-03-25 14:16 | disposition home or self-care (01) ==
LOC: OR 10:25
PROVIDERS: ATTEND Urology
DX: Z46.6 Encounter for fitting and adjustment of urinary device (principal); Z87.442 Personal history of urinary calculi; J45.909 Unspecified asthma, uncomplicated; E11.9 Type 2 diabetes mellitus without complications; I10 Essential (primary) hypertension; M19.90 Unspecified osteoarthritis, unspecified site; Z95.1 Presence of aortocoronary bypass graft; Z95.5 Presence of coronary angioplasty implant and graft; I25.10 Atherosclerotic heart disease of native coronary artery without angina pectoris; G47.33 Obstructive sleep apnea (adult) (pediatric); F17.210 Nicotine dependence, cigarettes, uncomplicated; Z88.0 Allergy status to penicillin; Z88.8 Allergy status to other drugs, medicaments and biological substances
CPT/HCPCS: 52310; J2250; J1100; J2405; J3010; J0744; J1885; J2704

== ENCOUNTER 2021-07-24 15:13 | Emergency (ER) | payer MEDICARE ==
[2021-07-24 15:33] VITALS: TEMP 98.6
[2021-07-24] MEDS ORDERED: SODIUM CHLORIDE 0.9% 1,000 ML IV STA (15:50)
[2021-07-24] MEDS ORDERED: MINERAL OIL 133 ML ENEMA RECTAL STA (15:50)
[2021-07-24] MEDS ORDERED: FAMOTIDINE 20 MG/2 ML VIAL IV STA (15:51)
[2021-07-24] MEDS ORDERED: MAG HYDROX/AL HYDROX/SIMETH 30 ML CUP PO PRN (15:51)
[2021-07-24] MEDS ORDERED: ONDANSETRON 4 MG/2 ML VIAL IVP STA (15:51)
--- NOTE | 2021-07-24 15:58 | ED ---
General Adult HPI - General Chief complaint: Abdominal Pain Stated complaint: abd pain Time Seen by Provider: 07/24/21 15:31 Source: patient, EMS, RN notes reviewed, old records reviewed Mode of arrival: EMS Limitations: no limitations - History of Present Illness Initial comments: I evaluated the patient when she was placed in a room. Patient is a 76-year-old female with past medical history remarkable for asthma, diabetes, hypertension, prior CAD with multiple stents, diverticulitis who presents emergency department over concern for constipation. She states she feels like she is constipated. Last bowel movement was 4 days ago and she does have a history of constipation on MiraLAX as well as stool softeners. She states she is having some loose stools around the impacted site. This has occurred previously and it feels exactly she feels now. She is complaining of some lower abdominal pain. Denies any dysuria, hematuria, vaginal discharge. Endorses intermittent nausea. States she still able to tolerate by mouth intake. Denies any chest pain, shortness of breath. Denies any upper abdominal pain or back pain. She has no other acute complaints at this time. Patient presents over concern for her constipation. She denies any fevers, chills, sick contacts. Denies any bloody stools. Patient does have a history of anemia for which she is on iron pills which she suspects is likely the culprit for her constipation.Patient describes the pain as an achy, fullness sensation primarily in the left lower quadrant but does spread across bilateral lower quadrants. - Related Data Home Medications Medication Instructions Recorded Confirmed Apixaban [Eliquis] 5 mg PO BID 07/23/20 07/24/21 Ezetimibe [Zetia] 10 mg PO DAILY 07/23/20 07/24/21 Furosemide [Lasix] 60 mg PO DAILY 07/23/20 07/24/21 amLODIPine [Norvasc] 10 mg PO HS 07/23/20 07/24/21 medroxyPROGESTERone [Provera] 2.5 mg PO DAILY 07/23/20 07/24/21 metFORMIN HCL [Glucophage] 500 mg PO BID 07/23/20 07/24/21 Insulin Glargine,Hum.rec.anlog 37 unit SQ BID 08/29/20 07/24/21 [Lantus Solostar Pen] Latanoprostene Bunod [Vyzulta] 1 drop LEFT EYE HS 08/29/20 07/24/21 Aspirin [Adult Low Dose Aspirin EC] 81 mg PO DAILY 01/09/21 07/24/21 Docusate [Colace] 200 mg PO BID 01/09/21 07/24/21 Insulin Aspart [NovoLOG Flexpen] See Protocol SQ AC-TID 01/09/21 07/24/21 Montelukast [Singulair] 10 mg PO DAILY 01/09/21 07/24/21 Metoprolol Tartrate [Lopressor] 25 mg PO DAILY 07/24/21 07/24/21 Solifenacin Succinate [Vesicare] 5 mg PO DAILY 07/24/21 07/24/21 Previous Rx's Medication Instructions Recorded Losartan [Cozaar] 25 mg PO DAILY #30 tab 07/14/16 Sulfamethox-Tmp 800-160Mg [Bactrim 1 tab PO Q12HR 5 Days #10 tab 07/24/21 DS 800-160 mg] Allergies Allergy/AdvReac Type Severity Reaction Status Date / Time Penicillins AdvReac Rash/Hives Verified 07/24/21 17:26 Cgivqvr-Ppf-Cmq Reductase AdvReac EXTREME Verified 07/24/21 17:26 Inhibitor MUSCLE PAIN AND WEAKNESS Review of Systems ROS Statement: Those systems with pertinent positive or pertinent negative responses have been documented in the HPI. Review of Systems: CONST: Denies fever EYES: Denies blurry vision ENT: Denies nasal congestion C/V: Denies Chest pain RESP: Denies shortness of breath GI: Endorses lower abdominal pain. : Denies dysuria SKIN: Denies rash. MSK: Denies joint pain. NEURO: Denies headache ROS Other: All systems not noted in ROS Statement are negative. Past Medical History Past Medical History: Asthma, Diabetes Mellitus, Hypertension, Osteoarthritis (OA), Skin Disorder, Sleep Apnea/CPAP/BIPAP, Vascular Disorder Additional Past Medical History / Comment(s): Bronchial asthma, coronary stent 3, diabetes mellitus type 2, eczema, peripheral vascular disease, CPAP, diverticulosis/diverticulitis and previous left wound in the foot with infection with MRSA and the patient has a partial amputation of the left foot History of Any Multi-Drug Resistant Organisms: MRSA Date of last positivie culture/infection: 2010 MDRO Source:: LT FOOT WOUND Past Surgical History: Appendectomy, Coronary Bypass/CABG, Heart Catheterization With Stent, Tonsillectomy Additional Past Surgical History / Comment(s): PARTIAL AMPUTATION LT FOOT with previous amputation of the left great toe,. D & C, cataract surgery, breast biopsy. vascular surgery Past Anesthesia/Blood Transfusion Reactions: Motion Sickness, Postoperative Nausea & Vomiting (PONV) Date of Last Stent Placement:: 2007 Past Psychological History: Depression Smoking Status: Former smoker - Past Family History Mother Family Medical History: Cancer, CVA/TIA Additional Family Medical History / Comment(s): of stroke Sister(s) Family Medical History: Cancer Additional Family Medical History / Comment(s): Uterine Cancer General Exam - General Exam Comments Initial Comments: General: Appears in no acute distress. HEAD: Normal with no signs of head trauma. EYES: PERRLA, EOMI, conjunctiva normal, no discharge. ENT: Hearing grossly intact, normal oropharynx. RESPIRATORY: Clear breath sounds bilaterally. No wheezes, rales, or rhonchi. C/V: Regular rate and rhythm. S1 and S2 auscultated, no edema, peripheral pulses 2+ and intact throughout ABD: Patient is obese. Abdomen is soft, nondistended. Minimal tenderness palpation bilateral lower quadrants. No flank tenderness, no CVA tenderness to percussion. EXT: Prior amputation of the left lower extremity. Stump appears unremarkable. SKIN: No rashes or lesions observed on exposed skin. NEURO: Alert and oriented 4. Limitations: no limitations Course Vital Signs 07/24/21 07/24/21 15:30 22:05 Temperature 98.6 F Pulse Rate 75 77 Respiratory 18 17 Rate Blood Pressure 161/87 145/72 O2 Sat by Pulse 97 98 Oximetry Procedures - Rectal Disimpaction Consent Obtained: verbal consent Indication: fecal impaction Procedural Sedation: No Sedation/Analgesia: none Technique: manual disimpaction with gloved finger Result: significant stool output Complications: none Patient Tolerated Procedure: well Medical Decision Making - Medical Decision Making Based on the patient's presentation and physical exam, I'm concerned for was likely constipation, however due to her abdominal tenderness and history diverticulosis and diverticulosis, I cannot rule out the possibility of this either. Therefore we will obtain abdominal laboratory studies in addition to CT abdomen and pelvis. I discussed with her and she would like to try a Fleet enema while she is waiting for the results. We will obtain a screening EKG as well as. She'll be given symptomatically treatment with famotidine, Zofran, Maalox. She also be given a 1 L fluid bolus. She was in agreement this plan. Patient's screening EKG shows no signs of acute ischemia. Laboratory studies are remarkable for mild leukocytosis of 12.6 which is likely reactive. Urinalysis revealed a large amount of leukocyte esterase and WBCs the setting of suprapubic abdominal discomfort. CT abdomen and pelvis revealed a large stool burden secondary to constipation. There is some right urinary bladder wall thickening. There is mild bilateral hydronephrosis. There are nonobstructing bilateral renal calculi. I discussed with the patient the results of her imaging. Fleet enema was unsuccessful for bowel movement. Patient required manual disimpaction. This was completed by myself and she tolerated the procedure well. She was feeling improved afterwards. She only has stool softeners, MiraLAX, Fleet enemas at home. I believe it is safer to be discharged home at this time with close follow-up with her PCP and she is in agreement with the plan. She'll require ambulance transfer home. We will treat her for her UTI. I will provide the patient with a prescription for Bactrim. I instructed the patient to follow up with their PCP in the next 3 days. I explained that the patient should return to the emergency department if they experience any worsening symptoms. Strict return precautions were discussed with the patient. The patient expressed understanding of these instructions. I answered all questions that the patient had. The patient was discharged home in good condition with their prescriptions and follow up information. - Lab Data Result diagrams: 07/24/21 16:49 07/24/21 16:49 Lab Results 07/24/21 07/24/21 07/24/21 Range/Units 16:34 16:49 16:49 WBC 12.6 H (3.8-10.6) k/uL RBC 4.67 (3.80-5.40) m/uL Hgb 13.7 (11.4-16.0) gm/dL Hct 40.8 (34.0-46.0) % MCV 87.4 (80.0-100.0) fL MCH 29.3 (25.0-35.0) pg MCHC 33.5 (31.0-37.0) g/dL RDW 13.9 (11.5-15.5) % Plt Count 274 (150-450) k/uL MPV 7.8 Neutrophils % 78 % Lymphocytes % 14 % Monocytes % 5 % Eosinophils % 1 % Basophils % 1 % Neutrophils # 9.9 H (1.3-7.7) k/uL Lymphocytes # 1.8 (1.0-4.8) k/uL Monocytes # 0.6 (0-1.0) k/uL Eosinophils # 0.2 (0-0.7) k/uL Basophils # 0.1 (0-0.2) k/uL Sodium 136 L (137-145) mmol/L Potassium 4.8 (3.5-5.1) mmol/L Chloride 103 (98-107) mmol/L Carbon Dioxide 22 (22-30) mmol/L Anion Gap 11 mmol/L BUN 16 (7-17) mg/dL Creatinine 0.93 (0.52-1.04) mg/dL Est GFR (CKD-EPI)AfAm 71 (>60 ml/min/1.73 sqM) Est GFR (CKD-EPI)NonAf 61 (>60 ml/min/1.73 sqM) Glucose 184 H (74-99) mg/dL Calcium 10.6 H (8.4-10.2) mg/dL Total Bilirubin 0.7 (0.2-1.3) mg/dL AST 29 (14-36) U/L ALT 16 (4-34) U/L Alkaline Phosphatase 80 (38-126) U/L Total Protein 7.4 (6.3-8.2) g/dL Albumin 4.1 (3.5-5.0) g/dL Amylase 41 (30-110) U/L Lipase 48 (23-300) U/L Urine Color Light Yellow Urine Appearance Cloudy H (Clear) Urine pH 6.5 (5.0-8.0) Ur Specific [place] 1.008 (1.001-1.035) Urine Protein Trace H (Negative) Urine Glucose (UA) Negative (Negative) Urine Ketones Negative (Negative) Urine Blood Trace H (Negative) Urine Nitrite Negative (Negative) Urine Bilirubin Negative (Negative) Urine Urobilinogen <2.0 (<2.0) mg/dL Ur Leukocyte Esterase Large H (Negative) Urine RBC 2 (0-5) /hpf Urine WBC 176 H (0-5) /hpf Ur Squamous Epith Cells 1 (0-4) /hpf Urine Bacteria Rare H (None) /hpf - EKG Data -: EKG Interpreted by Me EKG Comments: 12-lead Electrocardiogram Interpretation Note EKG was reviewed and interpreted by myself. 12-lead ECG performed at 1626 is interpreted by me as revealing normal sinus rhythm with first-degree AV block at a rate of 73 beats per minute. [place] is appears to be leftward deviated. CO interval is 210 ms, QRS duration is 116 ms, QTc is 456 ms.. There were no ST or T wave abnormalities to suggest myocardial ischemia or injury. R wave progression across the precordium was satisfactory. By my interpretation this EKG is non-diagnostic for acute ischemia. Patient is a chronic left bundle branch block. In comparison to prior EKGs, there are no acute changes. Disposition Clinical Impression: Constipation, UTI (urinary tract infection) Disposition: HOME SELF-CARE Condition: Good Instructions (If sedation given, give patient instructions): Constipation (ED), Urinary Tract Infection in Women (DC) Prescriptions: Sulfamethox-Tmp 800-160Mg [Bactrim DS 800-160 mg] 1 tab PO Q12HR 5 Days #10 tab Is patient prescribed a controlled substance at d/c from ED?: No Referrals: Mynor Cannon MD [Primary Care Provider] - 1-2 days
[2021-07-24 16:46] LABS: Appearance,Urine Cloudy (Clear); Bacteria,Urine Rare /hpf; Bilirubin,Urine Negative (Negative); Blood,Urine Trace (Negative); Color,Urine Light Yellow; Glucose,Urine (UA) Negative (Negative); Ketones,Urine Negative (Negative); Leukocyte Esterase,Urine Large (Negative); Nitrite,Urine Negative (Negative); PH, Urine 6.5 (5.0-8.0); Protein,Urine Trace (Negative); RBC,Urine 2 /hpf (0-5); Specific Gravity,Urine 1.008 (1.001-1.035); Squamous Epithelial Cell,Urine 1 /hpf (0-4); Urobilinogen,Urine <2.0 mg/dL (<2.0); WBC,Urine 176 /hpf (0-5)
[2021-07-24 16:57] LABS: Basophils # (A) 0.1 k/uL (0-0.2); Basophils % (A) 1 %; Eosinophils # (A) 0.2 k/uL (0-0.7); Eosinophils % (A) 1 %; HCT 40.8 % (34.0-46.0); HGB 13.7 gm/dL (11.4-16.0); Lymphocytes # (A) 1.8 k/uL (1.0-4.8); Lymphocytes % (A) 14 %; MCH 29.3 pg (25.0-35.0); MCHC 33.5 g/dL (31.0-37.0); MCV 87.4 fL (80.0-100.0); Mean Platelet Volume 7.8; Monocytes # (A) 0.6 k/uL (0-1.0); Monocytes % (A) 5 %; Neutrophils # (A) 9.9 k/uL (1.3-7.7); Neutrophils % (A) 78 %; Platelet Count 274 k/uL (150-450); RBC 4.67 m/uL (3.80-5.40); RDW 13.9 % (11.5-15.5); WBC 12.6 k/uL (3.8-10.6)
[2021-07-24 17:05] LABS: Albumin 4.1 g/dL (3.5-5.0); Calcium 10.6 mg/dL (8.4-10.2); Potassium 4.8 mmol/L (3.5-5.1); Total Bilirubin 0.7 mg/dL (0.2-1.3); Total Protein 7.4 g/dL (6.3-8.2)
--- NOTE | 2021-07-24 19:15 | CT ---
EXAMINATION TYPE: CT abdomen pelvis w con DATE OF EXAM: 07/24/2021 COMPARISON: 07/26/2020 HISTORY: constipation CT DLP: 3109 mGycm Automated exposure control for dose reduction was used. TECHNIQUE: Helical acquisition of images was performed from the lung bases through the pelvis. CONTRAST: Performed without Oral Contrast and with IV Contrast, patient injected with 80 mL of Isovue 300. FINDINGS: LUNG BASES: Atelectasis. No pericardial effusion. Calcified coronary artery disease. LIVER: Normal. BILIARY SYSTEM: Normal. PANCREAS: Normal. SPLEEN: Normal. ADRENALS: Normal. KIDNEYS: Mild hydronephrosis bilaterally. Punctate 2 mm nonobstructing nephrolithiasis bilaterally. BOWEL: No evidence of bowel obstruction or thickening. There is moderately increased colonic fecal d ebris of the descending colon to the level of the rectal vault. There is no perirectal inflammatory s tranding or thickening. PERITONEUM: No pneumoperitoneum. No free fluid. LYMPH NODES: No lymphadenopathy. PELVIS: There is asymmetric urinary bladder wall thickening on the right measuring up to 3 4 mm. Uter us and adnexa are unremarkable. VASCULATURE: Abdominal aorta normal in caliber with moderate calcified atherosclerotic disease. MUSCULOSKELETAL: Degenerative changes of the spine. IMPRESSION: 1. Moderately increased colonic fecal debris from the descending colon to the level of the rectal va ult consistent with history of constipation. No evidence of obstruction. 2. Asymmetric right urinary bladder wall thickening measuring up to 3 to 4 mm. Recommend correlation with cystoscopy. 3. Mild bilateral hydronephrosis. 4. Nonobstructing bilateral renal calculi.
[2021-07-24] MEDS ORDERED: SULFAMETHOX-TMP 800-160MG 1 EACH TAB PO STA (21:31)
[2021-07-24 22:07] VITALS: BP 145/72; PULSE 77; RESP 17
== END 2021-07-24 22:07 | disposition home or self-care (01) ==
LOC: EC 15:13
DX: K59.00 Constipation, unspecified (principal); N39.0 Urinary tract infection, site not specified; N13.2 Hydronephrosis with renal and ureteral calculous obstruction; J45.909 Unspecified asthma, uncomplicated; E11.9 Type 2 diabetes mellitus without complications; I10 Essential (primary) hypertension; Z88.0 Allergy status to penicillin; Z88.8 Allergy status to other drugs, medicaments and biological substances; Z87.891 Personal history of nicotine dependence; Z79.899 Other long term (current) drug therapy; Z79.4 Long term (current) use of insulin; Z79.82 Long term (current) use of aspirin
CPT/HCPCS: 36415; 93005; 80053; 82150; 83690; 85025; 81001; 87086; 74177; 99284; 96374; 96375; 96361; J2405; Q9967

== ENCOUNTER → 2021-09-24 | Outpatient (CLI) | payer MEDICARE ==
--- NOTE | 2021-09-24 12:25 | MM ---
Reason for exam: follow-up at short interval from prior study. Last mammogram was performed 10 months ago. History: Patient is postmenopausal and is nulliparous. Family history of breast cancer in maternal cousin at age 65. Benign stereotactic core biopsy of the right breast, January 2021. Benign core biopsy of the left breast, 2016. Core biopsy of the left breast, 2009. Taking progesterone beginning at age 71. Physical Findings: Nurse did not find any significant physical abnormalities on exam. MG 3D Diag Mammo W/Cad RT CC and MLO view(s) were taken of the right breast. Prior study comparison: November 12, 2020, right breast MG 3d work up w/cad RT. October 10, 2020, bilateral MG 3d screening mammo w/cad. There are scattered fibroglandular densities. There are benign appearing round vascular calcifications in the right breast. Previous mammotome biopsy in the right breast posterior lower inner aspect. Benign axillary lymph nodes right breast. These results were verbally communicated with the patient and result sheet given to the patient on 09/24/21. ASSESSMENT: Benign, BI-RAD 2 RECOMMENDATION: Follow-up diagnostic mammogram in 1 month. (left breast) Back on schedule for October 2021.
== END | disposition home or self-care (01) ==
LOC: RADMAMWWP 10:53
PROVIDERS: ATTEND Surgery
DX: R92.8 Other abnormal and inconclusive findings on diagnostic imaging of breast (principal)
CPT/HCPCS: 77065; G0279; 77061

== ENCOUNTER 2022-08-17 21:49 | Inpatient (IN) | payer MEDICARE ==
[2022-08-17] MEDS ORDERED: ONDANSETRON 4 MG/2 ML VIAL IVP STA (21:58)
[2022-08-17] MEDS ORDERED: SODIUM CHLORIDE 0.9% 500 ML 500 ML IV ONE (21:58)
[2022-08-17] MEDS ORDERED: DEXTROSE 50% SYRINGE 50 ML IVP STA (22:00)
[2022-08-17 22:11] LABS: Glucose,Whole Blood 63 mg/dL (70-110)
[2022-08-17 22:29] LABS: Anisocytosis Slight; Basophils # (A) 0.1 k/uL (0-0.2); Basophils % (A) 1 %; Eosinophils % (A) 0 %; HCT 24.8 % (34.0-46.0); Hypochromasia Marked; Lymphocytes % (A) 11 %; MCH 18.2 pg (25.0-35.0); MCHC 27.6 g/dL (31.0-37.0); Mean Platelet Volume 7.8; Microcytosis Marked; Monocytes # (A) 0.6 k/uL (0-1.0); Monocytes % (A) 7 %; Neutrophils # (A) 7.5 k/uL (1.3-7.7); Neutrophils % (A) 80 %; Platelet Count 380 k/uL (150-450); Poikilocytosis Slight; RBC 3.76 m/uL (3.80-5.40); WBC 9.4 k/uL (3.8-10.6)
[2022-08-17 22:46] LABS: Albumin 3.9 g/dL (3.5-5.0); Potassium 4.6 mmol/L (3.5-5.1); Total Bilirubin 0.2 mg/dL (0.2-1.3); Total Protein 6.8 g/dL (6.3-8.2)
[2022-08-17 22:52] LABS: HGB 6.8 gm/dL (11.4-16.0)
[2022-08-17 23:05] LABS: INR 1.1 (<1.2); Prothrombin Time 11.8 sec (9.0-12.0)
[2022-08-17 23:34] LABS: Glucose,Whole Blood 115 mg/dL (70-110)
[2022-08-17 23:55] LABS: Partial Thromboplastin Time 18.5 sec (22.0-30.0)
--- NOTE | 2022-08-18 00:34 | ED ---
General Adult HPI - General Chief complaint: Recheck/Abnormal Lab/Rx Stated complaint: hypoglycemia Time Seen by Provider: 08/17/22 22:10 Source: EMS Mode of arrival: EMS Limitations: no limitations - History of Present Illness Initial comments: 77-year-old female presents emergency department with hypoglycemia. She reports that her sister gifted her some cookies. She ate several of them and then started feeling lightheaded. She thought that she was having hyperglycemia. She did not check her glucose but did take 24 units of her NovoLog. She then repeated a second dose of her insulin and took an additional 20 units. The med staff at [facility] attended to the patient as she began feeling dizzy and diaphoretic. They checked her glucose and it was found to be 30. They gave her some cranberry juice and oral dextrose. EMS were called. They found the patient to have a glucose of 47 and 59. She was given additional oral foods and a half amp of dextrose. Patient denies any recent illnesses, lightheadedness or weakness. No recent medication changes. Denies chest pain or shortness of breath. No abdominal pain. Has been having some headaches which she discuss with her primary care physician yesterday at her routine follow-up no visual changes. Admits to some bright red blood per rectum on the toilet paper due to hemorrhoid this past week. Denies any black or bloody stools. No history of GI bleeding. No other alleviating, the dictating modifying factors - Related Data Home Medications Medication Instructions Recorded Confirmed Ezetimibe [Zetia] 10 mg PO DAILY 07/23/20 08/18/22 medroxyPROGESTERone [Provera] 2.5 mg PO DAILY 07/23/20 08/18/22 metFORMIN HCL [Glucophage] 500 mg PO BID 07/23/20 08/18/22 Insulin Glargine,Hum.rec.anlog 40 unit SQ BID 08/29/20 08/18/22 [Lantus Solostar Pen] Docusate [Colace] 200 mg PO BID 01/09/21 08/18/22 Insulin Aspart [NovoLOG Flexpen] See Protocol SQ AC-TID 01/09/21 08/18/22 Montelukast [Singulair] 10 mg PO DAILY 01/09/21 08/18/22 Metoprolol Tartrate [Lopressor] 25 mg PO DAILY 07/24/21 08/18/22 Acetaminophen [Tylenol Extra 500 mg PO Q6H PRN 08/18/22 08/18/22 Strength] Calcium Carbonate [Tums] 500 mg PO DAILY PRN 08/18/22 08/18/22 Furosemide [Lasix] 40 mg PO DAILY 08/18/22 08/18/22 Latanoprost [Latanoprost 0.005%] 2.5 ml BOTH EYES DAILY 08/18/22 08/18/22 Solifenacin Succinate [Vesicare] 10 mg PO DAILY 08/18/22 08/18/22 amLODIPine [Norvasc] 5 mg PO DAILY 08/18/22 08/18/22 Previous Rx's Medication Instructions Recorded Losartan [Cozaar] 25 mg PO DAILY #30 tab 07/14/16 Pantoprazole [Protonix] 40 mg PO AC-BID 30 Days #60 tab 08/23/22 Allergies Allergy/AdvReac Type Severity Reaction Status Date / Time Penicillins AdvReac Rash/Hives Verified 08/18/22 12:12 Rqtaiau-EBI-NqG Reductase AdvReac EXTREME Verified 08/17/22 22:14 Inhibitor MUSCLE [Lcvrwur-Suu-Ycu Reductase PAIN AND Inhibitor] WEAKNESS Review of Systems ROS Statement: Those systems with pertinent positive or pertinent negative responses have been documented in the HPI. ROS Other: All systems not noted in ROS Statement are negative. Past Medical History Past Medical History: Asthma, Diabetes Mellitus, Hypertension, Osteoarthritis (OA), Skin Disorder, Sleep Apnea/CPAP/BIPAP, Vascular Disorder Additional Past Medical History / Comment(s): Bronchial asthma, coronary stent 3, diabetes mellitus type 2, eczema, peripheral vascular disease, CPAP, diverticulosis/diverticulitis and previous left wound in the foot with infection with MRSA and the patient has a partial amputation of the left foot History of Any Multi-Drug Resistant Organisms: MRSA Date of last positivie culture/infection: 2010 MDRO Source:: LT FOOT WOUND Past Surgical History: Appendectomy, Coronary Bypass/CABG, Heart Catheterization With Stent, Tonsillectomy Additional Past Surgical History / Comment(s): PARTIAL AMPUTATION LT FOOT with previous amputation of the left great toe,. D & C, cataract surgery, breast b iopsy. vascular surgery Past Anesthesia/Blood Transfusion Reactions: Motion Sickness, Postoperative Nausea & Vomiting (PONV) Date of Last Stent Placement:: 2007 Past Psychological History: Depression Smoking Status: Former smoker - Past Family History Mother Family Medical History: Cancer, CVA/TIA Additional Family Medical History / Comment(s): of stroke Sister(s) Family Medical History: Cancer Additional Family Medical History / Comment(s): Uterine Cancer General Exam Limitations: no limitations General appearance: alert, in no apparent distress Head exam: Present: atraumatic, normocephalic, normal inspection Eye exam: Present: normal appearance, PERRL, EOMI. Absent: scleral icterus, conjunctival injection, periorbital swelling ENT exam: Present: normal exam, mucous membranes moist Neck exam: Present: normal inspection. Absent: tenderness, meningismus, lymphadenopathy Respiratory exam: Present: normal lung sounds bilaterally. Absent: respiratory distress, wheezes, rales, rhonchi, stridor Cardiovascular Exam: Present: regular rate, normal rhythm, normal heart sounds. Absent: systolic murmur, diastolic murmur, rubs, gallop, clicks GI/Abdominal exam: Present: soft, normal bowel sounds. Absent: distended, tenderness, guarding, rebound, rigid Rectal exam: Present: heme (+) stool, hemorrhoids. Absent: black stool, bloody stool Extremities exam: Present: normal inspection, full ROM, normal capillary refill. Absent: tenderness, pedal edema, joint swelling, calf tenderness Back exam: Present: normal inspection Neurological exam: Present: alert, oriented X3, CN II-XII intact Psychiatric exam: Present: normal affect, normal mood Skin exam: Present: warm, dry, intact, normal color. Absent: rash Course Vital Signs 08/17/22 08/18/22 08/18/22 22:14 03:19 04:02 Temperature 98.3 F 97.7 F Pulse Rate 74 78 70 Pulse Rate [ [employer] ] Respiratory 15 15 16 Rate Blood Pressure 137/88 138/67 109/42 Blood Pressure [Right Arm] O2 Sat by Pulse 99 100 98 Oximetry 08/18/22 08/18/22 08/18/22 04:09 04:29 06:21 Temperature 98.4 F 97.7 F 97.9 F Pulse Rate 89 77 78 Pulse Rate [ [employer] ] Respiratory 15 18 15 Rate Blood Pressure 129/51 132/52 135/54 Blood Pressure [Right Arm] O2 Sat by Pulse 97 96 97 Oximetry 08/18/22 08/18/22 08/18/22 07:50 11:40 15:15 Temperature 98.2 F 98.4 F 98.2 F Pulse Rate Pulse Rate [ 77 77 72 [employer] ] Respiratory 18 18 16 Rate Blood Pressure Blood Pressure 122/55 103/48 110/59 [Right Arm] O2 Sat by Pulse 96 94 L 95 Oximetry Procedures - [place] Protocol (Time Out) Nurse: Jose M Olea Medical Decision Making - Medical Decision Making On arrival the patient is placed into room 6. We did perform an Accu-Chek and patient's glucose is 63. She is given an amp of dextrose. IV is established and laboratory studies are conducted which demonstrate a hemoglobin of 6.8. Patient admits to chronic iron deficiency anemia. Does not take her iron tablets as it makes her constipated. She also reports that she does not get iron infusions because she doesn't like the way that they make her feel. She denies any significant rectal bleeding. Admits to seeing a little bit on the toilet paper due to a hemorrhoid. She denies any abdominal pain. No changes in her urination. I did discuss transfusion which the patient for which she was agreeable. Recommended admission in order to ensure that her hemoglobin does improve. Patient will be given gentle fluid hydration because of her VICTOR MANUEL. Glucose will be trended. Patient agreeable to this plan and is currently awaiting a bed on the floor. Dr. Tadeo who agreed to admit the patient - Lab Data Result diagrams: 08/23/22 09:36 08/23/22 09:36 Lab Results 08/17/22 08/17/22 08/17/22 Range/Units 22:00 22:06 22:06 WBC 9.4 (3.8-10.6) k/uL RBC 3.76 L (3.80-5.40) m/uL Hgb 6.8 L* (11.4-16.0) gm/dL Hct 24.8 L (34.0-46.0) % MCV 66.0 L (80.0-100.0) fL MCH 18.2 L (25.0-35.0) pg MCHC 27.6 L (31.0-37.0) g/dL RDW 19.0 H (11.5-15.5) % Plt Count 380 (150-450) k/uL MPV 7.8 Neutrophils % 80 % Lymphocytes % 11 % Monocytes % 7 % Eosinophils % 0 % Basophils % 1 % Neutrophils # 7.5 (1.3-7.7) k/uL Lymphocytes # 1.0 (1.0-4.8) k/uL Monocytes # 0.6 (0-1.0) k/uL Eosinophils # 0.0 (0-0.7) k/uL Basophils # 0.1 (0-0.2) k/uL Hypochromasia Marked Poikilocytosis Slight Anisocytosis Slight Microcytosis Marked PT (9.0-12.0) sec INR (<1.2) APTT (22.0-30.0) sec Sodium 137 (137-145) mmol/L Potassium 4.6 (3.5-5.1) mmol/L Chloride 102 (98-107) mmol/L Carbon Dioxide 23 (22-30) mmol/L Anion Gap 12 mmol/L BUN 35 H (7-17) mg/dL Creatinine 1.66 H (0.52-1.04) mg/dL Est GFR (CKD-EPI)AfAm 35 (>60 ml/min/1.73 sqM) Est GFR (CKD-EPI)NonAf 30 (>60 ml/min/1.73 sqM) Glucose 59 L (74-99) mg/dL POC Glucose (mg/dL) 63 L (70-110) mg/dL POC Glu [employer] ID [place] Calcium 9.0 (8.4-10.2) mg/dL Iron (50-170) ug/dL TIBC (228-460) ug/dL % Saturation (12.00-45.00) Transferrin (204.0-354.0) mg/dL Ferritin (10.0-291.0) ng/mL Total Bilirubin 0.2 (0.2-1.3) mg/dL AST 35 (14-36) U/L ALT 15 (4-34) U/L Alkaline Phosphatase 51 (38-126) U/L Troponin I (0.000-0.034) ng/mL Total Protein 6.8 (6.3-8.2) g/dL Albumin 3.9 (3.5-5.0) g/dL Stool Occult Blood (Negative) Blood Type Blood Type Recheck Bld Type Recheck Status Antibody Screen Crossmatch Spec Expiration Date 08/17/22 08/17/22 08/17/22 Range/Units 22:06 22:06 22:35 WBC (3.8-10.6) k/uL RBC (3.80-5.40) m/uL Hgb (11.4-16.0) gm/dL Hct (34.0-46.0) % MCV (80.0-100.0) fL MCH (25.0-35.0) pg MCHC (31.0-37.0) g/dL RDW (11.5-15.5) % Plt Count (150-450) k/uL MPV Neutrophils % % Lymphocytes % % Monocytes % % Eosinophils % % Basophils % % Neutrophils # (1.3-7.7) k/uL Lymphocytes # (1.0-4.8) k/uL Monocytes # (0-1.0) k/uL Eosinophils # (0-0.7) k/uL Basophils # (0-0.2) k/uL Hypochromasia Poikilocytosis Anisocytosis Microcytosis PT 11.8 (9.0-12.0) sec INR 1.1 (<1.2) APTT 18.5 L (22.0-30.0) sec Sodium (137-145) mmol/L Potassium (3.5-5.1) mmol/L Chloride (98-107) mmol/L Carbon Dioxide (22-30) mmol/L Anion Gap mmol/L BUN (7-17) mg/dL Creatinine (0.52-1.04) mg/dL Est GFR (CKD-EPI)AfAm (>60 ml/min/1.73 sqM) Est GFR (CKD-EPI)NonAf (>60 ml/min/1.73 sqM) Glucose (74-99) mg/dL POC Glucose (mg/dL) (70-110) mg/dL POC Glu [employer] ID Calcium (8.4-10.2) mg/dL Iron 16 L (50-170) ug/dL TIBC 483 H (228-460) ug/dL % Saturation 3.33 L (12.00-45.00) Transferrin 345.0 (204.0-354.0) mg/dL Ferritin 4.2 L (10.0-291.0) ng/mL Total Bilirubin (0.2-1.3) mg/dL AST (14-36) U/L ALT (4-34) U/L Alkaline Phosphatase (38-126) U/L Troponin I <0.012 (0.000-0.034) ng/mL Total Protein (6.3-8.2) g/dL Albumin (3.5-5.0) g/dL Stool Occult Blood (Negative) Blood Type Blood Type Recheck Bld Type Recheck Status Antibody Screen Crossmatch Spec Expiration Date 08/17/22 08/17/22 08/17/22 Range/Units 23:32 23:37 23:39 WBC (3.8-10.6) k/uL RBC (3.80-5.40) m/uL Hgb (11.4-16.0) gm/dL Hct (34.0-46.0) % MCV (80.0-100.0) fL MCH (25.0-35.0) pg MCHC (31.0-37.0) g/dL RDW (11.5-15.5) % Plt Count (150-450) k/uL MPV Neutrophils % % Lymphocytes % % Monocytes % % Eosinophils % % Basophils % % Neutrophils # (1.3-7.7) k/uL Lymphocytes # (1.0-4.8) k/uL Monocytes # (0-1.0) k/uL Eosinophils # (0-0.7) k/uL Basophils # (0-0.2) k/uL Hypochromasia Poikilocytosis Anisocytosis Microcytosis PT (9.0-12.0) sec INR (<1.2) APTT (22.0-30.0) sec Sodium (137-145) mmol/L Potassium (3.5-5.1) mmol/L Chloride (98-107) mmol/L Carbon Dioxide (22-30) mmol/L Anion Gap mmol/L BUN (7-17) mg/dL Creatinine (0.52-1.04) mg/dL Est GFR (CKD-EPI)AfAm (>60 ml/min/1.73 sqM) Est GFR (CKD-EPI)NonAf (>60 ml/min/1.73 sqM) Glucose (74-99) mg/dL POC Glucose (mg/dL) 115 H (70-110) mg/dL POC Glu [employer] ID Jose M Olea Calcium (8.4-10.2) mg/dL Iron (50-170) ug/dL TIBC (228-460) ug/dL % Saturation (12.00-45.00) Transferrin (204.0-354.0) mg/dL Ferritin (10.0-291.0) ng/mL Total Bilirubin (0.2-1.3) mg/dL AST (14-36) U/L ALT (4-34) U/L Alkaline Phosphatase (38-126) U/L Troponin I (0.000-0.034) ng/mL Total Protein (6.3-8.2) g/dL Albumin (3.5-5.0) g/dL Stool Occult Blood Positive H (Negative) Blood Type O Positive Blood Type Recheck O Pos Bld Type Recheck Status No Antibody Screen NEGATIVE Crossmatch See Detail Spec Expiration Date 08/20/20222336 Disposition Clinical Impression: Hypoglycemia, Microcytic hypochromic anemia, Occult blood in stools, VICTOR MANUEL (acute kidney injury) Disposition: ADMITTED IP TO THIS [facility] Condition: Stable Is patient prescribed a controlled substance at d/c from ED?: No Time of Disposition: 00:34 Decision to Admit Reason: Admit from EC Decision Date: 08/18/22 Decision Time: 00:34
[2022-08-18] MEDS ORDERED: NALOXONE 0.4 MG/ML 1 ML VIAL IV PRN (00:46)
[2022-08-18] MEDS: SODIUM CHLORIDE 0.9% 1,000 ML IV SCH ×2 (01:39→16:49)
--- NOTE | 2022-08-18 03:26 | P.HPIM ---
History of Present Illness H&P Date: 08/18/22 Chief Complaint: hypoglycemia 77 year old female with DM , Anemia, CAD, Hypertension patient is a resident of [facility], patient was found symptomatic with hypoglycemia, after taking multiple doses of insulin to help control her hyperglycemia from earlier today. patient was feeling weak and shaky she was given some juice and immediately improved she was sent to our hospital for evaluation. upon further review of blood work , she turned out to have severe anemia, she reports history of anemia and supposed to be on iron pills , however, it causes constipation and she does not take them regularly , she admits to occasional bleeding per rectum , with known history of hemorrhoids. patient denies any abd pain, nausea or vomiting, denies any urinary changes , denies any chest pain or trouble breathing, denies any fever, chills, or any focal neuro deficits blood sugar stable at this time patient will be admitted for blood transfusion and evaluation by GI Review of Systems Pertinent positives as noted in HPI. All other systems were reviewed and are negative Past Medical History Past Medical History: Asthma, Diabetes Mellitus, Hypertension, Osteoarthritis (OA), Skin Disorder, Sleep Apnea/CPAP/BIPAP, Vascular Disorder Additional Past Medical History / Comment(s): Bronchial asthma, coronary stent 3, diabetes mellitus type 2, eczema, peripheral vascular disease, CPAP, diverticulosis/diverticulitis and previous left wound in the foot with infection with MRSA and the patient has a partial amputation of the left foot History of Any Multi-Drug Resistant Organisms: MRSA Date of last positivie culture/infection: 2010 MDRO Source:: LT FOOT WOUND Past Surgical History: Appendectomy, Coronary Bypass/CABG, Heart Catheterization With Stent, Tonsillectomy Additional Past Surgical History / Comment(s): PARTIAL AMPUTATION LT FOOT with previous amputation of the left great toe,. D & C, cataract surgery, breast biopsy. vascular surgery Past Anesthesia/Blood Transfusion Reactions: Motion Sickness, Postoperative Nausea & Vomiting (PONV) Date of Last Stent Placement:: 2007 Past Psychological History: Depression Smoking Status: Former smoker - Past Family History Mother Family Medical History: Cancer, CVA/TIA Additional Family Medical History / Comment(s): of stroke Sister(s) Family Medical History: Cancer Additional Family Medical History / Comment(s): Uterine Cancer Medications and Allergies Home Medications Medication Instructions Recorded Confirmed Type Losartan [Cozaar] 25 mg PO DAILY #30 tab 07/14/16 07/24/21 Rx Apixaban [Eliquis] 5 mg PO BID 07/23/20 07/24/21 History Ezetimibe [Zetia] 10 mg PO DAILY 07/23/20 07/24/21 History Furosemide [Lasix] 60 mg PO DAILY 07/23/20 07/24/21 History amLODIPine [Norvasc] 10 mg PO HS 07/23/20 07/24/21 History medroxyPROGESTERone [Provera] 2.5 mg PO DAILY 07/23/20 07/24/21 History metFORMIN HCL [Glucophage] 500 mg PO BID 07/23/20 07/24/21 History Insulin Glargine,Hum.rec.anlog 37 unit SQ BID 08/29/20 07/24/21 History [Lantus Solostar Pen] Latanoprostene Bunod [Vyzulta] 1 drop LEFT EYE HS 08/29/20 07/24/21 History Aspirin [Adult Low Dose Aspirin EC] 81 mg PO DAILY 01/09/21 07/24/21 History Docusate [Colace] 200 mg PO BID 01/09/21 07/24/21 History Insulin Aspart [NovoLOG Flexpen] See Protocol SQ AC-TID 01/09/21 07/24/21 History Montelukast [Singulair] 10 mg PO DAILY 01/09/21 07/24/21 History Metoprolol Tartrate [Lopressor] 25 mg PO DAILY 07/24/21 07/24/21 History Solifenacin Succinate [Vesicare] 5 mg PO DAILY 07/24/21 07/24/21 History Sulfamethox-Tmp 800-160Mg [Bactrim 1 tab PO Q12HR 5 Days #10 tab 07/24/21 Rx DS 800-160 mg] Allergies Allergy/AdvReac Type Severity Reaction Status Date / Time Penicillins AdvReac Rash/Hives Verified 08/17/22 22:14 Ujftjxu-GLI-ZoD Reductase AdvReac EXTREME Verified 08/17/22 22:14 Inhibitor MUSCLE [Olfaffh-Kjm-Cnv Reductase PAIN AND Inhibitor] WEAKNESS Physical Exam Vitals: Vital Signs Temp Pulse Resp BP Pulse Ox 08/17/22 22:14 98.3 F 74 15 137/88 99 Intake and Output 12/07/2908/17/22 08/18/22 14:59 22:59 06:59 Other: Weight 90.718 kg Constitutional: No acute distress, conversant, pleasant Eyes: Anicteric sclerae, moist conjunctiva, Pupils equal round reactive to light ENMT: NC/AT Oropharynx clear, no erythema, or exudates Neck: Supple, no masses, or JVD No carotid bruits No thyromegaly Lungs: Clear to auscultation Clear to percussion Normal respiratory effort, no accessory muscle use Cardiovascular: Heart regular in rate and rhythm, No murmurs, gallops, or rubs No peripheral edema Abdominal: Soft Nontender, no guarding, rebound or rigidity Abdomen moving with respiration Normoactive bowel sounds No hepatomegaly, No splenomegaly No palpable mass No abdominal wall hernia noted Skin: Normal temperature, tone, texture, turgor No induration No subcutaneous nodules No rash, lesions No ulcers Extremities: left midmetatarsal amputation No digital cyanosis No clubbing Pedal pulses intact right foot Radial pulses intact and symmetrical No calf tenderness Psychiatric: Alert and oriented to person, place and time Appropriate affect fair judgment Neuro Muscles Strength 4/5 in all 4 extremities Sensation to light touch grossly present throughout Cranial nerves II-XII grossly intact Lymphatics: no palpable cervical or supraclavicular lymph nodes Results CBC & Chem 7: 08/17/22 22:06 08/17/22 22:06 Labs: Abnormal Lab Results - Last 24 Hours (Table) 08/17/22 08/17/22 08/17/22 Range/Units 22:00 22:06 22:06 RBC 3.76 L (3.80-5.40) m/uL Hgb 6.8 L* (11.4-16.0) gm/dL Hct 24.8 L (34.0-46.0) % MCV 66.0 L (80.0-100.0) fL MCH 18.2 L (25.0-35.0) pg MCHC 27.6 L (31.0-37.0) g/dL RDW 19.0 H (11.5-15.5) % APTT (22.0-30.0) sec BUN 35 H (7-17) mg/dL Creatinine 1.66 H (0.52-1.04) mg/dL Glucose 59 L (74-99) mg/dL POC Glucose (mg/dL) 63 L (70-110) mg/dL Stool Occult Blood (Negative) Crossmatch 08/17/22 08/17/22 08/17/22 Range/Units 22:35 23:32 23:37 RBC (3.80-5.40) m/uL Hgb (11.4-16.0) gm/dL Hct (34.0-46.0) % MCV (80.0-100.0) fL MCH (25.0-35.0) pg MCHC (31.0-37.0) g/dL RDW (11.5-15.5) % APTT 18.5 L (22.0-30.0) sec BUN (7-17) mg/dL Creatinine (0.52-1.04) mg/dL Glucose (74-99) mg/dL POC Glucose (mg/dL) 115 H (70-110) mg/dL Stool Occult Blood (Negative) Crossmatch See Detail 08/17/22 Range/Units 23:39 RBC (3.80-5.40) m/uL Hgb (11.4-16.0) gm/dL Hct (34.0-46.0) % MCV (80.0-100.0) fL MCH (25.0-35.0) pg MCHC (31.0-37.0) g/dL RDW (11.5-15.5) % APTT (22.0-30.0) sec BUN (7-17) mg/dL Creatinine (0.52-1.04) mg/dL Glucose (74-99) mg/dL POC Glucose (mg/dL) (70-110) mg/dL Stool Occult Blood Positive H (Negative) Crossmatch Assessment and Plan Assessment: symptomatic hypoglycemia 2/2 extra dose of insulin acute on chronic microcytic anemia , with GI bleed plan monitor blood glucose closely insulin sliding scale s/p D50 amp PPI BID hold eliquis hold aspirin GI eval blood transfusion for hgb<7 monitor hemoglobin chronic conditions DM , insulin sliding scale hypertension , CAD , resume amlodipine , metoprolol , statin full code DVT PPX mechanical due to GI bleeding
[2022-08-18 07:58] LABS: Glucose,Whole Blood 120 mg/dL (70-110)
[2022-08-18] MEDS: INSULIN ASPART (NovoLOG) 100 UNIT/ML VIAL SQ SCH ×4 (08:25→20:23)
[2022-08-18] MEDS ORDERED: FUROSEMIDE 40 MG TAB PO SCH (09:00)
[2022-08-18] MEDS ORDERED: LOSARTAN 25 MG TAB PO SCH (09:00)
[2022-08-18] MEDS ORDERED: DOCUSATE 100 MG CAP PO SCH (09:00)
[2022-08-18] MEDS ORDERED: MORPHINE SULFATE 4 MG/ML SYRINGE IVP PRN (09:26)
[2022-08-18 10:16] LABS: Anisocytosis Moderate; HCT 26.5 % (34.0-46.0); HGB 7.4 gm/dL (11.4-16.0); Hypochromasia Marked; MCH 19.5 pg (25.0-35.0); MCHC 27.8 g/dL (31.0-37.0); Mean Platelet Volume 9.1; Microcytosis Marked; Platelet Count 328 k/uL (150-450); Poikilocytosis Moderate; RBC 3.78 m/uL (3.80-5.40); RDW 20.1 % (11.5-15.5); WBC 8.9 k/uL (3.8-10.6)
[2022-08-18] MEDS: METOPROLOL TARTRATE 25 MG TAB PO SCH (10:31)
[2022-08-18] MEDS: PANTOPRAZOLE 40 MG TABLET PO SCH ×2 (10:31→16:53)
[2022-08-18] MEDS: MONTELUKAST 10 MG TAB PO SCH (10:31)
[2022-08-18] MEDS: EZETIMIBE 10 MG TAB PO SCH (10:31)
[2022-08-18] MEDS ORDERED: bisacodyL 5 MG TABLET.DR PO STA (11:07)
--- NOTE | 2022-08-18 11:21 | P.CONS ---
History of Present Illness - Reason for Consult Consult date: 08/18/22 GI bleed Requesting physician: Windy Brumfield - Chief Complaint Dizziness, hypoglycemia - History of Present Illness This is a pleasant 77-year-old female who came in by EMS for complaints of dizziness and hypoglycemia. She has a past medical history including diabetes mellitus, coronary artery disease hypertension and chronic anemia on Eliquis last was taken 08/17/2022. Apparently the patient was given some cookies from her sister and had quite a bit and states she wasn't feeling well she thought her sugar was high so she gave herself insulin repeated by further dose of insulin was then found to have a blood sugar of 30. Patient was treated at her residential [facility] living however continued to have dizziness and low blood sugar also was brought to the emergency department. When she arrived part of her workup included CBC was noted to have a hemoglobin of 6.8. Patient had reported that she had been having some bright red blood on her toilet paper and states that it is hemorrhoidal. She states that she suffers with constipation and hard stool and straining. Her last colonoscopy was several years ago for which she states that she had diverticulosis. She believes she has had a prior EGD as well although she is unsure why. States she has not had any repeat colonoscopies due to her being in a wheelchair and difficulty using the bathroom. Gastroenterology was consulted for GI bleed. Patient denies any maroon colored black stool, denies any NSAID use. No previous history of a GI bleed. She did have positive occult stool. She denies any abdominal pain, nausea or vomiting. She was given 1 unit of blood yesterday evening. Repeat labs with a hemoglobin of 7.4. Labs are consistent with a microcytic anemia. Admitting labs WBC 9.4 hemoglobin 6.8 hematocrit 24.8 MCV 60 6MCH 18 platelet count 380,000 INR 1.1 sodium 137 potassium 4.6 BUN 35 creatinine 1.66 glucose 59 total bilirubin 0.2 AST 35 ALT 15 alkaline phosphatase 51 Review of Systems REVIEW OF SYSTEMS: CARDIOPULMONARY: No chest pain or shortness of breath. Gastrointestinal: No complaints of abdominal pain or epigastric pain.. No nausea or vomiting. No hematemesis, coffee-ground emesis. No rectal bleeding, or melena. GENITOURINARY: No dysuria or hematuria. MUSCULOSKELETAL: Reports normal range of motion., Joint pain. SKIN: No rashes. No jaundice. ENDOCRINE: No chills, fevers. No excessive weight gain or loss. No polydipsia or polyuria. PSYCHIATRIC: Unremarkable. NEUROLOGY: No change in mental status. Dizziness now improved. ENT: Vision unremarkable. CONSTITUTIONAL: No recent weight loss. No fever, chills, night sweats. 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 D & C, cataract surgery, breast biopsy. vascular surgery Past Anesthesia/Blood Transfusion Reactions: Motion Sickness, Postoperative Nausea & Vomiting (PONV) Date of Last Stent Placement:: 2007 Past Psychological History: Depression Smoking Status: Former smoker - Past Family History Mother Family Medical History: Cancer, CVA/TIA Additional Family Medical History / Comment(s): of stroke Sister(s) Family Medical History: Cancer Additional Family Medical History / Comment(s): Uterine Cancer Medications and Allergies Home Medications Medication Instructions Recorded Confirmed Type Losartan [Cozaar] 25 mg PO DAILY #30 tab 07/14/16 08/18/22 Rx Apixaban [Eliquis] 5 mg PO BID 07/23/20 08/18/22 History Ezetimibe [Zetia] 10 mg PO DAILY 07/23/20 08/18/22 History medroxyPROGESTERone [Provera] 2.5 mg PO DAILY 07/23/20 08/18/22 History metFORMIN HCL [Glucophage] 500 mg PO BID 07/23/20 08/18/22 History Insulin Glargine,Hum.rec.anlog 40 unit SQ BID 08/29/20 08/18/22 History [Lantus Solostar Pen] Aspirin [Adult Low Dose Aspirin EC] 81 mg PO DAILY 01/09/21 08/18/22 History Docusate [Colace] 200 mg PO BID 01/09/21 08/18/22 History Insulin Aspart [NovoLOG Flexpen] See Protocol SQ AC-TID 01/09/21 07/24/21 History Montelukast [Singulair] 10 mg PO DAILY 01/09/21 08/18/22 History Metoprolol Tartrate [Lopressor] 25 mg PO DAILY 07/24/21 08/18/22 History Acetaminophen [Tylenol Extra 500 mg PO Q6H PRN 08/18/22 08/18/22 History Strength] Calcium Carbonate [Tums] 500 mg PO DAILY PRN 08/18/22 08/18/22 History Furosemide [Lasix] 40 mg PO DIRECTED 08/18/22 08/18/22 History Latanoprost [Latanoprost 0.005%] 2.5 ml BOTH EYES DAILY 08/18/22 08/18/22 History Naproxen Sodium [Aleve] 220 mg PO Q6H PRN 08/18/22 08/18/22 History Solifenacin Succinate [Vesicare] 10 mg PO DAILY 08/18/22 08/18/22 History amLODIPine [Norvasc] 5 mg PO DAILY 08/18/22 08/18/22 History Allergies Allergy/AdvReac Type Severity Reaction Status Date / Time Penicillins AdvReac Rash/Hives Verified 08/17/22 22:14 Rrivfgw-XHC-QlK Reductase AdvReac EXTREME Verified 08/17/22 22:14 Inhibitor MUSCLE [Wkjqqhr-Iyo-Jqu Reductase PAIN AND Inhibitor] WEAKNESS Physical Exam Vitals: Vital Signs Temp Pulse Resp BP Pulse Ox 08/18/22 06:21 97.9 F 78 15 135/54 97 08/18/22 04:29 97.7 F 77 18 132/52 96 08/18/22 04:09 98.4 F 89 15 129/51 97 08/18/22 04:02 97.7 F 70 16 109/42 98 08/18/22 03:19 78 15 138/67 100 08/17/22 22:14 98.3 F 74 15 137/88 99 Intake and Output 12/11/22 12/12/22 12/12/22 22:59 06:59 14:59 Intake Total 310 Balance 310 Intake: Blood Product 310 Rc As-1 Unit 310 [id number] Other: Weight 90.718 kg General appearance: The patient is alert, oriented, appears in no acute distress. Morbidly obese. HET: Head is normocephalic and atraumatic. Conjunctiva pink. Sclera anicteric. Neck: Supple without lymphadenopathy. Trachea midline. Heart: S1 S2. Regular rate and rhythm. Lungs: Clear to auscultation. Abdomen: Soft, diffuse tenderness, nondistended with bowel sounds. No guarding or rigidity. Skin: No rashes. No jaundice. Extremities: Normal skin color and turgor. No pedal edema. Neurological: No focal deficits. Alert and oriented x3. Results CBC & Chem 7: 08/18/22 10:00 08/17/22 22:06 Labs: Abnormal Lab Results - Last 24 Hours (Table) 08/17/22 08/17/22 08/17/22 Range/Units 22:00 22:06 22:06 RBC 3.76 L (3.80-5.40) m/uL Hgb 6.8 L* (11.4-16.0) gm/dL Hct 24.8 L (34.0-46.0) % MCV 66.0 L (80.0-100.0) fL MCH 18.2 L (25.0-35.0) pg MCHC 27.6 L (31.0-37.0) g/dL RDW 19.0 H (11.5-15.5) % APTT (22.0-30.0) sec BUN 35 H (7-17) mg/dL Creatinine 1.66 H (0.52-1.04) mg/dL Glucose 59 L (74-99) mg/dL POC Glucose (mg/dL) 63 L (70-110) mg/dL Stool Occult Blood (Negative) Crossmatch 08/17/22 08/17/22 08/17/22 Range/Units 22:35 23:32 23:37 RBC (3.80-5.40) m/uL Hgb (11.4-16.0) gm/dL Hct (34.0-46.0) % MCV (80.0-100.0) fL MCH (25.0-35.0) pg MCHC (31.0-37.0) g/dL RDW (11.5-15.5) % APTT 18.5 L (22.0-30.0) sec BUN (7-17) mg/dL Creatinine (0.52-1.04) mg/dL Glucose (74-99) mg/dL POC Glucose (mg/dL) 115 H (70-110) mg/dL Stool Occult Blood (Negative) Crossmatch See Detail 08/17/22 08/18/22 Range/Units 23:39 07:46 RBC (3.80-5.40) m/uL Hgb (11.4-16.0) gm/dL Hct (34.0-46.0) % MCV (80.0-100.0) fL MCH (25.0-35.0) pg MCHC (31.0-37.0) g/dL RDW (11.5-15.5) % APTT (22.0-30.0) sec BUN (7-17) mg/dL Creatinine (0.52-1.04) mg/dL Glucose (74-99) mg/dL POC Glucose (mg/dL) 120 H (70-110) mg/dL Stool Occult Blood Positive H (Negative) Crossmatch Assessment and Plan (1) Microcytic hypochromic anemia Narrative/Plan: 77-year-old female with multiple comorbidities including coronary artery disease status post CABG on [place] presented to the emergency department with complaints of hypoglycemia and dizziness. She was known to have initial hemoglobin of 6.8 with labs consistent of a microcytic anemia. Patient denies any maroon colored or black stools but states that she does get some bright red blood on her toilet tissue after wiping which she accounts for her hemorrhoids due to constipation. Her last colonoscopy she said several years ago significant for diverticulosis. She states she did have a previous EGD is many years ago however she is unsure why and findings. Unclear etiology of anemia however due to anticoagulation need to rule out possible GI source. Patient does have a history of chronic anemia and is supposed to be taking iron supplementation however she denies taking it due to constipation issues. We'll proceed with EGD and colonoscopy tomorrow while patient is in the hospital and can have assistance using commode. Current Visit: Yes Status: Acute Code(s): D50.9 - IRON DEFICIENCY ANEMIA, UNSPECIFIED SNOMED Code(s): 95703865 (2) Occult blood in stools Current Visit: Yes Status: Acute Code(s): R19.5 - OTHER FECAL ABNORMALITIES SNOMED Code(s): 25042594 (3) Morbid obesity Current Visit: No Status: Acute Code(s): E66.01 - MORBID (SEVERE) OBESITY DUE TO EXCESS CALORIES SNOMED Code(s): 452241535 (4) Hypoglycemia Current Visit: Yes Status: Acute Code(s): E16.2 - HYPOGLYCEMIA, UNSPECIFIED SNOMED Code(s): 157909301 Plan: 1. Continue symptomatic and supportive care 2. Protonix 40 mg twice a day for GI prophylaxis 3. Daily CBC, transfuse for hemoglobin less than 7 4. Clear liquid diet, nothing by mouth after midnight 5. Plan for EGD and colonoscopy tomorrow 6. Bowel prep this afternoon Thank you for this consultation, we will continue to follow. Dr. Casandra Gabriel I agree with the dictator's note, documented as a scribe by Fadumo Martinez.
[2022-08-18 11:38] LABS: % Iron Saturation 3.33 (12.00-45.00); Ferritin 4.2 ng/mL (10.0-291.0)
[2022-08-18 12:07] LABS: Appearance,Urine Clear (Clear); Bilirubin,Urine Negative (Negative); Blood,Urine Negative (Negative); Color,Urine Light Yellow; Glucose,Urine (UA) Negative (Negative); Ketones,Urine Negative (Negative); Leukocyte Esterase,Urine Small (Negative); Nitrite,Urine Negative (Negative); PH, Urine 6.5 (5.0-8.0); Protein,Urine Trace (Negative); RBC,Urine 2 /hpf (0-5); Specific Gravity,Urine 1.009 (1.001-1.035); Squamous Epithelial Cell,Urine <1 /hpf (0-4); Urobilinogen,Urine <2.0 mg/dL (<2.0); WBC,Urine 22 /hpf (0-5)
[2022-08-18 12:15] LABS: Glucose,Whole Blood 103 mg/dL (70-110)
[2022-08-18] MEDS ORDERED: PEG 3350 (236 GM/BTL) + LYTES 4,000 ML BOTTLE PO ONE (15:00)
[2022-08-18 16:33] LABS: Glucose,Whole Blood 109 mg/dL (70-110)
[2022-08-18 18:31] LABS: Glucose,Whole Blood 147 mg/dL (70-110)
[2022-08-18 20:13] LABS: Glucose,Whole Blood 172 mg/dL (70-110)
[2022-08-18] MEDS: amLODIPine 10 MG TAB PO SCH (20:23)
[2022-08-18 22:44] LABS: Glucose,Whole Blood 79 mg/dL (70-110)
[2022-08-19 00:56] LABS: Glucose,Whole Blood 75 mg/dL (70-110)
[2022-08-19 03:23] LABS: Glucose,Whole Blood 80 mg/dL (70-110)
[2022-08-19] MEDS: SODIUM CHLORIDE 0.9% 1,000 ML IV SCH ×3 (05:25→21:23)
[2022-08-19 06:23] LABS: Glucose,Whole Blood 81 mg/dL (70-110)
[2022-08-19] MEDS: INSULIN ASPART (NovoLOG) 100 UNIT/ML VIAL SQ SCH ×4 (06:27→21:23)
[2022-08-19] MEDS: PANTOPRAZOLE 40 MG TABLET PO SCH ×2 (06:27→16:55)
[2022-08-19 08:34] LABS: Glucose,Whole Blood 92 mg/dL (70-110)
[2022-08-19] MEDS: MONTELUKAST 10 MG TAB PO SCH (09:26)
[2022-08-19] MEDS: METOPROLOL TARTRATE 25 MG TAB PO SCH (09:26)
[2022-08-19] MEDS: EZETIMIBE 10 MG TAB PO SCH (09:26)
[2022-08-19] MEDS ORDERED: bisacodyL 5 MG TABLET.DR PO STA (09:39)
[2022-08-19 10:59] LABS: Glucose,Whole Blood 107 mg/dL (70-110)
[2022-08-19 11:49] LABS: Anisocytosis Moderate; Basophils # (A) 0.1 k/uL (0-0.2); Basophils % (A) 1 %; Eosinophils # (A) 0.3 k/uL (0-0.7); Eosinophils % (A) 4 %; HCT 25.4 % (34.0-46.0); HGB 7.2 gm/dL (11.4-16.0); Hypochromasia Marked; Lymphocytes # (A) 1.3 k/uL (1.0-4.8); Lymphocytes % (A) 17 %; MCH 19.8 pg (25.0-35.0); MCHC 28.4 g/dL (31.0-37.0); MCV 69.6 fL (80.0-100.0); Mean Platelet Volume 8.4; Microcytosis Marked; Monocytes # (A) 0.5 k/uL (0-1.0); Monocytes % (A) 6 %; Neutrophils # (A) 5.5 k/uL (1.3-7.7); Neutrophils % (A) 70 %; Platelet Count 331 k/uL (150-450); Poikilocytosis Moderate; RBC 3.66 m/uL (3.80-5.40); RDW 20.1 % (11.5-15.5); WBC 7.8 k/uL (3.8-10.6)
--- NOTE | 2022-08-19 11:59 | P.PN ---
Subjective Progress Note Date: 08/19/22 Principal diagnosis: Anemia, possible GI bleed This is a pleasant 77-year-old female who came in by EMS for complaints of dizziness and hypoglycemia. She has a past medical history including diabetes mellitus, coronary artery disease hypertension and chronic anemia on Eliquis last was taken 08/17/2022. Apparently the patient was given some cookies from her sister and had quite a bit and states she wasn't feeling well she thought her sugar was high so she gave herself insulin repeated by further dose of insulin was then found to have a blood sugar of 30. Patient was treated at her residential alf however continued to have dizziness and low blood sugar also was brought to the emergency department. When she arrived part of her workup included CBC was noted to have a hemoglobin of 6.8. Patient had reported that she had been having some bright red blood on her toilet paper and states that it is hemorrhoidal. She states that she suffers with constipation and hard stool and straining. Her last colonoscopy was several years ago for which she states that she had diverticulosis. She believes she has had a prior EGD as well although she is unsure why. States she has not had any repeat colonoscopies due to her being in a wheelchair and difficulty using the bathroom. Gastroenterology was consulted for GI bleed. Patient denies any maroon colored black stool, denies any NSAID use. No previous history of a GI bleed. She did have positive occult stool. She denies any abdominal pain, nausea or vomiting. She was given 1 unit of blood yesterday evening. Repeat labs with a hemoglobin of 7.4. Labs are consistent with a microcytic anemia. Admitting labs WBC 9.4 hemoglobin 6.8 hematocrit 24.8 MCV 60 6MCH 18 platelet count 380,000 INR 1.1 sodium 137 potassium 4.6 BUN 35 creatinine 1.66 glucose 59 total bilirubin 0.2 AST 35 ALT 15 alkaline phosphatase 51 08/19/2022. Patient seen and examined today as a follow-up. Patient was scheduled for EGD and colonoscopy today however she did not complete her prep although she did get about three-quarter way through however she was still having formed brown stool. Patient today is very anxious, she is crying in bed states that she is feeling anxious about having procedures done. She does state that she does have a history of anxiety and has Ativan and Xanax to use at home as needed. She is denying any abdominal pain or nausea or vomiting. She has not had any blood in her stool. Iron studies consistent with iron deficiency anemia Objective - Vital Signs Vital signs: Vital Signs Temp 98.6 F 08/19/22 04:00 Pulse 79 08/19/22 09:16 Resp 18 08/19/22 09:16 BP 143/55 08/19/22 09:16 Pulse Ox 97 08/19/22 09:16 FiO2 Intake & Output 08/18/22 08/19/22 08/19/22 18:59 06:59 18:59 Output Total 750 250 Balance -750 -250 Weight 127.006 kg Output: Urine 750 250 Other: Voiding Method Diaper Diaper Diaper External Catheter External Catheter # Bowel Movements 1 2 - Exam General appearance: The patient is alert, oriented, appears in no acute distress. Patient is very anxious, crying. HET: Head is normocephalic and atraumatic. Conjunctiva pink. Sclera anicteric. Neck: Supple without lymphadenopathy. Abdomen: Soft, nontender, nondistended with bowel sounds. No guarding or rigidity. Extremities: Normal skin color and turgor. No pedal edema Skin: No rashes, no jaundice Neurological: No focal deficits. Alert and oriented. - Labs CBC & Chem 7: 08/19/22 11:28 08/17/22 22:06 Labs: Abnormal Lab Results - Last 24 Hours (Table) 08/17/22 08/18/22 08/18/22 Range/Units 22:06 10:00 11:47 RBC 3.78 L (3.80-5.40) m/uL Hgb 7.4 L (11.4-16.0) gm/dL Hct 26.5 L (34.0-46.0) % MCV 70.0 L (80.0-100.0) fL MCH 19.5 L (25.0-35.0) pg MCHC 27.8 L (31.0-37.0) g/dL RDW 20.1 H (11.5-15.5) % POC Glucose (mg/dL) (70-110) mg/dL Iron 16 L (50-170) ug/dL TIBC 483 H (228-460) ug/dL % Saturation 3.33 L (12.00-45.00) Ferritin 4.2 L (10.0-291.0) ng/mL Urine Protein Trace H (Negative) Ur Leukocyte Esterase Small H (Negative) Urine WBC 22 H (0-5) /hpf 08/18/22 08/18/22 Range/Units 18:29 20:12 RBC (3.80-5.40) m/uL Hgb (11.4-16.0) gm/dL Hct (34.0-46.0) % MCV (80.0-100.0) fL MCH (25.0-35.0) pg MCHC (31.0-37.0) g/dL RDW (11.5-15.5) % POC Glucose (mg/dL) 147 H 172 H (70-110) mg/dL Iron (50-170) ug/dL TIBC (228-460) ug/dL % Saturation (12.00-45.00) Ferritin (10.0-291.0) ng/mL Urine Protein (Negative) Ur Leukocyte Esterase (Negative) Urine WBC (0-5) /hpf Microbiology - Last 24 Hours (Table) 08/18/22 11:47 Urine Culture - Preliminary Urine,Voided Assessment and Plan (1) Microcytic hypochromic anemia Narrative/Plan: 77-year-old female with multiple comorbidities including coronary artery disease status post CABG on [place] presented to the emergency department with complaints of hypoglycemia and dizziness. She was known to have initial hemoglo bin of 6.8 with labs consistent of a microcytic anemia. Patient denies any maroon colored or black stools but states that she does get some bright red blood on her toilet tissue after wiping which she accounts for her hemorrhoids due to constipation. Her last colonoscopy she said several years ago significant for diverticulosis. She states she did have a previous EGD is many years ago however she is unsure why and findings. Unclear etiology of anemia however due to anticoagulation need to rule out possible GI source. Patient does have a history of chronic anemia and is supposed to be taking iron supplementation however she denies taking it due to constipation issues. We'll proceed with EGD and colonoscopy tomorrow while patient is in the hospital and can have assistance using commode. Patient did not complete prep is ordered and continues to have formed stool. Will proceed to have clear liquid diet finish up L prep and will be rescheduled for tomorrow for EGD colonoscopy Current Visit: Yes Status: Acute Code(s): D50.9 - IRON DEFICIENCY ANEMIA, UNSPECIFIED SNOMED Code(s): 17926886 (2) Occult blood in stools Current Visit: Yes Status: Acute Code(s): R19.5 - OTHER FECAL ABNORMALITIES SNOMED Code(s): 33962207 (3) Morbid obesity Current Visit: No Status: Acute Code(s): E66.01 - MORBID (SEVERE) OBESITY DUE TO EXCESS CALORIES SNOMED Code(s): 544900398 (4) Hypoglycemia Current Visit: Yes Status: Acute Code(s): E16.2 - HYPOGLYCEMIA, UNSPECIFIED SNOMED Code(s): 215338780 Plan: 1. Continue symptomatic and supportive care 2. Protonix 40 mg twice a day for GI prophylaxis 3. Daily CBC, transfuse for hemoglobin less than 7 4. Clear liquid diet, nothing by mouth after midnight 5. Reschedule EGD and colonoscopy tomorrow 6. Finish bowel prep today, and Dulcolax 20 mg 1 dose Thank you for this consultation, we will continue to follow. Dr. Casandra Gabriel I agree with the dictator's note, documented as a scribe by Fadumo Martinez.
[2022-08-19 12:11] LABS: Calcium 7.8 mg/dL (8.4-10.2); Potassium 4.5 mmol/L (3.5-5.1)
--- NOTE | 2022-08-19 12:51 | P.PN ---
Subjective Progress Note Date: 08/19/22 Patient is complaining of muscle cramps. Patient stated that if she is not out of breath and walking around then she gets muscle cramps. Patient states that she has been drinking the prep however her stool has not been cleared yet. She is not sure she is having any blood in her stool. Objective - Vital Signs Vital signs: Vital Signs Temp 98.6 F 08/19/22 04:00 Pulse 79 08/19/22 09:16 Resp 18 08/19/22 09:16 BP 143/55 08/19/22 09:16 Pulse Ox 97 08/19/22 09:16 FiO2 Intake & Output 08/18/22 08/19/22 08/19/22 18:59 06:59 18:59 Output Total 750 250 Balance -750 -250 Weight 127.006 kg Output: Urine 750 250 Other: Voiding Method Diaper Diaper Diaper External Catheter External Catheter # Bowel Movements 1 2 - Exam General examination - Alert and Oriented 3 in NAD, appears chronically debilitated Heart - + S1S2 no murmurs Lungs - Clear to auscultation Abdomen soft NT ND +ve BS Extremities - No edema K9 HANDLER - Moving all 4 extremities spontaneously Psych - Calm and cooperative - Labs CBC & Chem 7: 08/19/22 11:28 08/19/22 11:28 Labs: Abnormal Lab Results - Last 24 Hours (Table) 08/18/22 08/18/22 08/19/22 Range/Units 18:29 20:12 11:28 RBC 3.66 L (3.80-5.40) m/uL Hgb 7.2 L (11.4-16.0) gm/dL Hct 25.4 L (34.0-46.0) % MCV 69.6 L (80.0-100.0) fL MCH 19.8 L (25.0-35.0) pg MCHC 28.4 L (31.0-37.0) g/dL RDW 20.1 H (11.5-15.5) % Chloride (98-107) mmol/L BUN (7-17) mg/dL Creatinine (0.52-1.04) mg/dL POC Glucose (mg/dL) 147 H 172 H (70-110) mg/dL Calcium (8.4-10.2) mg/dL 08/19/22 Range/Units 11:28 RBC (3.80-5.40) m/uL Hgb (11.4-16.0) gm/dL Hct (34.0-46.0) % MCV (80.0-100.0) fL MCH (25.0-35.0) pg MCHC (31.0-37.0) g/dL RDW (11.5-15.5) % Chloride 108 H (98-107) mmol/L BUN 23 H (7-17) mg/dL Creatinine 1.26 H (0.52-1.04) mg/dL POC Glucose (mg/dL) (70-110) mg/dL Calcium 7.8 L (8.4-10.2) mg/dL Microbiology - Last 24 Hours (Table) 08/18/22 11:47 Urine Culture - Final Urine,Voided Assessment and Plan Assessment: symptomatic hypoglycemia 2/2 extra dose of insulin Resolved Continue with sliding scale insulin acute on chronic microcytic anemia , with GI bleed Status post 1 unit of PRBC Hemoglobin is stable this morning Plan is for EGD and colonoscopy tomorrow. Procedures were canceled today since patient was not able to complete her prep Hold all across and aspirin until cleared by gastroenterology Transfuse for hemoglobin less than 7 Resume PPI twice a day Acute kidney injury secondary to anemia Resolved Coronary artery disease Resume statin and metoprolol Holding aspirin due to acute blood loss anemia Hypertension Resume home BP meds Chronic hypoxic respiratory failure Patient is on 2 L as needed at home DVT prophylaxis: Hold anticoagulation due to GI bleed Anticipated patient be ready for discharge tomorrow if hemoglobin remains stable and EGD and colonoscopy are unremarkable.
[2022-08-19] MEDS: SODIUM FERRIC GLUCONAT-SUCROSE 125 MG in SODIUM CHLORIDE 0.9% 100 ML IVPB SCH (13:09)
[2022-08-19] MEDS: tiZANidine 4 MG TAB PO PRN ×2 (13:09→21:23)
[2022-08-19] MEDS ORDERED: PEG 3350 (236 GM/BTL) + LYTES 4,000 ML BOTTLE PO ONE (15:00)
[2022-08-19 16:53] LABS: Glucose,Whole Blood 141 mg/dL (70-110)
[2022-08-19 20:27] LABS: Glucose,Whole Blood 178 mg/dL (70-110)
[2022-08-19] MEDS: amLODIPine 10 MG TAB PO SCH (21:23)
[2022-08-20] MEDS: PANTOPRAZOLE 40 MG TABLET PO SCH ×2 (06:15→17:18)
[2022-08-20 06:25] LABS: Glucose,Whole Blood 93 mg/dL (70-110)
[2022-08-20] MEDS: INSULIN ASPART (NovoLOG) 100 UNIT/ML VIAL SQ SCH ×4 (06:26→20:30)
[2022-08-20 08:24] LABS: Anisocytosis Moderate; HCT 24.8 % (34.0-46.0); Hypochromasia Marked; MCH 19.6 pg (25.0-35.0); MCHC 28.1 g/dL (31.0-37.0); MCV 69.5 fL (80.0-100.0); Mean Platelet Volume 7.6; Microcytosis Marked; Platelet Count 310 k/uL (150-450); Poikilocytosis Moderate; RBC 3.57 m/uL (3.80-5.40); RDW 20.4 % (11.5-15.5); WBC 7.9 k/uL (3.8-10.6)
[2022-08-20 08:53] LABS: Calcium 7.6 mg/dL (8.4-10.2)
[2022-08-20] MEDS: SODIUM FERRIC GLUCONAT-SUCROSE 125 MG in SODIUM CHLORIDE 0.9% 100 ML IVPB SCH (09:23)
--- NOTE | 2022-08-20 11:18 | P.PN ---
Subjective Progress Note Date: 08/27/22 Patient seen this morning. She denies any acute complaints. She states that her EGD and colonoscopy is scheduled for today around noon. Patient also states that the tizanidine is helping with her cramping pain Objective - Vital Signs Vital signs: Vital Signs Temp 97.4 F L 08/20/22 10:28 Pulse 70 08/20/22 10:28 Resp 20 08/20/22 10:28 BP 129/60 08/20/22 10:28 Pulse Ox 99 08/20/22 10:28 FiO2 Intake & Output 08/19/22 08/20/22 08/20/22 18:59 06:59 18:59 Intake Total 1620 Balance 1620 Intake: Oral 1620 Other: Voiding Method Diaper Diaper Bedside Commode External Catheter External Catheter External Catheter # Voids 2 # Bowel Movements 1 2 - Exam General examination - Alert and Oriented 3 in NAD, appears chronically debilitated Heart - + S1S2 no murmurs Lungs - Clear to auscultation Abdomen soft NT ND +ve BS Extremities - No edema GLO[employer] MARKETING COORDINATOR - Moving all 4 extremities spontaneously Psych - Calm and cooperative - Labs CBC & Chem 7: 08/20/22 07:50 08/20/22 07:50 Labs: Abnormal Lab Results - Last 24 Hours (Table) 08/19/22 08/19/22 08/19/22 Range/Units 11:28 11:28 16:51 RBC 3.66 L (3.80-5.40) m/uL Hgb 7.2 L (11.4-16.0) gm/dL Hct 25.4 L (34.0-46.0) % MCV 69.6 L (80.0-100.0) fL MCH 19.8 L (25.0-35.0) pg MCHC 28.4 L (31.0-37.0) g/dL RDW 20.1 H (11.5-15.5) % Chloride 108 H (98-107) mmol/L BUN 23 H (7-17) mg/dL Creatinine 1.26 H (0.52-1.04) mg/dL POC Glucose (mg/dL) 141 H (70-110) mg/dL Calcium 7.8 L (8.4-10.2) mg/dL 08/19/22 08/20/22 08/20/22 Range/Units 20:25 07:50 07:50 RBC 3.57 L (3.80-5.40) m/uL Hgb 7.0 L (11.4-16.0) gm/dL Hct 24.8 L (34.0-46.0) % MCV 69.5 L (80.0-100.0) fL MCH 19.6 L (25.0-35.0) pg MCHC 28.1 L (31.0-37.0) g/dL RDW 20.4 H (11.5-15.5) % Chloride (98-107) mmol/L BUN 18 H (7-17) mg/dL Creatinine 1.16 H (0.52-1.04) mg/dL POC Glucose (mg/dL) 178 H (70-110) mg/dL Calcium 7.6 L (8.4-10.2) mg/dL Microbiology - Last 24 Hours (Table) 08/18/22 11:47 Urine Culture - Final Urine,Voided Assessment and Plan Assessment: symptomatic hypoglycemia 2/2 extra dose of insulin Resolved Continue with sliding scale insulin acute on chronic microcytic anemia , with GI bleed Status post 1 unit of PRBC Hemoglobin is stable this morning Plan is for EGD and colonoscopy today Hold all across and aspirin until cleared by gastroenterology Transfuse for hemoglobin less than 7 Resume PPI twice a day Acute kidney injury secondary to anemia Resolved Coronary artery disease Resume statin and metoprolol Holding aspirin due to acute blood loss anemia Hypertension Resume home BP meds Chronic hypoxic respiratory failure Patient is on 2 L as needed at home DVT prophylaxis: Hold anticoagulation due to GI bleed Anticipated patient be ready for discharge tomorrow if hemoglobin remains stable and EGD and colonoscopy are unremarkable.
[2022-08-20 11:52] LABS: Glucose,Whole Blood 88 mg/dL (70-110)
[2022-08-20] MEDS ORDERED: PROPOFOL 10 MG/ML 20 ML VIAL IV ONE (12:22)
[2022-08-20] MEDS ORDERED: IV FLUID CONTINUATION 1,000 ML IV ONE (12:22)
[2022-08-20] MEDS ORDERED: SODIUM CHLORIDE 0.9% 500 ML 500 ML IV ONE (12:47)
[2022-08-20] MEDS: EZETIMIBE 10 MG TAB PO SCH (15:06)
[2022-08-20] MEDS: tiZANidine 4 MG TAB PO PRN ×2 (15:06→22:58)
[2022-08-20] MEDS: MONTELUKAST 10 MG TAB PO SCH (15:06)
[2022-08-20] MEDS: METOPROLOL TARTRATE 25 MG TAB PO SCH (15:06)
[2022-08-20 16:47] LABS: Glucose,Whole Blood 127 mg/dL (70-110)
[2022-08-20] MEDS ORDERED: LIDOCAINE 1% (10MG/ML) FOR IV START INTRADERMA PRN (16:47)
[2022-08-20] MEDS: LACTATED RINGERS 1,000 ML IV SCH (17:14)
[2022-08-20] MEDS: amLODIPine 10 MG TAB PO SCH (19:56)
[2022-08-20] MEDS: SODIUM CHLORIDE 0.9% 1,000 ML IV SCH (19:56)
[2022-08-20 20:27] LABS: Glucose,Whole Blood 246 mg/dL (70-110)
[2022-08-20] MEDS: ACETAMINOPHEN TAB 325 MG TAB PO PRN (21:01)
--- NOTE | 2022-08-20 22:01 | PCN ---
PROCEDURE NOTE REQUESTING PHYSICIAN: Dr. Cannon. BRIEF HISTORY: The patient is a 77-year-old pleasant white female admitted to the hospital with dizziness and hypoglycemia and she was noted to have a hemoglobin of 7.4 g/dL and this is consistent with iron deficiency anemia. She is hence scheduled for an upper endoscopy as well as colonoscopy to evaluate further. She has a history of atrial fibrillation and is on Eliquis which is currently on hold for 2 days. PROCEDURES PERFORMED: 1. Esophagogastroduodenoscopy with biopsy. 2. Colonoscopy with snare polypectomy. PREOPERATIVE DIAGNOSIS: Microcytic hypochromic anemia. ANESTHESIA: IV sedation per Anesthesia. DESCRIPTION OF PROCEDURE: After informed consent was obtained from the patient, she was brought into the endoscopy unit. IV conscious sedation was administered by Anesthesia and continuous monitoring. Initially, upper endoscopy was done. Olympus CF180 video endoscope was inserted into the mouth, esophagus, intubated without any difficulty, and was gradually advanced into the stomach and duodenum and carefully examined. Bulb and the second part of the duodenum appeared normal. Biopsies were done from the duodenum to rule out celiac disease. Scope was then withdrawn to the stomach, adequately insufflated with air, and upon careful examination, mucosa of the antrum and mild gastritis. Biopsies for H pylori were done. Body of the stomach appeared normal. On retroflexion, cardia and the fundus appeared normal. The scope was then withdrawn to the esophagus. The GE junction was located at 40 cm from the incisors. There was short-segment of Bar's esophagus identified and was biopsied. The rest of the esophagus appeared normal and the patient tolerated the procedure well. She continued to remain sedated. At this time, a colonoscopy was done. Digital rectal examination was normal. Olympus CF180 video colonoscope was then inserted into the rectum, gradually advanced into the cecum. Careful examination was performed as the scope was gradually being withdrawn. The ileocecal valve and appendiceal orifice were visualized and appeared normal. In the cecum, there were 2 polyps measuring 5 mm and 1 cm in size removed by snare polypectomy. In the ascending colon, there were 1 cm and 1.5 cm polyps removed by snare polypectomy. Ascending colon, transverse colon, descending colon, sigmoid colon, and rectum appeared normal. Moderate sigmoid diverticulosis was seen. In the rectum, retroflexion was performed. No lesions were noted. The patient tolerated the procedure well. IMPRESSION: 1. Upper endoscopy revealed. a. Mild gastritis. b. Short-segment Bar's esophagus. 2. Colonoscopy revealed 5 mm and 1 cm ascending cecal polyps, status post snare polypectomy. 3. 1 cm and 1.5 cm ascending colon polyps, status post snare polypectomy. 4. Moderate sigmoid diverticulosis. RECOMMENDATIONS: Findings of this examination were discussed with the patient as well as the family, she was advised to follow up with the biopsy results. Diet will be advanced as tolerated. Anticoagulation can be resumed tomorrow. MMODL / IJN: [id number] /
[2022-08-21 05:52] LABS: Glucose,Whole Blood 127 mg/dL (70-110)
[2022-08-21] MEDS: INSULIN ASPART (NovoLOG) 100 UNIT/ML VIAL SQ SCH ×4 (06:04→21:01)
[2022-08-21] MEDS: PANTOPRAZOLE 40 MG TABLET PO SCH ×2 (06:06→17:11)
[2022-08-21 08:40] LABS: Anisocytosis Moderate; HCT 25.4 % (34.0-46.0); Hypochromasia Marked; MCH 19.1 pg (25.0-35.0); MCHC 26.8 g/dL (31.0-37.0); MCV 71.4 fL (80.0-100.0); Mean Platelet Volume 8.3; Microcytosis Marked; Platelet Count 308 k/uL (150-450); Poikilocytosis Moderate; RBC 3.56 m/uL (3.80-5.40); RDW 21.8 % (11.5-15.5)
[2022-08-21 08:45] LABS: HGB 6.8 gm/dL (11.4-16.0)
[2022-08-21] MEDS: SODIUM FERRIC GLUCONAT-SUCROSE 125 MG in SODIUM CHLORIDE 0.9% 100 ML IVPB SCH (09:45)
[2022-08-21] MEDS: METOPROLOL TARTRATE 25 MG TAB PO SCH (09:46)
[2022-08-21] MEDS: MONTELUKAST 10 MG TAB PO SCH (09:46)
[2022-08-21] MEDS: EZETIMIBE 10 MG TAB PO SCH (09:46)
[2022-08-21] MEDS: ACETAMINOPHEN TAB 325 MG TAB PO PRN ×2 (09:46→15:45)
[2022-08-21] MEDS: tiZANidine 4 MG TAB PO PRN (09:48)
[2022-08-21 10:38] LABS: Anisocytosis Moderate; HCT 25.4 % (34.0-46.0); Hypochromasia Marked; MCHC 26.7 g/dL (31.0-37.0); MCV 71.3 fL (80.0-100.0); Microcytosis Marked; Platelet Count 316 k/uL (150-450); Poikilocytosis Moderate; RBC 3.57 m/uL (3.80-5.40); RDW 21.7 % (11.5-15.5); WBC 9.1 k/uL (3.8-10.6)
[2022-08-21 10:40] LABS: HGB 6.8 gm/dL (11.4-16.0)
[2022-08-21 11:35] LABS: Glucose,Whole Blood 138 mg/dL (70-110)
--- NOTE | 2022-08-21 12:45 | P.PN ---
Subjective Progress Note Date: 08/21/22 Patient is denying any acute complaints. Her hemoglobin this morning 6.8. A repeat hemoglobin was also 6.8. GI consulted hematology. Objective - Vital Signs Vital signs: Vital Signs Temp 98.3 F 08/21/22 09:45 Pulse 62 08/21/22 09:45 Resp 16 08/21/22 09:45 BP 118/63 08/21/22 09:45 Pulse Ox 98 08/21/22 09:45 FiO2 Intake & Output 08/20/22 08/21/22 08/21/22 18:59 06:59 18:59 Intake Total 710 1680 118 Output Total 300 850 Balance 410 830 118 Intake: IV 350 Intake, IV Titration 900 Amount Sodium Chloride 0.9% 500 900 ml 500 ml @ 0 mls/hr IV . 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 spontaneously Psych - Calm and cooperative - Labs CBC & Chem 7: 08/21/22 10:11 08/20/22 07:50 Labs: Abnormal Lab Results - Last 24 Hours (Table) 08/20/22 08/20/22 08/21/22 Range/Units 16:46 20:25 05:50 RBC (3.80-5.40) m/uL Hgb (11.4-16.0) gm/dL Hct (34.0-46.0) % MCV (80.0-100.0) fL MCH (25.0-35.0) pg MCHC (31.0-37.0) g/dL RDW (11.5-15.5) % POC Glucose (mg/dL) 127 H 246 H 127 H (70-110) mg/dL Crossmatch 08/21/22 08/21/22 08/21/22 Range/Units 07:53 10:11 10:18 RBC 3.56 L 3.57 L (3.80-5.40) m/uL Hgb 6.8 L* 6.8 L* (11.4-16.0) gm/dL Hct 25.4 L 25.4 L (34.0-46.0) % MCV 71.4 L 71.3 L (80.0-100.0) fL MCH 19.1 L 19.0 L (25.0-35.0) pg MCHC 26.8 L 26.7 L (31.0-37.0) g/dL RDW 21.8 H 21.7 H (11.5-15.5) % POC Glucose (mg/dL) (70-110) mg/dL Crossmatch See Detail 08/21/22 Range/Units 11:32 RBC (3.80-5.40) m/uL Hgb (11.4-16.0) gm/dL Hct (34.0-46.0) % MCV (80.0-100.0) fL MCH (25.0-35.0) pg MCHC (31.0-37.0) g/dL RDW (11.5-15.5) % POC Glucose (mg/dL) 138 H (70-110) mg/dL Crossmatch Assessment and Plan Assessment: symptomatic hypoglycemia 2/2 extra dose of insulin Resolved Continue with sliding scale insulin acute on chronic microcytic anemia , with GI bleed Status post 1 unit of PRBC. We will transfuse patient another unit of PRBC Hemoglobin this morning is 6.8 EGD and colonoscopy negative for any active bleeding. Colonoscopy did show 4 polyps. Patient will need a follow-up outpatient with GI for results of biopsy Hold ASA and Eliquis until cleared by gastroenterology Patient also receiving IV Ferrlecit Hematology consult Transfuse for hemoglobin less than 7 Resume PPI twice a day Acute kidney injury secondary to anemia Resolved Coronary artery disease Resume statin and metoprolol Holding aspirin due to acute blood loss anemia Hypertension Resume home BP meds Chronic hypoxic respiratory failure Patient is on 2 L as needed at home DVT prophylaxis: Hold anticoagulation due to GI bleed Anticipated patient be ready for discharge tomorrow if hemoglobin remains stable and EGD and colonoscopy are unremarkable.
[2022-08-21 16:43] LABS: Glucose,Whole Blood 179 mg/dL (70-110)
[2022-08-21] MEDS: SODIUM CHLORIDE 0.9% 1,000 ML IV SCH ×2 (19:03→23:08)
[2022-08-21 19:42] LABS: Glucose,Whole Blood 169 mg/dL (70-110)
[2022-08-21] MEDS: DOCUSATE 100 MG CAP PO SCH (21:01)
[2022-08-21] MEDS: amLODIPine 10 MG TAB PO SCH (21:01)
[2022-08-21] MEDS: LACTATED RINGERS 1,000 ML IV SCH (23:08)
[2022-08-22 06:09] LABS: Glucose,Whole Blood 113 mg/dL (70-110)
[2022-08-22] MEDS: INSULIN ASPART (NovoLOG) 100 UNIT/ML VIAL SQ SCH ×4 (06:11→20:27)
[2022-08-22] MEDS: METOPROLOL TARTRATE 25 MG TAB PO SCH (08:25)
[2022-08-22] MEDS: EZETIMIBE 10 MG TAB PO SCH (08:25)
[2022-08-22] MEDS: DOCUSATE 100 MG CAP PO SCH ×2 (08:25→20:27)
[2022-08-22] MEDS: PANTOPRAZOLE 40 MG TABLET PO SCH ×2 (08:25→16:54)
[2022-08-22] MEDS: SODIUM CHLORIDE 0.9% 1,000 ML IV SCH (08:25)
[2022-08-22] MEDS: MONTELUKAST 10 MG TAB PO SCH (08:25)
[2022-08-22] MEDS: ACETAMINOPHEN TAB 325 MG TAB PO PRN (08:28)
[2022-08-22] MEDS: tiZANidine 4 MG TAB PO PRN ×2 (08:29→23:31)
[2022-08-22 08:54] LABS: Anisocytosis Moderate; Basophils # (A) 0.1 k/uL (0-0.2); Basophils % (A) 1 %; Eosinophils # (A) 0.2 k/uL (0-0.7); Eosinophils % (A) 2 %; HCT 28.6 % (34.0-46.0); HGB 8.1 gm/dL (11.4-16.0); Hypochromasia Marked; Lymphocytes # (A) 1.2 k/uL (1.0-4.8); Lymphocytes % (A) 12 %; MCH 20.9 pg (25.0-35.0); MCHC 28.4 g/dL (31.0-37.0); MCV 73.5 fL (80.0-100.0); Mean Platelet Volume 8.3; Microcytosis Marked; Monocytes # (A) 0.5 k/uL (0-1.0); Monocytes % (A) 5 %; Neutrophils # (A) 7.8 k/uL (1.3-7.7); Neutrophils % (A) 79 %; Platelet Count 320 k/uL (150-450); Poikilocytosis Marked; RBC 3.88 m/uL (3.80-5.40); RDW 22.7 % (11.5-15.5); WBC 9.9 k/uL (3.8-10.6)
--- NOTE | 2022-08-22 09:05 | P.CONS ---
History of Present Illness - Reason for Consult Consult date: 08/21/22 anemia Requesting physician: Fadumo Ward - Chief Complaint severe anemia - History of Present Illness Pt is a pleasant female referred by Dr. Cannon for evaluation of iron deficiency anemia, initially diagnosed in 2019, started on Ferrous sulfate with poor GI tolerance, she denied melena, hematochezia or hematemesis, did have occasional hematuria due to kidney stones, intermittent episodes over the years. She had been given parenteral iron on occasion and taken PO supplements with normalization of her Hgb sometimes. Last seen February 2022, her Hgb was decreasing at that time, iron studies were not low enough yet to get insurance to pay for infusions. She was then lost to f/u. Pt is currently admitted for hypoglycemia, too much insulin. She had noted some blood after BM. No other bleeding, hematuria, melena. Hgb was 6.8 on admit. 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 D & C, cataract surgery, breast biopsy. vascular surgery Past Anesthesia/Blood Transfusion Reactions: Motion Sickness, Postoperative Nausea & Vomiting (PONV) Date of Last Stent Placement:: 2007 Past Psychological History: Depression Additional Psychological History / Comment(s): SEE THERAPIST WHEN NEEDED-NOT ON ANY MEDS Smoking Status: Former smoker Past Alcohol Use History: None Reported Additional Past Alcohol Use History / Comment(s): SMOKED IN EARLY 20'S-STOPPED in twenties. Patient is currently residing at [facility] and is wheelchair-bound. She needs assistance with showering. There are no pets in the home. 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 Past Drug Use History: None Reported - Past Family History Mother Family Medical History: Cancer, CVA/TIA Additional Family Medical History / Comment(s): of stroke Sister(s) Family Medical History: Cancer Additional Family Medical History / Comment(s): Uterine Cancer Medications and Allergies Home Medications Medication Instructions Recorded Confirmed Type Losartan [Cozaar] 25 mg PO DAILY #30 tab 07/14/16 08/18/22 Rx Apixaban [Eliquis] 5 mg PO BID 07/23/20 08/18/22 History Ezetimibe [Zetia] 10 mg PO DAILY 07/23/20 08/18/22 History medroxyPROGESTERone [Provera] 2.5 mg PO DAILY 07/23/20 08/18/22 History metFORMIN HCL [Glucophage] 500 mg PO BID 07/23/20 08/18/22 History Insulin Glargine,Hum.rec.anlog 40 unit SQ BID 08/29/20 08/18/22 History [Lantus Solostar Pen] Aspirin [Adult Low Dose Aspirin EC] 81 mg PO DAILY 01/09/21 08/18/22 History Docusate [Colace] 200 mg PO BID 01/09/21 08/18/22 History Insulin Aspart [NovoLOG Flexpen] See Protocol SQ AC-TID 01/09/21 08/18/22 History Montelukast [Singulair] 10 mg PO DAILY 01/09/21 08/18/22 History Metoprolol Tartrate [Lopressor] 25 mg PO DAILY 07/24/21 08/18/22 History Acetaminophen [Tylenol Extra 500 mg PO Q6H PRN 08/18/22 08/18/22 History Strength] Calcium Carbonate [Tums] 500 mg PO DAILY PRN 08/18/22 08/18/22 History Furosemide [Lasix] 40 mg PO DAILY 08/18/22 08/18/22 History Latanoprost [Latanoprost 0.005%] 2.5 ml BOTH EYES DAILY 08/18/22 08/18/22 History Naproxen Sodium [Aleve] 220 mg PO Q6H PRN 08/18/22 08/18/22 History Solifenacin Succinate [Vesicare] 10 mg PO DAILY 08/18/22 08/18/22 History amLODIPine [Norvasc] 5 mg PO DAILY 08/18/22 08/18/22 History Allergies Allergy/AdvReac Type Severity Reaction Status Date / Time Penicillins AdvReac Rash/Hives Verified 08/18/22 12:12 Davsdrx-PQE-WoU Reductase AdvReac EXTREME Verified 08/17/22 22:14 Inhibitor MUSCLE [Wmdnlrr-Pne-Zpc Reductase PAIN AND Inhibitor] WEAKNESS Physical Exam Vitals: Vital Signs Temp Pulse Resp BP Pulse Ox 08/21/22 09:45 98.3 F 62 16 118/63 98 08/21/22 08:49 98 08/21/22 03:39 97.8 F 56 L 18 105/49 97 08/20/22 23:39 97.8 F 67 18 110/57 97 08/20/22 20:00 98.3 F 62 20 109/57 99 08/20/22 16:00 97.2 F L 64 17 126/58 98 08/20/22 13:54 97.9 F 70 17 127/58 96 Intake and Output 08/20/22 08/21/22 08/21/22 22:59 06:59 14:59 Intake Total 1320 540 118 Output Total 550 300 Balance 770 240 118 Intake: Intake, IV Titration 900 Amount Sodium Chloride 0.9% 500 900 ml 500 ml @ 0 mls/hr IV . [facility] Rx#: [id number] Oral 420 540 118 Output: Urine 550 300 Other: Voiding Method Bedside Commode Bedside Commode Bedside Commode External Catheter External Catheter External Catheter - Constitutional General appearance: cooperative, morbidly obese, no acute distress - EENT Eyes: anicteric sclerae, EOMI ENT: hearing grossly normal, normal oropharynx - Neck Neck: no lymphadenopathy - Respiratory Respiratory: bilateral: CTA - Cardiovascular Rhythm: regular Heart sounds: normal: S1, S2 Abnormal Heart Sounds: no systolic murmur, no diastolic murmur, no rub, no S3 Gallop, no S4 Gallop, no click, no other leg Peripheral Edema: right: None, left: Other (Left forefoot amputation) - Gastrointestinal General gastrointestinal: no absent bowel sounds, no decreased bowel sounds, no distended, no hepatomegaly, no hyperactive bowel sounds, normal bowel sounds, no organomegaly, no rigid, no scaphoid, soft, no splenomegaly, no tenderness, no umbilical hernia, no ventral hernia - Integumentary Psoriasis noted at the scalp line Integumentary: pale - Neurologic Neurologic: CNII-XII intact - Musculoskeletal Musculoskeletal: strength equal bilaterally - Psychiatric Psychiatric: A&O x's 3, appropriate affect, intact judgment & insight Results CBC & Chem 7: 08/22/22 07:46 08/20/22 07:50 Labs: Abnormal Lab Results - Last 24 Hours (Table) 08/20/22 08/20/22 08/21/22 Range/Units 16:46 20:25 05:50 RBC (3.80-5.40) m/uL Hgb (11.4-16.0) gm/dL Hct (34.0-46.0) % MCV (80.0-100.0) fL MCH (25.0-35.0) pg MCHC (31.0-37.0) g/dL RDW (11.5-15.5) % POC Glucose (mg/dL) 127 H 246 H 127 H (70-110) mg/dL Crossmatch 08/21/22 08/21/22 08/21/22 Range/Units 07:53 10:11 10:18 RBC 3.56 L 3.57 L (3.80-5.40) m/uL Hgb 6.8 L* 6.8 L* (11.4-16.0) gm/dL Hct 25.4 L 25.4 L (34.0-46.0) % MCV 71.4 L 71.3 L (80.0-100.0) fL MCH 19.1 L 19.0 L (25.0-35.0) pg MCHC 26.8 L 26.7 L (31.0-37.0) g/dL RDW 21.8 H 21.7 H (11.5-15.5) % POC Glucose (mg/dL) (70-110) mg/dL Crossmatch See Detail 08/21/22 Range/Units 11:32 RBC (3.80-5.40) m/uL Hgb (11.4-16.0) gm/dL Hct (34.0-46.0) % MCV (80.0-100.0) fL MCH (25.0-35.0) pg MCHC (31.0-37.0) g/dL RDW (11.5-15.5) % POC Glucose (mg/dL) 138 H (70-110) mg/dL Crossmatch Assessment and Plan (1) Microcytic hypochromic anemia Current Visit: Yes Status: Chronic Priority: High Code(s): D50.9 - IRON DEFICIENCY ANEMIA, UNSPECIFIED SNOMED Code(s): 38316795 Plan: Patient has a history of iron deficient anemia. Currently she is status post endoscopy, no identified source of bleeding. Discussed case with GI. Plan for capsule endoscopy. Patient taking aspirin, has occasional ibuprofen use and she is on anticoagulation. She takes proton pump inhibitor and she is Tums pretty consistently. The antiplatelet/anticoagulation therapy places her at higher risk for gastrointestinal bleeding. PPIs and Tums can affect absorption of iron. Patient states that she cannot tolerate oral iron as it makes her severely constipated. Patient is receiving parenteral iron. Urged patient to keep follow-up regularly in the outpatient setting. attests: I have seen and examined patient, performed H&P, developed impression and plan of care. Discussed with dictator. Agree with documentation, dictated as a scribe.
[2022-08-22 09:16] LABS: Calcium 8.3 mg/dL (8.4-10.2); Potassium 4.2 mmol/L (3.5-5.1)
[2022-08-22] MEDS: LACTATED RINGERS 1,000 ML IV SCH (10:47)
[2022-08-22] MEDS ORDERED: SIMETHICONE 40 MG/0.6 ML DROPS 2,000 MG/30 ML BOTTLE PO ONE (10:58)
[2022-08-22] MEDS: SODIUM FERRIC GLUCONAT-SUCROSE 125 MG in SODIUM CHLORIDE 0.9% 100 ML IVPB SCH (11:00)
[2022-08-22 11:30] LABS: Glucose,Whole Blood 145 mg/dL (70-110)
--- NOTE | 2022-08-22 12:48 | P.PN ---
Subjective Progress Note Date: 08/21/22 (Late entry, patient was seen 08/21/2022 approximately 10 AM) Principal diagnosis: Anemia, possible GI bleed This is a pleasant 77-year-old female who came in by EMS for complaints of dizziness and hypoglycemia. She has a past medical history including diabetes mellitus, coronary artery disease hypertension and chronic anemia on Eliquis last was taken 08/17/2022. Apparently the patient was given some cookies from her sister and had quite a bit and states she wasn't feeling well she thought her sugar was high so she gave herself insulin repeated by further dose of insulin was then found to have a blood sugar of 30. Patient was treated at her residential [facility] living however continued to have dizziness and low blood sugar also was brought to the emergency department. When she arrived part of her workup included CBC was noted to have a hemoglobin of 6.8. Patient had reported that she had been having some bright red blood on her toilet paper and states that it is hemorrhoidal. She states that she suffers with constipation and hard stool and straining. Her last colonoscopy was several years ago for which she states that she had diverticulosis. She believes she has had a prior EGD as well although she is unsure why. States she has not had any repeat colon oscopies due to her being in a wheelchair and difficulty using the bathroom. Gastroenterology was consulted for GI bleed. Patient denies any maroon colored black stool, denies any NSAID use. No previous history of a GI bleed. She did have positive occult stool. She denies any abdominal pain, nausea or vomiting. She was given 1 unit of blood yesterday evening. Repeat labs with a hemoglobin of 7.4. Labs are consistent with a microcytic anemia. Admitting labs WBC 9.4 hemoglobin 6.8 hematocrit 24.8 MCV 60 6MCH 18 platelet count 380,000 INR 1.1 sodium 137 potassium 4.6 BUN 35 creatinine 1.66 glucose 59 total bilirubin 0.2 AST 35 ALT 15 alkaline phosphatase 51 08/19/2022. Patient seen and examined today as a follow-up. Patient was scheduled for EGD and colonoscopy today however she did not complete her prep although she did get about three-quarter way through however she was still having formed brown stool. Patient today is very anxious, she is crying in bed states that she is feeling anxious about having procedures done. She does state that she does have a history of anxiety and has Ativan and Xanax to use at home as needed. She is denying any abdominal pain or nausea or vomiting. She has not had any blood in her stool. Iron studies consistent with iron deficiency an emia 08/21/2022. Patient seen and examined today as a follow-up for possible GI bleed, anemia. Yesterday she underwent EGD and colonoscopy. EGD revealed mild gastritis and short segment of Bar's esophagus. Colonoscopy revealed 2 ascending cecal polyps status post snare polypectomy as well as 2 ascending colon polyps status post polypectomy and moderate sigmoid diverticulosis. Patient had a drop in her hemoglobin today to 6.8 and was given 1 unit of blood. She otherwise denies any abdominal pain, no nausea or vomiting. Denies any blood in her stool or black stool. Objective - Vital Signs Vital signs: Vital Signs Temp 98.5 F 08/22/22 08:40 Pulse 86 08/22/22 08:40 Resp 20 08/22/22 08:40 BP 108/48 08/22/22 08:40 Pulse Ox 90 L 08/22/22 08:40 FiO2 Intake & Output 08/21/22 08/22/22 08/22/22 18:59 06:59 18:59 Intake Total 786 820 110 Output Total 850 625 Balance 786 30 -515 Intake: IV 10 Invasive Line 2 5 Invasive Line 3 5 Intake, IV Titration 100 100 Amount Sodium Ferric Gluconat- 100 Sucrose 125 mg In Sodium Chloride 0.9% 100 ml @ 100 mls/hr IVPB DAILY [facility] Rx#:[id number] Sodium Ferric Gluconat- 100 Sucrose 125 mg In Sodium Chloride 0.9% 100 ml @ 100 mls/hr IVPB DAILY COUNTS INCLUDE 234 BEDS AT [facility] Rx#:[id number] Oral 476 720 Blood Product 310 Rc As-1 Unit 310 [id number] Output: Urine 850 625 Other: Voiding Method Bedside Commode Bedside Commode Bedside Commode External Catheter External Catheter External Catheter - Exam General appearance: The patient is alert, oriented, appears in no acute distress. Patient is very anxious, crying. HET: Head is normocephalic and atraumatic. Conjunctiva pink. Sclera anicteric. Neck: Supple without lymphadenopathy. Abdomen: Soft, nontender, nondistended with bowel sounds. No guarding or rigidity. Extremities: Normal skin color and turgor. No pedal edema Skin: No rashes, no jaundice Neurological: No focal deficits. Alert and oriented. - Labs CBC & Chem 7: 08/22/22 07:46 08/22/22 07:46 Labs: Abnormal Lab Results - Last 24 Hours (Table) 08/21/22 08/21/22 08/21/22 Range/Units 10:18 16:40 19:39 Hgb (11.4-16.0) gm/dL Hct (34.0-46.0) % MCV (80.0-100.0) fL MCH (25.0-35.0) pg MCHC (31.0-37.0) g/dL RDW (11.5-15.5) % Neutrophils # (1.3-7.7) k/uL Chloride (98-107) mmol/L Creatinine (0.52-1.04) mg/dL Glucose (74-99) mg/dL POC Glucose (mg/dL) 179 H 169 H (70-110) mg/dL Calcium (8.4-10.2) mg/dL Crossmatch See Detail 08/22/22 08/22/22 08/22/22 Range/Units 06:08 07:46 07:46 Hgb 8.1 L (11.4-16.0) gm/dL Hct 28.6 L (34.0-46.0) % MCV 73.5 L (80.0-100.0) fL MCH 20.9 L (25.0-35.0) pg MCHC 28.4 L (31.0-37.0) g/dL RDW 22.7 H (11.5-15.5) % Neutrophils # 7.8 H (1.3-7.7) k/uL Chloride 109 H (98-107) mmol/L Creatinine 1.14 H (0.52-1.04) mg/dL Glucose 101 H (74-99) mg/dL POC Glucose (mg/dL) 113 H (70-110) mg/dL Calcium 8.3 L (8.4-10.2) mg/dL Crossmatch 08/22/22 Range/Units 11:29 Hgb (11.4-16.0) gm/dL Hct (34.0-46.0) % MCV (80.0-100.0) fL MCH (25.0-35.0) pg MCHC (31.0-37.0) g/dL RDW (11.5-15.5) % Neutrophils # (1.3-7.7) k/uL Chloride (98-107) mmol/L Creatinine (0.52-1.04) mg/dL Glucose (74-99) mg/dL POC Glucose (mg/dL) 145 H (70-110) mg/dL Calcium (8.4-10.2) mg/dL Crossmatch Assessment and Plan (1) Microcytic hypochromic anemia Narrative/Plan: 77-year-old female with multiple comorbidities including coronary artery disease status post CABG on [place] presented to the emergency department with complaints of hypoglycemia and dizziness. She was known to have initial hemoglobin of 6.8 with labs consistent of a microcytic anemia. Patient denies any maroon colored or black stools but states that she does get some bright red blood on her toilet tissue after wiping which she accounts for her hemorrhoids due to constipation. Her last colonoscopy she said several years ago significant for diverticulosis. She states she did have a previous EGD is many years ago however she is unsure why and findings. Unclear etiology of anemia however due to anticoagulation need to rule out possible GI source. Patient does have a history of chronic anemia and is supposed to be taking iron supplementation however she denies taking it due to constipation issues. We'll proceed with EGD and colonoscopy tomorrow while patient is in the hospital and can have assistance using commode. Patient did not complete prep is ordered and continues to have formed stool. Will proceed to have clear liquid diet finish up L prep and will be rescheduled for tomorrow for EGD colonoscopy Current Visit: Yes Status: Chronic Priority: High Code(s): D50.9 - IRON DEFICIENCY ANEMIA, UNSPECIFIED SNOMED Code(s): 43632269 (2) Occult blood in stools Narrative/Plan: EGD colonoscopy performed without any evidence of old blood or active bleeding. This C procedure note and HPI for details. Current Visit: Yes Status: Acute Code(s): R19.5 - OTHER FECAL ABNORMALITIES SNOMED Code(s): 86910080 (3) Morbid obesity Current Visit: No Status: Acute Code(s): E66.01 - MORBID (SEVERE) OBESITY DUE TO EXCESS CALORIES SNOMED Code(s): 905161087 (4) Hypoglycemia Current Visit: Yes Status: Acute Code(s): E16.2 - HYPOGLYCEMIA, UNSPECIFIED SNOMED Code(s): 086387154 Plan: 1. Continue symptomatic and supportive care 2. Protonix 40 mg twice a day for GI prophylaxis 3. Daily CBC, transfuse for hemoglobin less than 7 4. Clear liquid diet, nothing by mouth after midnight 5. Patient scheduled for small bowel capsule endoscopy 6. Hematology consulted Thank you for this consultation, we will continue to follow. Dr. Casandra Gabriel I agree with the dictator's note, documented as a scribe by Fadumo Martinez.
--- NOTE | 2022-08-22 12:53 | P.PN ---
Subjective Progress Note Date: 08/22/22 Principal diagnosis: Anemia, possible GI bleed This is a pleasant 77-year-old female who came in by EMS for complaints of dizziness and hypoglycemia. She has a past medical history including diabetes mellitus, coronary artery disease hypertension and chronic anemia on Eliquis last was taken 08/17/2022. Apparently the patient was given some cookies from her sister and had quite a bit and states she wasn't feeling well she thought her sugar was high so she gave herself insulin repeated by further dose of insulin was then found to have a blood sugar of 30. Patient was treated at her residential intermediate however continued to have dizziness and low blood sugar also was brought to the emergency department. When she arrived part of her workup included CBC was noted to have a hemoglobin of 6.8. Patient had reported that she had been having some bright red blood on her toilet paper and states that it is hemorrhoidal. She states that she suffers with constipation and hard stool and straining. Her last colonoscopy was several years ago for which she states that she had diverticulosis. She believes she has had a prior EGD as well although she is unsure why. States she has not had any repeat colonoscopies due to her being in a wheelchair and difficulty using the bathroom. Gastroenterology was consulted for GI bleed. Patient denies any maroon colored black stool, denies any NSAID use. No previous history of a GI bleed. She did have positive occult stool. She denies any abdominal pain, nausea or vomiting. She was given 1 unit of blood yesterday evening. Repeat labs with a hemoglobin of 7.4. Labs are consistent with a microcytic anemia. Admitting labs WBC 9.4 hemoglobin 6.8 hematocrit 24.8 MCV 60 6MCH 18 platelet count 380,000 INR 1.1 sodium 137 potassium 4.6 BUN 35 creatinine 1.66 glucose 59 total bilirubin 0.2 AST 35 ALT 15 alkaline phosphatase 51 08/19/2022. Patient seen and examined today as a follow-up. Patient was scheduled for EGD and colonoscopy today however she did not complete her prep although she did get about three-quarter way through however she was still having formed brown stool. Patient today is very anxious, she is crying in bed states that she is feeling anxious about having procedures done. She does state that she does have a history of anxiety and has Ativan and Xanax to use at home as needed. She is denying any abdominal pain or nausea or vomiting. She has not had any blood in her stool. Iron studies consistent with iron deficiency anemia 08/21/2022. Patient seen and examined today as a follow-up for possible GI bleed, anemia. Yesterday she underwent EGD and colonoscopy. EGD revealed mild gastritis and short segment of Bar's esophagus. Colonoscopy revealed 2 ascending cecal polyps status post snare polypectomy as well as 2 ascending colon polyps status post polypectomy and moderate sigmoid diverticulosis. Patient had a drop in her hemoglobin today to 6.8 and was given 1 unit of blood. She otherwise denies any abdominal pain, no nausea or vomiting. Denies any blood in her stool or black stool. All 1621. Patient seen and examined today for follow-up. She is scheduled to undergo a small bowel video capsule endoscopy today. She again denies any rectal bleeding or blood in her stool. No abdominal pain nausea or vomiting. Hemoglobin stable today at 8.2. She is status post 2 units of PRBC transfusion this admission. No other complaints at this time. Hematology is following. Objective - Vital Signs Vital signs: Vital Signs Temp 97.8 F 08/22/22 12:07 Pulse 78 08/22/22 12:07 Resp 18 08/22/22 12:07 BP 112/54 08/22/22 12:07 Pulse Ox 94 L 08/22/22 12:07 FiO2 Intake & Output 08/21/22 08/22/22 08/22/22 18:59 06:59 18:59 Intake Total 786 820 110 Output Total 850 1025 Balance 786 30 -915 Intake: IV 10 Invasive Line 2 5 Invasive Line 3 5 Intake, IV Titration 100 100 Amount Sodium Ferric Gluconat- 100 Sucrose 125 mg In Sodium Chloride 0.9% 100 ml @ 100 mls/hr IVPB DAILY [facility] Rx#:[id number] Sodium Ferric Gluconat- 100 Sucrose 125 mg In Sodium Chloride 0.9% 100 ml @ 100 mls/hr IVPB DAILY [facility] Rx#:[id number] Oral 474 720 Blood Product 310 Rc As-1 Unit 310 [id number] Output: Urine 850 1025 Other: Voiding Method Bedside Commode Bedside Commode Bedside Commode External Catheter External Catheter External Catheter - Exam General appearance: The patient is alert, oriented, appears in no acute distress. Patient is very anxious, crying. HET: Head is normocephalic and atraumatic. Conjunctiva pink. Sclera anicteric. Neck: Supple without lymphadenopathy. Abdomen: Soft, nontender, nondistended with bowel sounds. No guarding or rigidity. Extremities: Normal skin color and turgor. No pedal edema Skin: No rashes, no jaundice Neurological: No focal deficits. Alert and oriented. - Labs CBC & Chem 7: 08/22/22 07:46 08/22/22 07:46 Labs: Abnormal Lab Results - Last 24 Hours (Table) 08/21/22 08/21/22 08/21/22 Range/Units 10:18 16:40 19:39 Hgb (11.4-16.0) gm/dL Hct (34.0-46.0) % MCV (80.0-100.0) fL MCH (25.0-35.0) pg MCHC (31.0-37.0) g/dL RDW (11.5-15.5) % Neutrophils # (1.3-7.7) k/uL Chloride (98-107) mmol/L Creatinine (0.52-1.04) mg/dL Glucose (74-99) mg/dL POC Glucose (mg/dL) 179 H 169 H (70-110) mg/dL Calcium (8.4-10.2) mg/dL Crossmatch See Detail 08/22/22 08/22/22 08/22/22 Range/Units 06:08 07:46 07:46 Hgb 8.1 L (11.4-16.0) gm/dL Hct 28.6 L (34.0-46.0) % MCV 73.5 L (80.0-100.0) fL MCH 20.9 L (25.0-35.0) pg MCHC 28.4 L (31.0-37.0) g/dL RDW 22.7 H (11.5-15.5) % Neutrophils # 7.8 H (1.3-7.7) k/uL Chloride 109 H (98-107) mmol/L Creatinine 1.14 H (0.52-1.04) mg/dL Glucose 101 H (74-99) mg/dL POC Glucose (mg/dL) 113 H (70-110) mg/dL Calcium 8.3 L (8.4-10.2) mg/dL Crossmatch 08/22/22 Range/Units 11:29 Hgb (11.4-16.0) gm/dL Hct (34.0-46.0) % MCV (80.0-100.0) fL MCH (25.0-35.0) pg MCHC (31.0-37.0) g/dL RDW (11.5-15.5) % Neutrophils # (1.3-7.7) k/uL Chloride (98-107) mmol/L Creatinine (0.52-1.04) mg/dL Glucose (74-99) mg/dL POC Glucose (mg/dL) 145 H (70-110) mg/dL Calcium (8.4-10.2) mg/dL Crossmatch Assessment and Plan (1) Microcytic hypochromic anemia Narrative/Plan: 77-year-old female with multiple comorbidities including coronary artery disease status post CABG on [place] presented to the emergency department with comp laints of hypoglycemia and dizziness. She was known to have initial hemoglobin of 6.8 with labs consistent of a microcytic anemia. Patient denies any maroon colored or black stools but states that she does get some bright red blood on her toilet tissue after wiping which she accounts for her hemorrhoids due to constipation. Her last colonoscopy she said several years ago significant for diverticulosis. She states she did have a previous EGD is many years ago however she is unsure why and findings. Unclear etiology of anemia however due to anticoagulation need to rule out possible GI source. Patient does have a history of chronic anemia and is supposed to be taking iron supplementation however she denies taking it due to constipation issues. We'll proceed with EGD and colonoscopy tomorrow while patient is in the hospital and can have assistance using commode. Patient did not complete prep is ordered and continues to have formed stool. Will proceed to have clear liquid diet finish up L prep and will be rescheduled for tomorrow for EGD colonoscopy Current Visit: Yes Status: Chronic Priority: High Code(s): D50.9 - IRON DEFICIENCY ANEMIA, UNSPECIFIED SNOMED Code(s): 74708894 (2) Occult blood in stools Narrative/Plan: EGD colonoscopy performed without any evidence of old blood or active bleeding. This C procedure note and HPI for details. Current Visit: Yes Status: Acute Code(s): R19.5 - OTHER FECAL ABNORMALITIES SNOMED Code(s): 46230756 (3) Morbid obesity Current Visit: No Status: Acute Code(s): E66.01 - MORBID (SEVERE) OBESITY DUE TO EXCESS CALORIES SNOMED Code(s): 202617114 (4) Hypoglycemia Current Visit: Yes Status: Acute Code(s): E16.2 - HYPOGLYCEMIA, UNSPECIFIED SNOMED Code(s): 221069551 Plan: 1. Continue symptomatic and supportive care 2. Protonix 40 mg twice a day for GI prophylaxis 3. Daily CBC, transfuse for hemoglobin less than 7 4. Nothing by mouth, Patient may have clear liquid diet 2 hours after administration of the SBC and regular diet after 4 hours 5. Patient scheduled for small bowel capsule endoscopy today 6. Hematology consulted 7. Once small bowel capsule endoscopy is completed patient is cleared from gastroenterology for discharge. She is to follow-up with gastroenterology in 1- 2 weeks for follow-up of report. Thank you for allowing us to participate in the care of the patient, the GI service will sign off, gastroenterology will not be available at the hospital this weekend and through next week. If further evaluation by gastroenterology is required the patient will need transfer as per the primary team's discretion. Dr. Casandra Gabriel I agree with the dictator's note, documented as a scribe by Fadumo Martinez.
--- NOTE | 2022-08-22 13:31 | P.PN ---
Subjective Progress Note Date: 08/22/22 Patient denying any acute complaints. Patient is scheduled for capsule study today. She is denying any overt signs of bleeding. Objective - Vital Signs Vital signs: Vital Signs Temp 97.8 F 08/22/22 12:07 Pulse 78 08/22/22 12:07 Resp 18 08/22/22 12:07 BP 112/54 08/22/22 12:07 Pulse Ox 94 L 08/22/22 12:07 FiO2 Intake & Output 08/21/22 08/22/22 08/22/22 18:59 06:59 18:59 Intake Total 786 820 110 Output Total 850 1025 Balance 832 -34 -913 Intake: IV 10 Invasive Line 2 5 Invasive Line 3 5 Intake, IV Titration 100 100 Amount Sodium Ferric Gluconat- 100 Sucrose 125 mg In Sodium Chloride 0.9% 100 ml @ 100 mls/hr IVPB DAILY [facility] Rx#:[id number] Sodium Ferric Gluconat- 100 Sucrose 125 mg In Sodium Chloride 0.9% 100 ml @ 100 mls/hr IVPB DAILY [facility] Rx#:[id number] Oral 476 720 Blood Product 310 Rc As-1 Unit 310 [id number] Output: Urine 850 1025 Other: Voiding Method Bedside Commode Bedside Commode Bedside Commode External Catheter External Catheter External Catheter - Exam General examination - Alert and Oriented 3 in NAD, appears chronically debilitated Heart - + S1S2 no murmurs Lungs - Clear to auscultation Abdomen soft NT ND +ve BS Extremities - No edema [employer]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 Psych - Calm and cooperative - Labs CBC & Chem 7: 08/22/22 07:46 08/22/22 07:46 Labs: Abnormal Lab Results - Last 24 Hours (Table) 08/21/22 08/21/22 08/21/22 Range/Units 10:18 16:40 19:39 Hgb (11.4-16.0) gm/dL Hct (34.0-46.0) % MCV (80.0-100.0) fL MCH (25.0-35.0) pg MCHC (31.0-37.0) g/dL RDW (11.5-15.5) % Neutrophils # (1.3-7.7) k/uL Chloride (98-107) mmol/L Creatinine (0.52-1.04) mg/dL Glucose (74-99) mg/dL POC Glucose (mg/dL) 179 H 169 H (70-110) mg/dL Calcium (8.4-10.2) mg/dL Crossmatch See Detail 08/22/22 08/22/22 08/22/22 Range/Units 06:08 07:46 07:46 Hgb 8.1 L (11.4-16.0) gm/dL Hct 28.6 L (34.0-46.0) % MCV 73.5 L (80.0-100.0) fL MCH 20.9 L (25.0-35.0) pg MCHC 28.4 L (31.0-37.0) g/dL RDW 22.7 H (11.5-15.5) % Neutrophils # 7.8 H (1.3-7.7) k/uL Chloride 109 H (98-107) mmol/L Creatinine 1.14 H (0.52-1.04) mg/dL Glucose 101 H (74-99) mg/dL POC Glucose (mg/dL) 113 H (70-110) mg/dL Calcium 8.3 L (8.4-10.2) mg/dL Crossmatch 08/22/22 Range/Units 11:29 Hgb (11.4-16.0) gm/dL Hct (34.0-46.0) % MCV (80.0-100.0) fL MCH (25.0-35.0) pg MCHC (31.0-37.0) g/dL RDW (11.5-15.5) % Neutrophils # (1.3-7.7) k/uL Chloride (98-107) mmol/L Creatinine (0.52-1.04) mg/dL Glucose (74-99) mg/dL POC Glucose (mg/dL) 145 H (70-110) mg/dL Calcium (8.4-10.2) mg/dL Crossmatch Assessment and Plan Assessment: symptomatic hypoglycemia 2/2 extra dose of insulin Resolved Continue with sliding scale insulin acute on chronic microcytic anemia , with GI bleed Status post 2 unit of PRBC since admission Hemoglobin this morning is 8.1. Patient responded appropriately to blood transfusion EGD and colonoscopy negative for any active bleeding. Colonoscopy did show 4 polyps. Patient will need a follow-up outpatient with GI for results of biopsy Patient scheduled for a capsule study this afternoon Hold ASA and Eliquis until cleared by gastroenterology Patient also receiving IV Ferrlecit Appreciate hematology recommendations Transfuse for hemoglobin less than 7 Resume PPI twice a day Acute kidney injury secondary to anemia Resolved Coronary artery disease Resume statin and metoprolol Holding aspirin due to acute blood loss anemia Hypertension Resume home BP meds Chronic hypoxic respiratory failure Patient is on 2 L as needed at home DVT prophylaxis: Hold anticoagulation due to GI bleed Anticipated patient be ready for discharge tomorrow if hemoglobin remains stable and EGD and colonoscopy are unremarkable.
[2022-08-22 16:46] LABS: Glucose,Whole Blood 223 mg/dL (70-110)
[2022-08-22 20:15] LABS: Glucose,Whole Blood 179 mg/dL (70-110)
[2022-08-22] MEDS: amLODIPine 10 MG TAB PO SCH (20:27)
[2022-08-23] MEDS: ACETAMINOPHEN TAB 325 MG TAB PO PRN ×2 (01:23→09:29)
[2022-08-23] MEDS: SODIUM CHLORIDE 0.9% 1,000 ML IV SCH ×2 (02:01→12:34)
[2022-08-23] MEDS: PANTOPRAZOLE 40 MG TABLET PO SCH ×2 (06:30→17:22)
[2022-08-23 06:43] LABS: Glucose,Whole Blood 207 mg/dL (70-110)
[2022-08-23] MEDS: INSULIN ASPART (NovoLOG) 100 UNIT/ML VIAL SQ SCH ×4 (06:52→21:39)
[2022-08-23] MEDS: DOCUSATE 100 MG CAP PO SCH ×2 (09:29→21:41)
[2022-08-23] MEDS: MONTELUKAST 10 MG TAB PO SCH (09:29)
[2022-08-23] MEDS: tiZANidine 4 MG TAB PO PRN (09:29)
[2022-08-23] MEDS: EZETIMIBE 10 MG TAB PO SCH (09:29)
[2022-08-23] MEDS: SODIUM FERRIC GLUCONAT-SUCROSE 125 MG in SODIUM CHLORIDE 0.9% 100 ML IVPB SCH (09:29)
[2022-08-23] MEDS: METOPROLOL TARTRATE 25 MG TAB PO SCH (09:30)
[2022-08-23 10:13] LABS: Anisocytosis Moderate; HCT 29.2 % (34.0-46.0); HGB 8.5 gm/dL (11.4-16.0); Hypochromasia Marked; MCH 22.1 pg (25.0-35.0); MCHC 29.2 g/dL (31.0-37.0); MCV 75.4 fL (80.0-100.0); Mean Platelet Volume 8.8; Microcytosis Marked; Platelet Count 284 k/uL (150-450); Poikilocytosis Moderate; RBC 3.87 m/uL (3.80-5.40); RDW 23.9 % (11.5-15.5); WBC 8.2 k/uL (3.8-10.6)
[2022-08-23 10:21] LABS: Calcium 8.3 mg/dL (8.4-10.2)
[2022-08-23 10:29] LABS: Potassium 5.1 mmol/L (3.5-5.1)
--- NOTE | 2022-08-23 10:41 | P.DS ---
Providers Date of admission: 08/18/22 00:48 Attending physician: Windy Brumfield MD Consults: 08/18/22 03:05 Consult Physician Routine Consulting Provider: Aletha Gabriel Consult Reason/Comments: gi bleed Do you want consulting provider notified?: Yes, Notify in am 08/21/22 09:42 Consult Physician Routine Consulting Provider: Azra Knight Consult Reason/Comments: iron deficiency anemia, s/p endoscopy with no bleeding Do you want consulting provider notified?: Yes [facility] care [facility] [place] [facility] Course: Discharge Diagnosis: Symptomatic hypoglycemia secondary to accident overdose on insulin Acute on chronic microcytic anemia Acute kidney injury secondary to anemia: Resolved Coronary artery disease Hypertension Chronic hypoxic respiratory failure Hospital Course: Patient is a 77-year-old female with a past medical history of diabetes anemia and coronary disease and hypertension who lives at an [facility] facility and was found to have symptomatic hypoglycemia after taking multiple doses of insulin to help control her hyperglycemia from earlier in the day. In the ED patient was found to have anemia with an hemoglobin of 6.8. So she was admitted for further evaluation by gastroenterology. Patient's Eliquis and aspirin were held. Patient had an EGD and colonoscopy that was negative for any acute bleeding but did show polyps in the colon. After the procedure patient's hemoglobin continued to trend down. So gastroenterology did a capsule study. Unfortunately the study was done on Thursday and results are not available at this time and GI also no longer available. However hemoglobin was stable on discharge and actually uptrending. I told patient to continue to hold the Eliquis and aspirin and follow up with GI in 1 week to discuss the capsule study results and to also discuss if okay to resume her aspirin and Eliquis. Patient is also being followed by hematology. She received IV Ferrlecit for her iron deficiency anemia. Patient instructed to follow up outpatient with hematology as well. Patient seen and examined at bedside.[] Vital signs reviewed and stable. General: [non toxic], [no distress], [appears at stated age] appears chronically debilitated Derm: [warm], [dry] Head: [atraumatic], [normocephalic], [symmetric] Eyes: [EOMI], [no lid lag], [anicteric sclera] Mouth: [no lip lesion], [mucus membranes moist] Cardiovascular: [S1S2 reg], [no murmur], [positive posterior tibial pulse bilateral], Lungs: [CTA bilateral], [no rhonchi, no rales] , [no accessory muscle use] Abdominal: [soft], [ nontender to palpation], [no guarding], [no appreciable organomegaly] Ext: [no gross muscle atrophy], [no edema], [no contractures] Neuro: [ CN II-XI grossly intact], [no focal neuro deficits] Psych: [Alert], [oriented], [appropriate affect] A total of [33] minutes of time were spent preparing this complex discharge summary . Patient Condition at Discharge: Stable Plan - Discharge Summary Discharge Rx Participant: Yes New Discharge Prescriptions: New Pantoprazole [Protonix] 40 mg PO AC-BID 30 Days #60 tab Continue Losartan [Cozaar] 25 mg PO DAILY #30 tab Ezetimibe [Zetia] 10 mg PO DAILY medroxyPROGESTERone [Provera] 2.5 mg PO DAILY metFORMIN HCL [Glucophage] 500 mg PO BID Insulin Glargine,Hum.rec.anlog [Lantus Solostar Pen] 40 unit SQ BID Montelukast [Singulair] 10 mg PO DAILY Insulin Aspart [NovoLOG Flexpen] See Protocol SQ AC-TID Metoprolol Tartrate [Lopressor] 25 mg PO DAILY Calcium Carbonate [Tums] 500 mg PO DAILY PRN PRN Reason: Heartburn Furosemide [Lasix] 40 mg PO DAILY Latanoprost [Latanoprost 0.005%] 2.5 ml BOTH EYES DAILY Docusate [Colace] 200 mg PO BID Acetaminophen [Tylenol Extra Strength] 500 mg PO Q6H PRN PRN Reason: Pain Or Fever > 100.5 amLODIPine [Norvasc] 5 mg PO DAILY Solifenacin Succinate [Vesicare] 10 mg PO DAILY Discontinued Apixaban [Eliquis] 5 mg PO BID Aspirin [Adult Low Dose Aspirin EC] 81 mg PO DAILY Naproxen Sodium [Aleve] 220 mg PO Q6H PRN PRN Reason: Pain Discharge Medication List Losartan [Cozaar] 25 mg PO DAILY #30 tab 07/14/16 [Rx] Ezetimibe [Zetia] 10 mg PO DAILY 07/23/20 [History] medroxyPROGESTERone [Provera] 2.5 mg PO DAILY 07/23/20 [History] metFORMIN HCL [Glucophage] 500 mg PO BID 07/23/20 [History] Insulin Glargine,Hum.rec.anlog [Lantus Solostar Pen] 40 unit SQ BID 08/29/20 [History] Docusate [Colace] 200 mg PO BID 01/09/21 [History] Insulin Aspart [NovoLOG Flexpen] See Protocol SQ AC-TID 01/09/21 [History] Montelukast [Singulair] 10 mg PO DAILY 01/09/21 [History] Metoprolol Tartrate [Lopressor] 25 mg PO DAILY 07/24/21 [History] Acetaminophen [Tylenol Extra Strength] 500 mg PO Q6H PRN 08/18/22 [History] Calcium Carbonate [Tums] 500 mg PO DAILY PRN 08/18/22 [History] Furosemide [Lasix] 40 mg PO DAILY 08/18/22 [History] Latanoprost [Latanoprost 0.005%] 2.5 ml BOTH EYES DAILY 08/18/22 [History] Solifenacin Succinate [Vesicare] 10 mg PO DAILY 08/18/22 [History] amLODIPine [Norvasc] 5 mg PO DAILY 08/18/22 [History] Pantoprazole [Protonix] 40 mg PO AC-BID 30 Days #60 tab 08/23/22 [Rx] Follow up Appointment(s)/Referral(s): Mynor Cannon MD [Primary Care Provider] - 1-2 days Aletha Gabriel MD [STAFF PHYSICIAN] - 1 Week (Call office in one week for biopsy results) Discharge Disposition: HOME SELF-CARE
[2022-08-23] MEDS: polyethylene glycoL 3350 17 GM POWD.PACK PO SCH (11:30)
[2022-08-23 11:45] LABS: Glucose,Whole Blood 177 mg/dL (70-110)
[2022-08-23] MEDS: LACTATED RINGERS 1,000 ML IV SCH (12:34)
--- NOTE | 2022-08-23 15:33 | P.PN ---
Subjective Progress Note Date: 08/23/22 Patient this morning is denying any acute complaints. Patient was deemed stable for discharge his hemoglobin is improving. However later when nurse was started discharge the patient patient stated that she is not comfortable going home and would like to go to a jail facility. Patient is wheelchair bound. However patient stated that she is independently able to transfer from bed to chair and now is requiring 2 person assistance. Objective - Vital Signs Vital signs: Vital Signs Temp 97.8 F 08/23/22 11:31 Pulse 65 08/23/22 11:31 Resp 18 08/23/22 11:31 BP 145/56 08/23/22 11:31 Pulse Ox 99 08/23/22 11:31 FiO2 Intake & Output 08/22/22 08/23/22 08/23/22 18:59 06:59 18:59 Intake Total 228 10 Output Total 1575 1000 700 Balance -7612 -1491 -962 Intake: IV 10 10 Invasive Line 2 5 5 Invasive Line 3 5 5 Intake, IV Titration 100 Amount Sodium Ferric Gluconat- 100 Sucrose 125 mg In Sodium Chloride 0.9% 100 ml @ 100 mls/hr IVPB DAILY [facility] Rx#:[id number] Oral 118 Output: Urine 1575 1000 700 Other: Voiding Method Bedside Commode Bedside Commode Bedside Commode External Catheter External Catheter External Catheter - Exam General examination - Alert and Oriented 3 in NAD, appears chronically debilitated Heart - + S1S2 no murmurs Lungs - Clear to auscultation Abdomen soft NT ND +ve BS Extremities - No edema [employer]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 Psych - Calm and cooperative - Labs CBC & Chem 7: 08/23/22 09:36 08/23/22 09:36 Labs: Abnormal Lab Results - Last 24 Hours (Table) 08/22/22 08/22/22 08/23/22 Range/Units 16:39 20:14 06:43 Hgb (11.4-16.0) gm/dL Hct (34.0-46.0) % MCV (80.0-100.0) fL MCH (25.0-35.0) pg MCHC (31.0-37.0) g/dL RDW (11.5-15.5) % Chloride (98-107) mmol/L Carbon Dioxide (22-30) mmol/L Creatinine (0.52-1.04) mg/dL Glucose (74-99) mg/dL POC Glucose (mg/dL) 223 H 179 H 207 H (70-110) mg/dL Calcium (8.4-10.2) mg/dL 08/23/22 08/23/22 08/23/22 Range/Units 09:36 09:36 11:43 Hgb 8.5 L (11.4-16.0) gm/dL Hct 29.2 L (34.0-46.0) % MCV 75.4 L (80.0-100.0) fL MCH 22.1 L (25.0-35.0) pg MCHC 29.2 L (31.0-37.0) g/dL RDW 23.9 H (11.5-15.5) % Chloride 109 H (98-107) mmol/L Carbon Dioxide 21 L (22-30) mmol/L Creatinine 1.12 H (0.52-1.04) mg/dL Glucose 169 H (74-99) mg/dL POC Glucose (mg/dL) 177 H (70-110) mg/dL Calcium 8.3 L (8.4-10.2) mg/dL Assessment and Plan Assessment: symptomatic hypoglycemia 2/2 extra dose of insulin Resolved Continue with sliding scale insulin acute on chronic microcytic anemia , with GI bleed Status post 2 unit of PRBC since admission Hemoglobin is stable this morning and up trending. We will not trend hemoglobin unless patient has any overt signs of bleeding. EGD and colonoscopy negative for any active bleeding. Colonoscopy did show 4 polyps. Patient will need to follow-up outpatient with GI for results of biopsy Patient had capsule study done on 08/22/2022. However report is pending. GI no longer available. We'll have patient follow-up with GI outpatient 1 week to discuss capsule study. Hold ASA and Eliquis until cleared by gastroenterology outpatient in a week. I discussed this with the patient. I also told the patient that when holding anticoagulation she is high risk for stroke. Patient also receiving IV Ferrlecit Appreciate hematology recommendations Transfuse for hemoglobin less than 7 Resume PPI twice a day Acute kidney injury secondary to anemia Resolved Coronary artery disease Resume statin and metoprolol Holding aspirin due to acute blood loss anemia Hypertension Resume home BP meds Chronic hypoxic respiratory failure Patient is on 2 L as needed at home Acute or chronic debility Patient is wheelchair bound. However patient would like to go to jail facility does not feel comfortable going home so will consult PT OT and discuss with vp digital marketing social media and crm about placement on Thursday DVT prophylaxis: Hold anticoagulation due to GI bleed Patient medically stable for discharge. Awaiting for PT OT recommendations.
[2022-08-23 16:35] LABS: Glucose,Whole Blood 194 mg/dL (70-110)
[2022-08-23 20:17] LABS: Glucose,Whole Blood 168 mg/dL (70-110)
[2022-08-23] MEDS: amLODIPine 10 MG TAB PO SCH (21:39)
[2022-08-24 06:05] LABS: Glucose,Whole Blood 123 mg/dL (70-110)
[2022-08-24] MEDS: SODIUM CHLORIDE 0.9% 1,000 ML IV SCH ×2 (06:19→09:17)
[2022-08-24] MEDS: INSULIN ASPART (NovoLOG) 100 UNIT/ML VIAL SQ SCH ×4 (06:19→20:33)
[2022-08-24] MEDS: PANTOPRAZOLE 40 MG TABLET PO SCH ×2 (06:52→17:37)
[2022-08-24] MEDS: ACETAMINOPHEN TAB 325 MG TAB PO PRN (08:22)
[2022-08-24] MEDS: tiZANidine 4 MG TAB PO PRN (08:22)
[2022-08-24] MEDS: polyethylene glycoL 3350 17 GM POWD.PACK PO SCH (08:23)
[2022-08-24] MEDS: METOPROLOL TARTRATE 25 MG TAB PO SCH (08:23)
[2022-08-24] MEDS: MONTELUKAST 10 MG TAB PO SCH (08:23)
[2022-08-24] MEDS: EZETIMIBE 10 MG TAB PO SCH (08:23)
[2022-08-24] MEDS: DOCUSATE 100 MG CAP PO SCH ×2 (08:23→20:33)
[2022-08-24] MEDS: LACTATED RINGERS 1,000 ML IV SCH (09:17)
[2022-08-24] MEDS: SODIUM FERRIC GLUCONAT-SUCROSE 125 MG in SODIUM CHLORIDE 0.9% 100 ML IVPB SCH (09:36)
--- NOTE | 2022-08-24 09:59 | P.PN ---
Subjective Progress Note Date: 08/24/22 Patient stated that she still not had a bowel movement yet. Patient otherwise denying any acute complaints. Patient was deemed stable for discharge yesterday. However patient stated that she is not comfortable going home. We will have PT OT evaluate the patient. At baseline patient is wheelchair bound. However she states that she was able to transfer from bed to chair independently however is now requiring 2 person assist. We also not able to contact patient's assisted living facility over the weekend to see if they can accommodate for 2 person assist Objective - Vital Signs Vital signs: Vital Signs Temp 98.5 F 08/24/22 08:49 Pulse 87 08/24/22 08:49 Resp 18 08/24/22 08:49 BP 147/55 08/24/22 08:49 Pulse Ox 92 L 08/24/22 08:49 FiO2 Intake & Output 08/23/22 08/24/22 08/24/22 18:59 06:59 18:59 Intake Total 20 20 10 Output Total 1100 1150 300 Balance -1080 -1130 -290 Intake: IV 20 20 10 Invasive Line 2 10 10 5 Invasive Line 3 10 10 5 Output: Urine 1100 1150 300 Other: Voiding Method Bedside Commode Bedside Commode Bedside Commode External Catheter External Catheter External Catheter - Exam General examination - Alert and Oriented 3 in NAD, appears chronically debilitated Heart - + S1S2 no murmurs Lungs - Clear to auscultation Abdomen soft NT ND +ve BS Extremities - No edema [employer] - Moving all 4 extremities spontaneously Psych - Calm and cooperative - Labs CBC & Chem 7: 08/23/22 09:36 08/23/22 09:36 Labs: Abnormal Lab Results - Last 24 Hours (Table) 08/23/22 08/23/22 08/23/22 Range/Units 09:36 09:36 11:43 Hgb 8.5 L (11.4-16.0) gm/dL Hct 29.2 L (34.0-46.0) % MCV 75.4 L (80.0-100.0) fL MCH 22.1 L (25.0-35.0) pg MCHC 29.2 L (31.0-37.0) g/dL RDW 23.9 H (11.5-15.5) % Chloride 109 H (98-107) mmol/L Carbon Dioxide 21 L (22-30) mmol/L Creatinine 1.12 H (0.52-1.04) mg/dL Glucose 169 H (74-99) mg/dL POC Glucose (mg/dL) 177 H (70-110) mg/dL Calcium 8.3 L (8.4-10.2) mg/dL 08/23/22 08/23/22 08/24/22 Range/Units 16:33 20:16 06:04 Hgb (11.4-16.0) gm/dL Hct (34.0-46.0) % MCV (80.0-100.0) fL MCH (25.0-35.0) pg MCHC (31.0-37.0) g/dL RDW (11.5-15.5) % Chloride (98-107) mmol/L Carbon Dioxide (22-30) mmol/L Creatinine (0.52-1.04) mg/dL Glucose (74-99) mg/dL POC Glucose (mg/dL) 194 H 168 H 123 H (70-110) mg/dL Calcium (8.4-10.2) mg/dL Assessment and Plan Assessment: symptomatic hypoglycemia 2/2 extra dose of insulin Resolved Continue with sliding scale insulin acute on chronic microcytic anemia , with GI bleed Status post 2 unit of PRBC since admission Hemoglobin is stable this morning and up trending. We will not trend hemoglobin unless patient has any overt signs of bleeding. EGD and colonoscopy negative for any active bleeding. Colonoscopy did show 4 polyps. Patient will need to follow-up outpatient with GI for results of biopsy Patient had capsule study done on 08/22/2022. However report is pending. GI no longer available. We'll have patient follow-up with GI outpatient 1 week to discuss capsule study. Hold ASA and Eliquis until cleared by gastroenterology outpatient in a week. I discussed this with the patient. I also told the patient that when holding anticoagulation she is high risk for stroke. Patient also receiving IV Ferrlecit Appreciate hematology recommendations Transfuse for hemoglobin less than 7 Resume PPI twice a day Acute kidney injury secondary to anemia Resolved Coronary artery disease Resume statin and metoprolol Holding aspirin due to acute blood loss anemia Hypertension Resume home BP meds Chronic hypoxic respiratory failure Patient is on 2 L as needed at home Acute or chronic debility Patient is wheelchair bound. However patient would like to go to correction facility does not feel comfortable going home so will consult PT OT and discuss with director social welfare about placement on Thursday DVT prophylaxis: Hold anticoagulation due to GI bleed Patient medically stable for discharge. Awaiting for PT OT recommendations.
[2022-08-24 12:01] LABS: Glucose,Whole Blood 203 mg/dL (70-110)
[2022-08-24 16:32] LABS: Glucose,Whole Blood 203 mg/dL (70-110)
[2022-08-24 20:31] LABS: Glucose,Whole Blood 194 mg/dL (70-110)
[2022-08-24] MEDS: amLODIPine 10 MG TAB PO SCH (20:33)
[2022-08-25] MEDS: SODIUM CHLORIDE 0.9% 1,000 ML IV SCH (06:13)
[2022-08-25 06:14] LABS: Glucose,Whole Blood 112 mg/dL (70-110)
[2022-08-25] MEDS: INSULIN ASPART (NovoLOG) 100 UNIT/ML VIAL SQ SCH ×3 (06:15→17:16)
[2022-08-25] MEDS: PANTOPRAZOLE 40 MG TABLET PO SCH ×2 (06:16→17:16)
[2022-08-25] MEDS: METOPROLOL TARTRATE 25 MG TAB PO SCH (09:23)
[2022-08-25] MEDS: MONTELUKAST 10 MG TAB PO SCH (09:23)
[2022-08-25] MEDS: polyethylene glycoL 3350 17 GM POWD.PACK PO SCH (09:23)
[2022-08-25] MEDS: SODIUM FERRIC GLUCONAT-SUCROSE 125 MG in SODIUM CHLORIDE 0.9% 100 ML IVPB SCH (09:23)
[2022-08-25] MEDS: EZETIMIBE 10 MG TAB PO SCH (09:23)
[2022-08-25] MEDS: DOCUSATE 100 MG CAP PO SCH (09:23)
[2022-08-25 09:43] VITALS: RESP 16
[2022-08-25 11:21] VITALS: BMI 42.5
[2022-08-25 11:35] LABS: Glucose,Whole Blood 196 mg/dL (70-110)
[2022-08-25 12:56] VITALS: BP 158/68; PULSE 79; TEMP 98.1
--- NOTE | 2022-08-25 15:12 | P.DS ---
Providers Date of admission: 08/18/22 00:48 Expected date of discharge: 08/25/22 Attending physician: Windy Brumfield MD Consults: 08/18/22 03:05 Consult Physician Routine Consulting Provider: Aletha Gabriel Consult Reason/Comments: gi bleed Do you want consulting provider notified?: Yes, Notify in am 08/21/22 09:42 Consult Physician Routine Consulting Provider: Azra Knight Consult Reason/Comments: iron deficiency anemia, s/p endoscopy with no bleeding Do you want consulting provider notified?: Yes Primary care physician: [facility] Course: Patient is a 77-year-old female with a past medical history of diabetes anemia and coronary disease and hypertension who lives at an [facility] facility and was found to have symptomatic hypoglycemia after taking multiple doses of insulin to help control her hyperglycemia from earlier in the day. In the ED patient was found to have anemia with an hemoglobin of 6.8. So she was admitted for further evaluation by gastroenterology. Patient's Eliquis and aspirin were held. Patient had an EGD and colonoscopy that was negative for any acute bleeding but did show polyps in the colon. After the procedure patient's hemoglobin continued to trend down. So gastroenterology did a capsule study. Unfortunately the study was done on Thursday and results are not available at this time and GI also no longer availabl e. However hemoglobin was stable on discharge and actually uptrending. I told patient to continue to hold the Eliquis and aspirin and follow up with GI in 1 week to discuss the capsule study results and to also discuss if okay to resume her aspirin and Eliquis. Patient is also being followed by hematology. She received IV Ferrlecit for her iron deficiency anemia. Patient instructed to follow up outpatient with hematology as well. Patient was seen and examined. No acute events overnight. She reports fatigue but has no other complaints. Pertinent procedures include EGD and colonoscopy. Pertinent studies include capsule endoscopy. General: non toxic, no distress, appears at stated age Derm: warm, dry Head: atraumatic, normocephalic, symmetric Eyes: EOMI, no lid lag, anicteric sclera Mouth: no lip lesion, mucus membranes moist Cardiovascular: S1S2 reg, no murmur Lungs: CTA bilateral, no rhonchi, no rales , no accessory muscle use Abdominal: soft, nontender to palpation, no guarding, no appreciable organomegaly Left metatarsal amputation Neuro: no focal neuro deficits Psych: Alert, oriented, appropriate affect Discharge Diagnosis: Symptomatic hypoglycemia secondary to accident overdose on insulin Acute on chronic microcytic anemia Acute kidney injury secondary to anemia: Resolved Coronary artery disease Hypertension Chronic hypoxic respiratory failure Patient will be discharged with the following instructions: Diet: Cardiac Follow up with your PCP within 1-2 days of discharge. Follow up with Hematology Dr. Anton within 2 week of discharge. Follow up with Gastroenterology within 2 weeks of discharge. Please hold ASPIRIN and ELIQUIS until follow up with Gastroenterology. Take all medications as advised. Come back to the ED or call 911 for worsening bleeding, chest pain, shortness of breath, palpitations or lightheadedness. This complex discharge took 35 minutes to complete. Patient Condition at Discharge: Stable Plan - Discharge Summary Discharge Rx Participant: Yes New Discharge Prescriptions: New Pantoprazole [Protonix] 40 mg PO AC-BID 30 Days #60 tab Continue Losartan [Cozaar] 25 mg PO DAILY #30 tab Ezetimibe [Zetia] 10 mg PO DAILY medroxyPROGESTERone [Provera] 2.5 mg PO DAILY metFORMIN HCL [Glucophage] 500 mg PO BID Insulin Glargine,Hum.rec.anlog [Lantus Solostar Pen] 40 unit SQ BID Montelukast [Singulair] 10 mg PO DAILY Insulin Aspart [NovoLOG Flexpen] See Protocol SQ AC-TID Metoprolol Tartrate [Lopressor] 25 mg PO DAILY Calcium Carbonate [Tums] 500 mg PO DAILY PRN PRN Reason: Heartburn Furosemide [Lasix] 40 mg PO DAILY Latanoprost [Latanoprost 0.005%] 2.5 ml BOTH EYES DAILY Docusate [Colace] 200 mg PO BID Acetaminophen [Tylenol Extra Strength] 500 mg PO Q6H PRN PRN Reason: Pain Or Fever > 100.5 amLODIPine [Norvasc] 5 mg PO DAILY Solifenacin Succinate [Vesicare] 10 mg PO DAILY Discontinued Apixaban [Eliquis] 5 mg PO BID Aspirin [Adult Low Dose Aspirin EC] 81 mg PO DAILY Naproxen Sodium [Aleve] 220 mg PO Q6H PRN PRN Reason: Pain Discharge Medication List Losartan [Cozaar] 25 mg PO DAILY #30 tab 07/14/16 [Rx] Ezetimibe [Zetia] 10 mg PO DAILY 07/23/20 [History] medroxyPROGESTERone [Provera] 2.5 mg PO DAILY 07/23/20 [History] metFORMIN HCL [Glucophage] 500 mg PO BID 07/23/20 [History] Insulin Glargine,Hum.rec.anlog [Lantus Solostar Pen] 40 unit SQ BID 08/29/20 [History] Docusate [Colace] 200 mg PO BID 01/09/21 [History] Insulin Aspart [NovoLOG Flexpen] See Protocol SQ AC-TID 01/09/21 [History] Montelukast [Singulair] 10 mg PO DAILY 01/09/21 [History] Metoprolol Tartrate [Lopressor] 25 mg PO DAILY 07/24/21 [History] Acetaminophen [Tylenol Extra Strength] 500 mg PO Q6H PRN 08/18/22 [History] Calcium Carbonate [Tums] 500 mg PO DAILY PRN 08/18/22 [History] Furosemide [Lasix] 40 mg PO DAILY 08/18/22 [History] Latanoprost [Latanoprost 0.005%] 2.5 ml BOTH EYES DAILY 08/18/22 [History] Solifenacin Succinate [Vesicare] 10 mg PO DAILY 08/18/22 [History] amLODIPine [Norvasc] 5 mg PO DAILY 08/18/22 [History] Pantoprazole [Protonix] 40 mg PO AC-BID 30 Days #60 tab 08/23/22 [Rx] Follow up Appointment(s)/Referral(s): Raymond Anton MD [STAFF PHYSICIAN] - 2 Weeks (Office is closed. Please call to schedule appointment) Mynor Cannon MD [Primary Care Provider] - 1-2 days (Office is closed. Please call to schedule appointment) Aletha Gabriel MD [STAFF PHYSICIAN] - 1 Week (Call office in one week for biopsy results) [facility], [NON-STAFF] - 1 Week Activity/Diet/Wound Care/Special Instructions: Diet: Cardiac Follow up with your PCP within 1-2 days of discharge. Follow up with Hematology Dr. Anton within 2 week of discharge. Follow up with Gastroenterology within 2 weeks of discharge. Please hold ASPIRIN and ELIQUIS until follow up with Gastroenterology. Take all medications as advised. Come back to the ED or call 911 for worsening bleeding, chest pain, shortness of breath, palpitations or lightheadedness. Discharge Disposition: TRANSFER TO SNF/ECF
[2022-08-25 16:44] LABS: Glucose,Whole Blood 214 mg/dL (70-110)
== END 2022-08-25 18:34 | DRG 638 ==
LOC: EC 21:49 → 3SCARD 08-18 00:48
PROVIDERS: ADMIT Internal Medicine; ATTEND Internal Medicine
PROC: 30233N1 Transfusion of Nonautologous Red Blood Cells into Peripheral Vein, Percutaneous Approach (ICD-10-PCS; 2022-08-19)
PROC: 0DB78ZX Excision of Stomach, Pylorus, Via Natural or Artificial Opening Endoscopic, Diagnostic (ICD-10-PCS; 2022-08-20)
PROC: 0DB48ZX Excision of Esophagogastric Junction, Via Natural or Artificial Opening Endoscopic, Diagnostic (ICD-10-PCS; 2022-08-20)
PROC: 0DBK8ZX Excision of Ascending Colon, Via Natural or Artificial Opening Endoscopic, Diagnostic (ICD-10-PCS; 2022-08-20)
PROC: 0DBH8ZX Excision of Cecum, Via Natural or Artificial Opening Endoscopic, Diagnostic (ICD-10-PCS; 2022-08-20)
PROC: 0DB98ZX Excision of Duodenum, Via Natural or Artificial Opening Endoscopic, Diagnostic (ICD-10-PCS; principal; 2022-08-20 11:10)
PROC: 0DB88ZX Excision of Small Intestine, Via Natural or Artificial Opening Endoscopic, Diagnostic (ICD-10-PCS; 2022-08-20 11:10)
DX: E11.649 Type 2 diabetes mellitus with hypoglycemia without coma (principal); D62 Acute posthemorrhagic anemia; J96.11 Chronic respiratory failure with hypoxia; K92.1 Melena; Z68.41 Body mass index [BMI] 40.0-44.9, adult; I10 Essential (primary) hypertension; J45.909 Unspecified asthma, uncomplicated; D50.9 Iron deficiency anemia, unspecified; E66.01 Morbid (severe) obesity due to excess calories; D53.9 Nutritional anemia, unspecified; N17.9 Acute kidney failure, unspecified; T38.3X1A Poisoning by insulin and oral hypoglycemic [antidiabetic] drugs, accidental (unintentional), initial encounter; K64.9 Unspecified hemorrhoids; T45.4X6A Underdosing of iron and its compounds, initial encounter; Z79.01 Long term (current) use of anticoagulants; I48.91 Unspecified atrial fibrillation; K57.30 Diverticulosis of large intestine without perforation or abscess without bleeding; K29.50 Unspecified chronic gastritis without bleeding; D12.2 Benign neoplasm of ascending colon; D12.0 Benign neoplasm of cecum; K22.70 Barrett's esophagus without dysplasia; K59.09 Other constipation; I25.10 Atherosclerotic heart disease of native coronary artery without angina pectoris; F41.9 Anxiety disorder, unspecified; G47.30 Sleep apnea, unspecified; H40.9 Unspecified glaucoma; R25.2 Cramp and spasm; R53.81 Other malaise; Z95.5 Presence of coronary angioplasty implant and graft; Z86.14 Personal history of Methicillin resistant Staphylococcus aureus infection; Z89.432 Acquired absence of left foot; Z95.1 Presence of aortocoronary bypass graft; Z87.891 Personal history of nicotine dependence; Z79.899 Other long term (current) drug therapy; Z79.84 Long term (current) use of oral hypoglycemic drugs; Z79.4 Long term (current) use of insulin; Z88.0 Allergy status to penicillin; Z88.8 Allergy status to other drugs, medicaments and biological substances; Z79.82 Long term (current) use of aspirin; Z99.3 Dependence on wheelchair
CPT/HCPCS: 36415; 36430; 43239; 45385; 80048; 80053; 81001; 82272; 82728; 83540; 83550; 84484; 85025; 85027; 85610; 85730; 86850; 86900; 86901; 86920; 87086; 87635; 88305; 91110; 94760; 96361; 96374; 96375; 99285

== ENCOUNTER 2023-01-08 13:46 | Observation (INO) | payer MEDICARE ==
[2023-01-08] MEDS ORDERED: LORazepam 2 MG/ML INJ IM STA ×2 (14:06)
--- NOTE | 2023-01-08 14:08 | ED ---
Psych HPI - General Chief Complaint: Psychiatric Symptoms Stated Complaint: MENTAL HEALTH Time Seen by Provider: 01/08/23 14:06 Source: patient, RN notes reviewed, old records reviewed, Caregiver Mode of arrival: EMS Limitations: no limitations, altered mental status - History of Present Illness Initial Comments: This is a 77-year-old female ER today. Patient presents today for evaluation of severe depression anhedonia decreased will to live, severe increase in medical severe illness with recent above-knee amputation made patient completely depende nt on living staff. Patient had prior left lower extremity. Patient at that time had still been independent and now is becoming severely depressed with suicidal thoughts MD Complaint: suicidal ideation, feels depressed -: days(s) Associated Psychiatric Symptoms: depression, suicidal ideation History of same: No Quality: intermittent Improves With: none Worsens With: none Context: not taking psychiatric medications, significant life stressor Associated Symptoms: denies other symptoms Treatments Prior to Arrival: placed on mental health hold If Self Harm: admits thoughts of self harm - Related Data Home Medications Medication Instructions Recorded Confirmed Ezetimibe [Zetia] 10 mg PO HS 07/23/20 01/08/23 metFORMIN HCL [Glucophage] 500 mg PO BID 07/23/20 01/08/23 Montelukast [Singulair] 10 mg PO HS 01/09/21 01/08/23 Metoprolol Tartrate [Lopressor] 25 mg PO BID 07/24/21 01/08/23 Acetaminophen [Tylenol Extra 500 mg PO Q6H PRN 08/18/22 01/08/23 Strength] Latanoprost [Latanoprost 0.005%] 1 drop BOTH EYES HS 08/18/22 01/08/23 amLODIPine [Norvasc] 5 mg PO DAILY 08/18/22 01/08/23 Losartan [Cozaar] 50 mg PO DAILY 10/12/22 01/08/23 ALPRAZolam [Xanax] 0.25 mg PO BID 01/08/23 01/08/23 Aspirin EC [Ecotrin Low Dose] 81 mg PO DAILY 01/08/23 01/08/23 Bempedoic Acid [Nexletol] 180 mg PO DAILY 01/08/23 01/08/23 Cholecalciferol [Vitamin D3 (25 50 mcg PO DAILY 01/08/23 01/08/23 Mcg = 1000 Iu)] Ciprofloxacin HCl [Cipro] 500 mg PO BID 01/08/23 01/08/23 HYDROcodone/APAP 5-325MG [[place] 1 tab PO TID PRN 01/08/23 01/08/23 5-325] Insulin Lispro [humaLOG Kwikpen] See Protocol SQ ACHS 01/08/23 01/08/23 Magnesium Hydroxide [Milk of 2,400 mg PO DAILY 01/08/23 01/08/23 Magnesia] Menthol-Zinc Oxide Oint 1 applic TOPICAL BID 01/08/23 01/08/23 [Calmoseptine Ointment] Na Phos,M-B/Na Phos,Di-Ba [Fleet 133 ml RECTAL DAILY PRN 01/08/23 01/08/23 Adult] Ondansetron [Zofran] 4 mg PO Q8H PRN 01/08/23 01/08/23 Pantoprazole [Protonix] 40 mg PO DAILY 01/08/23 01/08/23 Sennosides/Docusate Sodium 1 tab PO BID 01/08/23 01/08/23 [Senna-S 8.6-50 mg Tablet] Solifenacin Succinate [Vesicare] 5 mg PO DAILY 01/08/23 01/08/23 allopurinoL [Zyloprim] 100 mg PO DAILY 01/08/23 01/08/23 bisacodyL [Dulcolax] 10 mg RECTAL DAILY PRN 01/08/23 01/08/23 polyethylene glycoL 3350 [Miralax] 17 gm PO DAILY PRN 01/08/23 01/08/23 Allergies Allergy/AdvReac Type Severity Reaction Status Date / Time Penicillins Allergy Rash/Hives Verified 01/08/23 16:07 strawberry Allergy Unknown Verified 01/08/23 16:07 Brksqto-YFJ-AfU Reductase AdvReac EXTREME Verified 01/08/23 16:07 Inhibitor MUSCLE [Kgketrm-Ruc-Url Reductase PAIN AND Inhibitor] WEAKNESS Review of Systems ROS Statement: Those systems with pertinent positive or pertinent negative responses have been documented in the HPI. ROS Other: All systems not noted in ROS Statement are negative. Past Medical History Past Medical History: Asthma, Diabetes Mellitus, Hypertension, Osteoarthritis (OA), Skin Disorder, Sleep Apnea/CPAP/BIPAP, Vascular Disorder Additional Past Medical History / Comment(s): Bronchial asthma, coronary stent 3, diabetes mellitus type 2, eczema, peripheral vascular disease, CPAP, diverticulosis/diverticulitis and previous left wound in the foot with infection with MRSA and the patient has a partial amputation of the left foot History of Any Multi-Drug Resistant Organisms: MRSA Date of last positivie culture/infection: 2010 MDRO Source:: LT FOOT WOUND Past Surgical History: Appendectomy, Coronary Bypass/CABG, Heart Catheterization With Stent, Tonsillectomy Additional Past Surgical History / Comment(s): PARTIAL AMPUTATION LT FOOT with previous amputation of the left great toe,. D & C, cataract surgery, breast biopsy. vascular surgery Past Anesthesia/Blood Transfusion Reactions: Motion Sickness, Postoperative Vladimir sea & Vomiting (PONV) Date of Last Stent Placement:: 2007 Past Psychological History: Anxiety, Depression Smoking Status: Former smoker Past Alcohol Use History: None Reported Past Drug Use History: None Reported - Past Family History Mother Family Medical History: Cancer, CVA/TIA Additional Family Medical History / Comment(s): of stroke Sister(s) Family Medical History: Cancer Additional Family Medical History / Comment(s): Uterine Cancer General Exam Limitations: physical limitation General appearance: alert, in no apparent distress Head exam: Present: atraumatic, normocephalic, normal inspection Eye exam: Present: normal appearance, PERRL, EOMI. Absent: scleral icterus, conjunctival injection, periorbital swelling ENT exam: Present: normal exam, mucous membranes moist Neck exam: Present: normal inspection. Absent: tenderness, meningismus, lymphadenopathy Respiratory exam: Present: normal lung sounds bilaterally. Absent: respiratory distress, wheezes, rales, rhonchi, stridor Cardiovascular Exam: Present: regular rate, normal rhythm, normal heart sounds. Absent: systolic murmur, diastolic murmur, rubs, gallop, clicks GI/Abdominal exam: Present: soft, normal bowel sounds. Absent: distended, tenderness, guarding, rebound, rigid Extremities exam: Present: normal inspection, full ROM, normal capillary refill. Absent: tenderness, pedal edema, joint swelling, calf tenderness Back exam: Present: normal inspection Neurological exam: Present: alert, oriented X3, CN II-XII intact Psychiatric exam: Present: normal affect, normal mood Skin exam: Present: warm, dry, intact, normal color. Absent: rash Course Vital Signs 01/08/23 01/08/23 01/08/23 13:53 14:43 15:25 Temperature 98.0 F Pulse Rate 81 74 72 Respiratory 18 20 Rate Blood Pressure 108/51 78/46 116/53 O2 Sat by Pulse 94 L 98 96 Oximetry 01/08/23 01/08/23 19:02 20:43 Temperature 97.5 F L Pulse Rate 71 72 Respiratory 18 18 Rate Blood Pressure 110/59 105/45 O2 Sat by Pulse 95 93 L Oximetry - Reevaluation(s) Reevaluation #1: 01/08/23 21:04 Medical record is reviewed Reevaluation #2: 01/08/23 21:05 Patient has no change in symptoms here in the ER Reevaluation #3: 01/08/23 21:05 Patient informed results and questions answered Reevaluation #4: 01/08/23 21:06 Was pt. sent in by a medical professional or institution? @ -yes living staff Did you speak to anyone other than the patient for history? @ -no Did you review nursing and triage notes? @ -agree Were old charts reviewed? @ -no Differential Diagnosis? @ -prior, weakness, depression EKG interpreted by me (3pts min.)? @ -yes X-rays interpreted by me (1pt min.)? @ -no CT interpreted by me (1pt min.)? @ -no U/S interpreted by me (1pt. min.)? @ -no What testing was considered but not performed? (CT, X-rays, U/S, labs)? Why? @ -no What meds were considered but not given? Why? @ -anxiolysis, patient refused Did you discuss the management of the patient with other professionals? @ -no Did you reconcile home meds? @ -no Was smoking cessation discussed for >3mins.? @ -no Was critical care preformed (if so, how long)? @ -no Were there social determinants of health that impacted care today? How? (Homelessness, low income, unemployed, alcoholism, drug addiction, transportation, low edu. Level, literacy, decrease access to med. care, shelter, rehab)? @ -no Was there de-escalation of care discussed even if they declined? (Discuss DNR or withdrawal of care, Hospice)? @ -no What co-morbidities impacted this encounter? (DM, HTN, Smoking, COPD, CAD, Cancer, CVA, Hep., AIDS, mental health diagnosis, sleep apnea, morbid obesity)? @ -no Was patient admitted / discharged? @ -admit Undiagnosed new problem with uncertain prognosis? @ -no Drug Therapy requiring intensive monitoring for toxicity (Heparin, Nitro, Insulin, Cardizem)? @ -no Were any procedures done? @ -no Diagnosis/symptom? @ -UTI, depression Acute, or Chronic, or Acute on Chronic? @ -acute Uncomplicated (without systemic symptoms) or Complicated (systemic symptoms)? @ -uncomplicated Side effects of treatment? @ -none Exacerbation, Progression, or Severe Exacerbation] @ - Poses a threat to life or bodily function? @ -yes suicidal Reevaluation #5: 01/08/23 21:06 Differential Weakness: Hypoglycemia, shock, sepsis, hyponatremia, anemia, infection, NM, ETOH, adverse medicine reaction, overdose, stroke, this is not meant to be an all-inclusive list. Medical Decision Making - Medical Decision Making 87 female will be admitted for psychiatric evaluation and treatment of urinary tract infection, chronic indwelling Lee. - Lab Data Result diagrams: 01/08/23 14:00 01/08/23 14:00 Lab Results 01/08/23 01/08/23 01/08/23 Range/Units 14:00 14:00 15:11 WBC 12.4 H (3.8-10.6) k/uL RBC 4.70 (3.80-5.40) m/uL Hgb 14.2 (11.4-16.0) gm/dL Hct 43.1 (34.0-46.0) % MCV 91.6 (80.0-100.0) fL MCH 30.2 (25.0-35.0) pg MCHC 32.9 (31.0-37.0) g/dL RDW 15.6 H (11.5-15.5) % Plt Count 348 (150-450) k/uL MPV 9.2 Neutrophils % 78 % Lymphocytes % 15 % Monocytes % 4 % Eosinophils % 2 % Basophils % 0 % Neutrophils # 9.7 H (1.3-7.7) k/uL Lymphocytes # 1.8 (1.0-4.8) k/uL Monocytes # 0.5 (0-1.0) k/uL Eosinophils # 0.2 (0-0.7) k/uL Basophils # 0.0 (0-0.2) k/uL Sodium 139 (137-145) mmol/L Potassium 4.9 (3.5-5.1) mmol/L Chloride 107 (98-107) mmol/L Carbon Dioxide 16 L (22-30) mmol/L Anion Gap 16 mmol/L BUN 23 H (7-17) mg/dL Creatinine 1.37 H (0.52-1.04) mg/dL Est GFR (CKD-EPI)AfAm 44 (>60 ml/min/1.73 sqM) Est GFR (CKD-EPI)NonAf 38 (>60 ml/min/1.73 sqM) Glucose 127 H (74-99) mg/dL Calcium 9.9 (8.4-10.2) mg/dL Urine Color Red Urine Appearance Turbid H (Clear) Urine pH 6.0 (5.0-8.0) Ur Specific [place] 1.020 (1.001-1.035) Urine Protein 3+ H (Negative) Urine Glucose (UA) Negative (Negative) Urine Ketones Trace H (Negative) Urine Blood Moderate H (Negative) Urine Nitrite Negative (Negative) Urine Bilirubin Negative (Negative) Urine Urobilinogen <2.0 (<2.0) mg/dL Ur Leukocyte Esterase Large H (Negative) Urine RBC 92 H (0-5) /hpf Urine WBC >182 H (0-5) /hpf Urine WBC Clumps Many H (None) /hpf Urine Yeast (Budding) Occasional H (None) /hpf Salicylates <1.0 mg/dL Urine Opiates Screen Not Detected (NotDetected) Ur Oxycodone Screen Not Detected (NotDetected) Urine Methadone Screen Not Detected (NotDetected) Ur Propoxyphene Screen Not Detected (NotDetected) Acetaminophen <10.0 ug/mL Ur Barbiturates Screen Not Detected (NotDetected) U Tricyclic Antidepress Not Detected (NotDetected) Ur Phencyclidine Scrn Not Detected (NotDetected) Ur Amphetamines Screen Not Detected (NotDetected) U Methamphetamines Scrn Not Detected (NotDetected) U Benzodiazepines Scrn Detected H (NotDetected) Urine Cocaine Screen Not Detected (NotDetected) U Marijuana (THC) Screen Not Detected (NotDetected) Serum Alcohol <10 mg/dL - Radiology Data Radiology results: report reviewed (CT brain is negative for acute disease), image reviewed Disposition Clinical Impression: Depression, Suicidal ideation, Weakness, UTI (urinary tract infection) Disposition: ADMITTED IP TO THIS HOSP Condition: Fair Is patient prescribed a controlled substance at d/c from ED?: No Time of Disposition: 17:25
[2023-01-08 15:40] LABS: Basophils % (A) 0 %; Eosinophils # (A) 0.2 k/uL (0-0.7); Eosinophils % (A) 2 %; HCT 43.1 % (34.0-46.0); HGB 14.2 gm/dL (11.4-16.0); Lymphocytes # (A) 1.8 k/uL (1.0-4.8); Lymphocytes % (A) 15 %; MCH 30.2 pg (25.0-35.0); MCHC 32.9 g/dL (31.0-37.0); MCV 91.6 fL (80.0-100.0); Mean Platelet Volume 9.2; Monocytes # (A) 0.5 k/uL (0-1.0); Monocytes % (A) 4 %; Neutrophils # (A) 9.7 k/uL (1.3-7.7); Neutrophils % (A) 78 %; Platelet Count 348 k/uL (150-450); RDW 15.6 % (11.5-15.5); WBC 12.4 k/uL (3.8-10.6)
[2023-01-08 15:59] LABS: Acetaminophen <10.0 ug/mL; African American GFR (CKD) 44 (>60 ml/min/1.73 sqM); Alcohol <10 mg/dL; Anion Gap 16 mmol/L; Blood Urea Nitrogen 23 mg/dL (7-17); Calcium 9.9 mg/dL (8.4-10.2); Carbon Dioxide 16 mmol/L (22-30); Chloride 107 mmol/L (98-107); Glucose 127 mg/dL (74-99); Non-African American GFR(CKD) 38 (>60 ml/min/1.73 sqM); Potassium 4.9 mmol/L (3.5-5.1); Salicylate <1.0 mg/dL; Sodium 139 mmol/L (137-145)
[2023-01-08 16:52] LABS: Amphetamine Screen,Urine Not Detected (NotDetected); Barbiturate Screen,Urine Not Detected (NotDetected); Benzodiazepines Screen,Urine Detected (NotDetected); Cocaine Screen,Urine Not Detected (NotDetected); Methadone Screen, Urine Not Detected (NotDetected); Opiate Screen,Urine Not Detected (NotDetected); Oxycodone Screen, Urine Not Detected (NotDetected); Phencyclidine Screen,Urine Not Detected (NotDetected); Tricyclic Antidepressant,Urine Not Detected (NotDetected); Urn Cannabinoid Scrn Not Detected (NotDetected)
[2023-01-08 17:00] LABS: Appearance,Urine Turbid (Clear); Bilirubin,Urine Negative (Negative); Blood,Urine Moderate (Negative); Budding Yeast,Urine Occasional /hpf; Color,Urine Red; Glucose,Urine (UA) Negative (Negative); Ketones,Urine Trace (Negative); Leukocyte Esterase,Urine Large (Negative); Nitrite,Urine Negative (Negative); Protein,Urine 3+ (Negative); RBC,Urine 92 /hpf (0-5); Urobilinogen,Urine <2.0 mg/dL (<2.0); WBC,Urine >182 /hpf (0-5)
[2023-01-08] MEDS ORDERED: NALOXONE 0.4 MG/ML 1 ML VIAL IV PRN (17:20)
[2023-01-08] MEDS ORDERED: ONDANSETRON 4 MG/2 ML VIAL IVP PRN (17:20)
[2023-01-08] MEDS ORDERED: bisacodyL 10 MG SUPP RECTAL PRN (17:53)
[2023-01-08] MEDS ORDERED: polyethylene glycoL 3350 17 GM POWD.PACK PO PRN (17:53)
[2023-01-08] MEDS ORDERED: ACETAMINOPHEN TAB 500 MG TAB PO PRN (17:53)
[2023-01-08] MEDS ORDERED: NA PHOS,M-B/NA PHOS,DI-BA 133 ML ENEMA RECTAL PRN (17:53)
[2023-01-08] MEDS ORDERED: HYDROcodone/APAP 5-325MG 1 EACH TAB PO PRN (17:53)
[2023-01-08] MEDS ORDERED: CALCIUM CARBONATE 500 MG CHEWABLE PO PRN (17:54)
[2023-01-08] MEDS ORDERED: DEXTROSE 50% SYRINGE 50 ML IVP PRN ×2 (18:16)
--- NOTE | 2023-01-08 18:17 | P.HPIM ---
History of Present Illness H&P Date: 01/08/23 Chief Complaint: Depressed This is a pleasant 77-year-old patient who follows with visiting physicians. Chronic stable medical conditions include asthma, diabetes, hypertension, osteoarthritis, obstructive sleep apnea, coronary stent 3, PAD, does use CPAP, diverticulosis, partial amputation of the left foot, about a month ago underwent right above-knee amputation per Dr. Mckenzie from vascular. Patient at baseline is nonambulatory. Wheelchair bound. Does need assistance. Seen in the ER room 11. accompanied by his sister in the ER. Patient given for a few symptoms. Patient has been feeling rather depressed. She says she was given a full breakfast at about 10:30 and at about normal canals to have lunch. And she said [I tried to kill me. '. Or otherwise kill me. She also complaining of these intermittent headaches she has some does get worse with vomiting. Has not been diagnosed. May get an aura. She also has decub ulcers in the back that are actually healing being followed by [facility] once a week. Patient has a Lee catheter for about a month since he had a right above-knee amputation by Dr. Mckenzie. Review of systems: GEN.: None EYES: None HEENT: None NECK: None RESPIRATORY: None CARDIOVASCULAR: None GASTROINTESTINAL: None GENITOURINARY: Lee MUSCULOSKELETAL: Some joint pains LYMPHATICS: None HEMATOLOGICAL: None PSYCHIATRY: Depressed NEUROLOGICAL: Wheelchair bound Past medical history to include: Asthma, diabetes, hypertension, osteoarthritis, obstructive sleep apnea, CAD with stent and carotid bypass, eczema, PAD, uses CPAP, diverticulosis, partial amputation of the left foot, anxiety depression Social history: Lives at [facility].. Wheelchair bound. No smoking. No alcohol. 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 Physical examination: VITAL SIGNS: 98, 72, 16, 11 6 x 53, 96% room air GENERAL: BMI 34.5, laying in bed awake somewhat depressed appearing. EYES: Pupils equal. Conjunctiva normal. HEENT: External appearance of nose and ears normal, oral cavity grossly normal. NECK: JVD not raised; masses not palpable. HEART: First and second heart sounds are normal; no edema. LUNGS: Respiratory rate normal; distant breath sounds. ABDOMEN: Soft, nontender, liver spleen not palpable, no masses palpable. PSYCH: Alert and oriented x3; mood and affect depressedl. EXTREMITIES: Right above-knee amputation with a dressing, left foot amputation MUSCULOSKELETAL:No Clubbing/cyanosis;muscles-grossly intact. OA NEUROLOGICAL: Cranial nerves grossly intact; no facial asymmetry, power and sensation grossly intact. LYMPHATICS: No lymph nodes palpable in the axilla and neck INVESTIGATIONS, reviewed in the clinical context: White count 12.4 hemoglobin 14.2 platelets 348 potassium 4.9 BUN 23 creatinine 1.37 UA: Nitrate negative. Urine drug screen positive for benzodiazepine. Assessment and plan: -Possible major depression with acute episode. Consults psychiatry. Start Lexapro 10 mg daily at bedtime. Patient not suicidal -Anxiety Xanax 0.25 twice a day -Right above-knee amputation by Dr. Mckenzie about a month ago. Consult Dr. Mckenzie -Intermittent severe headaches with nausea. Possible migraine. Computed tomography scan head and neck with IV contrast. Consult neurology -Bladder dysfunction. Has had a Lee catheter for one month. We'll give DC trial of Lee at 6 AM. Consult urology. Vesicare -Chronic decubitus ulcers. See nursing notes. Loss Prevention Lead Dr. Mckenzie. -Obesity, BMI 34.5 Weight loss measures -Intermittent asthma Singulair -Hyperuricemia Allopurinol -Diabetes mellitus type 2 on oral hypoglycemic Metformin. Accu-Cheks and sliding scale insulin -Essential hypertension Hold amlodipine. Lopressor -GERD Protonix -Hypercholesterolemia Zetia 10 mg daily at bedtime -Asymptomatic bacteriuria due to Lee catheter. No need for antibiotics. -Chronic medical debility, wheelchair bound -Full code Past Medical History Past Medical History: Asthma, Diabetes Mellitus, Hypertension, Osteoarthritis (OA), Skin Disorder, Sleep Apnea/CPAP/BIPAP, Vascular Disorder Additional Past Medical History / Comment(s): Bronchial asthma, coronary stent 3, diabetes mellitus type 2, eczema, peripheral vascular disease, CPAP, diverticulosis/diverticulitis and previous left wound in the foot with infection with MRSA and the patient has a partial amputation of the left foot History of Any Multi-Drug Resistant Organisms: MRSA Date of last positivie culture/infection: 2010 MDRO Source:: LT FOOT WOUND Past Surgical History: Appendectomy, Coronary Bypass/CABG, Heart Catheterization With Stent, Tonsillectomy Additional Past Surgical History / Comment(s): PARTIAL AMPUTATION LT FOOT with previous amputation of the left great toe,. D & C, cataract surgery, breast biopsy. vascular surgery Past Anesthesia/Blood Transfusion Reactions: Motion Sickness, Postoperative Nausea & Vomiting (PONV) Date of Last Stent Placement:: 2007 Past Psychological History: Anxiety, Depression Smoking Status: Former smoker Past Alcohol Use History: None Reported Past Drug Use History: None Reported - Past Family History Mother Family Medical History: Cancer, CVA/TIA Additional Family Medical History / Comment(s): of stroke Sister(s) Family Medical History: Cancer Additional Family Medical History / Comment(s): Uterine Cancer Medications and Allergies Home Medications Medication Instructions Recorded Confirmed Type Ezetimibe [Zetia] 10 mg PO HS 07/23/20 01/08/23 History metFORMIN HCL [Glucophage] 500 mg PO BID 07/23/20 01/08/23 History Montelukast [Singulair] 10 mg PO HS 01/09/21 01/08/23 History Metoprolol Tartrate [Lopressor] 25 mg PO BID 07/24/21 01/08/23 History Acetaminophen [Tylenol Extra 500 mg PO Q6H PRN 08/18/22 01/08/23 History Strength] Latanoprost [Latanoprost 0.005%] 1 drop BOTH EYES HS 08/18/22 01/08/23 History amLODIPine [Norvasc] 5 mg PO DAILY 08/18/22 01/08/23 History Losartan [Cozaar] 50 mg PO DAILY 10/12/22 01/08/23 History ALPRAZolam [Xanax] 0.25 mg PO BID 01/08/23 01/08/23 History Aspirin EC [Ecotrin Low Dose] 81 mg PO DAILY 01/08/23 01/08/23 History Bempedoic Acid [Nexletol] 180 mg PO DAILY 01/08/23 01/08/23 History Cholecalciferol [Vitamin D3 (25 50 mcg PO DAILY 01/08/23 01/08/23 History Mcg = 1000 Iu)] Ciprofloxacin HCl [Cipro] 500 mg PO BID 01/08/23 01/08/23 History HYDROcodone/APAP 5-325MG [[place] 1 tab PO TID PRN 01/08/23 01/08/23 History 5-325] Insulin Lispro [humaLOG Kwikpen] See Protocol SQ ACHS 01/08/23 01/08/23 History Magnesium Hydroxide [Milk of 2,400 mg PO DAILY 01/08/23 01/08/23 History Magnesia] Menthol-Zinc Oxide Oint 1 applic TOPICAL BID 01/08/23 01/08/23 History [Calmoseptine Ointment] Na Phos,M-B/Na Phos,Di-Ba [Fleet 133 ml RECTAL DAILY PRN 01/08/23 01/08/23 History Adult] Ondansetron [Zofran] 4 mg PO Q8H PRN 01/08/23 01/08/23 History Pantoprazole [Protonix] 40 mg PO DAILY 01/08/23 01/08/23 History Sennosides/Docusate Sodium 1 tab PO BID 01/08/23 01/08/23 History [Senna-S 8.6-50 mg Tablet] Solifenacin Succinate [Vesicare] 5 mg PO DAILY 01/08/23 01/08/23 History allopurinoL [Zyloprim] 100 mg PO DAILY 01/08/23 01/08/23 History bisacodyL [Dulcolax] 10 mg RECTAL DAILY PRN 01/08/23 01/08/23 History polyethylene glycoL 3350 [Miralax] 17 gm PO DAILY PRN 01/08/23 01/08/23 History Allergies Allergy/AdvReac Type Severity Reaction Status Date / Time Penicillins Allergy Rash/Hives Verified 01/08/23 16:07 strawberry Allergy Unknown Verified 01/08/23 16:07 Whvxpif-QZF-AbL Reductase AdvReac EXTREME Verified 01/08/23 16:07 Inhibitor MUSCLE [Wljfawx-Bzm-Uhw Reductase PAIN AND Inhibitor] WEAKNESS Physical Exam Vitals: Vital Signs Temp Pulse Resp BP Pulse Ox 01/08/23 15:25 72 116/53 96 01/08/23 14:43 74 20 78/46 98 01/08/23 13:53 98.0 F 81 18 108/51 94 L Intake and Output 01/08/23 01/08/23 01/08/23 06:59 14:59 22:59 Other: Weight 99.79 kg Results CBC & Chem 7: 01/08/23 14:00 01/08/23 14:00 Labs: Abnormal Lab Results - Last 24 Hours (Table) 01/08/23 01/08/23 01/08/23 Range/Units 14:00 14:00 15:11 WBC 12.4 H (3.8-10.6) k/uL RDW 15.6 H (11.5-15.5) % Neutrophils # 9.7 H (1.3-7.7) k/uL Carbon Dioxide 16 L (22-30) mmol/L BUN 23 H (7-17) mg/dL Creatinine 1.37 H (0.52-1.04) mg/dL Glucose 127 H (74-99) mg/dL Urine Appearance Turbid H (Clear) Urine Protein 3+ H (Negative) Urine Ketones Trace H (Negative) Urine Blood Moderate H (Negative) Ur Leukocyte Esterase Large H (Negative) Urine RBC 92 H (0-5) /hpf Urine WBC >182 H (0-5) /hpf Urine WBC Clumps Many H (None) /hpf Urine Yeast (Budding) Occasional H (None) /hpf U Benzodiazepines Scrn Detected H (NotDetected)
--- NOTE | 2023-01-08 18:53 | CT ---
EXAMINATION TYPE: CT brain wo con CT DLP: 1161.4 mGycm, Automated exposure control for dose reduction was used. DATE OF EXAM: 01/08/2023 6:42 PM COMPARISON: 08/29/2020. CLINICAL INDICATION:Female, 77 years old with history of Intermittent severe headaches, TECHNIQUE: Brain: Axial CT images of the brain were obtained with coronal and sagittal reformats created and rev iewed. Contrast used: None. Oral contrast used: None. FINDINGS: Brain: Extra-axial spaces: No abnormal extra-axial fluid collections. Ventricular system: Within normal limits Cerebral parenchyma: Mineralization of the basal ganglia bilaterally. No acute intraparenchymal hemor rhage or mass effect. The grajeda-white junction is well differentiated. Scattered hypoattenuating area s are seen within the white matter. Cerebellum: Unremarkable. Mass effect: No evidence of midline shift. Intracranial vasculature: Atherosclerotic calcifications of the intracranial vessels. Soft tissues: Normal. Calvarium/osseous structures: No depressed skull fracture. Paranasal sinuses and mastoid air cells: Mild scattered paranasal sinus disease. Visualized orbits: Orbital contents are intact. IMPRESSION: 1. No acute intracranial process. 2. Nonspecific white matter changes, likely secondary to chronic small vessel ischemic disease.
[2023-01-08 18:55] LABS: Glucose,Whole Blood 121 mg/dL (70-110)
[2023-01-08] MEDS: INSULIN ASPART (NovoLOG) 100 UNIT/ML VIAL SQ SCH (19:04)
[2023-01-08] MEDS: SODIUM CHLORIDE 0.9% 1,000 ML IV SCH (19:05)
[2023-01-08] MEDS ORDERED: ESCITALOPRAM 10 MG TAB PO SCH (21:00)
[2023-01-08] MEDS: EZETIMIBE 10 MG TAB PO SCH ×2 (21:07→21:08)
[2023-01-08] MEDS: METOPROLOL TARTRATE 25 MG TAB PO SCH (21:08)
[2023-01-08] MEDS: MONTELUKAST 10 MG TAB PO SCH (21:08)
[2023-01-08] MEDS: metFORMIN 500 MG TAB PO SCH (21:09)
[2023-01-08] MEDS: ALPRAZolam 0.25 MG TAB PO SCH (21:09)
[2023-01-08] MEDS: SENNOSIDES-DOCUSATE SODIUM 1 EACH TAB PO SCH (21:10)
[2023-01-09] MEDS: LATANOPROST 0.005% OPHTH DROPS 2.5 ML BTL BOTH EYES SCH ×2 (02:32→21:39)
[2023-01-09] MEDS: SODIUM CHLORIDE 0.9% 1,000 ML IV SCH ×2 (05:58→17:59)
[2023-01-09 07:35] LABS: ALT 13 U/L (4-34); AST 20 U/L (14-36); African American GFR (CKD) 57 (>60 ml/min/1.73 sqM); Albumin 3.1 g/dL (3.5-5.0); Albumin/Globulin Ratio 1.2; Alkaline Phosphatase 43 U/L (38-126); Anion Gap 13 mmol/L; Blood Urea Nitrogen 22 mg/dL (7-17); Calcium 9.1 mg/dL (8.4-10.2); Carbon Dioxide 17 mmol/L (22-30); Chloride 108 mmol/L (98-107); Globulin 2.5 g/dL; Glucose 97 mg/dL (74-99); Non-African American GFR(CKD) 49 (>60 ml/min/1.73 sqM); Potassium 4.2 mmol/L (3.5-5.1); Sodium 138 mmol/L (137-145); Total Bilirubin 0.6 mg/dL (0.2-1.3); Total Protein 5.6 g/dL (6.3-8.2)
[2023-01-09] MEDS ORDERED: TAMSULOSIN 0.4 MG CAP.ER.24H PO SCH (08:30)
[2023-01-09 08:44] LABS: Glucose,Whole Blood 122 mg/dL (70-110)
[2023-01-09] MEDS: INSULIN ASPART (NovoLOG) 100 UNIT/ML VIAL SQ SCH ×3 (09:11→17:56)
[2023-01-09] MEDS: LOSARTAN 50 MG TAB PO SCH (09:18)
[2023-01-09] MEDS: ALPRAZolam 0.25 MG TAB PO SCH (09:18)
[2023-01-09] MEDS: PANTOPRAZOLE 40 MG TABLET PO SCH (09:19)
[2023-01-09] MEDS: TROSPIUM CHLORIDE 20 MG TABLET PO SCH (09:19)
[2023-01-09] MEDS: ASPIRIN 81 MG PO SCH (09:19)
[2023-01-09] MEDS: metFORMIN 500 MG TAB PO SCH ×2 (09:19→21:39)
[2023-01-09] MEDS: allopurinoL 100 MG TAB PO SCH (09:19)
[2023-01-09] MEDS: METOPROLOL TARTRATE 25 MG TAB PO SCH ×2 (09:19→21:39)
[2023-01-09] MEDS: BEMPEDOIC ACID 180 MG PO SCH (09:19)
[2023-01-09] MEDS: SENNOSIDES-DOCUSATE SODIUM 1 EACH TAB PO SCH ×2 (09:19→21:39)
[2023-01-09] MEDS: CHOLECALCIFEROL 25 MCG (1000 IU) TABLET PO SCH (09:19)
[2023-01-09 11:03] LABS: Basophils # (A) 0.04 X 10*3/uL (0.00-0.10); Basophils % (A) 0.5 %; Eosinophils # (A) 0.26 X 10*3/uL (0.04-0.35); Eosinophils % (A) 3.2 %; HCT 38.2 % (37.2-46.3); HGB 12.3 g/dL (12.0-15.0); Immature Grans, Automated 0.2 %; Lymphocytes # (A) 1.35 X 10*3/uL (0.90-5.00); Lymphocytes % (A) 16.4 %; MCH 30.5 pg (27.0-32.0); MCHC 32.2 g/dL (32.0-37.0); MCV 94.8 fL (80.0-97.0); Mean Platelet Volume 12.4 fL (9.5-12.2); Monocytes # (A) 0.63 X 10*3/uL (0.20-1.00); Monocytes % (A) 7.7 %; NRBC Per 100 WBC 0 /100 WBCS (0.0-0.0); Neutrophils # (A) 5.92 X 10*3/uL (1.80-7.70); Platelet Count 250 X 10*3/uL (140-440); RBC 4.03 X 10*6/uL (4.10-5.20); RDW 14.8 % (11.5-14.5); WBC 8.22 X 10*3/uL (4.50-10.00)
[2023-01-09 11:18] LABS: Glucose,Whole Blood 138 mg/dL (70-110)
[2023-01-09] MEDS ORDERED: BUTALB/APAP/CAFF 50-325-40MG TAB PO PRN (12:06)
[2023-01-09] MEDS ORDERED: clonazePAM 0.5 MG TAB PO PRN (12:37)
[2023-01-09 12:41] VITALS: BMI 34.4
[2023-01-09] MEDS: SODIUM BICARBONATE TAB 650 MG TAB PO SCH ×3 (13:07→21:43)
--- NOTE | 2023-01-09 13:31 | P.GSCN ---
History of Present Illness Consult date: 01/09/23 Reason for Consult: Urinary retention History of present illness: This is a 77-year-old female admitted to the hospital with depression suicidal ideation. . Patient underwent right above-knee amputation by Dr. Mckenzie. Patient developed urinary retention postoperatively, Lee catheter was placed. Patient has a not had a trial of void since catheter insertion. She does have history of kidney stones in the past and underwent ureteroscopy with holmium laser. No previous history of urinary retention, she does have history of urinary incontinence and frequency. On trospium for overactive bladder. No gross hematuria or dysuria. Review of Systems - Constitutional Denies fever, Denies weight loss - EENT Ears, nose, mouth and throat: Denies dysphagia - Cardiovascular Denies chest pain, Denies shortness of breath - Respiratory Denies cough, Denies 7 - Gastrointestinal Reports as per HPI - Genitourinary Genitourinary: Reports difficulty voiding, Reports mixed incontinence - Neurological Denies headaches, Denies syncope - Psychiatric Reports depression Past Medical History Past Medical History: Asthma, Diabetes Mellitus, Hypertension, Osteoarthritis (OA), Skin Disorder, Sleep Apnea/CPAP/BIPAP, Vascular Disorder Additional Past Medical History / Comment(s): Bronchial asthma, coronary stent 3, diabetes mellitus type 2, eczema, peripheral vascular disease, CPAP, diverticulosis/diverticulitis and previous left wound in the foot with infection with MRSA and the patient has a partial amputation of the left foot History of Any Multi-Drug Resistant Organisms: MRSA Year Discovered:: 2010 MDRO Source:: LT FOOT WOUND Past Surgical History: Appendectomy, Coronary Bypass/CABG, Heart Catheterization With Stent, Tonsillectomy Additional Past Surgical History / Comment(s): PARTIAL AMPUTATION LT FOOT with previous amputation of the left great toe,amputation rt kna. D & C, cataract surgery, breast biopsy. vascular surgery Past Anesthesia/Blood Transfusion Reactions: Motion Sickness, Postoperative Nausea & Vomiting (PONV) Date of Last Stent Placement:: 2007 Past Psychological History: Anxiety, Depression Additional Psychological History / Comment(s): SEE THERAPIST WHEN NEEDED-NOT ON ANY MEDS Smoking Status: Former smoker Past Alcohol Use History: None Reported Additional Past Alcohol Use History / Comment(s): SMOKED IN EARLY 20'S-STOPPED in twenties. Patient is currently residing at [facility] and is wheelchair-bound. She needs assistance with showering. There are no pets in the home. 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 Past Drug Use History: None Reported - Past Family History Mother Family Medical History: Cancer, CVA/TIA Additional Family Medical History / Comment(s): of stroke Sister(s) Family Medical History: Cancer Additional Family Medical History / Comment(s): Uterine Cancer Medications and Allergies Home Medications Medication Instructions Recorded Confirmed Type Ezetimibe [Zetia] 10 mg PO HS 07/23/20 01/08/23 History metFORMIN HCL [Glucophage] 500 mg PO BID 07/23/20 01/08/23 History Montelukast [Singulair] 10 mg PO HS 01/09/21 01/08/23 History Metoprolol Tartrate [Lopressor] 25 mg PO BID 07/24/21 01/08/23 History Acetaminophen [Tylenol Extra 500 mg PO Q6H PRN 08/18/22 01/08/23 History Strength] Latanoprost [Latanoprost 0.005%] 1 drop BOTH EYES HS 08/18/22 01/08/23 History amLODIPine [Norvasc] 5 mg PO DAILY 08/18/22 01/08/23 History Losartan [Cozaar] 50 mg PO DAILY 10/12/22 01/08/23 History Aspirin EC [Ecotrin Low Dose] 81 mg PO DAILY 01/08/23 01/08/23 History Bempedoic Acid [Nexletol] 180 mg PO DAILY 01/08/23 01/08/23 History Cholecalciferol [Vitamin D3 (25 50 mcg PO DAILY 01/08/23 01/08/23 History Mcg = 1000 Iu)] Ciprofloxacin HCl [Cipro] 500 mg PO BID 01/08/23 01/08/23 History HYDROcodone/APAP 5-325MG [[place] 1 tab PO TID PRN 01/08/23 01/08/23 History 5-325] Insulin Lispro [humaLOG Kwikpen] See Protocol SQ ACHS 01/08/23 01/08/23 History Magnesium Hydroxide [Milk of 2,400 mg PO DAILY 01/08/23 01/08/23 History Magnesia] Menthol-Zinc Oxide Oint 1 applic TOPICAL BID 01/08/23 01/08/23 History [Calmoseptine Ointment] Na Phos,M-B/Na Phos,Di-Ba [Fleet 133 ml RECTAL DAILY PRN 01/08/23 01/08/23 History Adult] Ondansetron [Zofran] 4 mg PO Q8H PRN 01/08/23 01/08/23 History Pantoprazole [Protonix] 40 mg PO DAILY 01/08/23 01/08/23 History Sennosides/Docusate Sodium 1 tab PO BID 01/08/23 01/08/23 History [Senna-S 8.6-50 mg Tablet] Solifenacin Succinate [Vesicare] 5 mg PO DAILY 01/08/23 01/08/23 History allopurinoL [Zyloprim] 100 mg PO DAILY 01/08/23 01/08/23 History bisacodyL [Dulcolax] 10 mg RECTAL DAILY PRN 01/08/23 01/08/23 History polyethylene glycoL 3350 [Miralax] 17 gm PO DAILY PRN 01/08/23 01/08/23 History clonazePAM [KlonoPIN] 0.5 mg PO BID 30 Days #60 tab 01/09/23 Rx clonazePAM [KlonoPIN] 0.5 mg PO DAILY PRN 30 Days #30 tab 01/09/23 Rx Allergies Allergy/AdvReac Type Severity Reaction Status Date / Time Penicillins Allergy Rash/Hives Verified 01/08/23 16:07 strawberry Allergy Unknown Verified 01/08/23 16:07 Gwceaiq-QKW-DoS Reductase AdvReac EXTREME Verified 01/08/23 16:07 Inhibitor MUSCLE [Dsbbytj-Uvi-Ciz Reductase PAIN AND Inhibitor] WEAKNESS Surgical - Exam Vital Signs Temp Pulse Resp BP Pulse Ox 98.0 F 81 18 108/51 94 L 01/08/23 13:53 01/08/23 13:53 01/08/23 13:53 01/08/23 13:53 01/08/23 13:53 - General no distress, no pain - Eyes normal ocular movement, no pale - ENT normal nares, normal mucosa - Respiratory normal expansion, normal respiratory effort - Abdomen Abdomen: soft, non tender - Genitourinary Lee draining clear yellow urine - Psychiatric oriented to time, oriented to person, oriented to place Results - Labs 01/09/23 06:27 01/09/23 06:27 Abnormal Lab Results - Last 24 Hours (Table) 01/08/23 01/08/23 01/08/23 Range/Units 14:00 14:00 15:11 WBC 12.4 H (3.8-10.6) k/uL RBC (4.10-5.20) X 10*6/uL RDW 15.6 H (11.5-15.5) % MPV (9.5-12.2) fL Neutrophils # 9.7 H (1.3-7.7) k/uL Chloride (98-107) mmol/L Carbon Dioxide 16 L (22-30) mmol/L BUN 23 H (7-17) mg/dL Creatinine 1.37 H (0.52-1.04) mg/dL Glucose 127 H (74-99) mg/dL POC Glucose (mg/dL) (70-110) mg/dL Total Protein (6.3-8.2) g/dL Albumin (3.5-5.0) g/dL Urine Appearance Turbid H (Clear) Urine Protein 3+ H (Negative) Urine Ketones Trace H (Negative) Urine Blood Moderate H (Negative) Ur Leukocyte Esterase Large H (Negative) Urine RBC 92 H (0-5) /hpf Urine WBC >182 H (0-5) /hpf Urine WBC Clumps Many H (None) /hpf Urine Yeast (Budding) Occasional H (None) /hpf U Benzodiazepines Scrn Detected H (NotDetected) 01/08/23 01/09/23 01/09/23 Range/Units 18:53 06:27 06:27 WBC (3.8-10.6) k/uL RBC 4.03 L (4.10-5.20) X 10*6/uL RDW 14.8 H (11.5-15.5) % MPV 12.4 H (9.5-12.2) fL Neutrophils # (1.3-7.7) k/uL Chloride 108 H (98-107) mmol/L Carbon Dioxide 17 L (22-30) mmol/L BUN 22 H (7-17) mg/dL Creatinine 1.10 H (0.52-1.04) mg/dL Glucose (74-99) mg/dL POC Glucose (mg/dL) 121 H (70-110) mg/dL Total Protein 5.6 L (6.3-8.2) g/dL Albumin 3.1 L (3.5-5.0) g/dL Urine Appearance (Clear) Urine Protein (Negative) Urine Ketones (Negative) Urine Blood (Negative) Ur Leukocyte Esterase (Negative) Urine RBC (0-5) /hpf Urine WBC (0-5) /hpf Urine WBC Clumps (None) /hpf Urine Yeast (Budding) (None) /hpf U Benzodiazepines Scrn (NotDetected) 01/09/23 01/09/23 Range/Units 08:43 11:17 WBC (3.8-10.6) k/uL RBC (4.10-5.20) X 10*6/uL RDW (11.5-15.5) % MPV (9.5-12.2) fL Neutrophils # (1.3-7.7) k/uL Chloride (98-107) mmol/L Carbon Dioxide (22-30) mmol/L BUN (7-17) mg/dL Creatinine (0.52-1.04) mg/dL Glucose (74-99) mg/dL POC Glucose (mg/dL) 122 H 138 H (70-110) mg/dL Total Protein (6.3-8.2) g/dL Albumin (3.5-5.0) g/dL Urine Appearance (Clear) Urine Protein (Negative) Urine Ketones (Negative) Urine Blood (Negative) Ur Leukocyte Esterase (Negative) Urine RBC (0-5) /hpf Urine WBC (0-5) /hpf Urine WBC Clumps (None) /hpf Urine Yeast (Budding) (None) /hpf U Benzodiazepines Scrn (NotDetected) Diabetes panel 01/08/23 01/09/23 Range/Units 14:00 06:27 Sodium 139 138 (137-145) mmol/L Potassium 4.9 4.2 (3.5-5.1) mmol/L Chloride 107 108 H (98-107) mmol/L Carbon Dioxide 16 L 17 L (22-30) mmol/L BUN 23 H 22 H (7-17) mg/dL Creatinine 1.37 H 1.10 H (0.52-1.04) mg/dL Glucose 127 H 97 (74-99) mg/dL Calcium 9.9 9.1 (8.4-10.2) mg/dL AST 20 (14-36) U/L ALT 13 (4-34) U/L Alkaline Phosphatase 43 (38-126) U/L Total Protein 5.6 L (6.3-8.2) g/dL Albumin 3.1 L (3.5-5.0) g/dL Calcium panel 01/08/23 01/09/23 Range/Units 14:00 06:27 Calcium 9.9 9.1 (8.4-10.2) mg/dL Albumin 3.1 L (3.5-5.0) g/dL Pituitary panel 01/08/23 01/09/23 Range/Units 14:00 06:27 Sodium 139 138 (137-145) mmol/L Potassium 4.9 4.2 (3.5-5.1) mmol/L Chloride 107 108 H (98-107) mmol/L Carbon Dioxide 16 L 17 L (22-30) mmol/L BUN 23 H 22 H (7-17) mg/dL Creatinine 1.37 H 1.10 H (0.52-1.04) mg/dL Glucose 127 H 97 (74-99) mg/dL Calcium 9.9 9.1 (8.4-10.2) mg/dL Adrenal panel 01/08/23 01/09/23 Range/Units 14:00 06:27 Sodium 139 138 (137-145) mmol/L Potassium 4.9 4.2 (3.5-5.1) mmol/L Chloride 107 108 H (98-107) mmol/L Carbon Dioxide 16 L 17 L (22-30) mmol/L BUN 23 H 22 H (7-17) mg/dL Creatinine 1.37 H 1.10 H (0.52-1.04) mg/dL Glucose 127 H 97 (74-99) mg/dL Calcium 9.9 9.1 (8.4-10.2) mg/dL Total Bilirubin 0.6 (0.2-1.3) mg/dL AST 20 (14-36) U/L ALT 13 (4-34) U/L Alkaline Phosphatase 43 (38-126) U/L Total Protein 5.6 L (6.3-8.2) g/dL Albumin 3.1 L (3.5-5.0) g/dL Assessment and Plan Assessment: 77-year-old female history of urinary incontinence on trospium at baseline. Developed postoperative urinary retention 1 month ago. no Trial void since that time. Patient is interested in keeping the catheter for incontinence. Discussed with her risk of catheter urethral erosion with prolonged catheter use. At this time recommend removing the catheter for trial of void. Patient does have significant incontinence at baseline, discussed can continue the trospium though the trospium might contribute for her bladder dysfunction but given her degree of incontinence we'll attempt trial void with trospium. can use pure wick for urinary incontinence
--- NOTE | 2023-01-09 13:46 | P.CN ---
Psychiatric Consult - . Consult date: 01/09/23 Consult:: 01/09/23 13:44 IDENTIFYING DATA: This patient is a , retired, 77-year-old female with significant history of Right AKA, JUSTUS, CAD with stent x3, PAD, and JUSTUS with CPAP who presented to our hospital for increased depression. HISTORY OF PRESENT ILLNESS: The patient presented to the hospital on 01/08/2023 with an chief complaint of increased depression. The patient was recently relocated from [facility] to [facility] approximately 10 days ago due to requiring a higher level of care as she is non-ambulatory. Present at bedside Her is her sister Anu and her niece Rosalie. The patient is agreeable to the psychiatric interview with both of them present. She has not been adjusting well and states she has been feeling increasingly hopeless and lonely in regards to her situation as the other tenants at her housing complex are not mentally capable of holding a conversation due to advanced years and dementia. The patient endorses significant symptoms of depression including poor sleep, decreased appetite with nausea, elevated anxiety, and increasing feelings of hopelessness and helplessness. She does admit to occasional suicidal ideation and reports that she last experienced suicidal thoughts prior to admission. However, the patient is vehemently denying any current suicidal or homicidal ideation, intention, and/or plan. The patient reports no prior attempts at suicide. She reports no access to firearms or weapons. The patient states "I think I would end up hurting someone else before I end up hurting myself." The patient was started on Lexapro for management of depression and anxiety while here in the hospital. Furthermore after evaluation by neurology she was started on Elavil in order to address migraine headaches, pain, and insomnia. The patient is also chronically prescribed Xanax however feels like her anxiety tends to be elevated, usually prior to undergoing physical therapy. The patient is not endorsing any other mood symptoms. She denies any history of bipolar disorder. She reports no history of increased goal-directed activity, grandiosity, or periods of excessive energy. She denies any significant history of auditory or visual hallucinations. She reports no paranoia or other delusions. PAST PSYCHIATRIC HISTORY: Patient has a history of depression and anxiety. She is currently prescribed Xanax for anxiety. Patient denies any previous psychiatric hospitalizations. Patient denies any psychiatric outpatient follow- up. Patient denies any history of suicide attempts in the past. PAST MEDICAL HISTORY: Past Medical History: Asthma, Diabetes Mellitus, Hypertension, Osteoarthritis (OA), Skin Disorder, Sleep Apnea/CPAP/BIPAP, Vascular Disorder Additional Past Medical History / Comment(s): Bronchial asthma, coronary stent 3, diabetes mellitus type 2, eczema, peripheral vascular disease, CPAP, diverticulosis/diverticulitis and previous left wound in the foot with infection with MRSA and the patient has a partial amputation of the left foot History of Any Multi-Drug Resistant Organisms: MRSA Date of last positivie culture/infection: 2010 MDRO Source:: LT FOOT WOUND Past Surgical History: Appendectomy, Coronary Bypass/CABG, Heart Catheterization With Stent, Tonsillectomy Additional Past Surgical History / Comment(s): PARTIAL AMPUTATION LT FOOT with previous amputation of the left great toe,. D & C, cataract surgery, breast biopsy. vascular surgery Past Anesthesia/Blood Transfusion Reactions: Motion Sickness, Postoperative Nausea & Vomiting (PONV) Date of Last Stent Placement:: 2007 Past Psychological History: Anxiety, Depression Smoking Status: Former smoker Past Alcohol Use History: None Reported Past Drug Use History: None Reported ALLERGIES: Allergies Allergy/AdvReac Type Severity Reaction Status Date / Time Penicillins Allergy Rash/Hives Verified 01/08/23 16:07 strawberry Allergy Unknown Verified 01/08/23 16:07 Izjqvtj-OJK-FjS Reductase AdvReac EXTREME Verified 01/08/23 16:07 Inhibitor MUSCLE [Ovjnwma-Fer-Kef Reductase PAIN AND Inhibitor] WEAKNESS CHEMICAL DEPENDENCY HISTORY: Patient reports rare alcohol use. She denies any tobacco use. She reports no marijuana or illicit drug use. FAMILY PSYCHIATRIC/SUBSTANCE USE HISTORY: No reported family psychiatric history. SOCIAL HISTORY: Patient was born and raised in [place], [place]. She attended some college. 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 She is . She was raised [place]. She was living at [facility] for 11 years prior to recently moving to [facility] 10 days ago. She reports strong support from her family. MENTAL STATUS EXAM: General Appearance: Patient appears to be stated age is alert, pleasant, and cooperative. Patient appears to have fair hygiene and grooming wearing hospital gown with fair eye contact. Notable above-knee amputation on her right side. Obese body habitus. Behavior: Patient is calmly lying in bed without any agitated behavior. Eye contact is appropriate. Speech: Patient's speech is fluent and nonpressured. Mood/Affect: Patient reports their mood is "kind of anxious", affect is bright and friendly. Suicidality/Homicidality: Patient denies any current suicidal or homicidal ideation, intention, and/or plan. Perceptions: Patient denies any visual hallucinations and denies any auditory hallucinations Though content/process: There is no evidence of any delusional thought content and thought process is linear and goal-directed. Memory and concentration: AOX3, grossly intact for the purposes of this session. Can spell "WORLD" backwards Judgment and insight: Fair IMPRESSIONS: Adjustment disorder with depressed mood Generalized anxiety disorder Obesity Hypertension Diabetes mellitus type 2 PLAN: -At this time patient DOES NOT meet criteria for inpatient psychiatric admission. The patient is not presenting with imminent risk of harm to self or others and is currently denying any suicidal or homicidal ideation, intention, and/or plan. -Delirium precautions recommended with patient including - avoiding use of narcotics and SHALE [employer] BLASTING sedatives, limit anticholinergic medications when possible, frequent re-orientation, minimize use of restraints, open window shades during the day and close them at night -Would recommend the following medication changes/additions: We will discontinue Xanax and start the patient on Klonopin 0.5 mg by mouth twice a day for anxiety with another 0.5 mg to be given when necessary. We will discontinue Lexapro and continue treatment with Elavil to manage depression and migraines. -Check TSH w/ reflex to T4 -Medication risks, benefits, and treatment alternatives were discussed with the patient and her family in detail. A consent to the medication changes. -Patient does not require a one-to-one sitter. -Recommend referral for outpatient psychotherapy and counseling. -Approximately 20 minutes were spent providing the patient with reflective l istening and cognitive behavioral therapy. -Patient is cleared psychiatrically for discharge. -Psychiatry will sign off at this point, please contact with any questions. Vital Signs Temp 98.4 F 01/09/23 12:44 Pulse 68 01/09/23 12:44 Resp 18 01/09/23 12:44 BP 127/66 01/09/23 12:44 Pulse Ox 93 L 01/09/23 12:44 FiO2 Intake & Output 01/08/23 01/09/23 01/09/23 18:59 06:59 18:59 Intake Total 590 Output Total 800 140 Balance -210 -140 Weight 99.79 kg 99.79 kg 99.79 kg Intake: Oral 590 Output: Urine 800 Post Void Residual 140 Other: Voiding Method Indwelling Catheter # Voids 1 # Bowel Movements 1 Laboratory Results WBC 8.22 X 10*3/uL (4.50-10.00) 01/09/23 06:27 RBC 4.03 X 10*6/uL (4.10-5.20) L 01/09/23 06:27 Hgb 12.3 g/dL (12.0-15.0) 01/09/23 06:27 Hct 38.2 % (37.2-46.3) 01/09/23 06:27 MCV 94.8 fL (80.0-97.0) 01/09/23 06:27 MCH 30.5 pg (27.0-32.0) 01/09/23 06:27 MCHC 32.2 g/dL (32.0-37.0) 01/09/23 06:27 RDW 14.8 % (11.5-14.5) H 01/09/23 06:27 Plt Count 250 X 10*3/uL (140-440) 01/09/23 06:27 MPV 12.4 fL (9.5-12.2) H 01/09/23 06:27 Immature Gran % (Auto) 0.2 % 01/09/23 06:27 Absolute Nucleated RBC 0 X 10*3/uL (0.00-0.00) 01/09/23 06:27 Neutrophils % 72.0 % 01/09/23 06:27 Lymphocytes % 16.4 % 01/09/23 06:27 Monocytes % 7.7 % 01/09/23 06:27 Eosinophils % 3.2 % 01/09/23 06:27 Basophils % 0.5 % 01/09/23 06:27 Immature Gran # 0.02 X 10*3/uL (0.00-0.04) 01/09/23 06:27 Neutrophils # 5.92 X 10*3/uL (1.80-7.70) 01/09/23 06:27 Lymphocytes # 1.35 X 10*3/uL (0.90-5.00) 01/09/23 06:27 Monocytes # 0.63 X 10*3/uL (0.20-1.00) 01/09/23 06:27 Eosinophils # 0.26 X 10*3/uL (0.04-0.35) 01/09/23 06:27 Basophils # 0.04 X 10*3/uL (0.00-0.10) 01/09/23 06:27 NRBC/100 WBC Diff 0 /100 WBCS (0.0-0.0) 01/09/23 06:27 Sodium 138 mmol/L (137-145) 01/09/23 06:27 Potassium 4.2 mmol/L (3.5-5.1) 01/09/23 06:27 Chloride 108 mmol/L (98-107) H 01/09/23 06:27 Carbon Dioxide 17 mmol/L (22-30) L 01/09/23 06:27 Anion Gap 13 mmol/L 01/09/23 06:27 BUN 22 mg/dL (7-17) H 01/09/23 06:27 Creatinine 1.10 mg/dL (0.52-1.04) H 01/09/23 06:27 Est GFR (CKD-EPI)AfAm 57 (>60 ml/min/1.73 sqM) 01/09/23 06:27 Est GFR (CKD-EPI)NonAf 49 (>60 ml/min/1.73 sqM) 01/09/23 06:27 Glucose 97 mg/dL (74-99) 01/09/23 06:27 POC Glucose (mg/dL) 138 mg/dL (70-110) H 01/09/23 11:17 POC Glu Human Resource Assistant ID Samir Ochoa 01/09/23 11:17 Calcium 9.1 mg/dL (8.4-10.2) 01/09/23 06:27 Total Bilirubin 0.6 mg/dL (0.2-1.3) 01/09/23 06:27 AST 20 U/L (14-36) 01/09/23 06:27 ALT 13 U/L (4-34) 01/09/23 06:27 Alkaline Phosphatase 43 U/L (38-126) 01/09/23 06:27 Total Protein 5.6 g/dL (6.3-8.2) L 01/09/23 06: Albumin 3.1 g/dL (3.5-5.0) L 01/09/23 06: Globulin 2.5 g/dL 01/09/23 06: Albumin/Globulin Ratio 1.2 01/09/23 06:27 Urine Color Red 01/08/23 15:11 Urine Appearance Turbid (Clear) H 01/08/23 15:11 Urine pH 6.0 (5.0-8.0) 01/08/23 15:11 Ur Specific [place] 1.020 (1.001-1.035) 01/08/23 15:11 Urine Protein 3+ (Negative) H 01/08/23 15:11 Urine Glucose (UA) Negative (Negative) 01/08/23 15:11 Urine Ketones Trace (Negative) H 01/08/23 15:11 Urine Blood Moderate (Negative) H 01/08/23 15:11 Urine Nitrite Negative (Negative) 01/08/23 15:11 Urine Bilirubin Negative (Negative) 01/08/23 15:11 Urine Urobilinogen <2.0 mg/dL (<2.0) 01/08/23 15:11 Ur Leukocyte Esterase Large (Negative) H 01/08/23 15:11 Urine RBC 92 /hpf (0-5) H 01/08/23 15:11 Urine WBC >182 /hpf (0-5) H 01/08/23 15:11 Urine WBC Clumps Many /hpf (None) H 01/08/23 15:11 Urine Yeast (Budding) Occasional /hpf (None) H 01/08/23 15:11 Salicylates <1.0 mg/dL 01/08/23 14:00 Urine Opiates Screen Not Detected (NotDetected) 01/08/23 15:11 Ur Oxycodone Screen Not Detected (NotDetected) 01/08/23 15:11 Urine Methadone Screen Not Detected (NotDetected) 01/08/23 15:11 Ur Propoxyphene Screen Not Detected (NotDetected) 01/08/23 15:11 Acetaminophen <10.0 ug/mL 01/08/23 14:00 Ur Barbiturates Screen Not Detected (NotDetected) 01/08/23 15:11 U Tricyclic Antidepress Not Detected (NotDetected) 01/08/23 15:11 Ur Phencyclidine Scrn Not Detected (NotDetected) 01/08/23 15:11 Ur Amphetamines Screen Not Detected (NotDetected) 01/08/23 15:11 U Methamphetamines Scrn Not Detected (NotDetected) 01/08/23 15:11 U Benzodiazepines Scrn Detected (NotDetected) H 01/08/23 15:11 Urine Cocaine Screen Not Detected (NotDetected) 01/08/23 15:11 U Marijuana (THC) Screen Not Detected (NotDetected) 01/08/23 15:11 Serum Alcohol <10 mg/dL 01/08/23 14:00 01/09/23 13:44 01/09/23 13:45
--- NOTE | 2023-01-09 16:00 | P.CNNES ---
History of Present Illness Consult date: 01/09/23 Requesting physician: Kenneth Wright Reason for Consult: Intermittent headaches History of Present Illness: Patient is a 77-year-old right-handed female came to the hospital by ambulance yesterday at 1:46 PM for evaluation of severe depression, anhedonia, decreased ability to live, recent right above-knee amputation, make patient completely dependent on [facility] staff. Psychiatry has been consulted. Neurology was consulted for chronic headaches. Patient's sister and patient's niece were present at this time. Patient tells me that she has been suffering from headaches for last 1 year. It used to occur in the evening, but now are also occurring in the daytime as well. Along with headache, she also immediately gets dizziness, in which her room is spinning. The headache and dizziness are occurring almost on a daily basis, mostly at night, but also during the day. The headache is bifrontal, also involves back of the head and top of the head, pressure with stabbing pain, she rates 9-10/10. She gets nausea and vomiting, light and noise sensitivity with the headache and dizziness. The symptoms last for couple hours and she tries to sleep it off and goes away by the next day. Patient denies any recent falls. She does have glaucoma in the right eye. She has only tried Tylenol, aspirin, or Tylenol No. 3, naproxen or Motrin. She denies any tinnitus, has developed some mild hearing loss as mentioned by patient's family. EMS flow sheet not available the chart. Vital signs on arrival blood pressure 108/51, pulse rate [address] head showed no acute intracranial process. Nonspecific white matter changes likely secondary to chronic small vessel ischemic disease. I personally reviewed CT head, agree with the findings. No evidence of paranasal sinuses disease. No hydrocephalus. Blood test shows WBC 12.4 hemoglobin 14.2, platelets 348. Electrolytes are normal, BU and 23 creatinine 1.37. Hepatic panel is normal, UA shows large amount of leukocyte esterase, > 182 WBC, with many clumps. Urine drug screen positive for benzodiazepine, blood alcohol level negative. Patient's B12 is normal 796 on 10/29/2022. Folate >24. Patient's ESR was elevated 92 on 11/14/2022. This may be the time that she was undergoing right AKA. Patient has history of diabetes since 2007. Patient has undergone left foot amputation in 2010. On 11/17/2022, she underwent AKA on the right side. Home medications include metformin, Zetia, Singulair, metoprolol, amlodipine, losartan, Vesicare, Cipro, aspirin 81 mg, insulin, Protonix and [place]. Patient states that she used to be on Eliquis, after she underwent triple bypass surgery. Never has any history of A. fib. Anticoagulants discontinued since her right AKA. Patient never smoked tobacco, drink alcohol very very occasionally and dense about 3 cups of coffee per day. Denies any personal or family history of migraines. Patient currently living in [facility]. Review of Systems Constitutional: Denies chills, Denies fever Eyes: right blurred vision, right loss of vision (Glaucoma), denies pain Ears: bilateral: decreased hearing, deny: earache, tinnitus Ears, nose, mouth and throat: Reports headache, Denies sore throat Cardiovascular: Reports shortness of breath, Denies chest pain Respiratory: Reports cough, Denies excessive sputum Gastrointestinal: Reports constipation, Reports nausea, Reports vomiting, Denies abdominal pain, Denies diarrhea Genitourinary: Denies dysuria, Denies hematuria Musculoskeletal: Denies myalgias, Denies neck pain Integumentary: Reports dryness, Denies pruritus, Denies rash Neurological: Reports as per HPI Psychiatric: Reports anxiety, Reports depression, Reports suicidal ideation Endocrine: Reports fatigue, Reports weight change Past Medical History Past Medical History: Asthma, Diabetes Mellitus, Hypertension, Osteoarthritis (OA), Skin Disorder, Sleep Apnea/CPAP/BIPAP, Vascular Disorder Additional Past Medical History / Comment(s): Bronchial asthma, coronary stent 3, diabetes mellitus type 2, eczema, peripheral vascular disease, CPAP, diverticulosis/diverticulitis and previous left wound in the foot with infection with MRSA and the patient has a partial amputation of the left foot History of Any Multi-Drug Resistant Organisms: MRSA Date of last positivie culture/infection: 2010 MDRO Source:: LT FOOT WOUND Past Surgical History: Appendectomy, Coronary Bypass/CABG, Heart Catheterization With Stent, Tonsillectomy Additional Past Surgical History / Comment(s): PARTIAL AMPUTATION LT FOOT with previous amputation of the left great toe,amputation rt kna. D & C, cataract surgery, breast biopsy. vascular surgery Past Anesthesia/Blood Transfusion Reactions: Motion Sickness, Postoperative Vladimir sea & Vomiting (PONV) Date of Last Stent Placement:: 2007 Past Psychological History: Anxiety, Depression Additional Psychological History / Comment(s): SEE THERAPIST WHEN NEEDED-NOT ON ANY MEDS Smoking Status: Former smoker Past Alcohol Use History: None Reported Additional Past Alcohol Use History / Comment(s): SMOKED IN EARLY 20'S-STOPPED in twenties. Patient is currently residing at [facility] and is wheelchair-bound. She needs assistance with showering. There are no pets in the home. 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 Past Drug Use History: None Reported - Past Family History Mother Family Medical History: Cancer, CVA/TIA Additional Family Medical History / Comment(s): of stroke Sister(s) Family Medical History: Cancer Additional Family Medical History / Comment(s): Uterine Cancer Medications and Allergies Home Medications Medication Instructions Recorded Confirmed Type Ezetimibe [Zetia] 10 mg PO HS 07/23/20 01/08/23 History metFORMIN HCL [Glucophage] 500 mg PO BID 07/23/20 01/08/23 History Montelukast [Singulair] 10 mg PO HS 01/09/21 01/08/23 History Metoprolol Tartrate [Lopressor] 25 mg PO BID 07/24/21 01/08/23 History Acetaminophen [Tylenol Extra 500 mg PO Q6H PRN 08/18/22 01/08/23 History Strength] Latanoprost [Latanoprost 0.005%] 1 drop BOTH EYES HS 08/18/22 01/08/23 History amLODIPine [Norvasc] 5 mg PO DAILY 08/18/22 01/08/23 History Losartan [Cozaar] 50 mg PO DAILY 10/12/22 01/08/23 History Aspirin EC [Ecotrin Low Dose] 81 mg PO DAILY 01/08/23 01/08/23 History Bempedoic Acid [Nexletol] 180 mg PO DAILY 01/08/23 01/08/23 History Cholecalciferol [Vitamin D3 (25 50 mcg PO DAILY 01/08/23 01/08/23 History Mcg = 1000 Iu)] Ciprofloxacin HCl [Cipro] 500 mg PO BID 01/08/23 01/08/23 History HYDROcodone/APAP 5-325MG [[place] 1 tab PO TID PRN 01/08/23 01/08/23 History 5-325] Insulin Lispro [humaLOG Kwikpen] See Protocol SQ ACHS 01/08/23 01/08/23 History Magnesium Hydroxide [Milk of 2,400 mg PO DAILY 01/08/23 01/08/23 History Magnesia] Menthol-Zinc Oxide Oint 1 applic TOPICAL BID 01/08/23 01/08/23 History [Calmoseptine Ointment] Na Phos,M-B/Na Phos,Di-Ba [Fleet 133 ml RECTAL DAILY PRN 01/08/23 01/08/23 History Adult] Ondansetron [Zofran] 4 mg PO Q8H PRN 01/08/23 01/08/23 History Pantoprazole [Protonix] 40 mg PO DAILY 01/08/23 01/08/23 History Sennosides/Docusate Sodium 1 tab PO BID 01/08/23 01/08/23 History [Senna-S 8.6-50 mg Tablet] Solifenacin Succinate [Vesicare] 5 mg PO DAILY 01/08/23 01/08/23 History allopurinoL [Zyloprim] 100 mg PO DAILY 01/08/23 01/08/23 History bisacodyL [Dulcolax] 10 mg RECTAL DAILY PRN 01/08/23 01/08/23 History polyethylene glycoL 3350 [Miralax] 17 gm PO DAILY PRN 01/08/23 01/08/23 History clonazePAM [KlonoPIN] 0.5 mg PO BID 30 Days #60 tab 01/09/23 Rx clonazePAM [KlonoPIN] 0.5 mg PO DAILY PRN 30 Days #30 tab 01/09/23 Rx Allergies Allergy/AdvReac Type Severity Reaction Status Date / Time Penicillins Allergy Rash/Hives Verified 01/08/23 16:07 strawberry Allergy Unknown Verified 01/08/23 16:07 Qknwuqz-CWW-NxL Reductase AdvReac EXTREME Verified 01/08/23 16:07 Inhibitor MUSCLE [Nttdnjt-Quh-Dqw Reductase PAIN AND Inhibitor] WEAKNESS Physical Examination - Vital Signs Vital Signs: Vital Signs Temp Pulse Pulse Resp BP BP Pulse Ox 01/09/23 07:32 97.6 F 72 16 117/60 94 L 01/09/23 02:00 97.0 F L 70 16 122/66 94 L 01/08/23 20:43 72 18 105/45 93 L 01/08/23 19:02 97.5 F L 71 18 110/59 95 01/08/23 15:25 72 116/53 96 01/08/23 14:43 74 20 78/46 98 01/08/23 13:53 98.0 F 81 18 108/51 94 L Intake and Output 01/08/23 01/09/23 01/09/23 22:59 06:59 14:59 Intake Total 590 Output Total 800 Balance -210 Intake: Oral 590 Output: Urine 800 Other: Voiding Method Indwelling Catheter # Voids 1 # Bowel Movements 1 Weight 99.79 kg Patient is an elderly female, very pleasant, in no acute distress. Patient is alert awake oriented to time place and person. Patient knows that she is in [facility] in [place]. She knows it is 01/09/2023. Speech and language functions are normal. Patient can name and repeat very well. No aphasia or dysarthria. Attention, concentration and fund of knowledge is adequate. On cranial nerve examination, pupils are equal, round and reacting to light, visual hook are full on confrontation, with no neglect on double simultaneous stimulation. Extraocular muscles are intact with no nystagmus. Face is symmetric, tongue protrudes to the midline. Palatal elevation and sensation normal, hearing is moderately decreased for finger rubbing, but normal for routine conversation. Her shoulder shrug normal, facial sensation normal. On muscle strength testing, there is no pronator drift and the strength is normal in arms distally and proximally, except left deltoid which is 5-. In the lower limbs, her hip flexion is normal bilaterally. Patient has right AKA, and left foot amputation. Deep tendon reflexes are symmetric 1+ at the biceps, 0 brachioradialis, 0 at the left knee. Sensory to touch is equal with no neglect on double simultaneous stimulation. Cerebellar function showed no ataxia for [id number]-[id number] testing. No dysdiadochokinesia. Tone and bulk of muscles normal. Gait patient bedbound, wheelchair dependent On general examination, there is no carotid bruit or murmur, S1-S2 audible. Chest is clear on consultation. Abdomen is soft nontender. No organomegaly, bowel sounds present. Patient has right AKA, and left foot amputation. Results - Laboratory Findings CBC and BMP: 01/09/23 06:27 01/09/23 06:27 Abnormal Lab Findings: Abnormal Labs 01/08/23 01/08/23 01/08/23 14:00 14:00 15:11 WBC 12.4 H RDW 15.6 H Neutrophils # 9.7 H Chloride Carbon Dioxide 16 L BUN 23 H Creatinine 1.37 H Glucose 127 H POC Glucose (mg/dL) Total Protein Albumin Urine Appearance Turbid H Urine Protein 3+ H Urine Ketones Trace H Urine Blood Moderate H Ur Leukocyte Esterase Large H Urine RBC 92 H Urine WBC >182 H Urine WBC Clumps Many H Urine Yeast (Budding) Occasional H U Benzodiazepines Scrn Detected H 01/08/23 01/09/23 01/09/23 18:53 06:27 08:43 WBC RDW Neutrophils # Chloride 108 H Carbon Dioxide 17 L BUN 22 H Creatinine 1.10 H Glucose POC Glucose (mg/dL) 121 H 122 H Total Protein 5.6 L Albumin 3.1 L Urine Appearance Urine Protein Urine Ketones Urine Blood Ur Leukocyte Esterase Urine RBC Urine WBC Urine WBC Clumps Urine Yeast (Budding) U Benzodiazepines Scrn Assessment and Plan Assessment: * Probable tension type headache, with some component of migraines as well. Patient has been suffering with these periodic, daily headaches for the last 1 year. No previous history of migraines. Patient is under a lot of stress, which likely is triggering tension type headaches and migraines. Rule out temporal arteritis. * Dizziness/vertigo, with headache, unclear cause. Dizziness may be part of headache. Rule out peripheral vascular dysfunction. * Damian. depression * Diabetes * Hypertension * Sleep apnea * CAD * Bronchial asthma * Morbid obesity * History of right AKA, left foot amputation * Peripheral arterial disease * History of glaucoma right side Plan: * Patient has developed probable tension-type headaches. She will be started on amitriptyline 25 mg at bedtime. Possible side effects were informed including drowsiness, dry mouth, and increase in appetite with weight gain. * Patient will try Fioricet as needed for possible underlying migraines. * Patient was recommended to keep a log of the headaches on the calendar, and follow up with neurologist for management of chronic headaches. * CT head showed no acute process. Visualized paranasal sinuses are clear. * We will check ESR, CRP to rule out temporal arteritis. * We will see if Fioricet helps with the dizziness as well. Otherwise she may need an ENT consult as an outpatient. * Check carotid Doppler, to rule out stenosis. * Dr. Holman will be covering neurology service in the morning. Thank you for the consult. Time with Patient: Greater than 30
[2023-01-09 17:26] LABS: Glucose,Whole Blood 119 mg/dL (70-110)
--- NOTE | 2023-01-09 17:40 | P.PN ---
Progress Note - Text Progress Note Date: 01/09/23 Chief Complaint: Depressed This is a pleasant 77-year-old patient who follows with visiting physicians. Chronic stable medical conditions include asthma, diabetes, hypertension, osteoarthritis, obstructive sleep apnea, coronary stent 3, PAD, does use CPAP, diverticulosis, partial amputation of the left foot, about a month ago underwent right above-knee amputation per Dr. Mckenzie from vascular. Patient at baseline is nonambulatory. Wheelchair bound. Does need assistance. Seen in the ER room 11. accompanied by his sister in the ER. Patient given for a few symptoms. Patient has been feeling rather depressed. She says she was given a full breakfast at about 10:30 and at about normal canals to have lunch. And she said [I tried to kill me. '. Or otherwise kill me. She also complaining of these intermittent headaches she has some does get worse with vo miting. Has not been diagnosed. May get an aura. She also has decub ulcers in the back that are actually healing being followed by [facility] once a week. Patient has a Lee catheter for about a month since he had a right above-knee amputation by Dr. Mckenzie. January 09: Patient seen by Dr. Lincoln from neurology. Has ordered ESR, CRP and a carotid Doppler. Seen by psychiatry. Started on Klonopin 0.5 mg twice daily, Lexapro discontinued, Elavil to continue. Per urology trial of DC catheter. Active Medications Acetaminophen (Acetaminophen Tab 500 Mg Tab) 500 mg PO Q6H PRN PRN Reason: Pain or Fever > 100.5 Acetaminophen/Butalbital/Caffeine (Butalb/Apap/Caff 50-325-40mg Tab) 1 each PO Q4HR PRN PRN Reason: Headache Hydrocodone Bitart/Acetaminophen (Hydrocodone/Apap 5-325mg 1 Each Tab) 1 each PO TID PRN PRN Reason: Pain Allopurinol (Allopurinol 100 Mg Tab) 100 mg PO DAILY [facility] Last Admin: 01/09/23 09:19 Dose: 100 mg Amitriptyline HCl (Amitriptyline Hcl 10 Mg Tab) 20 mg PO HS BALDEV Aspirin (Aspirin 81 Mg) 81 mg PO DAILY [facility] Last Admin: 01/09/23 09:19 Dose: 81 mg Bisacodyl (Bisacodyl 10 Mg Supp) 10 mg RECTAL DAILY PRN PRN Reason: Constipation Calcium Carbonate/Glycine (Calcium Carbonate 500 Mg Chewable) 1,000 mg PO Q4HR PRN PRN Reason: Dyspepsia Cholecalciferol (Cholecalciferol 25 Mcg (1000 Iu) Tablet) 50 mcg PO DAILY [facility] Last Admin: 01/09/23 09:19 Dose: 50 mcg Clonazepam (Clonazepam 0.5 Mg Tab) 0.5 mg PO BID BALDEV Clonazepam (Clonazepam 0.5 Mg Tab) 0.5 mg PO DAILY PRN PRN Reason: Anxiety Dextrose/Water (Dextrose 50% Syringe 50 Ml) 25 ml IVP PER PROTOCOL PRN; Protocol PRN Reason: Hypoglycemia Dextrose/Water (Dextrose 50% Syringe 50 Ml) 50 ml IVP PER PROTOCOL PRN; Protocol PRN Reason: Hypoglycemia Ezetimibe (Ezetimibe 10 Mg Tab) 10 mg PO [facility] Last Admin: 01/08/23 21:08 Dose: 10 mg Sodium Chloride (Saline 0.9%) 1,000 mls @ 100 mls/hr IV .Q10H [facility] Last Admin: 01/09/23 05:58 Dose: Not Given Insulin Aspart (Insulin Aspart (Novolog) 100 Unit/Ml Vial) 0 unit SQ AC-TID [facility]; Protocol Last Admin: 01/09/23 11:20 Dose: Not Given Latanoprost (Latanoprost 0.005% Ophth Drops 2.5 Ml Btl) 1 drops BOTH EYES [facility] Last Admin: 01/09/23 02:32 Dose: Not Given Losartan Potassium (Losartan 50 Mg Tab) 50 mg PO DAILY [facility] Last Admin: 01/09/23 09:18 Dose: 50 mg Metformin HCl (Metformin 500 Mg Tab) 500 mg PO BID [facility] Last Admin: 01/09/23 09:19 Dose: 500 mg Metoprolol Tartrate (Metoprolol Tartrate 25 Mg Tab) 25 mg PO BID [facility] Last Admin: 01/09/23 09:19 Dose: 25 mg Montelukast Sodium (Montelukast 10 Mg Tab) 10 mg PO HS [facility] Last Admin: 01/08/23 21:08 Dose: 10 mg Naloxone HCl (Naloxone 0.4 Mg/Ml 1 Ml Vial) 0.2 mg IV Q2M PRN PRN Reason: Opioid Reversal Patient's Own ( Bempedoic Acid [ Nexletol] 180 Mg Tablet) 180 mg PO DAILY [facility] Last Admin: 01/09/23 09:19 Dose: Not Given Ondansetron HCl (Ondansetron 4 Mg/2 Ml Vial) 4 mg IVP Q8HR PRN PRN Reason: Nausea And Vomiting Pantoprazole Sodium (Pantoprazole 40 Mg Tablet) 40 mg PO DAILY [facility] Last Admin: 01/09/23 09:19 Dose: 40 mg Polyethylene Glycol (Polyethylene Glycol 3350 17 Gm Powd.Pack) 17 gm PO DAILY PRN PRN Reason: Constipation Senna/Docusate Sodium (Sennosides-Docusate Sodium 1 Each Tab) 1 each PO BID [facility] Last Admin: 01/09/23 09:19 Dose: 1 each Sodium Bicarbonate (Sodium Bicarbonate Tab 650 Mg Tab) 650 mg PO TID [facility] Last Admin: 01/09/23 13:07 Dose: 650 mg Sodium Biphosphate/Sodium Phosphate (Na Phos,M-B/Na Phos,Di-Ba 133 Ml Enema) 133 ml RECTAL DAILY PRN PRN Reason: Constipation Trospium (Trospium Chloride 20 Mg Tablet) 20 mg PO DAILY [facility] Last Admin: 01/09/23 09:19 Dose: 20 mg Past medical history to include: Asthma, diabetes, hypertension, osteoarthritis, obstructive sleep apnea, CAD wit h stent and carotid bypass, eczema, PAD, uses CPAP, diverticulosis, partial amputation of the left foot, anxiety depression Social history: Lives at [facility] Wheelchair bound. No smoking. No alcohol. 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 Physical examination: VITAL SIGNS: 98.4, 68, 18, 127/66, 93% on room air GENERAL: BMI 34.5, laying in bed awake comfortable EYES: Pupils equal. Conjunctiva normal. HEENT: External appearance of nose and ears normal, oral cavity grossly normal. NECK: JVD not raised; masses not palpable. HEART: First and second heart sounds are normal; no edema. LUNGS: Respiratory rate normal; distant breath sounds. ABDOMEN: Soft, nontender, liver spleen not palpable, no masses palpable. PSYCH: Alert and oriented x3; mood and affect depressedl. EXTREMITIES: Right above-knee amputation with a dressing, left foot amputation MUSCULOSKELETAL:No Clubbing/cyanosis;muscles-grossly intact. OA INVESTIGATIONS, reviewed in the clinical context: White count 12.4 hemoglobin 14.2 platelets 348 potassium 4.9 BUN 23 creatinine 1.37 UA: Nitrate negative. Urine drug screen positive for benzodiazepine. Assessment and plan: -Generalized anxiety disorder. Adjustment disorder with depressed mood. Dr. Terry from psychiatry:. Lexapro discontinued. Continue Elavil. Klonopin 0.5 mg twice a day added. Xanax discontinued. -Right above-knee amputation by Dr. Mckenzie about a month ago. Consult Dr. Mckenzie -Intermittent severe headaches with nausea. Possible migraine. Rule out temporal arteritis CT brain: Unremarkable. Seen by Dr. Lincoln from neurology. ESR CRP, carotid Doppler ordered. -Bladder dysfunction. Has had a Lee catheter for one month. DC trial of Lee.. Vesicare. Follow with urology -Chronic decubitus ulcers. See nursing notes. Offset Pressman Dr. Mckenzie. -Obesity, BMI 34.5 Weight loss measures -Intermittent asthma Singulair -Hyperuricemia Allopurinol -Diabetes mellitus type 2 on oral hypoglycemic Metformin. Accu-Cheks and sliding scale insulin -Essential hypertension Hold amlodipine. Lopressor -GERD Protonix -Hypercholesterolemia Zetia 10 mg daily at bedtime -Asymptomatic bacteriuria due to Lee catheter. No need for antibiotics. -Chronic medical debility, wheelchair bound -Full code Consults noted. Neurology workup in place. If cleared by neurology patient can be discharged tomorrow.
[2023-01-09 20:18] LABS: Glucose,Whole Blood 114 mg/dL (70-110)
[2023-01-09] MEDS ORDERED: AMITRIPTYLINE HCL 10 MG TAB PO SCH (21:00)
[2023-01-09] MEDS: MONTELUKAST 10 MG TAB PO SCH (21:39)
[2023-01-09] MEDS: clonazePAM 0.5 MG TAB PO SCH (21:39)
--- NOTE | 2023-01-09 21:42 | US ---
EXAMINATION TYPE: US carotid duplex BILAT DATE OF EXAM: 01/09/2023 Exam done portable COMPARISON: US 2016 CLINICAL INDICATION: Female, 77 years old with history of Headaches, dizziness, rule out stenosis, PA D; TECHNIQUE: Carotid duplex ultrasound examination. Indirect Doppler criteria was utilized. FINDINGS: EXAM MEASUREMENTS: RIGHT: Peak Systolic Velocity (PSV) cm/sec ----- Right CCA: 46.0 ----- Right ICA: 51.5 ----- Right ECA: 109.0 ICA/CCA ratio: 1.1 RIGHT: End Diastole cm/sec ----- Right CCA: 0.0 ----- Right ICA: 12.1 ----- Right ECA: 0.0 LEFT: Peak Systolic Velocity (PSV) cm/sec ----- Left CCA: 72.5 ----- Left ICA: 63.8 ----- Left ECA: 104.0 ICA/CCA ratio: 0.9 LEFT: End Diastole cm/sec ----- Left CCA: 12.5 ----- Left ICA: 11.4 ----- Left ECA: 0.0 VERTEBRALS (direction of flow): Right Vertebral: Antegrade Left Vertebral: Antegrade Rhythm: Normal No significant stenosis IMPRESSION: Less than 50% stenosis of the bilateral carotid bifurcations. Criteria for Assigning % of Stenosis / Diameter reduction (Estimation based on the indirect measurements of the internal carotid artery velocities (ICA PSV). 1. Normal (no stenosis)=ICA PSV < 125 cm/s: ratio < 2.0: ICA EDV<40 cm/s. 2. Less than 50% stenosis=ICA PSV < 125 cm/s: ratio < 2.0: ICA EDV<40 cm/s. 3. 50 to 69% stenosis=ICA PSV of 125 to 230 cm/s: ration 2.0 ? 4.0: ICA EDV 40-100 cm/s. 4. Greater than 70% stenosis to near occlusion= ICA PSV > 230 cm/s: ratio > 4.0: ICA EDV > 100 cm/s. 5. Near occlusion= ICA PSV velocities may be low or undetectable: variable ratio and ICA EDV. 6. Total occlusion=unable to detect flow.
[2023-01-10] MEDS: SODIUM CHLORIDE 0.9% 1,000 ML IV SCH ×2 (00:58→12:59)
--- NOTE | 2023-01-10 01:07 | CONS ---
DATE OF CONSULTATION: 01/09/2023 HISTORY OF PRESENT ILLNESS: This is a 77-year-old female patient seen by me in the past. The patient had a right above-knee amputation done in the past. The patient came for followup in the office. Stump site was healing good and the stitches has been removed. The patient came with some medical issues and I was consulted because of her recent above-knee amputation. MEDICAL HISTORY: History of diabetes, hypertension. PHYSICAL EXAMINATION: GENERAL: The patient was seen in her room. The patient is depressed and complaining of some weakness on examination. NECK: Supple. CHEST: Clear to auscultation. First and second sounds normal. ABDOMEN: Soft, nontender. Stump site is clean. No discharge or redness noted. The patient has some mild redness noted with small skin abrasion with possible pressure ulcer at the sacral area. PLAN: We need some barrier cream for the sacral area. Her stump site is clean. No surgical intervention needed. Follow with you. MMODL / IJN: [id number] / [email or web address]
[2023-01-10 07:30] LABS: Glucose,Whole Blood 123 mg/dL (70-110)
[2023-01-10] MEDS: INSULIN ASPART (NovoLOG) 100 UNIT/ML VIAL SQ SCH ×2 (07:31→12:14)
[2023-01-10 08:35] VITALS: BP 130/77; PULSE 74; RESP 18; TEMP 97.9
[2023-01-10] MEDS: METOPROLOL TARTRATE 25 MG TAB PO SCH (09:06)
[2023-01-10] MEDS: CHOLECALCIFEROL 25 MCG (1000 IU) TABLET PO SCH (09:06)
[2023-01-10] MEDS: allopurinoL 100 MG TAB PO SCH (09:06)
[2023-01-10] MEDS: SENNOSIDES-DOCUSATE SODIUM 1 EACH TAB PO SCH (09:06)
[2023-01-10] MEDS: metFORMIN 500 MG TAB PO SCH (09:06)
[2023-01-10] MEDS: TROSPIUM CHLORIDE 20 MG TABLET PO SCH (09:06)
[2023-01-10] MEDS: ASPIRIN 81 MG PO SCH (09:06)
[2023-01-10] MEDS: PANTOPRAZOLE 40 MG TABLET PO SCH (09:07)
[2023-01-10] MEDS: clonazePAM 0.5 MG TAB PO SCH (09:07)
[2023-01-10] MEDS: SODIUM BICARBONATE TAB 650 MG TAB PO SCH (09:07)
[2023-01-10] MEDS: LOSARTAN 50 MG TAB PO SCH (09:07)
[2023-01-10] MEDS: BEMPEDOIC ACID 180 MG PO SCH (09:08)
--- NOTE | 2023-01-10 09:35 | P.PN ---
Subjective Progress Note Date: 01/10/23 No acute overnight events, catheter removed yesterday her postvoid residuals 145 mL. Her urinary incontinence is being managed with pure wick Objective - Vital Signs Vital signs: Vital Signs Temp 97.9 F 01/10/23 07:26 Pulse 74 01/10/23 07:26 Resp 18 01/10/23 07:26 BP 130/77 01/10/23 07:26 Pulse Ox 90 L 01/10/23 07:26 FiO2 Intake & Output 01/09/23 01/10/23 01/10/23 18:59 06:59 18:59 Intake Total 590 Output Total 640 1100 Balance -640 -510 Weight 99.79 kg Intake: Oral 590 Output: Urine 500 1100 Post Void Residual 140 Other: Voiding Method Indwelling Catheter Diaper Diaper External Catheter External Catheter # Voids 2 # Bowel Movements 1 - Constitutional General appearance: Present: no acute distress - Gastrointestinal General gastrointestinal: Present: soft. Absent: distended, tenderness - Psychiatric Psychiatric: Present: A&O x's 3 - Labs CBC & Chem 7: 01/09/23 06:27 01/09/23 06:27 Labs: Abnormal Lab Results - Last 24 Hours (Table) 01/09/23 01/09/23 01/09/23 Range/Units 06:27 11:17 17:24 RBC 4.03 L (4.10-5.20) X 10*6/uL RDW 14.8 H (11.5-14.5) % MPV 12.4 H (9.5-12.2) fL POC Glucose (mg/dL) 138 H 119 H (70-110) mg/dL C-Reactive Protein (<1.0) mg/dL 01/09/23 01/10/23 01/10/23 Range/Units 20:17 06:31 07:29 RBC (4.10-5.20) X 10*6/uL RDW (11.5-14.5) % MPV (9.5-12.2) fL POC Glucose (mg/dL) 114 H 123 H (70-110) mg/dL C-Reactive Protein 2.8 H (<1.0) mg/dL Assessment and Plan Assessment: 77-year-old female history of urinary incontinence on trospium at baseline. Developed postoperative urinary retention 1 month ago. Catheter removed yesterday, able to void with a PVR of 145. Urinary incontinence is currently being managed with a trospium and herve Henriquez for discharge from urology standpoint
--- NOTE | 2023-01-10 10:29 | P.PN ---
Subjective Progress Note Date: 01/10/23 The patient is a 77-year-old female who is seen in neurologic follow- up on January 10, 2023, via teleneurology. The chart has been reviewed. Today, the patient reports continued headache. She says that the pain occurs on the top and front of her head. She currently denies nausea however, states that when she is upright, the headache tends to get worse,she becomes nauseated And dizzy. The patient also describes light sensitivity. The patient reports that these headaches have been going on for approximately one year. She is unable to recall a specific change in medication or other factors, at the onset of these headaches. The patient does report that she has a history of headaches however, not as frequent and as severe as these current headaches. Laboratory evaluation reveals a slightly elevated CRP. Sedimentation rate is normal. CT scan of the brain and carotid Dopplers are normal. Urinalysis is abnormal, with signs of this quite severe infection. Objective - Vital Signs Vital signs: Vital Signs Temp 97.9 F 01/10/23 07:26 Pulse 74 01/10/23 07:26 Resp 18 01/10/23 07:26 BP 130/77 01/10/23 07:26 Pulse Ox 90 L 01/10/23 07:26 FiO2 Intake & Output 01/09/23 01/10/23 01/10/23 18:59 06:59 18:59 Intake Total 590 Output Total 640 1100 Balance -640 -510 Weight 99.79 kg Intake: Oral 590 Output: Urine 500 1100 Post Void Residual 140 Other: Voiding Method Indwelling Catheter Diaper Diaper External Catheter External Catheter # Voids 2 # Bowel Movements 1 - Exam Gen.: The patient is reclining in the bed. She is in no acute distress. HEENT: Head is atraumatic, normocephalic. Fundus not visualized. There is no scleral icterus. Neurological examination Mental status: The patient is awake, alert and oriented 3. She has a very flat affect. Her speech is clear. Cranial nerves: 2-12 grossly intact - Labs CBC & Chem 7: 01/09/23 06:27 01/09/23 06:27 Labs: Abnormal Lab Results - Last 24 Hours (Table) 01/09/23 01/09/23 01/09/23 Range/Units 06:27 11:17 17:24 RBC 4.03 L (4.10-5.20) X 10*6/uL RDW 14.8 H (11.5-14.5) % MPV 12.4 H (9.5-12.2) fL POC Glucose (mg/dL) 138 H 119 H (70-110) mg/dL C-Reactive Protein (<1.0) mg/dL 01/09/23 01/10/23 01/10/23 Range/Units 20:17 06:31 07:29 RBC (4.10-5.20) X 10*6/uL RDW (11.5-14.5) % MPV (9.5-12.2) fL POC Glucose (mg/dL) 114 H 123 H (70-110) mg/dL C-Reactive Protein 2.8 H (<1.0) mg/dL Assessment and Plan Assessment: 1. Chronic tension type headache with migraine features. Temporal arteritis is unlikely in the setting of a normal sedimentation rate and minimally elevated CRP 2. Urinary tract infection-likely this is the etiology of the elevated CRP 3. Severe, major depression Plan: 1. Pt is ok for discharge. Advised to follow up with her neurologist for further treatment of headaches. There are newer migraine medications, that the patient may benefit from, as opposed to Fioricet 2. Continue amitriptyline at bedtime for headache/migraine prophylaxis 3. Continue treatment for UTI Time with Patient: Less than 30 (Spent 25 minutes caring for this patient today including, obtaining history, examining the patient, reviewing chart documentation, labs and imaging)
[2023-01-10 11:59] LABS: Glucose,Whole Blood 91 mg/dL (70-110)
--- NOTE | 2023-01-10 12:54 | DS ---
DISCHARGE SUMMARY FINAL DIAGNOSES: 1. Generalized anxiety disorder. 2. Right above-knee amputation. 3. Intermittent, severe headaches. 4. Diabetes. 5. Chronic decubitus ulcers. 6. Multiple medical issues. DISCHARGE DISPOSITION: The patient will be discharged in stable condition. Guarded prognosis. HISTORY OF PRESENT ILLNESS: This is a 77-year-old woman with a past medical history of multiple medical problems, admitted with depression. The patient was seen by Neurology, Psychiatry, and the patient improved significantly. The patient will be discharged home in stable condition. Guarded prognosis. Creatinine improved to 1.10. DISCHARGE ADVICE AND MEDICATIONS: Diet, cardiac diet. Follow up with primary physician. Follow up with Neurology and Psychiatry as recommended. Continue the rest of home medications and Klonopin b.i.d. Please see the medication reconciliation sheet for list of medications. MMODL / IJN: [id number] /
== END 2023-01-10 13:45 ==
LOC: EC 13:46 → 5NMEDONC 17:25
PROVIDERS: ADMIT Hospitalist; ATTEND Hospitalist
DX: F41.1 Generalized anxiety disorder (principal); R45.851 Suicidal ideations; R51.9 Headache, unspecified; E11.51 Type 2 diabetes mellitus with diabetic peripheral angiopathy without gangrene; Z89.611 Acquired absence of right leg above knee; Z89.432 Acquired absence of left foot; L89.109 Pressure ulcer of unspecified part of back, unspecified stage; E78.00 Pure hypercholesterolemia, unspecified; I10 Essential (primary) hypertension; J45.20 Mild intermittent asthma, uncomplicated; M19.90 Unspecified osteoarthritis, unspecified site; G47.33 Obstructive sleep apnea (adult) (pediatric); E79.0 Hyperuricemia without signs of inflammatory arthritis and tophaceous disease; R33.9 Retention of urine, unspecified; N32.81 Overactive bladder; L30.9 Dermatitis, unspecified; Z87.19 Personal history of other diseases of the digestive system; Z99.3 Dependence on wheelchair; E66.9 Obesity, unspecified; Z68.34 Body mass index [BMI] 34.0-34.9, adult; Z87.891 Personal history of nicotine dependence; Z86.14 Personal history of Methicillin resistant Staphylococcus aureus infection; Z95.5 Presence of coronary angioplasty implant and graft; Z95.1 Presence of aortocoronary bypass graft; Z98.890 Other specified postprocedural states; Z82.3 Family history of stroke; Z80.49 Family history of malignant neoplasm of other genital organs; Z79.84 Long term (current) use of oral hypoglycemic drugs; Z79.899 Other long term (current) drug therapy; Z79.82 Long term (current) use of aspirin; Z88.0 Allergy status to penicillin; Z88.8 Allergy status to other drugs, medicaments and biological substances; Z91.018 Allergy to other foods
CPT/HCPCS: 82075; 96365; 96372; 99285; 36415; 80053; 80048; 85652; 84443; 85025 ×2; 86140; 81001; 80306; 80143; 80179; 93880; 70450; G0378 ×3; G0480; J2060; J0696; 80320